=== PATIENT | female | born 1965 | race African-American/Black ===

== ENCOUNTER 2016-10-17 11:07 | Day surgery (SDC) | payer MEDICARE, OTHER ==
--- NOTE | 2016-10-16 17:45 | PDOC1 ---
History and Physical Date of Admission Date of Admission DATE: 10/17/16 Identification/Chief Complaint Chief Complaint left knee pain Source Source: Chart review History of Present Illness History of Present Illness Sonia continues to have left knee pain. She has been treated nonoperatively for this since November 2015. with injections and physical therapy, without relief. She has had a couple of falls that required evaluation of the hospital, such as in November 2015, but she thinks this was related to her blood pressure medication. The pain is worse when walking on uneven ground or going up and downstairs. She had a left knee MRI on 09/19/16 which showed degenerative medial meniscus, a loose body, a medial femoral condyle cartilage defect, and patella chondromalacia. Past Medical History Cardiovascular: HTN, Hyperlipidemia Pulmonary: Asthma CENTRAL NERVOUS SYSTEM: Periperal neuropathy GI: GERD Heme/Onc: Iron deficiency Anemia Hepatobiliary: No pertinent hx Psych: No pertinent hx Rheumatologic: No pertinent hx Infectious disease: No pertinent hx Renal/: Chronic renal failure (requiring hemodialysis ) Endocrine: Diabetes Past Surgical History Past Surgical History: Cholecystectomy, Cataract Removal, Hysterectomy Family History Family History: Asthma, Cancer, Coronary Artery Disease, Diabetes, Hypertension , Other Social History ALCOHOL: none Drugs: None Current Medications Current Medications Current Medications Ondansetron HCl (Zofran) 4 mg PRN Q6HRS PRN IV Nausea; Start 10/17/16 at 07:00; Stop 10/18/16 at 06:59 Fentanyl Citrate (Fentanyl 2ml Vial) 25 mcg PRN Q5MIN PRN IV MILD PAIN; Start 10/17/16 at 07:00; Stop 10/18/16 at 06:59 Fentanyl Citrate 50 mcg 50 mcg PRN Q5MIN PRN IV MODERATE PAIN; Start 10/17/16 at 07:00; Stop 10/18/16 at 06:59 Lactated Ringer's (Iv Lactated Ringers) 1,000 ml @ 0 mls/hr Q0M IV ; Start 10/17 at 07:00; Stop 10/17/16 at 18:59 Lidocaine HCl 2 ml 1X PRN PRN ID IV START; Start 10/17/16 at 07:00; Stop at 06:59 Prochlorperazine Edisylate (Compazine) 5 mg PACU PRN PRN IV NAUSEA; Start at 07:00; Stop 10/18/16 at 06:59 Active Scripts Active Aranesp Syringe (Darbepoetin [place] In Polysorbat) 100 Mcg/0.5 Ml Disp.syrin 100 Mcg SQ WEEKLYHS Colace (Docusate Sodium) 100 Mg Capsule 100 Mg PO BID Duoneb 0.5-3(2.5) Mg/3 Ml (Albuterol/Ipratropium) 3 Ml Ampul.neb 3 Ml NEB RTQID Mapap (Acetaminophen) 325 Mg Tablet 650 Mg PO PRN Q6HRS PRN Lipitor (Atorvastatin Calcium) 40 Mg Tablet 40 Mg PO QHS Protonix (Pantoprazole Sodium) 40 Mg Tablet 40 Mg PO DAILYAC Reported Midodrine Hcl 2.5 Mg Tablet 2.5 Mg PO WEEKLY Damaris-Tiffanie Tablet (Folic Acid/Vitamin B Comp W-C) 0.8 Mg Tablet 0.8 Mg PO DAILY Damaris-Tiffanie Tablet (Folic Acid/Vitamin B Comp W-C) 0.8 Mg Tablet 0.8 Mg PO DAILY Lantus (Insulin Glargine,Hum.rec.anlog) 100 Unit/1 Ml Vial 45 Unit SQ BID Amitriptyline Hcl 25 Mg Tablet 25 Mg PO DAILY Ambien (Zolpidem Tartrate) 10 Mg Tablet 10 Mg PO HS PRN Novolog (Insulin Aspart) 100 Unit/1 Ml Cartridge 10 Unit SQ TIDAC 10-15 per sliding scale Albuterol Sulfate Neb Soln (Albuterol Sulfate) 2.5 Mg/3 Ml Vial.neb 2.5 Mg NEB PRN Q2HRS PRN Gabapentin 300 Mg Capsule 600 Mg PO BID Children's Aspirin (Aspirin) 81 Mg Tab.chew 81 Mg PO DAILY Lisinopril 40 Mg Tablet 40 Mg PO DAILY Allergies Allergies: Coded Allergies: aloe vera (Verified Allergy, Severe, Shortness of Air, 12/03/14) morphine (Verified Allergy, Severe, Hives, 12/01/14) HALLUCINATIONS, SEE SPOTS, ASTHMA FLARES [place] And Derivatives (Verified Allergy, Intermediate, 12/01/14) Sulfa (Sulfonamide Antibiotics) (Verified Allergy, Intermediate, Hives, ) adhesive (Verified Allergy, Intermediate, 09/19/15) codeine (Verified Adverse Reaction, Severe, Hives, 11/24/14) HALLUCINATIONS, SEE SPOTS ibuprofen (Verified Adverse Reaction, Severe, Shortness of Air, 11/24/14) naproxen (Verified Adverse Reaction, Severe, Shortness of Air, 11/24/14) oxycodone (Verified Adverse Reaction, Severe, Shortness of Air, 11/24/14) HALLUCINATIONS, HIVES, SEE SPOTS tramadol (Verified Adverse Reaction, Severe, Shortness of Air, 11/24/14) HALLUCINATIONS, HIVES, SEE SPOTS hydromorphone (Verified Adverse Reaction, Intermediate, 09/19/15) Physical Exam General: Alert, Oriented X3, Cooperative, No acute distress HEENT: Atraumatic Lungs: Normal air movement Heart: RRR Abdomen: Soft Extremities: No clubbing, No cyanosis, Normal pulses Skin: No rashes, No breakdown, No significant lesion Neuro: Normal speech, Sensation intact Psych/Mental Status: Mental status NL, Mood NL VTE Prophylaxis Ordered VTE Prophylaxis Devices: Yes VTE Pharmacological Prophylaxi: Yes Assessment/Plan Assessment/Plan Left knee loose body. Dr. Wright recommended arthroscopic loose body removal. We will assess her medial meniscus for possible tear, and we will do a basic chondroplasty and cleanup of her knee, such as the medial femoral condyle defect seen on the MRI. That defect is probably from the loose body although it could be from other sources. She has only minimal degenerative changes now, so an arthroscopic procedure should relieve the majority of her symptoms. We discussed potential risks of arthroscopic surgery, including risks of bleeding, infection, progressive arthritis, blood clots, or other potential surgical or anesthetic complications. All of the patient's questions were answered and they desire to proceed with surgery. She stated understanding of the risks benefits and alternatives and desires to proceed. JOLLY NANCE Oct 16, 2016 17:45
[~2016-10-17] VITALS: Ht 160 cm; Wt 104.3 kg
[~2016-10-17 11:07] MED LIST: ACET325T16 PO; ALBU2.5V5 NEB; AMIT25TA PO; AMLO10TA2 PO; ASPI81TA44 PO; ATOR40TA PO; Albuterol Sulfate NEB; BENZ100C2 PO; BUME1TAB PO; BUPIVACAINE-EPI 0.25%-1:200000 50 ML VIAL. ONE; CARV6.25 PO; CEFAZOLIN 2GM PREMIX 50 ML IV ONE; DARB100D SQ; DOCU-27 PO; EPINEPHRINE 30 MG/30 ML VIAL. ONE; ERYT250T16 PO; Erythromycin Base PO; FENTANYL PF 100 MCG/2 ML VIAL. IV PRN; FERR142T5 PO; FLUC150T PO; FLUT1DIS3 INH; FOLI0.8T21 PO; FURO-69 PO; GABA-586 PO; GABA-587 PO; HYDR-2868 PO; HYDR-2869 PO; Hydralazine Hcl PO; INSU100C4 SQ; INSU100I13 SQ; INSU100I17 SQ; INSU100V13 SQ; INSU100V31 SQ; INSU100V8 SQ; IPRA3AMP NEB; ISOS30TA4 PO; IV RINGERS,LACTATED 1000ML 1,000 ML IV SCH; LIDOCAINE 1% 1 ML SYRINGE. ID PRN; LISI40TA PO; LOSA25TA4 PO; Lactulose PO; METO25TA4 PO; METO5TAB4 PO; MIDO2.5T PO; ONDA4TAB7 PO; ONDANSETRON PF 4 MG/2 ML VIAL. IV PRN; PANT40TA3 PO; POLY17PO5 PO; POTA20TA84 PO; PROCHLORPERAZINE 10 MG/2 ML VIAL. IV PRN; ZOLP10TA PO
[2016-10-17] MEDS ORDERED: ONDANSETRON PF 4 MG/2 ML VIAL. ONE (11:18)
[2016-10-17] MEDS ORDERED: FENTANYL PF 250 MCG/5 ML VIAL. ONE (11:18)
[2016-10-17] MEDS ORDERED: LIDOCAINE 2% 100 MG/5 ML DISP.SYRIN. ONE (11:18)
[2016-10-17] MEDS ORDERED: MIDAZOLAM HCL 2 MG/2 ML VIAL. ONE (11:18)
[2016-10-17] MEDS ORDERED: DEXAMETHASONE SOD PHOS 20 MG/5 ML VIAL. ONE (11:18)
[2016-10-17] MEDS ORDERED: PROPOFOL 20 ML IV ONE (11:18)
[2016-10-17 12:15] LABS: CREATININE 2.9 mg/dL (0.6-1.0); GFR 20.6; POTASSIUM 3.9 mmol/L (3.5-5.1)
[2016-10-17] MEDS ORDERED: IV NORMAL SALINE 1000ML BAG 1,000 ML IV SCH (12:15)
[2016-10-17] MEDS ORDERED: EPHEDRINE SULFATE 50 MG/ML VIAL. ONE (14:07)
--- NOTE | 2016-10-17 14:59 | PDOC ---
BRIEF OPERATIVE NOTE Date: Oct 17, 2016 Pre-Op Diagnosis left knee loose body Post-Op Diagnosis left knee loose body Procedure Performed left knee loose body arthroscopic removal Surgeon shima sims Anesthesia Type: General Blood Loss 5 mL Specimens Obtained loose body Findings left knee loose body Complications none Additional Remarks tourniquet 29 minutes dictated DEIDRA GUTHRIE MD Oct 17, 2016 14:59
[2016-10-17] MEDS: FENTANYL PF 100 MCG/2 ML VIAL. IV PRN ×2 (15:11→15:30)
[2016-10-17] MEDS ORDERED: HYDR-2679 PO (15:19)
[2016-10-17] MEDS ORDERED: ASPI325T11 PO (15:24)
[2016-10-17] MEDS ORDERED: HYDROCODONE/APAP 7.5/325MG TABLET. ONE (15:27)
[2016-10-17] MEDS ORDERED: HYDROCODONE/APAP 7.5/325MG TABLET. PO ONE (15:30)
[2016-10-17 16:10] VITALS: BP 171/82
--- NOTE | 2016-10-17 16:54 | OP ---
DATE OF SURGERY: 10/17/2016 PREOPERATIVE DIAGNOSIS: Left knee loose body. POSTOPERATIVE DIAGNOSIS: Left knee loose body. PROCEDURE: Left knee arthroscopy with loose body removal, 30 mm in length (3 cm). SURGEON: Triston Wright MD PHARM SPEC: Sulema Morales PA-C. ANESTHESIA: General. ESTIMATED BLOOD LOSS: Minimal. TOURNIQUET TIME: Approximately 30 minutes. COMPLICATIONS: None. SPECIMENS: Loose body. DRAINS: None. INDICATIONS: The patient is a 50-year-old woman who had an injury to her knee in November. She has had pain and mechanical symptoms since then. X-rays and MRI show what appears to be a bony loose body in the front of the knee joint approximately 29-30 mm in length. She has some cartilage loss on the medial femoral condyle, but no apparent meniscal tears. She has tried nonoperative treatment without success including a cortisone injection. She and I talked about arthroscopic loose body removal. We talked about potential risks of surgery such as bleeding, infection, neurovascular injury, persistent symptoms, blood clots, or other potential surgical or anesthetic complications. All of her questions about surgery were answered and she desired to proceed. Written consent was obtained. DESCRIPTION OF PROCEDURE: The patient was identified in the preoperative holding area. The correct left knee was marked by me. She was taken to the operating room where a general anesthetic was used. Preoperative antibiotics were given intravenously. A timeout procedure was performed. The right leg was placed in a padded lithotomy leg stephens. The left leg had a tourniquet applied on the upper thigh and was placed in a thigh brace with the end of the bed flexed. A timeout procedure was performed. The limb was prepped sterilely and sterile drapes were applied. Local anesthetic with epinephrine, 20 mL of 0.25% Marcaine with epinephrine was injected into the knee joint. The limb was exsanguinated with an Esmarch bandage and the tourniquet was inflated to 350 mmHg. Lateral and medial arthroscopy portals were established. The medial joint line showed chondromalacia [place] grade 3 and a shaving chondroplasty was performed. The medial meniscus was intact and not torn and was stable to probing. The intercondylar notch showed the large osteocartilaginous loose body approximately 3 cm in diameter. The ACL and PCL were intact. The lateral joint line showed normal articular surfaces and normal lateral meniscus. The patellofemoral joint showed chondromalacia [place] grade 2 or 3 with central trochlear defect about 5 mm wide and 10-12 mm in length. Shaving chondroplasty was performed minimally. The suprapatellar pouch, medial and lateral gutters were free of additional loose bodies. The intercondylar notch loose body was now addressed further. Shaving was used to free it up where it had scarred into the synovium. The loose body was now removed. This required an enlarged lateral portal, and the loose body was now taken to the back table. It was measured with a ruler and a photograph of it was taken. It has an unusual, soft, rubbery composition with a central bony aspect. Copious irrigation was used. The shaver again was used for careful shaving debridement to make sure all the bony fragments were removed. I had Sulema irrigate the knee a final time and then she removed the arthroscopic instruments. She closed the portals with 3-0 Prolene interrupted sutures. Additional local anesthetic with epinephrine was injected. Xeroform and sterile dressings were applied. Needle and sponge counts were correct. There were no apparent complications. Triston Wright MD DR: SAVANNAH/lottie JOB#: [id number] / [id number] SHANTI
--- NOTE | 2016-10-21 13:09 | PATHOLOGY ---
PATHOLOGY REPORT * * * * * * * * FINAL DIAGNOSIS: Segment of bone and fibroadipose tissue, left knee: - Loose body comprised of bone and fibroadipose tissue showing fat necrosis, calcification, and focal chronic inflammation. (JPM:all; d/t: 10/21/2016) REPORT ELECTRONICALLY SIGNED BY: Mo Dominguez M.D. DATE/TIME: 10/21/2016 13:03 * * * * * * * * GROSS PATHOLOGY: The specimen is received in formalin labeled "Uriel Craig, loose body left knee". Received is a segment of partially calcified white-golden fibrous soft tissue measuring 3.1 x 1.7 x 1.2 cm in greatest dimensions. The specimen is submitted representatively in cassette A1, following light decalcification. (CAA; 10/20/2016) INITIAL CPT CODE(S): A; 94399, 61794 Professional services performed [place] [facility] [place] [address] Technical services performed by [facility] at [address] [place] [address], [facility] [address] [address]. SPECIMEN(S) RECEIVED: A.Loose body left knee CLINICAL HISTORY: Left knee loose body PATIENT: URIEL CRAIG /AGE: 2 1965 (Age: 50) PATIENT #: [id number] ALT CASE #: SPECIMEN COLLECTION DATE: 10/17/2016 SPECIMEN RECEIVED DATE: 10/20/2016 [facility] - [address] [place] [address] - PHONE: [phone] * * * END OF REPORT * * *
== END 2016-10-17 16:34 | disposition home or self-care (01) ==
LOC: SURG 11:07
PROVIDERS: ATTEND Orthopaedic Surgery
DX: M23.42 Loose body in knee, left knee (principal); E78.5 Hyperlipidemia, unspecified; J45.909 Unspecified asthma, uncomplicated; G62.9 Polyneuropathy, unspecified; K21.9 Gastro-esophageal reflux disease without esophagitis; Z90.710 Acquired absence of both cervix and uterus; Z90.49 Acquired absence of other specified parts of digestive tract; I12.0 Hypertensive chronic kidney disease with stage 5 chronic kidney disease or end stage renal disease; Z99.2 Dependence on renal dialysis; E11.22 Type 2 diabetes mellitus with diabetic chronic kidney disease; N18.9 Chronic kidney disease, unspecified; E66.9 Obesity, unspecified; D64.9 Anemia, unspecified
CPT/HCPCS: 29874; 36415; 80048; 82947; 88304; 88311; J0171; J0690; J0780; J1100; J2250; J2405; J2704; J3010

== ENCOUNTER 2016-10-31 12:17 | Emergency (ER) | payer MEDICARE, OTHER ==
[~2016-10-31] VITALS: Ht 162.6 cm; Wt 104.3 kg
[~2016-10-31 12:17] MED LIST changes: +ASPI325T11 PO; -BUPIVACAINE-EPI 0.25%-1:200000 50 ML VIAL. ONE; -CEFAZOLIN 2GM PREMIX 50 ML IV ONE; -EPINEPHRINE 30 MG/30 ML VIAL. ONE; -FENTANYL PF 100 MCG/2 ML VIAL. IV PRN; +HYDR-2679 PO; -IV RINGERS,LACTATED 1000ML 1,000 ML IV SCH; -LIDOCAINE 1% 1 ML SYRINGE. ID PRN; -ONDANSETRON PF 4 MG/2 ML VIAL. IV PRN; -PROCHLORPERAZINE 10 MG/2 ML VIAL. IV PRN
[2016-10-31] MEDS ORDERED: ONDANSETRON PF 4 MG/2 ML VIAL. IV ONE (15:00)
[2016-10-31] MEDS ORDERED: FENTANYL PF 100 MCG/2 ML VIAL. IV ONE (15:00)
[2016-10-31 15:32] LABS: CALCIUM 9.3 mg/dL (8.5-10.1); CREATININE 3.5 mg/dL (0.6-1.0); GFR 16.6; POTASSIUM 5.9 mmol/L (3.5-5.1)
--- NOTE | 2016-10-31 15:45 | PHYS DOC ---
Past Medical History Past Medical History: Asthma, CHF, Diabetes-Type II, High Cholesterol, Hypertension, Renal Failure, Other Additional Past Medical Histor: ASTHMA, HTN, HIGH CHOL., DM II Past Surgical History: Other Additional Past Surgical Histo: BIOPSY RT BREAST, RT CHEST SHUNT PLACE AND REMOV, AV FISTULA LEFT ARM Alcohol Use: None Drug Use: None Adult General Chief Complaint Chief Complaint: CONTISPATION [facility] HPI Patient is a 50 year old female with chronic intermittent constipation who presents with constipation for the past 4 days. She states she is currently taking pain medications for recent knee surgery and has tried stool softeners, but cannot have bowel movement. She has tried manual disimpaction with soft stool present. She now has left lower quadrant abdominal pain as well as rectal pain after multiple attempts at straining. She states when she gets like this, only enemas help. She has mild nausea, without emesis. She denies dysuria, hematuria, back pain, fever or chills, pain with eating, rectal bleeding, bloody stools. Review of Systems Review of Systems Constitutional: Denies fever or chills [] Eyes: Denies change in visual acuity, redness, or eye pain [] HENT: Denies nasal congestion or sore throat [] Respiratory: Denies cough or shortness of breath [] Cardiovascular: No additional information not addressed in HPI [] GI: Denies vomiting, bloody stools or diarrhea [] : Denies dysuria or hematuria [] Musculoskeletal: Denies back pain or joint pain [] Integument: Denies rash or skin lesions [] Neurologic: Denies headache, focal weakness or sensory changes [] Endocrine: Denies polyuria or polydipsia [] Current Medications Current Medications Current Medications Medications (Trade) Dose Ordered Sig/[facility] Start Time Stop Time Status Last Admin Dose Admin Fentanyl Citrate (Fentanyl 2ml Vial) 75 mcg 1X ONCE 10/31/16 15:00 10/31/16 15:01 DC 10/31/16 16:05 75 MCG Ondansetron HCl (Zofran) 4 mg 1X ONCE 10/31/16 15:00 10/31/16 15:01 DC 10/31/16 16:04 4 MG Allergies Allergies Allergies Coded Allergies Type Severity Reaction Last Updated Verified aloe vera Allergy Severe Shortness of Air 10/17/16 Yes morphine Allergy Severe Hives 10/17/16 Yes [place] And Derivatives Allergy Intermediate 10/17/16 Yes Sulfa (Sulfonamide Antibiotics) Allergy Intermediate Hives 10/17/16 Yes adhesive Allergy Intermediate 10/17/16 Yes codeine Adverse Reaction Severe Hives 10/17/16 Yes ibuprofen Adverse Reaction Severe Shortness of Air 10/17/16 Yes naproxen Adverse Reaction Severe Shortness of Air 10/17/16 Yes oxycodone Adverse Reaction Severe Shortness of Air 10/17/16 Yes tramadol Adverse Reaction Severe Shortness of Air 10/17/16 Yes hydromorphone Adverse Reaction Intermediate 10/17/16 Yes Physical Exam Physical Exam Constitutional: Well developed, well nourished, no acute distress, non-toxic appearance. [] HENT: Normocephalic, atraumatic, bilateral external ears normal, oropharynx moist, nose normal. [] Eyes: PERRLA, EOMI. [] Neck: Normal range of motion, supple. [] Cardiovascular:Heart rate regular rhythm [] Lungs & Thorax: Bilateral breath sounds clear to auscultation [] Abdomen: Bowel sounds normal, soft, mild left lower quadrant tenderness, no guarding or rebound, soft brown stool is present in the vault. [] Skin: Warm, dry, no erythema, no rash. [] Back: No tenderness, no CVA tenderness. [] Extremities: No tenderness, ROM intact, no edema. [] Neurologic: Alert and oriented X 3, normal motor function, normal sensory function, no focal deficits noted. [] Psychologic: Affect normal, judgement normal, mood normal. [] Current Patient Data Vital Signs Vital Signs Date Time Temp Pulse Resp B/P Pulse Ox O2 Delivery O2 Flow Rate FiO2 10/31/16 17:37 92 18 208/99 100 Room Air 10/31/16 17:34 2 10/31/16 14:03 98.1 98.1 Lab Values Laboratory Tests Test 10/31/16 15:10 Sodium Level 140mmol/L (136-145) Potassium Level 5.9mmol/L (3.5-5.1) H Chloride Level 103mmol/L (98-107) Carbon Dioxide Level 28mmol/L (21-32) Anion Gap 9 (6-14) Blood Urea Nitrogen 38mg/dL (7-20) H Creatinine 3.5mg/dL (0.6-1.0) H Estimated GFR (Cockcroft-Gault) 16.6 Glucose Level 267mg/dL (70-99) H Calcium Level 9.3mg/dL (8.5-10.1) Laboratory Tests 10/31/16 15:10 Radiology/Procedures Radiology/Procedures Acute abdominal series as interpreted by me with nonobstructive bowel gas pattern, large amount of stool present, no acute cardiopulmonary disease process seen Course & Med Decision Making Course & Med Decision Making Pertinent Labs and Imaging studies reviewed. (See chart for details) Workup is unremarkable here other than mild hyperkalemia. She will go to dialysis for this. She has large bowel movement and felt much better after enema. Return precautions given. She understands and agrees with plan. Dragon Disclaimer Dragon Disclaimer This electronic medical record was generated, in whole or in part, using a voice recognition dictation system. Departure Departure Impression: Primary Impression: Constipation Additional Impression: Abdominal pain Disposition: HOME, SELF-CARE Condition: STABLE Referrals: YAMILKA MENDEZ MD (PCP) Patient Instructions: Constipation, Adult, [id number] Additional Instructions: Take MiraLAX 1-2 times daily as needed for constipation. Take Colace 2 times per day to help soften stools and prevent constipation. Follow-up with your primary care doctor. Return for any concerns. Scripts Docusate Sodium (Colace)100 Mg Capsule1 Cap PO BID #60 CAP Prov:Joel JUAREZ MD 10/31/16 Polyethylene Glycol 3350 (Miralax)119 Gm [id number] Gm PO DAILY #255 GM Prov:Joel JUAREZ MD 10/31/16 Problem Qualifiers Primary Impression: Constipation Constipation type: unspecified constipation type Qualified Code: K59.00 - Constipation, unspecified Additional Impression: Abdominal pain Abdominal location: left lower quadrant Qualified Code: R10.32 - Left lower quadrant pain Joel JUAREZ MD Oct 31, 2016 15:45
--- NOTE | 2016-10-31 16:08 | RAD ---
Supine and upright views of the abdomen with PA view chest x-ray History: Lower abdominal pain and constipation for 3 days. Findings: There is moderate fecal retention within the rectum. There is mild fecal retention within the rest of the colon. No obstructive bowel pattern is seen otherwise. No air-fluid levels or free intraperitoneal air is seen. Surgical clips are seen within the right mid abdomen. Vascular calcifications are present. Chest x-ray is compared to a prior study dated May 03, 2005. The heart size is mildly enlarged but stable. The mediastinum and pulmonary vasculature and both darren are stable. No acute lung infiltrate or pleural effusion or pulmonary edema or pneumothorax is seen. IMPRESSION: Moderate fecal retention within the rectum.
[2016-10-31] MEDS ORDERED: DOCU-27 PO (17:22)
[2016-10-31] MEDS ORDERED: POLY119P4 PO (17:22)
[2016-10-31 17:37] VITALS: BP 208/99
== END 2016-10-31 18:00 | disposition home or self-care (01) ==
LOC: ER 12:17
DX: K59.00 Constipation, unspecified (principal); J45.909 Unspecified asthma, uncomplicated; E11.22 Type 2 diabetes mellitus with diabetic chronic kidney disease; I12.9 Hypertensive chronic kidney disease with stage 1 through stage 4 chronic kidney disease, or unspecified chronic kidney disease; E78.00 Pure hypercholesterolemia, unspecified; I13.0 Hypertensive heart and chronic kidney disease with heart failure and stage 1 through stage 4 chronic kidney disease, or unspecified chronic kidney disease; I50.9 Heart failure, unspecified; N18.9 Chronic kidney disease, unspecified; Z88.2 Allergy status to sulfonamides; Z88.6 Allergy status to analgesic agent; Z88.5 Allergy status to narcotic agent; Z91.018 Allergy to other foods; Z91.048 Other nonmedicinal substance allergy status
CPT/HCPCS: 36415; 74022; 80048; 96374; 96375; 99285; J2405; J3010

== ENCOUNTER → 2016-12-10 | Outpatient (CLI) | payer MEDICARE, OTHER ==
[~2016-12-10] MED LIST changes: +POLY119P4 PO
--- NOTE | 2016-12-10 10:23 | KCIC ---
PROCEDURE MRI study of the right shoulder without contrast HISTORY Right shoulder pain. Pain has been present for 2 months. Decreased range of motion. Weakness. TECHNIQUE Noncontrast MRI sequences of the right shoulder were performed in all 3 planes. COMPARISON None available. FINDINGS Patient motion artifact is evident. There is diffuse increased signal of the supraspinatus tendon consistent with tendinosis. There is a partial articular surface tear of the supraspinatus tendon which extends through at least 50 percent of the thickness of the tendon. There is tendinosis of the lateral aspect of the infraspinatus tendon as well. A partial articular surface tear may be present here as well. These findings may be further evaluated with MRI arthrography if clinically needed. Otherwise no complete tear of this portion of the rotator cuff is evident. There is tendinosis of the subscapularis tendon but no complete tear of this tendon is seen. The tendon of the long head of the biceps is intact. Mild subdeltoid and subacromial bursitis is seen. There is mild primary degenerative osteoarthritis and spurring of the right AC joint. Type 3 acromial process is seen. There is mild spurring of the lateral inferior edge of the acromial process. These findings may impinge the acromial humeral space. No bone contusion or fracture or marrow infiltrative process is seen. There is degenerative signal abnormality of the superior and posterior aspects of the glenoid labrum. Evaluation for degenerative tear is difficult on this study but no definite tear is visualized. No paralabral or spinoglenoid notch ganglion cyst is seen. Small glenoid humeral joint effusion is seen. The articular cartilage of the humeral head is not well defined in this study. No prominent spurring of the glenohumeral joint is seen. No loose osteochondral body is seen. IMPRESSION Tendinosis and partial articular surface tears of the supraspinatus and infraspinatus tendons. No complete rotator cuff tear is evident. Mild subdeltoid and subacromial bursitis. Impingement of the acromial humeral space. Electronically signed by: Aaron Mcgraw MD (Dec 10, 2016 10:21:37)
== END | disposition home or self-care (01) ==
LOC: KCIC MRI 08:39
PROVIDERS: ATTEND Orthopaedic Surgery
DX: M25.511 Pain in right shoulder (principal)
CPT/HCPCS: 73221

== ENCOUNTER → 2017-04-07 | Outpatient (CLI) | payer MEDICARE, OTHER ==
[~2017-04-07] MED LIST changes: +BENZ100C15 PO; -BENZ100C2 PO; +DOCU-109 PO; -DOCU-27 PO; -FERR142T5 PO; +POLY17PO29 PO; -POLY17PO5 PO; +SLOW RELEASE I142 MG PO
--- NOTE | 2017-04-07 13:38 | KCIC ---
Five-view cervical spine HISTORY: Neck pain extending into the right shoulder. Fell downstairs 5 days ago. FINDINGS: C1 through most of C7 are visualized on the lateral view. Mild marginal degenerative osteophytes are identified. Disc spaces are otherwise grossly intact. No significant subluxation. Straightening of the normal cervical lordosis. Vertebral body alignment through C7-T1 appears grossly maintained on swimmer's view. The prevertebral soft tissues are poorly defined. IMPRESSION: Mild degenerative changes. No definite acute abnormality. Poor definition of the prevertebral soft tissues. Consider MRI cervical spine for further evaluation as indicated. Electronically signed by: Lei Lopez MD (04/07/2017 1:35 PM)
== END | disposition home or self-care (01) ==
LOC: KCIC 12:00
PROVIDERS: ATTEND Family Medicine
DX: M47.892 Other spondylosis, cervical region (principal); W10.9XXA Fall (on) (from) unspecified stairs and steps, initial encounter
CPT/HCPCS: 72040

== ENCOUNTER → 2017-04-24 | Outpatient (CLI) | payer MEDICARE, OTHER ==
--- NOTE | 2017-04-26 17:31 | CARD ---
APPROVED REPORT EXAM: Two-dimensional and M-mode echocardiogram with Doppler and color Doppler. Other Information Quality : GoodHR: 82bpm Rhythm : NSR INDICATION Cardiomyopathy RISK FACTORS Hypertension Obesity Diabetes 2D DIMENSIONS RVDd2.4 (2.9-3.5cm)Left Atrium(2D)3.8 (1.6-4.0cm) IVSd1.2 (0.7-1.1cm)Aortic Root(2D)3.0 (2.0-3.7cm) LVDd4.9 (3.9-5.9cm)LVOT Diameter2.3 (1.8-2.4cm) PWd1.2 (0.7-1.1cm)LVDs3.9 (2.5-4.0cm) FS (%) 20.4 %SV48.0 ml LVEF(%)41.6 (>50%) M-Mode DIMENSIONS LVDd4.65 (4.0-5.6cm)FS (%) 25 % LVDs3.47 (2.0-3.8cm)ESV(Teich)49.8 ml LVEF(%)50 (>50%) Aortic Valve AoV Peak Cezar.133.4cm/sAoV VTI26.8cm AO Peak GR.7.1mmHgLVOT Peak Cezar.87.3cm/s AO Mean GR.5mmHgAVA (VMAX)2.60cm2 Mitral Valve MV E Actsuhnd30.1cm/sMV E Peak Gr.2mmHg MV DECEL [id number] A Ijpafoew97.1cm/s MV E Mean Gr.1mmHgE/A Ratio0.8 MV A [id number] Pulmonary Valve PV Peak Imxfeclx454.3cm/s Pulmonary Vein S1 Wxkiavia40.0cm/sD2 Pfgcyoge02.0cm/s PVa [id number] LEFT VENTRICLE The left ventricle is normal size. There is mild concentric left ventricular hypertrophy. Left ventri trini systolic function is mild to moderately impaired. The Ejection Fraction is 40%. There is mild to moderate global hypokinesis of the left ventricle. Transmitral Doppler flow pattern is Grade I-abnorm al relaxation pattern. No left ventricle thrombus noted on this study. RIGHT VENTRICLE The right ventricle is normal size. There is normal right ventricular wall thickness. The right ventr icular systolic function is normal. ATRIA The left atrium size is normal. The right atrium size is normal. The interatrial septum is intact wit h no evidence for an atrial septal defect or patent foramen ovale as noted on 2-D or Doppler imaging. AORTIC VALVE The aortic valve is mildly thickened. The aortic valve is trileaflet. Doppler and Color Flow revealed no significant aortic regurgitation. There is no significant aortic valvular stenosis. MITRAL VALVE The mitral valve leaflets are mildy thickened. There is no evidence of mitral valve prolapse. There i s no mitral valve stenosis. Doppler and Color Flow revealed no mitral valve regurgitation noted. TRICUSPID VALVE Doppler and Color Flow revealed trace tricuspid valve regurgitation. PULMONIC VALVE The pulmonary valve is not well visualized but appears to opens well. Doppler and Color Flow revealed pulmonic valvular regurgitation. There is no pulmonic valvular stenosis by spectral Doppler. GREAT VESSELS The aortic root is normal in size. The ascending aorta is normal in size. The pulmonary artery is nor mal. The IVC is normal in size and collapses >50% with inspiration. PERICARDIAL EFFUSION There is no evidence of significant pericardial effusion. Critical Notification Critical Value: No <Conclusion> Left ventricle systolic function is mild to moderately impaired. The Ejection Fraction is 40%. Transmitral Doppler flow pattern is Grade I-abnormal relaxation pattern. Trace tricuspid valve regurgitation. There is no evidence of significant pericardial effusion.
== END | disposition home or self-care (01) ==
LOC: ECHO 09:00
PROVIDERS: ATTEND Internal Medicine Cardiovascular Disease
DX: I07.1 Rheumatic tricuspid insufficiency (principal)
CPT/HCPCS: 93306

== ENCOUNTER 2017-05-14 18:53 | Emergency (ER) | payer MEDICARE, OTHER ==
[~2017-05-14] VITALS: Ht 160 cm; Wt 104.3 kg
--- NOTE | 2017-05-14 19:25 | PHYS DOC ---
Past Medical History Past Medical History: Asthma, CHF, Diabetes-Type II, High Cholesterol, Hypertension, Renal Failure, Other Additional Past Medical Histor: ASTHMA, HTN, HIGH CHOL., DM II Past Surgical History: Other Additional Past Surgical Histo: BIOPSY RT BREAST, RT CHEST SHUNT PLACE AND REMOV, AV FISTULA LEFT ARM Alcohol Use: None Drug Use: None Adult General Chief Complaint Chief Complaint: Congestion HPI HPI Patient is a 51 year old female sent to the emergency department with 2 day history of cough. Shortness of breath, positional. Denies lower extremity edema. Denies chest pain. Denies headache, nausea, vomiting.. Review of Systems Review of Systems Constitutional: Denies fever or chills [] Eyes: Denies change in visual acuity, redness, or eye pain [] HENT: Denies nasal congestion or sore throat [] Respiratory: Cough with his additional shortness of breath. Cardiovascular: Chest pain, no lower extremity edema, no calf tenderness GI: Denies abdominal pain, nausea, vomiting, bloody stools or diarrhea [] : Denies dysuria or hematuria [] Musculoskeletal: Denies back pain or joint pain, denies lower shimmy pain [] Integument: Denies rash or skin lesions [] Neurologic: Denies headache, focal weakness or sensory changes [] Endocrine: Denies polyuria or polydipsia [] Current Medications Current Medications Current Medications Medications (Trade) Dose Ordered Sig/[place] Start Time Stop Time Status Last Admin Dose Admin Acetaminophen (Tylenol) 1,000 mg 1X ONCE 05/14/17 21:00 05/14/17 21:01 DC 05/14/17 20:58 1,000 MG Albuterol/ Ipratropium (Duoneb) 3 ml 1X ONCE 05/14/17 19:30 05/14/17 19:31 DC 05/14/17 20:27 3 ML Hydralazine HCl (Apresoline) 10 mg 1X ONCE 05/14/17 19:45 05/14/17 19:46 DC Insulin Human Regular (NovoLIN R VIAL) 10 unit 1X ONCE 05/14/17 21:00 05/14/17 21:01 DC 05/14/17 21:00 10 UNIT Allergies Allergies Allergies Coded Allergies Type Severity Reaction Last Updated Verified aloe vera Allergy Severe Shortness of Air 10/17/16 Yes morphine Allergy Severe Hives 10/17/16 Yes [place] And Derivatives Allergy Intermediate 10/17/16 Yes Sulfa (Sulfonamide Antibiotics) Allergy Intermediate Hives 10/17/16 Yes adhesive Allergy Intermediate 10/17/16 Yes codeine Adverse Reaction Severe Hives 10/17/16 Yes ibuprofen Adverse Reaction Severe Shortness of Air 10/17/16 Yes naproxen Adverse Reaction Severe Shortness of Air 10/17/16 Yes oxycodone Adverse Reaction Severe Shortness of Air 10/17/16 Yes tramadol Adverse Reaction Severe Shortness of Air 10/17/16 Yes hydromorphone Adverse Reaction Intermediate 10/17/16 Yes Physical Exam Physical Exam Constitutional: Well developed, well nourished, non-toxic appearance. [] HENT: Normocephalic, atraumatic, bilateral external ears normal, oropharynx moist, no oral exudates, nose normal. [] Eyes: PERRLA, EOMI, conjunctiva normal, no discharge. [] Neck: Normal range of motion, no tenderness, supple, no JVD, no lymphadenopathy Cardiovascular:Heart rate regular rhythm, no murmur, no lower extremity edema [] Lungs & Thorax: Breath sounds diminished throughout. Bronchial cough throughout the ED visit. Abdomen: Bowel sounds normal, soft, no tenderness, no masses, no pulsatile masses. [] Skin: Warm, dry, no erythema, no rash. [] Back: No tenderness, no CVA tenderness. [] Extremities: No tenderness, no cyanosis, no clubbing, ROM intact, no edema, negative Homans. [] Neurologic: Alert and oriented X 3, normal motor function, normal sensory function, no focal deficits noted. [] Current Patient Data Vital Signs Vital Signs Date Time Temp Pulse Resp B/P (MAP) Pulse Ox O2 Delivery O2 Flow Rate FiO2 05/14/17 20:29 96 Room Air 05/14/17 20:09 94 18 184/89 (120) 05/14/17 19:12 98.3 98.3 Lab Values Laboratory Tests Test 05/14/17 19:20 05/14/17 19:45 05/14/17 20:13 POC Urine HCG, Qualitative Hcg negative (Negative) White Blood Count 9.8 x10^3/uL (4.0-11.0) Red Blood Count 3.32 x10^6/uL (3.50-5.40) L Hemoglobin 10.8 g/dL (12.0-15.5) L Hematocrit 32.7 % (36.0-47.0) L Mean Corpuscular Volume 98 fL (79-100) Mean Corpuscular Hemoglobin 33 pg (25-35) Mean Corpuscular Hemoglobin Concent 33 g/dL (31-37) Red Cell Distribution Width 14.0 % (11.5-14.5) Platelet Count 262 x10^3/uL (140-400) Neutrophils (%) (Auto) 76 % (31-73) H Lymphocytes (%) (Auto) 14 % (24-48) L Monocytes (%) (Auto) 7 % (0-9) Eosinophils (%) (Auto) 2 % (0-3) Basophils (%) (Auto) 1 % (0-3) Neutrophils # (Auto) 7.4 x10^3uL (1.8-7.7) Lymphocytes # (Auto) 1.4 x10^3/uL (1.0-4.8) Monocytes # (Auto) 0.7 x10^3/uL (0.0-1.1) Eosinophils # (Auto) 0.2 x10^3/uL (0.0-0.7) Basophils # (Auto) 0.1 x10^3/uL (0.0-0.2) Sodium Level 137 mmol/L (136-145) Potassium Level 4.3 mmol/L (3.5-5.1) Chloride Level 100 mmol/L (98-107) Carbon Dioxide Level 28 mmol/L (21-32) Anion Gap 9 (6-14) Blood Urea Nitrogen 22 mg/dL (7-20) H Creatinine 3.3 mg/dL (0.6-1.0) H Estimated GFR (Cockcroft-Gault) 17.7 BUN/Creatinine Ratio 7 (6-20) Glucose Level 476 mg/dL (70-99) H Calcium Level 8.9 mg/dL (8.5-10.1) Total Bilirubin 0.2 mg/dL (0.2-1.0) Aspartate Amino Transferase (AST) 18 U/L (15-37) Alanine Aminotransferase (ALT) 22 U/L (14-59) Alkaline Phosphatase 161 U/L (46-116) H Creatine Kinase 303 U/L (26-192) H Creatine Kinase MB (Mass) 1.5 ng/mL (0.0-3.6) Creatine Kinase MB Relative Index 0.5 % (0-4) Troponin I Quantitative < 0.017 ng/mL (0.000-0.055) UB-Vlt-V-Type Natriuretic Peptide 881 pg/mL (0-124) H Total Protein 7.2 g/dL (6.4-8.2) Albumin 3.3 g/dL (3.4-5.0) L Albumin/Globulin Ratio 0.8 (1.0-1.7) L Urine Color Yellow Urine Clarity Cloudy Urine pH 6.0 Urine Specific [place] 1.020 Urine Protein 100 mg/dL (NEG-TRACE) Urine Glucose (UA) >=1000 mg/dL (NEG) Urine Ketones (Stick) Negative mg/dL (NEG) Urine Blood Moderate (NEG) Urine Nitrite Negative (NEG) Urine Bilirubin Negative (NEG) Urine Urobilinogen Dipstick 0.2 mg/dL (0.2 mg/dL) Urine Leukocyte Esterase Small (NEG) Urine RBC 3-5 /HPF (0-2) Urine WBC 20-40 /HPF (0-4) Urine Squamous Epithelial Cells Occ /LPF Urine Bacteria 0 /HPF (0-FEW) Urine Yeast Present /HPF Laboratory Tests 05/14/17 19:45 Laboratory Tests 05/14/17 19:45 EKG EKG [] Radiology/Procedures Radiology/Procedures Chest x-ray reviewed by Dr. Antonio, emergency room physician. Patient with cardiomegaly, no effusions, no consolidation [] Course & Med Decision Making Course & Med Decision Making EKG reviewed by emergency room physician, Dr. Antonio, sinus rhythm without acute changes, non-STEMI. Lab, x-ray and EKG reviewed with Dr. Antonio. Patient has been treated for hyperglycemia and [facility] emergency department. Patient is allergic to codeine and refuses Tessalon Perles for her cough. She'll be discharged home with DuoNeb per nebulizer machine. I've spoken with the patient and her family. I've explained the patient's condition, diagnosis and treatment plan based on the information available to me at this time. I've answered the patient's and daughter's questions and a dressing concerns. The patient and her daughter have as good an understanding of the patient's diagnosis, condition and treatment plan as can be expected at this point. Vital signs been stable. The patient's condition is stable and appropriate for discharge from the emergency department. The patient will pursue further outpatient evaluation with the primary care physician or other designated or consulting physician as outlined in the discharge instructions. The patient and her daughter are agreeable to this plan of care and follow-up instructions have been explained in detail. The patient and her daughter have received these instructions in written format and have expressed an understanding of the discharge instructions. The patient and her daughter are aware that any significant change in condition or worsening of symptoms should prompt an immediate return to this or the closest emergency department or call to 911. Pertinent Labs and Imaging studies reviewed. (See chart for details) [] Dragon Disclaimer Dragon Disclaimer This electronic medical record was generated, in whole or in part, using a voice recognition dictation system. Departure Departure Impression: Primary Impression: Asthma, cough variant Additional Impression: Hyperglycemia Disposition: 01 HOME, SELF-CARE Condition: STABLE Referrals: YAMILKA MENDEZ MD (PCP) Patient Instructions: Cough, Adult, Hyperglycemia, Hypertension Scripts Ipratropium/Albuterol Sulfate (DUONEB 0.5-3(2.5) MG/3 ML) 3 Ml Ampul.neb 3 ML NEB QID, #20 EACH Prov: CONCHITA TELLEZ APRN 05/14/17 Problem Qualifiers CONCHITA TELLEZ APRN May 14, 2017 19:25
[2017-05-14] MEDS ORDERED: IPRATRPIUM/ALBUTEROL 0.5/2.5MG 3 ML NEBU. NEB ONE (19:30)
[2017-05-14] MEDS ORDERED: hydrALAZINE 20 MG/ML VIAL. IVP ONE (19:45)
[2017-05-14 20:07] LABS: BASO # 0.1 x10^3/uL (0.0-0.2); BASO % 1 % (0-3); EOS % 2 % (0-3); HEMATOCRIT 32.7 % (36.0-47.0); HEMOGLOBIN 10.8 g/dL (12.0-15.5); LYMPH # 1.4 x10^3/uL (1.0-4.8); LYMPH % 14 % (24-48); MEAN CORPUSCULAR HEMOGLOBIN 33 pg (25-35); MEAN CORPUSCULAR HGB CONC 33 g/dL (31-37); MEAN CORPUSCULAR VOLUME 98 fL (79-100); MONO % 7 % (0-9); NEUT % 76 % (31-73); PLATELET COUNT 262 x10^3/uL (140-400); RED BLOOD COUNT 3.32 x10^6/uL (3.50-5.40); WHITE BLOOD COUNT 9.8 x10^3/uL (4.0-11.0)
[2017-05-14 20:19] LABS: BILIRUBIN,URINE NEGATIVE (NEG); GLUCOSE,URINE >=1000 mg/dL (NEG); NITRITE,URINE NEGATIVE (NEG); PROTEIN,URINE 100 mg/dL (NEG-TRACE); UROBILINOGEN,URINE 0.2 mg/dL (0.2 mg/dL)
[2017-05-14 20:24] LABS: BACTERIA,URINE 0 /HPF (0-FEW); SQUAMOUS EPITHELIAL CELL,UR OCC /LPF; WBC,URINE 20-40 /HPF (0-4)
[2017-05-14 20:25] LABS: CALCIUM 8.9 mg/dL (8.5-10.1); CREATININE 3.3 mg/dL (0.6-1.0); GFR 17.7; POTASSIUM 4.3 mmol/L (3.5-5.1)
[2017-05-14 20:25] LABS: YEAST,URINE PRESENT /HPF
[2017-05-14 20:31] LABS: ALBUMIN 3.3 g/dL (3.4-5.0); ALBUMIN/GLOBULIN RATIO 0.8 (1.0-1.7); TOTAL BILIRUBIN 0.2 mg/dL (0.2-1.0); TOTAL PROTEIN 7.2 g/dL (6.4-8.2)
[2017-05-14] MEDS ORDERED: ACETAMINOPHEN 500 MG TABLET PO ONE (21:00)
[2017-05-14] MEDS ORDERED: INSULIN REGULAR 100 UNIT/ML 10ML VIAL. IV ONE (21:00)
[2017-05-14 21:06] LABS: CKMB MASS 1.5 ng/mL (0.0-3.6)
[2017-05-14] MEDS ORDERED: IPRA3AMP NEB (21:15)
[2017-05-14 21:35] VITALS: BP 168/76
--- NOTE | 2017-05-15 07:31 | RAD ---
Chest radiograph 2 view 05/14/2017 Clinical indication: Cough. Comparison: Chest radiograph October 10, 2016. Findings: Heart size is upper limits of normal. No pleural effusion, pneumothorax or focal consolidation. Impression: No acute cardiopulmonary abnormality.
--- NOTE | 2017-05-15 07:40 | EKG ---
[facility] [address] [place] [address] Test Date: 2017-05-14 Test Time: 19:47:28 Pat Name: URIEL CRAIG Department: Room: Gender: F Focuser: : 1965 Requested By: CONCHITA TELLEZ Order Number: [id number] Reading MD: Erick Cabello Measurements Intervals [place] Rate: 88 P: 28 VA: 152 QRS: -13 QRSD: 84 T: 167 QT: 360 QTc: 439 Interpretive Statements SINUS RHYTHM LEFTWARD AXIS LVH WITH REPOLARIZATION ABNORMALITY RI6.01 Unconfirmed report Compared to ECG 12/12/2015 15:44:32 Left ventricular hypertrophy now present Early repolarization now present Electronically Signed On 05-15-2017 16:49:01 CDT by Erick Cabello
== END 2017-05-14 21:40 | disposition home or self-care (01) ==
LOC: ER 18:53
DX: J45.991 Cough variant asthma (principal); E11.65 Type 2 diabetes mellitus with hyperglycemia; I13.0 Hypertensive heart and chronic kidney disease with heart failure and stage 1 through stage 4 chronic kidney disease, or unspecified chronic kidney disease; E11.22 Type 2 diabetes mellitus with diabetic chronic kidney disease; N18.9 Chronic kidney disease, unspecified; I50.9 Heart failure, unspecified; E78.00 Pure hypercholesterolemia, unspecified; Z88.6 Allergy status to analgesic agent; Z91.02 Food additives allergy status; Z88.5 Allergy status to narcotic agent; Z88.2 Allergy status to sulfonamides; Z88.8 Allergy status to other drugs, medicaments and biological substances; Z91.048 Other nonmedicinal substance allergy status
CPT/HCPCS: 36415; 71020; 80053; 81001; 81025; 82553; 82962; 83880; 84484; 85027; 87086; 93005; 94250; 94640; 96374; 99285; C1887; J7620; J1815

== ENCOUNTER 2017-10-16 10:35 | Emergency (ER) | payer MEDICARE, OTHER ==
[2017-10-16 12:44] LABS: ADD MAN DIFF? NO
[2017-10-16] MEDS: fentaNYL PF VIAL 100 MCG/2 ML VIAL IV (12:52)
[2017-10-16] MEDS: ONDANSETRON PF 4 MG/2 ML VIAL. IV (12:52)
[2017-10-16] MEDS: DEXAMETHASONE SOD PHOS 20 MG/5 ML VIAL. IV (12:54)
[2017-10-16 12:55] LABS: BASO # 0.1 x10^3/uL (0.0-0.2); BASO % 1 % (0-3); EOS # 0.3 x10^3/uL (0.0-0.7); EOS % 4 % (0-3); HEMOGLOBIN 11.2 g/dL (12.0-15.5); LYMPH # 1.4 x10^3/uL (1.0-4.8); LYMPH % 20 % (24-48); MEAN CORPUSCULAR HEMOGLOBIN 31 pg (25-35); MEAN CORPUSCULAR HGB CONC 33 g/dL (31-37); MEAN CORPUSCULAR VOLUME 95 fL (79-100); MONO # 0.7 x10^3/uL (0.0-1.1); MONO % 10 % (0-9); NEUT # 4.4 x10^3uL (1.8-7.7); NEUT % 65 % (31-73); PLATELET COUNT 289 x10^3/uL (140-400); RED BLOOD COUNT 3.57 x10^6/uL (3.50-5.40); RED CELL DISTRIBUTION WIDTH 14.7 % (11.5-14.5); WHITE BLOOD COUNT 6.8 x10^3/uL (4.0-11.0)
[2017-10-16 13:02] LABS: ANION GAP 11 (6-14); BLOOD UREA NITROGEN 26 mg/dL (7-20); BUN/CREATININE RATIO 7 (6-20); CALCIUM 8.8 mg/dL (8.5-10.1); CARBON DIOXIDE 29 mmol/L (21-32); CHLORIDE 96 mmol/L (98-107); GFR 14.2; GLUCOSE 430 mg/dL (70-99); POTASSIUM 4.1 mmol/L (3.5-5.1); SODIUM 136 mmol/L (136-145)
[2017-10-16 13:09] LABS: ALBUMIN 3.1 g/dL (3.4-5.0); ALBUMIN/GLOBULIN RATIO 0.7 (1.0-1.7); ALK PHOS 178 U/L (46-116); ALT (SGPT) 15 U/L (14-59); AST (SGOT) 11 U/L (15-37); MAGNESIUM 1.8 mg/dL (1.8-2.4); TOTAL BILIRUBIN 0.2 mg/dL (0.2-1.0); TOTAL PROTEIN 7.7 g/dL (6.4-8.2)
[2017-10-16] MEDS: INSULIN ASPART 300 UNITS/3 ML INSULN.PEN SQ (14:03)
== END 2017-10-16 14:10 | disposition home or self-care (01) ==
LOC: ER 10:35
DX: R05 Cough (principal); R07.89 Other chest pain; E11.22 Type 2 diabetes mellitus with diabetic chronic kidney disease; N18.6 End stage renal disease; I13.2 Hypertensive heart and chronic kidney disease with heart failure and with stage 5 chronic kidney disease, or end stage renal disease; I50.9 Heart failure, unspecified; E78.00 Pure hypercholesterolemia, unspecified; E11.65 Type 2 diabetes mellitus with hyperglycemia; J45.909 Unspecified asthma, uncomplicated; Z99.2 Dependence on renal dialysis; Z79.4 Long term (current) use of insulin
CPT/HCPCS: 36415; 71046; 80053; 83735; 85025; 96372; 96374; 96375; 99285-25; J1100; J1815; J2405; J3010

== ENCOUNTER 2018-01-12 20:41 | Emergency (ER) | payer MEDICARE, OTHER ==
[2018-01-12] MEDS: LABETALOL 20 MG/4 ML DISP.SYRIN. IVP (21:40)
[2018-01-12 21:41] LABS: ADD MAN DIFF? NO
[2018-01-12 21:45] LABS: BASO # 0.1 x10^3/uL (0.0-0.2); BASO % 1 % (0-3); EOS # 0.5 x10^3/uL (0.0-0.7); EOS % 5 % (0-3); HEMATOCRIT 32.6 % (36.0-47.0); HEMOGLOBIN 10.6 g/dL (12.0-15.5); LYMPH # 1.9 x10^3/uL (1.0-4.8); LYMPH % 20 % (24-48); MEAN CORPUSCULAR HEMOGLOBIN 32 pg (25-35); MEAN CORPUSCULAR HGB CONC 33 g/dL (31-37); MEAN CORPUSCULAR VOLUME 98 fL (79-100); MONO # 0.6 x10^3/uL (0.0-1.1); MONO % 7 % (0-9); NEUT # 6.3 x10^3uL (1.8-7.7); NEUT % 67 % (31-73); PLATELET COUNT 341 x10^3/uL (140-400); RED BLOOD COUNT 3.33 x10^6/uL (3.50-5.40); RED CELL DISTRIBUTION WIDTH 13.5 % (11.5-14.5); WHITE BLOOD COUNT 9.4 x10^3/uL (4.0-11.0)
[2018-01-12 21:53] LABS: ANION GAP 11 (6-14); BLOOD UREA NITROGEN 60 mg/dL (7-20); BUN/CREATININE RATIO 12 (6-20); CALCIUM 8.8 mg/dL (8.5-10.1); CARBON DIOXIDE 27 mmol/L (21-32); CHLORIDE 99 mmol/L (98-107); CREATININE 4.9 mg/dL (0.6-1.0); GFR 11.2; GLUCOSE 355 mg/dL (70-99); POTASSIUM 4.9 mmol/L (3.5-5.1); SODIUM 137 mmol/L (136-145)
[2018-01-12 21:55] LABS: TROPONIN BY ISTAT 0.02 ng/ml (<0.08)
[2018-01-12 21:59] LABS: ALBUMIN 3.3 g/dL (3.4-5.0); ALBUMIN/GLOBULIN RATIO 0.7 (1.0-1.7); ALK PHOS 157 U/L (46-116); ALT (SGPT) 11 U/L (14-59); AST (SGOT) 14 U/L (15-37); TOTAL BILIRUBIN 0.3 mg/dL (0.2-1.0)
[2018-01-12] MEDS: IPRATRPIUM/ALBUTEROL 0.5/2.5MG 3 ML NEBU. NEB (22:21)
[2018-01-12] MEDS: BENZONATATE 100 MG CAPSULE. PO (22:38)
== END 2018-01-12 23:15 | disposition home or self-care (01) ==
LOC: ER 23:15
DX: R05 Cough (principal); D64.9 Anemia, unspecified; E11.22 Type 2 diabetes mellitus with diabetic chronic kidney disease; I13.2 Hypertensive heart and chronic kidney disease with heart failure and with stage 5 chronic kidney disease, or end stage renal disease; I50.9 Heart failure, unspecified; N18.6 End stage renal disease; E78.00 Pure hypercholesterolemia, unspecified; J45.909 Unspecified asthma, uncomplicated; Z88.2 Allergy status to sulfonamides; Z88.5 Allergy status to narcotic agent; Z99.2 Dependence on renal dialysis; Z88.6 Allergy status to analgesic agent; Z88.8 Allergy status to other drugs, medicaments and biological substances
CPT/HCPCS: 36415; 71045; 80053; 84484; 85025; 93005; 94640; 96374; 99285-25; J3490; J7620

== ENCOUNTER 2018-01-26 21:45 | Emergency (ER) | payer MEDICARE, OTHER ==
[2018-01-26 22:34] LABS: BILIRUBIN,URINE MODERATE (NEG); CLARITY,URINE TURBID; COLOR,URINE RED; GLUCOSE,URINE 250 mg/dL (NEG); NITRITE,URINE NEGATIVE (NEG); PH,URINE 5.5; PROTEIN,URINE >=300 mg/dL (NEG-TRACE)
[2018-01-26 22:39] LABS: BACTERIA,URINE MANY /HPF (0-FEW); RBC,URINE TNTC /HPF (0-2); WBC,URINE TNTC /HPF (0-4)
[2018-01-26 22:40] LABS: SQUAMOUS EPITHELIAL CELL,UR MOD /LPF
== END 2018-01-26 23:43 | disposition home or self-care (01) ==
LOC: ER 21:45
DX: N30.01 Acute cystitis with hematuria (principal); J98.8 Other specified respiratory disorders; R91.8 Other nonspecific abnormal finding of lung field; E11.22 Type 2 diabetes mellitus with diabetic chronic kidney disease; I13.2 Hypertensive heart and chronic kidney disease with heart failure and with stage 5 chronic kidney disease, or end stage renal disease; I50.9 Heart failure, unspecified; N18.6 End stage renal disease; J45.909 Unspecified asthma, uncomplicated; E66.01 Morbid (severe) obesity due to excess calories; E78.00 Pure hypercholesterolemia, unspecified; Z88.6 Allergy status to analgesic agent; Z91.02 Food additives allergy status; Z88.5 Allergy status to narcotic agent; Z88.2 Allergy status to sulfonamides; Z91.048 Other nonmedicinal substance allergy status; Z68.41 Body mass index [BMI] 40.0-44.9, adult; Z90.710 Acquired absence of both cervix and uterus
CPT/HCPCS: 51701; 74176; 81001; 87086; 93005; 99285-25

== ENCOUNTER → 2018-07-01 | Outpatient (CLI) | payer MEDICARE, OTHER ==
[2018-01-26 21:55] VITALS: BP 184/77
[~2018-07-01] MED LIST changes: -AMLO10TA2 PO; +AMLO10TA6 PO; -ASPI81TA44 PO; +ASPI81TA59 PO; +BENZ-8 PO; +BENZ100C PO; -BENZ100C15 PO; +DOXY100T9 PO; +HYDR-971 PO; -IPRA3AMP NEB; +IPRA3AMP29 NEB; +LEVO500T59 PO; +LISI-130 PO; -LISI40TA PO; -LOSA25TA4 PO; +LOSA25TA5 PO; +METH4TAB2 PO
--- NOTE | 2018-07-01 15:47 | CARD ---
MR#: [id number] Date of Study: 07/01/2018 Ordering Physician: REGGIE AGUILERA, Referring Physician: REGGIE AGUILERA, Tech: Bianca No WILLIAMS APPROVED REPORT EXAM: Two-dimensional and M-mode echocardiogram with Doppler and color Doppler. Other Information Quality : GoodHR: 80bpm Rhythm : NSR INDICATION Cardiomyopathy RISK FACTORS Hypertension Obesity 2D DIMENSIONS RVDd2.6 (2.9-3.5cm)Left Atrium(2D)4.2 (1.6-4.0cm) IVSd1.1 (0.7-1.1cm)Aortic Root(2D)3.0 (2.0-3.7cm) LVDd5.5 (3.9-5.9cm)LVOT Diameter2.0 (1.8-2.4cm) PWd1.2 (0.7-1.1cm)LVDs4.3 (2.5-4.0cm) FS (%) 22.6 %SV66.8 ml LVEF(%)44.9 (>50%) M-Mode DIMENSIONS RVDd3.16 (2.1-3.2cm)Left Atrium(MM)4.51 (2.5-4.0cm) IVSd0.86 (0.7-1.1cm)Aortic Root2.95 (2.2-3.7cm) LVDd5.49 (4.0-5.6cm)PWd1.10 (0.7-1.1cm) IVSs0.96 cmFS (%) 24 % LVDs4.15 (2.0-3.8cm)ESV(Teich)76.5 ml PWs1.51 cmLVEF(%)48 (>50%) Aortic Valve AoV Peak Cezar.177.4cm/sAoV VTI38.9cm AO Peak GR.12.6mmHgLVOT Peak Cezar.87.1cm/s AO Mean GR.7mmHgAVA (VMAX)1.60cm2 CARI (VTI)1.60cm2 Mitral Valve MV E Fetahmxo519.0cm/sMV E Peak Gr.5mmHg MV DECEL JRLB600dbMG A [place]599.5cm/s MV E Mean Gr.3mmHgE/A Ratio1.0 MV A [id number] Pulmonary Valve PV Peak Ntovdarj49.7cm/s Tricuspid Valve TR P. Kdrhrsyi168tq/sRAP WLEIMEVM5acMg TR Peak Gr.89prDkXFGG82zzLu Pulmonary Vein S1 Knqsurwh10.3cm/sD2 Jkhcncti65.2cm/s PVa [id number] LEFT VENTRICLE The Left Ventricle is borderline dilated. There is normal left ventricular wall thickness. The left v entricular systolic function is mildly impaired. The Ejection Fraction is 45%. Transmitral Doppler fl ow pattern is Grade I-abnormal relaxation pattern. RIGHT VENTRICLE The right ventricle is normal size. There is normal right ventricular wall thickness. The right ventr icular systolic function is normal. ATRIA The left atrium is borderline dilated. The right atrium size is normal. The interatrial septum is int act with no evidence for an atrial septal defect or patent foramen ovale as noted on 2-D or Doppler i maging. AORTIC VALVE The aortic valve is thickened but opens well. Doppler and Color Flow revealed no significant aortic r egurgitation. There is no significant aortic valvular stenosis. There is no aortic valvular vegetatio n. MITRAL VALVE The mitral valve is normal in structure and function. There is no evidence of mitral valve prolapse. There is no mitral valve stenosis. Doppler and Color Flow revealed no mitral valve regurgitation note d. TRICUSPID VALVE The tricuspid valve is normal in structure and function. Doppler and Color Flow revealed trace tricus pid regurgitation. There is mild pulmonary hypertension. The PA pressure was estimated at 34 mmHg. Th ere is no tricuspid valve prolapse or vegetation. There is no tricuspid valve stenosis. PULMONIC VALVE The pulmonary valve is normal in structure and function. Doppler and Color Flow revealed no pulmonic valvular regurgitation. There is no pulmonic valvular stenosis. GREAT VESSELS The aortic root is normal in size. PERICARDIAL EFFUSION Fat pad noted. There is no evidence of significant pericardial effusion. Critical Notification Critical Value: No <Conclusion> The left ventricular systolic function is mildly impaired. The Ejection Fraction is 45%. Transmitral Doppler flow pattern is Grade I-abnormal relaxation pattern. Trace tricuspid regurgitation. The PA pressure was estimated at 34 mmHg. There is no evidence of significant pericardial effusion. Signed by : Josemanuel Reich, Electronically Approved : 07/01/2018 15:46:27
== END | disposition home or self-care (01) ==
LOC: ECHO 13:13
PROVIDERS: ATTEND Internal Medicine Cardiovascular Disease
DX: I42.9 Cardiomyopathy, unspecified (principal); E65 Localized adiposity; I13.2 Hypertensive heart and chronic kidney disease with heart failure and with stage 5 chronic kidney disease, or end stage renal disease; I50.9 Heart failure, unspecified; N18.6 End stage renal disease; E11.22 Type 2 diabetes mellitus with diabetic chronic kidney disease; Z88.8 Allergy status to other drugs, medicaments and biological substances; Z79.899 Other long term (current) drug therapy
CPT/HCPCS: 93306

== ENCOUNTER → 2018-11-29 | Outpatient (CLI) | payer MEDICARE ==
[2018-11-13 15:08] VITALS: BP 116/63
[~2018-11-29] MED LIST changes: -AMLO10TA6 PO; +AMLO10TA8 PO; +AZIT250T6 PO; +BUDE0.5A NEB; +CARBAMIDE PEROXIDE AS; +DOXY100T PO; +FURO80TA72 PO; -GABA-586 PO; -GABA-587 PO; +GABA-689 PO; +GABA300C18 PO; +GUAI5SYR PO; +HYDR-3164 PO; -HYDR-971 PO; +LACT1CAP19 PO; -LOSA25TA5 PO; +LOSA25TA54 PO; +NYST100054 SWSW; +PRED-220 PO; +SEVE800T9 PO
--- NOTE | 2018-11-29 08:34 | RAD ---
Examination: Ultrasound thyroid HISTORY: History of thyroid nodules COMPARISON: None available. Findings: The right lobe of the gland measures 4.8 x 1.9 x 2.1 cm. The left lobe of the thyroid gland measures 4.1 x 2.3 x 2.6 cm. There is a cystic structure measuring 8.8 mm identified in the right lobe of the thyroid gland. 2 small solid nodules identified in the right lobe of the thyroid gland measuring 9 mm and 8.5 mm. The isthmus measures 6 mm in AP dimension. Small nodules identified in the left lobe of the thyroid gland with the largest measuring 1.6 cm. IMPRESSION: Bilateral thyroid nodules with the largest measuring 1.6 cm in the left lobe of the thyroid gland. ACR Tirads: 3. Follow-up examination in 6 months to one year is recommended to document stability. Electronically signed by: Torrey Berry MD (11/29/2018 8:31 AM) [id number]
== END | disposition home or self-care (01) ==
LOC: US 07:24
PROVIDERS: ATTEND Family Medicine
DX: E04.2 Nontoxic multinodular goiter (principal)
CPT/HCPCS: 76536

== ENCOUNTER → 2018-12-20 | Outpatient (CLI) | payer MEDICARE, OTHER ==
[2018-11-13 15:08] VITALS: BP 116/63
[~2018-12-20] MED LIST changes: +ACET325T9 PO; -BUME1TAB PO; +BUME1TAB3 PO; +ZOLP5TAB PO
--- NOTE | 2018-12-20 11:29 | KCIC ---
Three-view right small finger dated 12/20/2018. No comparison available. CLINICAL INDICATION: Pain after fall. FINDINGS: 3 views right small finger show normal bony alignment. No displaced fracture. No acute osseous or articular abnormality. No periostitis or bone destruction. IMPRESSION: No acute findings. Electronically signed by: Lei Jennings MD (12/20/2018 11:25 AM) [id number]
== END | disposition home or self-care (01) ==
LOC: KCIC 10:50
PROVIDERS: ATTEND Family Medicine
DX: M79.644 Pain in right finger(s) (principal); W19.XXXD Unspecified fall, subsequent encounter
CPT/HCPCS: 73140

== ENCOUNTER 2018-12-31 06:26 | Emergency (ER) | payer MEDICARE, OTHER ==
[~2018-12-31] VITALS: Ht 160 cm; Wt 104.3 kg
[~2018-12-31 06:26] MED LIST changes: -ACET325T9 PO; -ZOLP5TAB PO
[2018-12-31 06:35] VITALS: BP 194/85
--- NOTE | 2018-12-31 06:40 | PHYS DOC ---
Past Medical History Past Medical History: Anemia, Asthma, CHF, Diabetes-Type II, High Cholesterol, Hypertension, Renal Failure, Other Additional Past Medical Histor: ASTHMA, HTN, HIGH CHOL., DM II Past Surgical History: Cholecystectomy, Hysterectomy, Other Additional Past Surgical Histo: BX R BREAST, R CHEST SHUNT IN & OUT, AV FIST L ARM,L KNEE,L ROTAT CUFFF Alcohol Use: None Drug Use: None Adult General Chief Complaint Chief Complaint: DIALYSIS PROBLEM HPI HPI 53-year-old female with a history of end-stage renal disease presenting the emergency department today after missing dialysis on M and W of this week. Last dialysis last thursday. She is otherwise asymptomatic. Onset today. Location generalized. Duration intermittent. No alleviating factors. She was sent here from dialysis clinic to be evaluated for possible hyperkalemia. Review of systems is negative for chest pain shortness of breath abdominal pain nausea vomiting fevers chills headache vision changes numbness weakness or tingling. All other review of systems is negative unless otherwise noted in history of present illness. ED course: 53-year-old female presenting with concern for possible hyperkalemia given her lack of dialysis over the past week. On arrival she is hypertensive. She is afebrile with normal heart rate. She is well-appearing on examination with clear lungs bilaterally. Otherwise unremarkable examination. Work sent. Time stamped 6:49 AM. Labs show baseline anemia when compared to previous. Otherwise potassium is within normal limits. We will discharge patient to go to dialysis today.The patient has been examined and was not found to have an emergency medical condition. The patient was then discharged home in stable condition to follow up with their primary care physician over the next 1-2 days. They were to return if their symptoms worsened or if they were concerned for any reason. They were also instructed to return to the emergency department if they were unable to get the recommended and appropriate follow- up. [id number] discharge instructions and return precautions were given. Patient's questions were answered to their satisfaction. Patient is comfortable with plan.08:22AM Review of Systems Review of Systems SEE ABOVE. Allergies Allergies Allergies Coded Allergies Type Severity Reaction Last Updated Verified aloe vera Allergy Severe Shortness of Air 10/16/17 Yes morphine Allergy Severe Hives 10/16/17 Yes [place] And Derivatives Allergy Intermediate 10/16/17 Yes Sulfa (Sulfonamide Antibiotics) Allergy Intermediate Hives 10/16/17 Yes adhesive Allergy Intermediate 09/22/18 Yes codeine Adverse Reaction Severe Hives 10/16/17 Yes ibuprofen Adverse Reaction Severe Shortness of Air 10/16/17 Yes naproxen Adverse Reaction Severe Shortness of Air 10/16/17 Yes tramadol Adverse Reaction Severe Shortness of Air 10/16/17 Yes hydromorphone Adverse Reaction Intermediate 10/16/17 Yes Physical Exam Physical Exam SEE ABOVE Constitutional: Well developed, well nourished, no acute distress, non-toxic appearance. HENT: Normocephalic, atraumatic, bilateral external ears normal, oropharynx moist, no oral exudates, nose normal. [] Eyes: PERRLA, EOMI, conjunctiva normal, no discharge. Neck: Normal range of motion, no tenderness, supple, no stridor. [] Cardiovascular:Heart rate regular rhythm, no murmur Lungs & Thorax: Bilateral breath sounds clear to auscultation Abdomen: Bowel sounds normal, soft, no tenderness, no masses, no pulsatile masses. [] Skin: Warm, dry, no erythema, no rash. [] Back: No tenderness, no CVA tenderness. Extremities: No tenderness, no cyanosis, no clubbing, ROM intact, no edema. [] Neurologic: Alert and oriented X 3, normal motor function, normal sensory function, no focal deficits noted. [] Psychologic: Affect normal, judgement normal, mood normal. Current Patient Data Vital Signs Vital Signs Date Time Temp Pulse Resp B/P (MAP) Pulse Ox O2 Delivery O2 Flow Rate FiO2 12/31/18 06:35 98.0 80 17 194/85 (121) 98 Room Air 98.0 Lab Values Laboratory Tests Test 12/31/18 07:08 White Blood Count 5.9 x10^3/uL (4.0-11.0) Red Blood Count 3.32 x10^6/uL (3.50-5.40) L Hemoglobin 10.7 g/dL (12.0-15.5) L Hematocrit 32.7 % (36.0-47.0) L Mean Corpuscular Volume 99 fL (79-100) Mean Corpuscular Hemoglobin 32 pg (25-35) Mean Corpuscular Hemoglobin Concent 33 g/dL (31-37) Red Cell Distribution Width 16.9 % (11.5-14.5) H Platelet Count 260 x10^3/uL (140-400) Neutrophils (%) (Auto) 60 % (31-73) Lymphocytes (%) (Auto) 21 % (24-48) L Monocytes (%) (Auto) 10 % (0-9) H Eosinophils (%) (Auto) 8 % (0-3) H Basophils (%) (Auto) 1 % (0-3) Neutrophils # (Auto) 3.5 x10^3uL (1.8-7.7) Lymphocytes # (Auto) 1.3 x10^3/uL (1.0-4.8) Monocytes # (Auto) 0.6 x10^3/uL (0.0-1.1) Eosinophils # (Auto) 0.5 x10^3/uL (0.0-0.7) Basophils # (Auto) 0.0 x10^3/uL (0.0-0.2) Sodium Level 140 mmol/L (136-145) Potassium Level 4.5 mmol/L (3.5-5.1) Chloride Level 102 mmol/L (98-107) Carbon Dioxide Level 26 mmol/L (21-32) Anion Gap 12 (6-14) Blood Urea Nitrogen 83 mg/dL (7-20) H Creatinine 11.3 mg/dL (0.6-1.0) H Estimated GFR (Cockcroft-Gault) 4.2 BUN/Creatinine Ratio 7 (6-20) Glucose Level 211 mg/dL (70-99) H Calcium Level 8.8 mg/dL (8.5-10.1) Total Bilirubin 0.3 mg/dL (0.2-1.0) Aspartate Amino Transferase (AST) 19 U/L (15-37) Alanine Aminotransferase (ALT) 17 U/L (14-59) Alkaline Phosphatase 113 U/L (46-116) Total Protein 7.5 g/dL (6.4-8.2) Albumin 3.3 g/dL (3.4-5.0) L Albumin/Globulin Ratio 0.8 (1.0-1.7) L Laboratory Tests 12/31/18 07:08 Laboratory Tests 12/31/18 07:08 EKG EKG [] Radiology/Procedures Radiology/Procedures [] Course & Med Decision Making Course & Med Decision Making Pertinent Labs and Imaging studies reviewed. (See chart for details) [] Dragon Disclaimer Dragon Disclaimer This electronic medical record was generated, in whole or in part, using a voice recognition dictation system. Departure Departure Impression: Primary Impression: Encounter for medical screening examination Disposition: HOME, SELF-CARE Condition: STABLE Referrals: YAMILKA MENDEZ MD (PCP) Patient Instructions: End Stage Kidney Disease Additional Instructions: Thank you for allowing us to participate in your care today. Return to the emergency department you have any new or worsening symptoms, or if you are concerned for any reason. Return to emergency department if you have any new or concerning symptoms including but not limited to fever, chills, nausea, vomiting, intractable pain, any new rashes, chest pain, shortness of air , uncontrolled bleeding, difficulty breathing, and/or vision loss. Follow up with your primary care physician within 1-2 days. Call your Primary Doctor tomorrow and inform them of your visit today. If you do not have a primary care provider we are happy to provide you with a list of our primary care providers contact information. This condition should be evaluated by your primary care physician and any recommended consulting services for continued management within 2 days after discharge. If at any time, you are having difficulty getting into your primary care doctor or a specialist, return to the emergency department. JIMMY MARINO MD Dec 31, 2018 06:40
[2018-12-31 07:50] LABS: BASO % 1 % (0-3); EOS # 0.5 x10^3/uL (0.0-0.7); EOS % 8 % (0-3); HEMATOCRIT 32.7 % (36.0-47.0); HEMOGLOBIN 10.7 g/dL (12.0-15.5); LYMPH # 1.3 x10^3/uL (1.0-4.8); LYMPH % 21 % (24-48); MEAN CORPUSCULAR HEMOGLOBIN 32 pg (25-35); MEAN CORPUSCULAR HGB CONC 33 g/dL (31-37); MEAN CORPUSCULAR VOLUME 99 fL (79-100); MONO # 0.6 x10^3/uL (0.0-1.1); MONO % 10 % (0-9); NEUT # 3.5 x10^3uL (1.8-7.7); NEUT % 60 % (31-73); PLATELET COUNT 260 x10^3/uL (140-400); RED BLOOD COUNT 3.32 x10^6/uL (3.50-5.40); RED CELL DISTRIBUTION WIDTH 16.9 % (11.5-14.5); WHITE BLOOD COUNT 5.9 x10^3/uL (4.0-11.0)
[2018-12-31 07:53] LABS: CALCIUM 8.8 mg/dL (8.5-10.1); CREATININE 11.3 mg/dL (0.6-1.0); GFR 4.2; POTASSIUM 4.5 mmol/L (3.5-5.1)
[2018-12-31 08:10] LABS: ALBUMIN 3.3 g/dL (3.4-5.0); ALBUMIN/GLOBULIN RATIO 0.8 (1.0-1.7); TOTAL BILIRUBIN 0.3 mg/dL (0.2-1.0); TOTAL PROTEIN 7.5 g/dL (6.4-8.2)
== END 2018-12-31 08:49 | disposition home or self-care (01) ==
LOC: ER 06:26
DX: Z04.89 Encounter for examination and observation for other specified reasons (principal); I13.2 Hypertensive heart and chronic kidney disease with heart failure and with stage 5 chronic kidney disease, or end stage renal disease; E11.22 Type 2 diabetes mellitus with diabetic chronic kidney disease; N18.6 End stage renal disease; I50.9 Heart failure, unspecified; J45.909 Unspecified asthma, uncomplicated; E78.00 Pure hypercholesterolemia, unspecified; Z90.49 Acquired absence of other specified parts of digestive tract; Z90.710 Acquired absence of both cervix and uterus; Z88.5 Allergy status to narcotic agent; Z88.2 Allergy status to sulfonamides; Z88.6 Allergy status to analgesic agent; Z88.8 Allergy status to other drugs, medicaments and biological substances
CPT/HCPCS: 36415; 80053; 85025; 99283

== ENCOUNTER 2019-01-02 15:58 | Emergency (ER) | payer MEDICARE ==
[~2019-01-02] VITALS: Ht 160 cm; Wt 104.3 kg
[2019-01-02 16:14] VITALS: BP 187/88
[2019-01-02 16:59] LABS: BASO # 0.1 x10^3/uL (0.0-0.2); BASO % 1 % (0-3); EOS # 0.6 x10^3/uL (0.0-0.7); EOS % 7 % (0-3); HEMATOCRIT 33.7 % (36.0-47.0); HEMOGLOBIN 10.9 g/dL (12.0-15.5); LYMPH % 26 % (24-48); MEAN CORPUSCULAR HEMOGLOBIN 32 pg (25-35); MEAN CORPUSCULAR HGB CONC 32 g/dL (31-37); MEAN CORPUSCULAR VOLUME 98 fL (79-100); MONO # 0.7 x10^3/uL (0.0-1.1); MONO % 9 % (0-9); NEUT # 4.6 x10^3uL (1.8-7.7); NEUT % 57 % (31-73); PLATELET COUNT 319 x10^3/uL (140-400); RED BLOOD COUNT 3.45 x10^6/uL (3.50-5.40); RED CELL DISTRIBUTION WIDTH 17.4 % (11.5-14.5); WHITE BLOOD COUNT 7.9 x10^3/uL (4.0-11.0)
[2019-01-02 17:14] LABS: CALCIUM 8.4 mg/dL (8.5-10.1); CREATININE 10.1 mg/dL (0.6-1.0); GFR 4.8; POTASSIUM 4.3 mmol/L (3.5-5.1)
[2019-01-02 17:17] LABS: ALBUMIN 3.6 g/dL (3.4-5.0); ALBUMIN/GLOBULIN RATIO 0.8 (1.0-1.7); TOTAL BILIRUBIN 0.3 mg/dL (0.2-1.0); TOTAL PROTEIN 7.9 g/dL (6.4-8.2)
--- NOTE | 2019-01-02 18:27 | PHYS DOC ---
Past Medical History Past Medical History: Anemia, Asthma, CHF, Diabetes-Type II, High Cholesterol, Hypertension, Renal Failure, Other Additional Past Medical Histor: ASTHMA, HTN, HIGH CHOL., DM II Past Surgical History: Cholecystectomy, Hysterectomy, Other Additional Past Surgical Histo: BX R BREAST, R CHEST SHUNT IN & OUT, AV FIST L ARM,L KNEE,L ROTAT CUFFF Alcohol Use: None Drug Use: None Adult General Chief Complaint Chief Complaint: OTHER COMPLAINTS HPI HPI Patient is a 53 year old female who presents with a need for a check of his potassium. She has missed dialysis and she recieved a phone call telling her to come in a get checked. Review of Systems Review of Systems Constitutional: Denies fever or chills [] Eyes: Denies change in visual acuity, redness, or eye pain [] HENT: Denies nasal congestion or sore throat [] Respiratory: Denies cough or shortness of breath [] Cardiovascular: No additional information not addressed in HPI [] GI: Denies abdominal pain, nausea, vomiting, bloody stools or diarrhea [] : Denies dysuria or hematuria [] Musculoskeletal: Denies back pain or joint pain [] Integument: Denies rash or skin lesions [] Neurologic: Denies headache, focal weakness or sensory changes [] Endocrine: Denies polyuria or polydipsia [] All other systems were reviewed and found to be within normal limits, except as documented in this note. Allergies Allergies Allergies Coded Allergies Type Severity Reaction Last Updated Verified aloe vera Allergy Severe Shortness of Air 10/16/17 Yes morphine Allergy Severe Hives 10/16/17 Yes [place] And Derivatives Allergy Intermediate 10/16/17 Yes Sulfa (Sulfonamide Antibiotics) Allergy Intermediate Hives 10/16/17 Yes adhesive Allergy Intermediate 09/22/18 Yes codeine Adverse Reaction Severe Hives 10/16/17 Yes ibuprofen Adverse Reaction Severe Shortness of Air 10/16/17 Yes naproxen Adverse Reaction Severe Shortness of Air 10/16/17 Yes tramadol Adverse Reaction Severe Shortness of Air 10/16/17 Yes hydromorphone Adverse Reaction Intermediate 10/16/17 Yes Physical Exam Physical Exam Constitutional: Well developed, well nourished, no acute distress, non-toxic appearance. [] HENT: Normocephalic, atraumatic, bilateral external ears normal, oropharynx moist, no oral exudates, nose normal. [] Eyes: PERRLA, EOMI, conjunctiva normal, no discharge. [] Neck: Normal range of motion, no tenderness, supple, no stridor. [] Cardiovascular:Heart rate regular rhythm, no murmur [] Lungs & Thorax: Bilateral breath sounds clear to auscultation [] Abdomen: Bowel sounds normal, soft, no tenderness, no masses, no pulsatile masses. [] Skin: Warm, dry, no erythema, no rash. [] Back: No tenderness, no CVA tenderness. [] Extremities: No tenderness, no cyanosis, no clubbing, ROM intact, no edema. [] Neurologic: Alert and oriented X 3, normal motor function, normal sensory function, no focal deficits noted. [] Psychologic: Affect normal, judgement normal, mood normal. [] Current Patient Data Vital Signs Lab Values Laboratory Tests Test 01/02/19 16:45 White Blood Count 7.9 x10^3/uL (4.0-11.0) Red Blood Count 3.45 x10^6/uL (3.50-5.40) L Hemoglobin 10.9 g/dL (12.0-15.5) L Hematocrit 33.7 % (36.0-47.0) L Mean Corpuscular Volume 98 fL (79-100) Mean Corpuscular Hemoglobin 32 pg (25-35) Mean Corpuscular Hemoglobin Concent 32 g/dL (31-37) Red Cell Distribution Width 17.4 % (11.5-14.5) H Platelet Count 319 x10^3/uL (140-400) Neutrophils (%) (Auto) 57 % (31-73) Lymphocytes (%) (Auto) 26 % (24-48) Monocytes (%) (Auto) 9 % (0-9) Eosinophils (%) (Auto) 7 % (0-3) H Basophils (%) (Auto) 1 % (0-3) Neutrophils # (Auto) 4.6 x10^3uL (1.8-7.7) Lymphocytes # (Auto) 2.0 x10^3/uL (1.0-4.8) Monocytes # (Auto) 0.7 x10^3/uL (0.0-1.1) Eosinophils # (Auto) 0.6 x10^3/uL (0.0-0.7) Basophils # (Auto) 0.1 x10^3/uL (0.0-0.2) Sodium Level 142 mmol/L (136-145) Potassium Level 4.3 mmol/L (3.5-5.1) Chloride Level 103 mmol/L (98-107) Carbon Dioxide Level 25 mmol/L (21-32) Anion Gap 14 (6-14) Blood Urea Nitrogen 78 mg/dL (7-20) H Creatinine 10.1 mg/dL (0.6-1.0) H Estimated GFR (Cockcroft-Gault) 4.8 BUN/Creatinine Ratio 8 (6-20) Glucose Level 261 mg/dL (70-99) H Calcium Level 8.4 mg/dL (8.5-10.1) L Total Bilirubin 0.3 mg/dL (0.2-1.0) Aspartate Amino Transferase (AST) 16 U/L (15-37) Alanine Aminotransferase (ALT) 15 U/L (14-59) Alkaline Phosphatase 116 U/L (46-116) Total Protein 7.9 g/dL (6.4-8.2) Albumin 3.6 g/dL (3.4-5.0) Albumin/Globulin Ratio 0.8 (1.0-1.7) L Laboratory Tests 01/02/19 16:45 Laboratory Tests 01/02/19 16:45 EKG EKG [] Radiology/Procedures Radiology/Procedures [] Course & Med Decision Making Course & Med Decision Making Pertinent Labs and Imaging studies reviewed. (See chart for details) []Nephrology was consulted. The patient is to report to dialysis tomorrow. Dragon Disclaimer Dragon Disclaimer This electronic medical record was generated, in whole or in part, using a voice recognition dictation system. Departure Departure Impression: Primary Impression: End stage renal disease Disposition: HOME, SELF-CARE Condition: STABLE Referrals: YAMILKA MENDEZ MD (PCP) Patient Instructions: Dialysis Additional Instructions: Take the copy of your lab values with you to dialysis tomorrow. CRYSTAL ZAIDI APRN Jan 02, 2019 18:27
== END 2019-01-02 18:46 | disposition home or self-care (01) ==
LOC: ER 15:58
DX: E11.22 Type 2 diabetes mellitus with diabetic chronic kidney disease (principal); I13.2 Hypertensive heart and chronic kidney disease with heart failure and with stage 5 chronic kidney disease, or end stage renal disease; I50.9 Heart failure, unspecified; N18.6 End stage renal disease; Z99.2 Dependence on renal dialysis; E78.00 Pure hypercholesterolemia, unspecified; J45.909 Unspecified asthma, uncomplicated; Z90.710 Acquired absence of both cervix and uterus; Z90.49 Acquired absence of other specified parts of digestive tract; Z88.5 Allergy status to narcotic agent; Z88.2 Allergy status to sulfonamides; Z88.6 Allergy status to analgesic agent; Z88.8 Allergy status to other drugs, medicaments and biological substances
CPT/HCPCS: 36415; 80053; 85025; 99283

== ENCOUNTER → 2019-01-07 | Outpatient (CLI) | payer MEDICARE ==
[2019-01-02 16:14] VITALS: BP 187/88
[~2019-01-07] MED LIST changes: +ACET325T9 PO; +ZOLP5TAB PO
--- NOTE | 2019-01-07 10:05 | RAD ---
Examination: CT chest without contrast HISTORY: History of pneumonia follow-up COMPARISON: 11/10/2018 TECHNIQUE: Axial CT images of chest were performed without contrast. Coronal and sagittal reformats are performed. Exposure: One or more of the following individualized dose reduction techniques were utilized for this examination: 1. Automated exposure control 2. Adjustment of the mA and/or kV according to patient size 3. Use of iterative reconstruction technique FINDINGS: The visualized thyroid gland grossly appears unremarkable. The central airways are patent. The heart size demonstrates mild cardiomegaly. Coronary artery calcifications identified. Few prominent mediastinal lymph nodes identified similar to prior exam with the largest measuring 1.5 cm in the right paratracheal region similar to prior exam. Linear airspace opacity identified in the left lingula likely atelectasis. There is mild mosaic attenuation identified in the lungs similar to prior exam. Improved minimal left lung base airspace opacities. The esophagus appears patulous. The visualized noncontrasted liver, spleen, adrenals grossly appears unremarkable. Partially visualized tiny punctate 2 mm calculus right kidney. Moderate degenerative changes thoracic spine. Superior endplate Schmorl's node identified at T11 vertebral body similar to prior exam. IMPRESSION: 1. Improved left lung base airspace opacities. Mild groundglass opacities identified in the bilateral lungs likely small liver disease similar to prior exam. 2. Minimal prominent mediastinal lymph nodes similar to prior exam. 3. Mild cardiomegaly. Electronically signed by: Torrey Berry MD (01/07/2019 10:02 AM) [id number]
== END | disposition home or self-care (01) ==
LOC: CT 09:10
PROVIDERS: ATTEND Family Medicine
DX: I13.2 Hypertensive heart and chronic kidney disease with heart failure and with stage 5 chronic kidney disease, or end stage renal disease (principal); I50.23 Acute on chronic systolic (congestive) heart failure; N20.0 Calculus of kidney; N18.6 End stage renal disease; I25.10 Atherosclerotic heart disease of native coronary artery without angina pectoris; M47.894 Other spondylosis, thoracic region
CPT/HCPCS: 71250

== ENCOUNTER 2019-01-11 06:44 | Inpatient (IN) | payer MEDICARE, OTHER ==
[~2019-01-11] VITALS: Ht 167.6 cm; Wt 106.2 kg
[~2019-01-11 06:44] MED LIST changes: -ACET325T9 PO; -ZOLP5TAB PO
[2019-01-11 07:35] LABS: CALCIUM 9.4 mg/dL (8.5-10.1); CREATININE 12.1 mg/dL (0.6-1.0); GFR 3.9; POTASSIUM 3.9 mmol/L (3.5-5.1)
[2019-01-11 07:40] LABS: BASO # 0.1 x10^3/uL (0.0-0.2); BASO % 1 % (0-3); EOS # 0.5 x10^3/uL (0.0-0.7); EOS % 7 % (0-3); HEMATOCRIT 36.6 % (36.0-47.0); HEMOGLOBIN 11.7 g/dL (12.0-15.5); LYMPH # 1.7 x10^3/uL (1.0-4.8); LYMPH % 22 % (24-48); MEAN CORPUSCULAR HEMOGLOBIN 31 pg (25-35); MEAN CORPUSCULAR HGB CONC 32 g/dL (31-37); MEAN CORPUSCULAR VOLUME 98 fL (79-100); MONO # 0.7 x10^3/uL (0.0-1.1); MONO % 9 % (0-9); NEUT % 62 % (31-73); PLATELET COUNT 437 x10^3/uL (140-400); RED BLOOD COUNT 3.73 x10^6/uL (3.50-5.40); RED CELL DISTRIBUTION WIDTH 17.2 % (11.5-14.5); WHITE BLOOD COUNT 8.1 x10^3/uL (4.0-11.0)
--- NOTE | 2019-01-11 07:42 | RAD ---
Right knee, 3 views, 01/11/2019: HISTORY: Knee pain, laceration after a fall There is mild narrowing of the medial compartment of the knee joint with minimal marginal spurring. No fracture or dislocation is identified. There is a suggestion of a small joint effusion. Mild subcutaneous edema is noted. IMPRESSION: No acute bony abnormality is detected. Electronically signed by: Mickey Reyna MD (01/11/2019 7:39 AM) [facility]
[2019-01-11 07:43] LABS: ALBUMIN 3.4 g/dL (3.4-5.0); ALBUMIN/GLOBULIN RATIO 0.7 (1.0-1.7); MAGNESIUM 2.3 mg/dL (1.8-2.4); TOTAL BILIRUBIN 0.4 mg/dL (0.2-1.0)
[2019-01-11 07:50] LABS: PROTHROMBIN TIME PATIENT 13.2 SEC (11.7-14.0)
[2019-01-11] MEDS ORDERED: ACETAMINOPHEN 500 MG TABLET PO ONE (08:00)
--- NOTE | 2019-01-11 08:24 | RAD ---
EXAM: CT HEAD WITHOUT IV CONTRAST CLINICAL HISTORY: fell, hit head, face on coffee table COMPARISON: None. TECHNIQUE: Routine CT of the head without contrast. Soft tissues and bone windows were reviewed. PQRS compliance statement - One or more of the following individualized dose reduction techniques were utilized for this study: 1. Automated exposure control 2. Adjustment of the mA and/or kV according to patient size 3. Use of iterative reconstruction technique FINDINGS: There is no evidence of hemorrhage, mass or extra-axial fluid collection. Rodriguez-white differentiation is maintained with no evidence of edema. There is no mass effect or shift of the intracranial structures. The ventricles, basilar cisterns and cortical sulci are normal in size and configuration for the patients stated age. The cerebellum and brainstem are unremarkable. The calvarium demonstrates no evidence of fracture or focal lesion. Hyperostosis frontalis interna is incidentally seen. There is normal aeration of the visualized paranasal sinuses and mastoid air cells. The visualized portions of the orbits are normal. IMPRESSION: No evidence for acute intracranial process. EXAM: CT CERVICAL SPINE WITHOUT IV CONTRAST CLINICAL HISTORY: fell, hit head, face on coffee table
previous COMPARISON: None available. TECHNIQUE: Helical CT of the cervical spine was performed. Axial, coronal and sagittal reformatted images were also performed. PQRS compliance statement - One or more of the following individualized dose reduction techniques were utilized for this study: 1. Automated exposure control 2. Adjustment of the mA and/or kV according to patient size 3. Use of iterative reconstruction technique FINDINGS: There is no evidence for acute fracture or subluxation. There is straightening of the normal cervical lordosis. No significant spondylolisthesis. Small anterior endplate osteophytes most prominent at C3-4 and C4-5 as well as C6-7. Mild C4-5 disc height loss. IMPRESSION: No evidence for acute fracture or subluxation. Exam: CT facial bones CLINICAL HISTORY: fell, hit head, face on coffee table
previous COMPARISON: None available. TECHNIQUE: Helical CT of the face/paranasal sinuses was acquired and axial, coronal and sagittal reformatted images were generated. ---PQRS compliance statement - One or more of the following individualized dose reduction techniques were utilized for this study: 1. Automated exposure control 2. Adjustment of the mA and/or kV according to patient size 3. Use of iterative reconstruction technique--- FINDINGS: Minimal cortical offset at the nasal bone, possibly age-indeterminate nasal bone fracture. Otherwise no definite fracture is noted of the facial bones. The visualized paranasal sinuses are well-aerated. No evidence of air-fluid levels. The mastoids are unremarkable. The globes, extraocular muscles, optic nerves and retrobulbar fat are normal. Visualized upper aerodigestive tract is normal. Mandible and bilateral temporomandibular joints are normal. Dental luli is seen at the left maxillary molar IMPRESSION: Minimal cortical offset at the anterior nasal bone, possibly nondisplaced fracture, age-indeterminate. Otherwise, no evidence for acute fracture or dislocation of the facial bones. Electronically signed by: Sean Salcedo MD (01/11/2019 8:21 AM) [id number]
--- NOTE | 2019-01-11 09:07 | PHYS DOC ---
Past Medical History Past Medical History: Anemia, Asthma, CHF, Diabetes-Type II, High Cholesterol, Hypertension, Renal Failure, Other Additional Past Medical Histor: ASTHMA, HTN, HIGH CHOL., DM II Past Surgical History: Cholecystectomy, Hysterectomy, Other Additional Past Surgical Histo: BX R BREAST, R CHEST SHUNT IN & OUT, AV FIST L ARM,L KNEE,L ROTAT CUFFF Alcohol Use: None Drug Use: None Adult General Chief Complaint Chief Complaint: TREMORS HPI HPI Patient is a 53 year old who was brought here by EMS for evaluation for head and facial injury. Patient has history of ESRD, on HD, last dialysis was on Thursday. Patient got up this morning to get ready to go to dialysis. She became shaky, has tremors in extremities, then fell down, hit head and face against the coffee table, hit her right knee on the floor. SHE CANNOT WALK DUE TO FEELING WEAK, SHAKY AND HAVING TREMOR. She has have this problem off and on for several weeks now. Review of Systems Review of Systems Constitutional: Denies fever or chills [] Eyes: Denies change in visual acuity, redness, or eye pain [] HENT: Denies nasal congestion or sore throat [] Respiratory: Denies cough or shortness of breath [] Cardiovascular: No additional information not addressed in HPI [] GI: Denies abdominal pain, nausea, vomiting, bloody stools or diarrhea [] : Denies dysuria or hematuria [] Musculoskeletal: Denies back pain, positive for right knee pain Integument: Denies rash. POSITIVE FOR SKIN ABRASION Neurologic: Positive for headache, tremor, weakness, NO sensory changes [] Endocrine: Denies polyuria or polydipsia [] All other systems were reviewed and found to be within normal limits, except as documented in this note. Current Medications Current Medications Current Medications Medications (Trade) Dose Ordered Sig/[place] Start Time Stop Time Status Last Admin Dose Admin Acetaminophen (Tylenol) 1,000 mg 1X ONCE 01/11/19 08:00 01/11/19 08:01 DC 01/11/19 07:53 1,000 MG Allergies Allergies Allergies Coded Allergies Type Severity Reaction Last Updated Verified aloe vera Allergy Severe Shortness of Air 10/16/17 Yes morphine Allergy Severe Hives 10/16/17 Yes [place] And Derivatives Allergy Intermediate 10/16/17 Yes Sulfa (Sulfonamide Antibiotics) Allergy Intermediate Hives 10/16/17 Yes adhesive Allergy Intermediate 09/22/18 Yes codeine Adverse Reaction Severe Hives 10/16/17 Yes ibuprofen Adverse Reaction Severe Shortness of Air 10/16/17 Yes naproxen Adverse Reaction Severe Shortness of Air 10/16/17 Yes tramadol Adverse Reaction Severe Shortness of Air 10/16/17 Yes hydromorphone Adverse Reaction Intermediate 10/16/17 Yes Physical Exam Physical Exam Constitutional: Well developed, well nourished, no acute distress, non-toxic appearance. [] HENT: Normocephalic, There is skin contusion on nasal bridge, forehead area. There is no Septal hematoma, bilateral external ears normal, oropharynx moist , no oral exudates, nose normal. [] Eyes: PERRLA, EOMI, conjunctiva normal, no discharge. [] Neck: Normal range of motion, no tenderness, supple, no stridor. [] Cardiovascular:Heart rate regular rhythm, no murmur [] Lungs & Thorax: Bilateral breath sounds clear to auscultation [] Abdomen: Bowel sounds normal, soft, no tenderness, no masses, no pulsatile masses. [] Skin: Warm, dry, no erythema, no rash. [] Back: No tenderness, no CVA tenderness. [] Extremities: There is skin contusion on anterior part of right knee, joint is stable, no bony deformity. There is no pelvic or hip tenderness to palpation. Neurologic: Alert and oriented X 3, normal motor function, normal sensory function, no focal deficits noted. [] Psychologic: Affect normal, judgement normal, mood normal. [] Current Patient Data Vital Signs Vital Signs Date Time Temp Pulse Resp B/P (MAP) Pulse Ox O2 Delivery O2 Flow Rate FiO2 01/11/19 07:00 98.7 78 20 173/81 (111) 100 Room Air 98.7 Lab Values Laboratory Tests Test 01/11/19 07:18 White Blood Count 8.1 x10^3/uL (4.0-11.0) Red Blood Count 3.73 x10^6/uL (3.50-5.40) Hemoglobin 11.7 g/dL (12.0-15.5) L Hematocrit 36.6 % (36.0-47.0) Mean Corpuscular Volume 98 fL (79-100) Mean Corpuscular Hemoglobin 31 pg (25-35) Mean Corpuscular Hemoglobin Concent 32 g/dL (31-37) Red Cell Distribution Width 17.2 % (11.5-14.5) H Platelet Count 437 x10^3/uL (140-400) H Neutrophils (%) (Auto) 62 % (31-73) Lymphocytes (%) (Auto) 22 % (24-48) L Monocytes (%) (Auto) 9 % (0-9) Eosinophils (%) (Auto) 7 % (0-3) H Basophils (%) (Auto) 1 % (0-3) Neutrophils # (Auto) 5.0 x10^3uL (1.8-7.7) Lymphocytes # (Auto) 1.7 x10^3/uL (1.0-4.8) Monocytes # (Auto) 0.7 x10^3/uL (0.0-1.1) Eosinophils # (Auto) 0.5 x10^3/uL (0.0-0.7) Basophils # (Auto) 0.1 x10^3/uL (0.0-0.2) Prothrombin Time 13.2 SEC (11.7-14.0) Prothrombin Time INR 1.0 (0.8-1.1) PTT 31 SEC (24-38) Sodium Level 139 mmol/L (136-145) Potassium Level 3.9 mmol/L (3.5-5.1) Chloride Level 97 mmol/L (98-107) L Carbon Dioxide Level 26 mmol/L (21-32) Anion Gap 16 (6-14) H Blood Urea Nitrogen 42 mg/dL (7-20) H Creatinine 12.1 mg/dL (0.6-1.0) H Estimated GFR (Cockcroft-Gault) 3.9 BUN/Creatinine Ratio 3 (6-20) L Glucose Level 189 mg/dL (70-99) H Calcium Level 9.4 mg/dL (8.5-10.1) Magnesium Level 2.3 mg/dL (1.8-2.4) Total Bilirubin 0.4 mg/dL (0.2-1.0) Aspartate Amino Transferase (AST) 11 U/L (15-37) L Alanine Aminotransferase (ALT) 13 U/L (14-59) L Alkaline Phosphatase 121 U/L (46-116) H Troponin I Quantitative < 0.017 ng/mL (0.000-0.055) Total Protein 8.0 g/dL (6.4-8.2) Albumin 3.4 g/dL (3.4-5.0) Albumin/Globulin Ratio 0.7 (1.0-1.7) L Laboratory Tests 01/11/19 07:18 Laboratory Tests 01/11/19 07:18 EKG EKG EKG RATE OF 81 BMP, SINUS RHYTHM, NO STEMI [] Radiology/Procedures Radiology/Procedures [facility] [address] [place] [address] IMAGING REPORT Signed PATIENT: URIEL CRAIG ACCOUNT: [id number] : 1965 LOCATION: ER AGE: 53 SEX: F EXAM STATUS: REG ER ORD. PHYSICIAN: NIKITA HANNA DO REASON: fell, hit head, face on coffee table PROCEDURE: CT HEAD AND CERVICAL SPINE WO EXAM: CT HEAD WITHOUT IV CONTRAST CLINICAL HISTORY: fell, hit head, face on coffee table COMPARISON: None. TECHNIQUE: Routine CT of the head without contrast. Soft tissues and bone windows were reviewed. PQRS compliance statement - One or more of the following individualized dose reduction techniques were utilized for this study: 1. Automated exposure control 2. Adjustment of the mA and/or kV according to patient size 3. Use of iterative reconstruction technique FINDINGS: There is no evidence of hemorrhage, mass or extra-axial fluid collection. Rodriguez-white differentiation is maintained with no evidence of edema. There is no mass effect or shift of the intracranial structures. The ventricles, basilar cisterns and cortical sulci are normal in size and configuration for the patients stated age. The cerebellum and brainstem are unremarkable. The calvarium demonstrates no evidence of fracture or focal lesion. Hyperostosis frontalis interna is incidentally seen. There is normal aeration of the visualized paranasal sinuses and mastoid air cells. The visualized portions of the orbits are normal. IMPRESSION: No evidence for acute intracranial process. EXAM: CT CERVICAL SPINE WITHOUT IV CONTRAST CLINICAL HISTORY: fell, hit head, face on coffee table
previous COMPARISON: None available. TECHNIQUE: Helical CT of the cervical spine was performed. Axial, coronal and sagittal reformatted images were also performed. PQRS compliance statement - One or more of the following individualized dose reduction techniques were utilized for this study: 1. Automated exposure control 2. Adjustment of the mA and/or kV according to patient size 3. Use of iterative reconstruction technique FINDINGS: There is no evidence for acute fracture or subluxation. There is straightening of the normal cervical lordosis. No significant spondylolisthesis. Small anterior endplate osteophytes most prominent at C3-4 and C4-5 as well as C6-7. Mild C4-5 disc height loss. IMPRESSION: No evidence for acute fracture or subluxation. Exam: CT facial bones CLINICAL HISTORY: fell, hit head, face on coffee table
previous COMPARISON: None available. TECHNIQUE: Helical CT of the face/paranasal sinuses was acquired and axial, coronal and sagittal reformatted images were generated. ---PQRS compliance statement - One or more of the following individualized dose reduction techniques were utilized for this study: 1. Automated exposure control 2. Adjustment of the mA and/or kV according to patient size 3. Use of iterative reconstruction technique--- FINDINGS: Minimal cortical offset at the nasal bone, possibly age-indeterminate nasal bone fracture. Otherwise no definite fracture is noted of the facial bones. The visualized paranasal sinuses are well-aerated. No evidence of air-fluid levels. The mastoids are unremarkable. The globes, extraocular muscles, optic nerves and retrobulbar fat are normal. Visualized upper aerodigestive tract is normal. Mandible and bilateral temporomandibular joints are normal. Dental luli is seen at the left maxillary molar IMPRESSION: Minimal cortical offset at the anterior nasal bone, possibly nondisplaced fracture, age-indeterminate. Otherwise, no evidence for acute fracture or dislocation of the facial bones. Electronically signed by: Sean Campos MD (01/11/2019 8:21 AM) [id number] DICTATED and SIGNED BY: SEAN CAMPOS MD DATE: 01/11/19 5563 Course & Med Decision Making Course & Med Decision Making Pertinent Labs and Imaging studies reviewed. (See chart for details) [] Dragon Disclaimer Dragon Disclaimer This electronic medical record was generated, in whole or in part, using a voice recognition dictation system. Departure Departure Impression: Primary Impression: Syncope and collapse Additional Impressions: Tremor Facial contusion ESRD on hemodialysis Disposition: ADMITTED INPATIENT Admitting Physician: Barry Varner Condition: STABLE Referrals: YMAILKA MENDEZ MD (PCP) Problem Qualifiers NIKITA HANNA DO Jan 11, 2019 09:07
[2019-01-11] MEDS ORDERED: ONDANSETRON PF 4 MG/2 ML VIAL. IV PRN (09:15)
[2019-01-11] MEDS ORDERED: ACETAMINOPHEN 325 MG TABLET. PO PRN ×2 (09:15→14:30)
[2019-01-11] MEDS ORDERED: INSU100I13 SQ (11:52)
[2019-01-11] MEDS ORDERED: ZOLP5TAB PO (11:58)
[2019-01-11] MEDS ORDERED: ACET325T9 PO (11:58)
[2019-01-11] MEDS ORDERED: INSU100C4 SQ (11:58)
[2019-01-11 12:02] VITALS: BP 136/64
[2019-01-11] MEDS ORDERED: IV NORMAL SALINE 1000ML BAG 1,000 ML IV PRN ×2 (13:20)
[2019-01-11] MEDS ORDERED: ALBUMIN HUMAN 25% 200 ML IV PRN (13:30)
[2019-01-11] MEDS ORDERED: 0.9 % SODIUM CHLORIDE 10 ML DISP.SYRIN. IV PRN ×2 (13:30)
[2019-01-11] MEDS ORDERED: DIALYSIS PATIENT. MC PRN ×2 (13:30)
--- NOTE | 2019-01-11 13:39 | PDOC2 ---
NEUROLOGY CONSULT Date of Admission Date of Admission DATE: 01/11/19 TIME: 13:39 Reason for Consult Reason for Consult: Syncope, tremors Referring Physician Referring Physician: Dr. Varenr PCP: Dr. Currie Source Source: Chart review, Patient History of Present Illness History of Present Illness The patient is a 53-year-old right-handed female admitted for jerking movements , loss of consciousness, falls, and weakness. Dr. Mahajan and myself both saw her in December 2015 for the same complaints. She had electroencephalogram that was negative. I started her on clonazepam at that point, which did help, but apparently she did not continue it. She was admitted to in November of this year for the same complaints as well. She was complaining of weakness and falls. She had MRI of the thoracic spine and lumbar spine which were unrevealing. CT of the head and cervical spine showed grade 1 Chiari malformation. Echocardiogram was negative. Past Medical History Cardiovascular: CAD, HTN, Hyperlipidemia Pulmonary: Asthma, Other (sleep apnea) CENTRAL NERVOUS SYSTEM: Periperal neuropathy, Other (myoclonus) GI: Gastritis, Other (diarrhea) Heme/Onc: Anemia NOS Musculoskeletal: Osteoarthritis (left knee), Other (left knee and ankle fractures) Renal/: Chronic renal failure (on dialysis) Endocrine: Diabetes Past Surgical History Past Surgical History: Cholecystectomy, Cataract Removal, Hysterectomy, Other ( cardiac cath, breast surgery, dialysis, left shoulder, left elbow, right foot) Family History Family History: Other (negative for seizures) Social History Social History Single, unemployed, no alcohol or tobacco Current Medications Current Medications Current Medications Acetaminophen (Tylenol) 1,000 mg 1X ONCE PO Last administered on 01/11/19at 07: 53; Start 01/11/19 at 08:00; Stop 01/11/19 at 08:01; Status DC Ondansetron HCl (Zofran) 4 mg PRN Q8HRS PRN IV NAUSEA/VOMITING; Start 01/11/19 at 09:15; Stop 01/12/19 at 09:14 Acetaminophen (Tylenol) 650 mg PRN Q4HRS PRN PO FEVER; Start 01/11/19 at 09:15; Stop 01/12/19 at 09:14 Sodium Chloride 1,000 ml @ 1,000 mls/hr Q1H PRN IV hypotension; Start 01/11/19 at 13:20; Stop 01/11/19 at 19:19 Albumin Human 200 ml @ 200 mls/hr 1X PRN PRN IV Hypotension; Start 01/11/19 at 13:30; Stop 01/11/19 at 19:29 Sodium Chloride (Normal Saline Flush) 10 ml 1X PRN PRN IV AP catheter pack; Start 01/11/19 at 13:30; Stop 01/12/19 at 13:29 Sodium Chloride (Normal Saline Flush) 10 ml 1X PRN PRN IV IMAGING TECHNICIAN catheter pack; Start 01/11/19 at 13:30; Stop 01/12/19 at 13:29 Sodium Chloride 1,000 ml @ 400 mls/hr Q2H30M PRN IV PATENCY; Start 01/11/19 at 13:20; Stop 01/12/19 at 01:19 Info (PHARMACY MONITORING -- do not chart) 1 each PRN DAILY PRN MC SEE COMMENTS ; Start 01/11/19 at 13:30; Status UNV Info (PHARMACY MONITORING -- do not chart) 1 each PRN DAILY PRN MC SEE COMMENTS ; Start 01/11/19 at 13:30 Active Scripts Active Aranesp Syringe (Darbepoetin [place] In Polysorbat) 100 Mcg/0.5 Ml Disp.syrin 100 Mcg SQ WEEKLYHS Lipitor (Atorvastatin Calcium) 40 Mg Tablet 40 Mg PO QHS Protonix (Pantoprazole Sodium) 40 Mg Tablet 40 Mg PO DAILYAC Reported Tylenol (Acetaminophen) 325 Mg Tablet 1 Tab PO PRN Q4HRS Ambien (Zolpidem Tartrate) 5 Mg Tablet 5 Mg PO PRN QHS Novolog (Insulin Aspart) 100 Unit/1 Ml Cartridge 5 Unit SQ [id number] Lantus Solostar (Insulin Glargine,Hum.rec.anlog) 100 Unit/1 Ml Insuln.pen 15 Unit SQ BIDPCLD Lasix (Furosemide) 80 Mg Tablet 1 Tab PO BID Aspirin Ec (Aspirin) 325 Mg Tablet.dr 1 Tab PO DAILY take this instead of 81 mg ASA untill follow up appointment. Discuss with Dr. Wright then if you should stay on 325mg daily or return to 81mg tablet. Gabapentin (Gabapentin) 300 Mg Capsule 600 Mg PO BID Allergies Allergies: Coded Allergies: aloe vera (Verified Allergy, Severe, Shortness of Air, 10/16/17) morphine (Verified Allergy, Severe, Hives, 10/16/17) HALLUCINATIONS, SEE SPOTS, ASTHMA FLARES [place] And Derivatives (Verified Allergy, Intermediate, 10/16/17) Sulfa (Sulfonamide Antibiotics) (Verified Allergy, Intermediate, Hives, 10/16/17) adhesive (Verified Allergy, Intermediate, 09/22/18) LIDODERM Patch OK codeine (Verified Adverse Reaction, Severe, Hives, 10/16/17) HALLUCINATIONS, SEE SPOTS ibuprofen (Verified Adverse Reaction, Severe, Shortness of Air, 10/16/17) naproxen (Verified Adverse Reaction, Severe, Shortness of Air, 10/16/17) tramadol (Verified Adverse Reaction, Severe, Shortness of Air, 10/16/17) HALLUCINATIONS, HIVES, SEE SPOTS hydromorphone (Verified Adverse Reaction, Intermediate, 10/16/17) ROS Review of System Negative for fever, chills, weight loss, shortness of breath, chest pain, indigestion, hematochezia, melena, and dysuria. Full 14-point review of systems is negative. Physical Exam Physical Examination General: Well-developed, well-nourished black female in no acute distress HEENT: Normocephalic andatraumatic.Temporal arteriespulsatile and nontender. Neck: Supple without bruit, no meningismus Musculoskeletal: Stability:see neurologic. Gait exam:see neurologic. Tone:see neurologic. Strength:see neurologic. Neurological: Mental Status:intact, orientation, memory, attention span/concentration, language, fund of knowledge normal. Cranial Nerves:Pupils equal and reactive to light, extraocular movements areintact, visual muniz are full to confrontation. Facial sensation is normal. There is no facial asymmetry. Vestibulo-ocular reflex is intact. Palate elevates and tongue protrudes in midline. All other cranial related problems are negative except as mentioned before.Reflexes:0+ and symmetric with flexor plantar responses. Motor:5/5 strength with normal tone and bulk. Coordination:Finger-nose finger and heel-to -davis testing are normal. Frequent episodes of myoclonus without altered consciousness. Rapid alternating movements and fine finger movements are intact. Gait:Not tested. Sensory:Stocking loss Vitals VITALS Vital Signs Date Time Temp Pulse Resp B/P (MAP) Pulse Ox O2 Delivery O2 Flow Rate FiO2 01/11/19 12:02 97.5 72 18 136/64 (88) 96 Room Air 97.5 Labs Labs Laboratory Tests Test 01/11/19 07:18 01/11/19 11:14 White Blood Count 8.1 x10^3/uL (4.0-11.0) Red Blood Count 3.73 x10^6/uL (3.50-5.40) Hemoglobin 11.7 g/dL (12.0-15.5) Hematocrit 36.6 % (36.0-47.0) Mean Corpuscular Volume 98 fL (79-100) Mean Corpuscular Hemoglobin 31 pg (25-35) Mean Corpuscular Hemoglobin Concent 32 g/dL (31-37) Red Cell Distribution Width 17.2 % (11.5-14.5) Platelet Count 437 x10^3/uL (140-400) Neutrophils (%) (Auto) 62 % (31-73) Lymphocytes (%) (Auto) 22 % (24-48) Monocytes (%) (Auto) 9 % (0-9) Eosinophils (%) (Auto) 7 % (0-3) Basophils (%) (Auto) 1 % (0-3) Neutrophils # (Auto) 5.0 x10^3uL (1.8-7.7) Lymphocytes # (Auto) 1.7 x10^3/uL (1.0-4.8) Monocytes # (Auto) 0.7 x10^3/uL (0.0-1.1) Eosinophils # (Auto) 0.5 x10^3/uL (0.0-0.7) Basophils # (Auto) 0.1 x10^3/uL (0.0-0.2) Prothrombin Time 13.2 SEC (11.7-14.0) Prothromb Time International Ratio 1.0 (0.8-1.1) Activated Partial Thromboplast Time 31 SEC (24-38) Sodium Level 139 mmol/L (136-145) Potassium Level 3.9 mmol/L (3.5-5.1) Chloride Level 97 mmol/L (98-107) Carbon Dioxide Level 26 mmol/L (21-32) Anion Gap 16 (6-14) Blood Urea Nitrogen 42 mg/dL (7-20) Creatinine 12.1 mg/dL (0.6-1.0) Estimated GFR (Cockcroft-Gault) 3.9 BUN/Creatinine Ratio 3 (6-20) Glucose Level 189 mg/dL (70-99) Calcium Level 9.4 mg/dL (8.5-10.1) Magnesium Level 2.3 mg/dL (1.8-2.4) Total Bilirubin 0.4 mg/dL (0.2-1.0) Aspartate Amino Transf (AST/SGOT) 11 U/L (15-37) Alanine Aminotransferase (ALT/SGPT) 13 U/L (14-59) Alkaline Phosphatase 121 U/L (46-116) Troponin I Quantitative < 0.017 ng/mL (0.000-0.055) Total Protein 8.0 g/dL (6.4-8.2) Albumin 3.4 g/dL (3.4-5.0) Albumin/Globulin Ratio 0.7 (1.0-1.7) Glucose (Fingerstick) 146 mg/dL (70-99) Laboratory Tests Test 01/11/19 07:18 01/11/19 11:14 White Blood Count 8.1 x10^3/uL (4.0-11.0) Red Blood Count 3.73 x10^6/uL (3.50-5.40) Hemoglobin 11.7 g/dL (12.0-15.5) Hematocrit 36.6 % (36.0-47.0) Mean Corpuscular Volume 98 fL (79-100) Mean Corpuscular Hemoglobin 31 pg (25-35) Mean Corpuscular Hemoglobin Concent 32 g/dL (31-37) Red Cell Distribution Width 17.2 % (11.5-14.5) Platelet Count 437 x10^3/uL (140-400) Neutrophils (%) (Auto) 62 % (31-73) Lymphocytes (%) (Auto) 22 % (24-48) Monocytes (%) (Auto) 9 % (0-9) Eosinophils (%) (Auto) 7 % (0-3) Basophils (%) (Auto) 1 % (0-3) Neutrophils # (Auto) 5.0 x10^3uL (1.8-7.7) Lymphocytes # (Auto) 1.7 x10^3/uL (1.0-4.8) Monocytes # (Auto) 0.7 x10^3/uL (0.0-1.1) Eosinophils # (Auto) 0.5 x10^3/uL (0.0-0.7) Basophils # (Auto) 0.1 x10^3/uL (0.0-0.2) Prothrombin Time 13.2 SEC (11.7-14.0) Prothromb Time International Ratio 1.0 (0.8-1.1) Activated Partial Thromboplast Time 31 SEC (24-38) Sodium Level 139 mmol/L (136-145) Potassium Level 3.9 mmol/L (3.5-5.1) Chloride Level 97 mmol/L (98-107) Carbon Dioxide Level 26 mmol/L (21-32) Anion Gap 16 (6-14) Blood Urea Nitrogen 42 mg/dL (7-20) Creatinine 12.1 mg/dL (0.6-1.0) Estimated GFR (Cockcroft-Gault) 3.9 BUN/Creatinine Ratio 3 (6-20) Glucose Level 189 mg/dL (70-99) Calcium Level 9.4 mg/dL (8.5-10.1) Magnesium Level 2.3 mg/dL (1.8-2.4) Total Bilirubin 0.4 mg/dL (0.2-1.0) Aspartate Amino Transf (AST/SGOT) 11 U/L (15-37) Alanine Aminotransferase (ALT/SGPT) 13 U/L (14-59) Alkaline Phosphatase 121 U/L (46-116) Troponin I Quantitative < 0.017 ng/mL (0.000-0.055) Total Protein 8.0 g/dL (6.4-8.2) Albumin 3.4 g/dL (3.4-5.0) Albumin/Globulin Ratio 0.7 (1.0-1.7) Glucose (Fingerstick) 146 mg/dL (70-99) Images Images CT HEAD WITHOUT IV CONTRAST CLINICAL HISTORY: fell, hit head, face on coffee table COMPARISON: None. TECHNIQUE: Routine CT of the head without contrast. Soft tissues and bone windows were reviewed. PQRS compliance statement - One or more of the following individualized dose reduction techniques were utilized for this study: 1. Automated exposure control 2. Adjustment of the mA and/or kV according to patient size 3. Use of iterative reconstruction technique FINDINGS: There is no evidence of hemorrhage, mass or extra-axial fluid collection. Rodriguez-white differentiation is maintained with no evidence of edema. There is no mass effect or shift of the intracranial structures. The ventricles, basilar cisterns and cortical sulci are normal in size and configuration for the patients stated age. The cerebellum and brainstem are unremarkable. The calvarium demonstrates no evidence of fracture or focal lesion. Hyperostosis frontalis interna is incidentally seen. There is normal aeration of the visualized paranasal sinuses and mastoid air cells. The visualized portions of the orbits are normal. IMPRESSION: No evidence for acute intracranial process. EXAM: CT CERVICAL SPINE WITHOUT IV CONTRAST CLINICAL HISTORY: fell, hit head, face on coffee table
previous COMPARISON: None available. TECHNIQUE: Helical CT of the cervical spine was performed. Axial, coronal and sagittal reformatted images were also performed. PQRS compliance statement - One or more of the following individualized dose reduction techniques were utilized for this study: 1. Automated exposure control 2. Adjustment of the mA and/or kV according to patient size 3. Use of iterative reconstruction technique FINDINGS: There is no evidence for acute fracture or subluxation. There is straightening of the normal cervical lordosis. No significant spondylolisthesis. Small anterior endplate osteophytes most prominent at C3-4 and C4-5 as well as C6-7. Mild C4-5 disc height loss. IMPRESSION: No evidence for acute fracture or subluxation. Exam: CT facial bones CLINICAL HISTORY: fell, hit head, face on coffee table
previous COMPARISON: None available. TECHNIQUE: Helical CT of the face/paranasal sinuses was acquired and axial, coronal and sagittal reformatted images were generated. ---PQRS compliance statement - One or more of the following individualized dose reduction techniques were utilized for this study: 1. Automated exposure control 2. Adjustment of the mA and/or kV according to patient size 3. Use of iterative reconstruction technique--- FINDINGS: Minimal cortical offset at the nasal bone, possibly age-indeterminate nasal bone fracture. Otherwise no definite fracture is noted of the facial bones. The visualized paranasal sinuses are well-aerated. No evidence of air-fluid levels. The mastoids are unremarkable. The globes, extraocular muscles, optic nerves and retrobulbar fat are normal. Visualized upper aerodigestive tract is normal. Mandible and bilateral temporomandibular joints are normal. Dental luli is seen at the left maxillary molar IMPRESSION: Minimal cortical offset at the anterior nasal bone, possibly nondisplaced fracture, age-indeterminate. Otherwise, no evidence for acute fracture or dislocation of the facial bones. 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 There is no evidence that this is epileptic. In the past the patient did respond the clonazepam. She is also on high doses of gabapentin, that can contribute. She is due for dialysis today. Diabetic neuropathy. No evidence of central nervous system process such as myelopathy or intracranial problem. Recommendations: Hold on repeating workup such as MRI study and EEG Clonazepam on a schedule to start with, 3 times a day, side effects discussed including risk of addiction Decreased gabapentin dose. Fully discussed with patient and her daughter. Thank you for letting me help with the patient's care. ANGELICA FRANCOIS MD Jan 11, 2019 13:39
--- NOTE | 2019-01-11 13:44 | PDOC2 ---
CONSULT Date of Consult Date of Consult DATE: 01/11/19 TIME: 13:27 Reason for Consult Reason for Consult: ESRD Referring Physician Referring Physician: BELEN Identification/Chief Complaint Chief Complaint WEAKNESS, TREMORS Source Source: Chart review, Patient History of Present Illness Reason for Visit: THIS IS A 53 YR OLD ESRD ON HD MWF. SHE HAS ESRD DUE TO DM II AND HTN. SHE IS NON COMPLIANT WITH HER HD TREATMENTS. SHE SKIPPED HER TREATMENT YESTERDAY DUE TO NOT FEELING WELL WITH COMPLAINTS OF TREMORS. SHE HAS AN AV ACCESS. LABS ARE C /W HER ESRD STATUS Past Medical History Cardiovascular: HTN, Hyperlipidemia Pulmonary: Asthma CENTRAL NERVOUS SYSTEM: Other GI: Other Heme/Onc: Anemia NOS Hepatobiliary: No pertinent hx Psych: No pertinent hx, Anxiety Musculoskeletal: Osteoarthritis Rheumatologic: No pertinent hx Infectious disease: No pertinent hx Renal/: Chronic renal failure Endocrine: Diabetes, Hyperparathyroidism Past Surgical History Past Surgical History: Cholecystectomy, Cataract Removal, Hysterectomy, Other Family History Family History: Heart Disease Social History ALCOHOL: none Drugs: None Lives: with Family Current Problem List Problem List Problems Medical Problems: (1) ESRD on hemodialysis Status: Acute (2) Facial contusion Status: Acute (3) Syncope and collapse Status: Acute (4) Tremor Status: Acute Current Medications Current Medications Current Medications Acetaminophen (Tylenol) 1,000 mg 1X ONCE PO Last administered on 01/11/19at 07: 53; Start 01/11/19 at 08:00; Stop 01/11/19 at 08:01; Status DC Ondansetron HCl (Zofran) 4 mg PRN Q8HRS PRN IV NAUSEA/VOMITING; Start 01/11/19 at 09:15; Stop 01/12/19 at 09:14 Acetaminophen (Tylenol) 650 mg PRN Q4HRS PRN PO FEVER; Start 01/11/19 at 09:15; Stop 01/12/19 at 09:14 Sodium Chloride 1,000 ml @ 1,000 mls/hr Q1H PRN IV hypotension; Start 01/11/19 at 13:20; Stop 01/11/19 at 19:19; Status UNV Albumin Human 200 ml @ 200 mls/hr 1X PRN PRN IV Hypotension; Start 01/11/19 at 13:30; Stop 01/11/19 at 19:29; Status UNV Sodium Chloride (Normal Saline Flush) 10 ml 1X PRN PRN IV AP catheter pack; Start 01/11/19 at 13:30; Stop 01/12/19 at 13:29; Status UNV Sodium Chloride (Normal Saline Flush) 10 ml 1X PRN PRN IV CERT OCCUPATIONAL THERAPY ASST catheter pack; Start 01/11/19 at 13:30; Stop 01/12/19 at 13:29; Status UNV Sodium Chloride 1,000 ml @ 400 mls/hr Q2H30M PRN IV PATENCY; Start 01/11/19 at 13:20; Stop 01/12/19 at 01:19; Status UNV Info (PHARMACY MONITORING -- do not chart) 1 each PRN DAILY PRN MC SEE COMMENTS ; Start 01/11/19 at 13:30; Status UNV Info (PHARMACY MONITORING -- do not chart) 1 each PRN DAILY PRN MC SEE COMMENTS ; Start 01/11/19 at 13:30; Status UNV Active Scripts Active Aranesp Syringe (Darbepoetin [place] In Polysorbat) 100 Mcg/0.5 Ml Disp.syrin 100 Mcg SQ WEEKLYHS Lipitor (Atorvastatin Calcium) 40 Mg Tablet 40 Mg PO QHS Protonix (Pantoprazole Sodium) 40 Mg Tablet 40 Mg PO DAILYAC Reported Tylenol (Acetaminophen) 325 Mg Tablet 1 Tab PO PRN Q4HRS Ambien (Zolpidem Tartrate) 5 Mg Tablet 5 Mg PO PRN QHS Novolog (Insulin Aspart) 100 Unit/1 Ml Cartridge 5 Unit SQ [id number] Lantus Solostar (Insulin Glargine,Hum.rec.anlog) 100 Unit/1 Ml Insuln.pen 15 Unit SQ BIDPCLD Lasix (Furosemide) 80 Mg Tablet 1 Tab PO BID Aspirin Ec (Aspirin) 325 Mg Tablet.dr 1 Tab PO DAILY take this instead of 81 mg ASA untill follow up appointment. Discuss with Dr. Wright then if you should stay on 325mg daily or return to 81mg tablet. Gabapentin (Gabapentin) 300 Mg Capsule 600 Mg PO BID Allergies Allergies: Coded Allergies: aloe vera (Verified Allergy, Severe, Shortness of Air, 10/16/17) morphine (Verified Allergy, Severe, Hives, 10/16/17) HALLUCINATIONS, SEE SPOTS, ASTHMA FLARES [place] And Derivatives (Verified Allergy, Intermediate, 10/16/17) Sulfa (Sulfonamide Antibiotics) (Verified Allergy, Intermediate, Hives, 10/16/17) adhesive (Verified Allergy, Intermediate, 09/22/18) LIDODERM Patch OK codeine (Verified Adverse Reaction, Severe, Hives, 10/16/17) HALLUCINATIONS, SEE SPOTS ibuprofen (Verified Adverse Reaction, Severe, Shortness of Air, 10/16/17) naproxen (Verified Adverse Reaction, Severe, Shortness of Air, 10/16/17) tramadol (Verified Adverse Reaction, Severe, Shortness of Air, 10/16/17) HALLUCINATIONS, HIVES, SEE SPOTS hydromorphone (Verified Adverse Reaction, Intermediate, 10/16/17) ROS General: YES: Fatigue, Appetite PSYCHOLOGICAL ROS: YES: Anxiety, Depression Eyes: Yes Decreased vision HEENT: YES: [place] ALLERGY AND IMMUNOLOGY: YES: Seasonal Allergies Respiratory: YES: Cough, Shortness of breath Cardiovascular: yes Edema, yes Lt Headedness Gastrointestinal: Yes Constipation Musculoskeletal: Yes Joint Stiffness, Yes Muscular Weakness Neurological: Yes Tremors Skin: Yes Dry Skin Physical Exam General: Alert, Oriented X3, Cooperative, No acute distress HEENT: Atraumatic, PERRLA, EOMI, Mucous membr. moist/pink Lungs: Clear to auscultation Heart: Regular rate, Normal S1, Normal S2 Abdomen: Normal bowel sounds, Soft, No tenderness Extremities: No cyanosis Skin: No breakdown Neuro: Normal speech, Sensation intact Psych/Mental Status: Mental status NL, Mood NL MUSCULOSKELETAL: No joint tenderness, No deformity, No swelling Vitals VITALS Vital Signs Date Time Temp Pulse Resp B/P (MAP) Pulse Ox O2 Delivery O2 Flow Rate FiO2 01/11/19 12:02 97.5 72 18 136/64 (88) 96 Room Air 97.5 Labs Labs Laboratory Tests Test 01/11/19 07:18 01/11/19 11:14 White Blood Count 8.1 x10^3/uL (4.0-11.0) Red Blood Count 3.73 x10^6/uL (3.50-5.40) Hemoglobin 11.7 g/dL (12.0-15.5) Hematocrit 36.6 % (36.0-47.0) Mean Corpuscular Volume 98 fL (79-100) Mean Corpuscular Hemoglobin 31 pg (25-35) Mean Corpuscular Hemoglobin Concent 32 g/dL (31-37) Red Cell Distribution Width 17.2 % (11.5-14.5) Platelet Count 437 x10^3/uL (140-400) Neutrophils (%) (Auto) 62 % (31-73) Lymphocytes (%) (Auto) 22 % (24-48) Monocytes (%) (Auto) 9 % (0-9) Eosinophils (%) (Auto) 7 % (0-3) Basophils (%) (Auto) 1 % (0-3) Neutrophils # (Auto) 5.0 x10^3uL (1.8-7.7) Lymphocytes # (Auto) 1.7 x10^3/uL (1.0-4.8) Monocytes # (Auto) 0.7 x10^3/uL (0.0-1.1) Eosinophils # (Auto) 0.5 x10^3/uL (0.0-0.7) Basophils # (Auto) 0.1 x10^3/uL (0.0-0.2) Prothrombin Time 13.2 SEC (11.7-14.0) Prothromb Time International Ratio 1.0 (0.8-1.1) Activated Partial Thromboplast Time 31 SEC (24-38) Sodium Level 139 mmol/L (136-145) Potassium Level 3.9 mmol/L (3.5-5.1) Chloride Level 97 mmol/L (98-107) Carbon Dioxide Level 26 mmol/L (21-32) Anion Gap 16 (6-14) Blood Urea Nitrogen 42 mg/dL (7-20) Creatinine 12.1 mg/dL (0.6-1.0) Estimated GFR (Cockcroft-Gault) 3.9 BUN/Creatinine Ratio 3 (6-20) Glucose Level 189 mg/dL (70-99) Calcium Level 9.4 mg/dL (8.5-10.1) Magnesium Level 2.3 mg/dL (1.8-2.4) Total Bilirubin 0.4 mg/dL (0.2-1.0) Aspartate Amino Transf (AST/SGOT) 11 U/L (15-37) Alanine Aminotransferase (ALT/SGPT) 13 U/L (14-59) Alkaline Phosphatase 121 U/L (46-116) Troponin I Quantitative < 0.017 ng/mL (0.000-0.055) Total Protein 8.0 g/dL (6.4-8.2) Albumin 3.4 g/dL (3.4-5.0) Albumin/Globulin Ratio 0.7 (1.0-1.7) Glucose (Fingerstick) 146 mg/dL (70-99) Laboratory Tests Test 01/11/19 07:18 01/11/19 11:14 White Blood Count 8.1 x10^3/uL (4.0-11.0) Red Blood Count 3.73 x10^6/uL (3.50-5.40) Hemoglobin 11.7 g/dL (12.0-15.5) Hematocrit 36.6 % (36.0-47.0) Mean Corpuscular Volume 98 fL (79-100) Mean Corpuscular Hemoglobin 31 pg (25-35) Mean Corpuscular Hemoglobin Concent 32 g/dL (31-37) Red Cell Distribution Width 17.2 % (11.5-14.5) Platelet Count 437 x10^3/uL (140-400) Neutrophils (%) (Auto) 62 % (31-73) Lymphocytes (%) (Auto) 22 % (24-48) Monocytes (%) (Auto) 9 % (0-9) Eosinophils (%) (Auto) 7 % (0-3) Basophils (%) (Auto) 1 % (0-3) Neutrophils # (Auto) 5.0 x10^3uL (1.8-7.7) Lymphocytes # (Auto) 1.7 x10^3/uL (1.0-4.8) Monocytes # (Auto) 0.7 x10^3/uL (0.0-1.1) Eosinophils # (Auto) 0.5 x10^3/uL (0.0-0.7) Basophils # (Auto) 0.1 x10^3/uL (0.0-0.2) Prothrombin Time 13.2 SEC (11.7-14.0) Prothromb Time International Ratio 1.0 (0.8-1.1) Activated Partial Thromboplast Time 31 SEC (24-38) Sodium Level 139 mmol/L (136-145) Potassium Level 3.9 mmol/L (3.5-5.1) Chloride Level 97 mmol/L (98-107) Carbon Dioxide Level 26 mmol/L (21-32) Anion Gap 16 (6-14) Blood Urea Nitrogen 42 mg/dL (7-20) Creatinine 12.1 mg/dL (0.6-1.0) Estimated GFR (Cockcroft-Gault) 3.9 BUN/Creatinine Ratio 3 (6-20) Glucose Level 189 mg/dL (70-99) Calcium Level 9.4 mg/dL (8.5-10.1) Magnesium Level 2.3 mg/dL (1.8-2.4) Total Bilirubin 0.4 mg/dL (0.2-1.0) Aspartate Amino Transf (AST/SGOT) 11 U/L (15-37) Alanine Aminotransferase (ALT/SGPT) 13 U/L (14-59) Alkaline Phosphatase 121 U/L (46-116) Troponin I Quantitative < 0.017 ng/mL (0.000-0.055) Total Protein 8.0 g/dL (6.4-8.2) Albumin 3.4 g/dL (3.4-5.0) Albumin/Globulin Ratio 0.7 (1.0-1.7) Glucose (Fingerstick) 146 mg/dL (70-99) Assessment/Plan Assessment/Plan IMP WEAKNESS TREMORS?-COULD BE METABOLIC DUE TO NON COMPLIANCE DM II HTN ANEMIA NON COMPLIANCE [id number] YESTERDAY PLAN HD TODAY AND TOMORROW UF TO DW ENC COMPLIANCE ROCIO ROA MD Jan 11, 2019 13:44
[2019-01-11] MEDS: clonazePAM 0.5 MG TABLET PO SCH ×2 (14:16→20:35)
--- NOTE | 2019-01-11 14:19 | HP ---
ADMIT DATE: 01/11/2019 CHIEF COMPLAINT: Jerking, shaking, fall. HISTORY OF PRESENT ILLNESS: The patient is a pleasant 53-year-old female who has been having a sensation of jerking movements in her arms and extremities for the past few days. She has been evaluated for this in the past and was placed on some Klonopin and that seemed to help, but apparently, she has stopped it. She presented to the ER today with same complaints rated at 9/10. She has associated weakness and anxiety about this. She tried increasing her home meds including Neurontin, but that seems to make it worse, describes as agonizing. I discussed the case with ER physician. We are going to admit the patient and consult Neurology. Dr. Ortega has already seen the patient now and explained that this is probably myoclonus, probably secondary to uremia and gabapentin can worsen it. Indeed, her BUN and creatinine are 42 and 12. The patient is now being examined on the medical floor. PAST MEDICAL HISTORY: Previous myoclonus; end-stage renal disease, on dialysis; noncompliance; hypertension; osteoarthritis; diabetes; hyperparathyroidism. PAST SURGICAL HISTORY: Cholecystectomy, cataract surgery and hysterectomy. ALLERGIES: None. FAMILY HISTORY: Coronary artery disease. SOCIAL HISTORY: She does not drink, smoke or take drugs. She lives at home with her daughter. MEDICATIONS: Reviewed, please refer to the MRAD. She is on high dose gabapentin as well as Aranesp, Lipitor, aspirin, Tylenol, Ambien, Lasix, Protonix, NovoLog. REVIEW OF SYSTEMS: GENERAL: No history of weight change, weakness or fevers. SKIN: No bruising, hair changes or rashes. EYES: No blurred, double or loss of vision. NOSE AND THROAT: No history of nosebleeds, hoarseness or sore throat. HEART: No history of palpitations, chest pain or shortness of breath on exertion. LUNGS: Denies cough, hemoptysis, wheezing or shortness of breath. GASTROINTESTINAL: Denies changes in appetite, nausea, vomiting, diarrhea or constipation. GENITOURINARY: No history of frequency, urgency, hesitancy or nocturia. NEUROLOGIC: She complains of weakness and falls. PSYCHIATRIC: No history of panic, anxiety or depression. ENDOCRINE: No history of heat or cold intolerance, polyuria or polydipsia. EXTREMITIES: Denies muscle weakness, joint pain, pain on walking or stiffness. PHYSICAL EXAMINATION: VITAL SIGNS: Temperature 97, pulse 70, respirations 18, blood pressure 136/80. GENERAL: She is alert, cooperative and anxious. Her daughter is present and seems to be good support for her. HEART: Normal S1, S2. LUNGS: Clear to auscultation. ABDOMEN: Soft, positive bowel sounds. EXTREMITIES: Trace edema. SKIN: No rashes. She has got a little bit of an abrasion on her nose. ENDOCRINE: No thyromegaly. LYMPHATICS: No cervical nodes. HEMATOPOIETIC: No bruising. PSYCHIATRIC: She is anxious. NEUROLOGICAL: She is jerking. LABORATORY DATA: Electrolytes: Sodium 139, potassium 3.9, chloride 97, bicarbonate 26, BUN 42, creatinine 12, glucose 189. White count 8, hemoglobin 12, platelets 437, INR 1. CT of the cervical spine and head negative. ASSESSMENT AND PLAN: Myoclonus, probably multifactorial including high dose gabapentin and uremia and noncompliance with her benzos. The patient has been admitted. We consulted Dr. Ortega. He would like to resume her Klonopin and back off on the dose on the gabapentin. Consult Dr. Tenorio for dialysis. Full code. Deep vein thrombosis prophylaxis. Continue her other home meds, frequent labs, PT, OT. MINERVA GLOVER DO DR: LOVELY/lottie JOB#: [id number] / [id number]
[2019-01-11] MEDS ORDERED: ZOLPIDEM 5 MG TABLET. PO PRN (14:30)
--- NOTE | 2019-01-11 15:13 | EKG ---
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
[2019-01-11] MEDS: INSULIN GLARGINE 300 UNITS/3 ML INSULN.PEN. SQ SCH (17:30)
[2019-01-11 19:15] VITALS: BP 127/49
[2019-01-11] MEDS: INSULIN LISPRO 300 UNITS/3 ML INSULN.PEN. SQ SCH (20:30)
[2019-01-11] MEDS: FUROSEMIDE 80 MG TABLET. PO SCH (20:36)
[2019-01-11] MEDS: GABAPENTIN 300 MG CAPSULE. PO SCH (20:36)
[2019-01-11] MEDS ORDERED: INSULIN ASPART 5 UNIT SQ SCH (21:00)
[2019-01-11] MEDS ORDERED: ATORVASTATIN CALCIUM 40 MG TABLET. PO SCH (21:00)
[2019-01-11 23:21] VITALS: BP 97/51
[2019-01-12 03:26] VITALS: BP 121/60
[2019-01-12 07:00] VITALS: BP 120/67
[2019-01-12] MEDS ORDERED: PANTOPRAZOLE 40 MG TABLET.DR. PO SCH (07:30)
[2019-01-12] MEDS: INSULIN LISPRO 300 UNITS/3 ML INSULN.PEN. SQ SCH ×3 (08:00→17:19)
[2019-01-12] MEDS ORDERED: IV NORMAL SALINE 1000ML BAG 1,000 ML IV PRN ×2 (08:11)
[2019-01-12] MEDS ORDERED: DIALYSIS PATIENT. MC PRN ×2 (08:15)
[2019-01-12] MEDS ORDERED: LIDOCAINE 1% Multi-Dose 20 ML VIAL. ID ONE (08:15)
[2019-01-12] MEDS ORDERED: LIDOCAINE 1% PF 2 ML VIAL. ONE ×2 (08:28→09:00)
--- NOTE | 2019-01-12 08:32 | NUR ---
Pt taken to dialysis per bed. Morning meds held.
[2019-01-12] MEDS ORDERED: ASPIRIN ENTERIC COATED 325 MG TABLET.DR. PO SCH (09:00)
[2019-01-12] MEDS: clonazePAM 0.5 MG TABLET PO SCH ×2 (09:00→13:36)
[2019-01-12] MEDS: FUROSEMIDE 80 MG TABLET. PO SCH (09:00)
--- NOTE | 2019-01-12 11:24 | PDOC ---
PROGRESS NOTES Chief Complaint Chief Complaint Myoclonus History of Present Illness History of Present Illness Patient resting comfortably undergoing dialysis. She reports improvement in her shaking with restarting Klonopin. She states she feels good and would like to go home. Vitals Vitals Vital Signs Date Time Temp Pulse Resp B/P (MAP) Pulse Ox O2 Delivery O2 Flow Rate FiO2 01/12/19 07:00 98.2 78 18 120/67 (84) 96 Room Air 98.2 Physical Exam General: Alert, Oriented X3, Cooperative, No acute distress Heart: Regular rate, Normal S1, Normal S2 Lungs: Clear, Other (no respiratory distress, symmetric chest expansion) Abdomen: Normal bowel sounds, Soft, No tenderness Extremities: No cyanosis, Normal pulses Skin: No breakdown Labs LABS Laboratory Tests Test 01/11/19 20:12 01/12/19 07:33 Glucose (Fingerstick) 132 mg/dL (70-99) 190 mg/dL (70-99) Review of Systems Review of Systems as per above Assessment and Plan Assessmemt and Plan Problems Medical Problems: (1) ESRD on hemodialysis Status: Acute (2) Facial contusion Status: Acute (3) Syncope and collapse Status: Acute (4) Tremor Status: Acute Assessment: 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 Labs Laboratory Tests Test 01/11/19 07:18 01/11/19 11:14 01/11/19 20:12 01/12/19 07:33 White Blood Count 8.1 x10^3/uL (4.0-11.0) Red Blood Count 3.73 x10^6/uL (3.50-5.40) Hemoglobin 11.7 g/dL (12.0-15.5) Hematocrit 36.6 % (36.0-47.0) Mean Corpuscular Volume 98 fL (79-100) Mean Corpuscular Hemoglobin 31 pg (25-35) Mean Corpuscular Hemoglobin Concent 32 g/dL (31-37) Red Cell Distribution Width 17.2 % (11.5-14.5) Platelet Count 437 x10^3/uL (140-400) Neutrophils (%) (Auto) 62 % (31-73) Lymphocytes (%) (Auto) 22 % (24-48) Monocytes (%) (Auto) 9 % (0-9) Eosinophils (%) (Auto) 7 % (0-3) Basophils (%) (Auto) 1 % (0-3) Neutrophils # (Auto) 5.0 x10^3uL (1.8-7.7) Lymphocytes # (Auto) 1.7 x10^3/uL (1.0-4.8) Monocytes # (Auto) 0.7 x10^3/uL (0.0-1.1) Eosinophils # (Auto) 0.5 x10^3/uL (0.0-0.7) Basophils # (Auto) 0.1 x10^3/uL (0.0-0.2) Prothrombin Time 13.2 SEC (11.7-14.0) Prothromb Time International Ratio 1.0 (0.8-1.1) Activated Partial Thromboplast Time 31 SEC (24-38) Sodium Level 139 mmol/L (136-145) Potassium Level 3.9 mmol/L (3.5-5.1) Chloride Level 97 mmol/L (98-107) Carbon Dioxide Level 26 mmol/L (21-32) Anion Gap 16 (6-14) Blood Urea Nitrogen 42 mg/dL (7-20) Creatinine 12.1 mg/dL (0.6-1.0) Estimated GFR (Cockcroft-Gault) 3.9 BUN/Creatinine Ratio 3 (6-20) Glucose Level 189 mg/dL (70-99) Calcium Level 9.4 mg/dL (8.5-10.1) Magnesium Level 2.3 mg/dL (1.8-2.4) Total Bilirubin 0.4 mg/dL (0.2-1.0) Aspartate Amino Transf (AST/SGOT) 11 U/L (15-37) Alanine Aminotransferase (ALT/SGPT) 13 U/L (14-59) Alkaline Phosphatase 121 U/L (46-116) Troponin I Quantitative < 0.017 ng/mL (0.000-0.055) Total Protein 8.0 g/dL (6.4-8.2) Albumin 3.4 g/dL (3.4-5.0) Albumin/Globulin Ratio 0.7 (1.0-1.7) Glucose (Fingerstick) 146 mg/dL (70-99) 132 mg/dL (70-99) 190 mg/dL (70-99) Laboratory Tests Test 01/11/19 20:12 01/12/19 07:33 Glucose (Fingerstick) 132 mg/dL (70-99) 190 mg/dL (70-99) Medications Current Medications Acetaminophen (Tylenol) 1,000 mg 1X ONCE PO Last administered on 01/11/19at 07: 53; Start 01/11/19 at 08:00; Stop 01/11/19 at 08:01; Status DC Ondansetron HCl (Zofran) 4 mg PRN Q8HRS PRN IV NAUSEA/VOMITING; Start 01/11/19 at 09:15; Stop 01/12/19 at 09:14; Status DC Acetaminophen (Tylenol) 650 mg PRN Q4HRS PRN PO FEVER; Start 01/11/19 at 09:15; Stop 01/12/19 at 09:14; Status DC Sodium Chloride 1,000 ml @ 1,000 mls/hr Q1H PRN IV hypotension; Start 01/11/19 at 13:20; Stop 01/11/19 at 19:19; Status DC Albumin Human 200 ml @ 200 mls/hr 1X PRN PRN IV Hypotension; Start 01/11/19 at 13:30; Stop 01/11/19 at 19:29; Status DC Sodium Chloride (Normal Saline Flush) 10 ml 1X PRN PRN IV AP catheter pack; Start 01/11/19 at 13:30; Stop 01/12/19 at 13:29 Sodium Chloride (Normal Saline Flush) 10 ml 1X PRN PRN IV TISSUE TECHNICIAN catheter pack; Start 01/11/19 at 13:30; Stop 01/12/19 at 13:29 Sodium Chloride 1,000 ml @ 400 mls/hr Q2H30M PRN IV PATENCY; Start 01/11/19 at 13:20; Stop 01/12/19 at 01:19; Status DC Info (PHARMACY MONITORING -- do not chart) 1 each PRN DAILY PRN MC SEE COMMENTS ; Start 01/11/19 at 13:30; Status UNV Info (PHARMACY MONITORING -- do not chart) 1 each PRN DAILY PRN MC SEE COMMENTS ; Start 01/11/19 at 13:30 Gabapentin (Neurontin) 300 mg BID PO Last administered on 01/11/19at 20:36; Start 01/11/19 at 21:00 Clonazepam (KlonoPIN) 0.5 mg TID PO Last administered on 01/11/19at 20:35; Start 01/11/19 at 14:00 Acetaminophen (Tylenol) 325 mg PRN Q4HRS PRN PO MILD PAIN / TEMP; Start at 14:30 Aspirin (Ecotrin) 325 mg DAILY PO ; Start 01/12/19 at 09:00 Atorvastatin Calcium (Lipitor) 40 mg QHS PO Last administered on 01/11/19at 20:36 ; Start 01/11/19 at 21:00 Furosemide (Lasix) 80 mg BID PO Last administered on 01/11/19at 20:36; Start 01/11 at 21:00 Insulin Glargine (Lantus) 15 units BIDPCLD SQ ; Start 01/11/19 at 17:30 Pantoprazole Sodium (Protonix) 40 mg DAILYAC PO ; Start 01/12/19 at 07:30 Zolpidem Tartrate (Ambien) 5 mg PRN QHS PRN PO INSOMNIA; Start 01/11/19 at 14:30 Non-Formulary Medication (Insulin Aspart (Novolog)) 5 unit [id number] SQ ; Start 01/11/19 at 21:00; Stop 01/11/19 at 21:00; Status DC Insulin Human Lispro (HumaLOG) 5 units TIDWMEALS SQ ; Start 01/11/19 at 20:30 Sodium Chloride 1,000 ml @ 1,000 mls/hr Q1H PRN IV hypotension; Start 01/12/19 at 08:11; Stop 01/12/19 at 14:10 Sodium Chloride 1,000 ml @ 400 mls/hr Q2H30M PRN IV PATENCY; Start 01/12/19 at 08:11; Stop 01/12/19 at 20:10 Info (PHARMACY MONITORING -- do not chart) 1 each PRN DAILY PRN MC SEE COMMENTS ; Start 01/12/19 at 08:15; Status UNV Info (PHARMACY MONITORING -- do not chart) 1 each PRN DAILY PRN MC SEE COMMENTS ; Start 01/12/19 at 08:15 Lidocaine HCl (Lidocaine 1% 20ml Vial) 20 ml 1X ONCE ID ; Start 01/12/19 at 08: 15; Stop 01/12/19 at 08:26; Status DC Lidocaine HCl (Xylocaine-Mpf 1% 2ml Vial) 2 ml STK-MED ONCE .ROUTE ; Start at 08:28; Stop 01/12/19 at 08:29; Status DC Active Scripts Active Lipitor (Atorvastatin Calcium) 40 Mg Tablet 40 Mg PO QHS Protonix (Pantoprazole Sodium) 40 Mg Tablet 40 Mg PO DAILYAC Reported Tylenol (Acetaminophen) 325 Mg Tablet 1 Tab PO PRN Q4HRS Ambien (Zolpidem Tartrate) 5 Mg Tablet 5 Mg PO PRN QHS Novolog (Insulin Aspart) 100 Unit/1 Ml Cartridge 5 Unit SQ [id number] Lantus Solostar (Insulin Glargine,Hum.rec.anlog) 100 Unit/1 Ml Insuln.pen 15 Unit SQ BIDPCLD Lasix (Furosemide) 80 Mg Tablet 1 Tab PO BID Aspirin Ec (Aspirin) 325 Mg Tablet.dr 1 Tab PO DAILY take this instead of 81 mg ASA untill follow up appointment. Discuss with Dr. Wright then if you should stay on 325mg daily or return to 81mg tablet. Gabapentin (Gabapentin) 300 Mg Capsule 600 Mg PO BID Vitals/I & O Vital Sign - Last 24 Hours 01/11/19 01/11/19 01/11/19 01/11/19 12:02 14:00 19:15 20:00 Temp 97.5 98.1 97.5 98.1 Pulse 72 80 Resp 18 18 B/P (MAP) 136/64 (88) 127/49 (75) Pulse Ox 96 95 O2 Delivery Room Air Room Air Room Air Room Air 01/11/19 01/12/19 01/12/19 23:21 03:26 07:00 Temp 98.0 98.6 98.2 98.0 98.6 98.2 Pulse 75 74 78 Resp 18 18 18 B/P (MAP) 97/51 (66) 121/60 (80) 120/67 (84) Pulse Ox 96 98 96 O2 Delivery Room Air Room Air Room Air Intake and Output 01/11/19 01/11/19 01/12/19 14:59 22:59 06:59 Intake Total 0 ml 0 ml 360 ml Output Total 150 ml Balance 0 ml -150 ml 360 ml MINERVA GLOVER III DO Jan 12, 2019 11:24
[2019-01-12] MEDS: INSULIN GLARGINE 300 UNITS/3 ML INSULN.PEN. SQ SCH ×2 (12:30→17:21)
--- NOTE | 2019-01-12 12:45 | PDOC ---
Renal-Progress Notes Subjective Notes Notes FEELS BETTER, WANTS TO GO HOME History of Present Illness Hx of present illness IMPROVED Vitals Vitals Vital Signs Date Time Temp Pulse Resp B/P (MAP) Pulse Ox O2 Delivery O2 Flow Rate FiO2 01/12/19 08:00 Room Air 01/12/19 07:00 98.2 78 18 120/67 (84) 96 98.2 Weight Weight [ ] I.O. Intake and Output Intake and Output 01/12/19 07:00 Intake Total 360 ml Output Total 150 ml Balance 210 ml Intake Oral 360 ml Output Urine Total 150 ml Labs Labs Laboratory Tests Test 01/11/19 20:12 01/12/19 07:33 Glucose (Fingerstick) 132 mg/dL (70-99) 190 mg/dL (70-99) Review of Systems Constitutional: yes: weakness, alert, oriented Ears/Nose/Throat: Yes: no symptom reported Eyes: Yes: no symptom reported Pulmonary: Yes no symptom reported Cardiovascular: Yes no symptom reported Gastrointestional: Yes: no symptom reported Genitourinary: Yes: no symptom reported Musculoskeletal: Yes: no symptom reported Skin: Yes no symptom reported Psychiatric/Neurological: Yes: tremors Endocrine: Yes: no symptom reported Physical Exam General Appearance: no apparent distress Skin: warm Respiratory: bilateral CTA Heart: S1S2 Abdomen: soft, bowel sounds present Genitourinary: bladder flat Extremities: pulses present Neurology: alert, oriented Musculoskeletal: Osteoarthritis (left knee), Other (left knee and ankle fractures) Assessment Assessment IMP WEAKNESS TREMORS-RESOLVED DM II HTN ANEMIA NON COMPLIANCE [id number] THURSDAY PLAN HD TODAY UF TO DW ENC COMPLIANCE OK TO D/C ROCIO ROA MD Jan 12, 2019 12:45
[2019-01-12] MEDS: GABAPENTIN 300 MG CAPSULE. PO SCH (13:37)
--- NOTE | 2019-01-12 14:21 | PDOC ---
PROGRESS NOTES Assessment Problems Medical Problems: (1) ESRD on hemodialysis Status: Acute (2) Facial contusion Status: Acute (3) Syncope and collapse Status: Acute (4) Tremor Status: Acute Myoclonus, usually this is related to uremia, consider gabapentin toxicity. There is no evidence that this is epileptic. Resolved. Diabetic neuropathy. No evidence of central nervous system process such as myelopathy or intracranial problem. Plan Okay for discharge Clonazepam 3 times a day PRN on discharge Decreased gabapentin dose 300 mg bid Fully discussed with patient and her daughter. Followup with neurology PRN, she can cancel her 01/[address] Mahajan Subjective no complaints, myoclonus has resolved Objective Vital Signs Date Time Temp Pulse Resp B/P (MAP) Pulse Ox O2 Delivery O2 Flow Rate FiO2 01/12/19 08:00 Room Air 01/12/19 07:00 98.2 78 18 120/67 (84) 96 98.2 Intake and Output 01/12/19 07:00 Intake Total 360 ml Output Total 150 ml Balance 210 ml Intake Oral 360 ml Output Urine Total 150 ml PHYSICAL EXAM Alert. Oriented to time, place and person. PERRL. EOMI. CN: no focal findings. Muscle tone: normal. Muscle strength: 5/5 DTR: 0+ Plantar reflex: flexor Gait: not examined in bed. Sensory exam: stocking loss. No cerebellar signs elicited. No myoclonus Review of Relevant I have reviewed the following items melissa (where applicable) has been applied. Labs Laboratory Tests Test 01/11/19 07:18 01/11/19 11:14 01/11/19 20:12 01/12/19 07:33 White Blood Count 8.1 x10^3/uL (4.0-11.0) Red Blood Count 3.73 x10^6/uL (3.50-5.40) Hemoglobin 11.7 g/dL (12.0-15.5) Hematocrit 36.6 % (36.0-47.0) Mean Corpuscular Volume 98 fL (79-100) Mean Corpuscular Hemoglobin 31 pg (25-35) Mean Corpuscular Hemoglobin Concent 32 g/dL (31-37) Red Cell Distribution Width 17.2 % (11.5-14.5) Platelet Count 437 x10^3/uL (140-400) Neutrophils (%) (Auto) 62 % (31-73) Lymphocytes (%) (Auto) 22 % (24-48) Monocytes (%) (Auto) 9 % (0-9) Eosinophils (%) (Auto) 7 % (0-3) Basophils (%) (Auto) 1 % (0-3) Neutrophils # (Auto) 5.0 x10^3uL (1.8-7.7) Lymphocytes # (Auto) 1.7 x10^3/uL (1.0-4.8) Monocytes # (Auto) 0.7 x10^3/uL (0.0-1.1) Eosinophils # (Auto) 0.5 x10^3/uL (0.0-0.7) Basophils # (Auto) 0.1 x10^3/uL (0.0-0.2) Prothrombin Time 13.2 SEC (11.7-14.0) Prothromb Time International Ratio 1.0 (0.8-1.1) Activated Partial Thromboplast Time 31 SEC (24-38) Sodium Level 139 mmol/L (136-145) Potassium Level 3.9 mmol/L (3.5-5.1) Chloride Level 97 mmol/L (98-107) Carbon Dioxide Level 26 mmol/L (21-32) Anion Gap 16 (6-14) Blood Urea Nitrogen 42 mg/dL (7-20) Creatinine 12.1 mg/dL (0.6-1.0) Estimated GFR (Cockcroft-Gault) 3.9 BUN/Creatinine Ratio 3 (6-20) Glucose Level 189 mg/dL (70-99) Calcium Level 9.4 mg/dL (8.5-10.1) Magnesium Level 2.3 mg/dL (1.8-2.4) Total Bilirubin 0.4 mg/dL (0.2-1.0) Aspartate Amino Transf (AST/SGOT) 11 U/L (15-37) Alanine Aminotransferase (ALT/SGPT) 13 U/L (14-59) Alkaline Phosphatase 121 U/L (46-116) Troponin I Quantitative < 0.017 ng/mL (0.000-0.055) Total Protein 8.0 g/dL (6.4-8.2) Albumin 3.4 g/dL (3.4-5.0) Albumin/Globulin Ratio 0.7 (1.0-1.7) Glucose (Fingerstick) 146 mg/dL (70-99) 132 mg/dL (70-99) 190 mg/dL (70-99) Test 01/12/19 13:43 Glucose (Fingerstick) 130 mg/dL (70-99) Laboratory Tests Test 01/11/19 20:12 01/12/19 07:33 01/12/19 13:43 Glucose (Fingerstick) 132 mg/dL (70-99) 190 mg/dL (70-99) 130 mg/dL (70-99) Medications Current Medications Acetaminophen (Tylenol) 1,000 mg 1X ONCE PO Last administered on 01/11/19at 07: 53; Start 01/11/19 at 08:00; Stop 01/11/19 at 08:01; Status DC Ondansetron HCl (Zofran) 4 mg PRN Q8HRS PRN IV NAUSEA/VOMITING; Start 01/11/19 at 09:15; Stop 01/12/19 at 09:14; Status DC Acetaminophen (Tylenol) 650 mg PRN Q4HRS PRN PO FEVER; Start 01/11/19 at 09:15; Stop 01/12/19 at 09:14; Status DC Sodium Chloride 1,000 ml @ 1,000 mls/hr Q1H PRN IV hypotension; Start 01/11/19 at 13:20; Stop 01/11/19 at 19:19; Status DC Albumin Human 200 ml @ 200 mls/hr 1X PRN PRN IV Hypotension; Start 01/11/19 at 13:30; Stop 01/11/19 at 19:29; Status DC Sodium Chloride (Normal Saline Flush) 10 ml 1X PRN PRN IV AP catheter pack; Start 01/11/19 at 13:30; Stop 01/12/19 at 13:29; Status DC Sodium Chloride (Normal Saline Flush) 10 ml 1X PRN PRN IV PRINTED CIRCUIT PHOTOGRAPHER catheter pack; Start 01/11/19 at 13:30; Stop 01/12/19 at 13:29; Status DC Sodium Chloride 1,000 ml @ 400 mls/hr Q2H30M PRN IV PATENCY; Start 01/11/19 at 13:20; Stop 01/12/19 at 01:19; Status DC Info (PHARMACY MONITORING -- do not chart) 1 each PRN DAILY PRN MC SEE COMMENTS ; Start 01/11/19 at 13:30; Status UNV Info (PHARMACY MONITORING -- do not chart) 1 each PRN DAILY PRN MC SEE COMMENTS ; Start 01/11/19 at 13:30 Gabapentin (Neurontin) 300 mg BID PO Last administered on 01/12/19 13:37; Start 01/11/19 at 21:00 Clonazepam (KlonoPIN) 0.5 mg TID PO Last administered on 01/12/19 13:36; Start 01/11/19 at 14:00 Acetaminophen (Tylenol) 325 mg PRN Q4HRS PRN PO MILD PAIN / TEMP Last administered on 01/12/19 13:36; Start 01/11/19 at 14:30 Aspirin (Ecotrin) 325 mg DAILY PO Last administered on 01/12/19 13:36; Start at 09:00 Atorvastatin Calcium (Lipitor) 40 mg QHS PO Last administered on 01/11/19 20:36 ; Start 01/11/19 at 21:00 Furosemide (Lasix) 80 mg BID PO Last administered on 01/11/19 20:36; Start 01/11 at 21:00 Insulin Glargine (Lantus) 15 units BIDPCLD SQ ; Start 01/11/19 at 17:30 Pantoprazole Sodium (Protonix) 40 mg DAILYAC PO Last administered on 01/12/19 13:36; Start 01/12/19 at 07:30 Zolpidem Tartrate (Ambien) 5 mg PRN QHS PRN PO INSOMNIA; Start 01/11/19 at 14:30 Non-Formulary Medication (Insulin Aspart (Novolog)) 5 unit [id number] SQ ; Start 01/11/19 at 21:00; Stop 01/11/19 at 21:00; Status DC Insulin Human Lispro (HumaLOG) 5 units TIDWMEALS SQ ; Start 01/11/19 at 20:30 Sodium Chloride 1,000 ml @ 1,000 mls/hr Q1H PRN IV hypotension; Start 01/12/19 at 08:11; Stop 01/12/19 at 14:10; Status DC Sodium Chloride 1,000 ml @ 400 mls/hr Q2H30M PRN IV PATENCY; Start 01/12/19 at 08:11; Stop 01/12/19 at 20:10 Info (PHARMACY MONITORING -- do not chart) 1 each PRN DAILY PRN MC SEE COMMENTS ; Start 01/12/19 at 08:15; Status UNV Info (PHARMACY MONITORING -- do not chart) 1 each PRN DAILY PRN MC SEE COMMENTS ; Start 01/12/19 at 08:15 Lidocaine HCl (Lidocaine 1% 20ml Vial) 20 ml 1X ONCE ID ; Start 01/12/19 at 08: 15; Stop 01/12/19 at 08:26; Status DC Lidocaine HCl (Xylocaine-Mpf 1% 2ml Vial) 2 ml STK-MED ONCE .ROUTE ; Start at 08:28; Stop 01/12/19 at 08:29; Status DC Active Scripts Active Lipitor (Atorvastatin Calcium) 40 Mg Tablet 40 Mg PO QHS Protonix (Pantoprazole Sodium) 40 Mg Tablet 40 Mg PO DAILYAC Reported Tylenol (Acetaminophen) 325 Mg Tablet 1 Tab PO PRN Q4HRS Ambien (Zolpidem Tartrate) 5 Mg Tablet 5 Mg PO PRN QHS Novolog (Insulin Aspart) 100 Unit/1 Ml Cartridge 5 Unit SQ [id number] Lantus Solostar (Insulin Glargine,Hum.rec.anlog) 100 Unit/1 Ml Insuln.pen 15 Unit SQ BIDPCLD Lasix (Furosemide) 80 Mg Tablet 1 Tab PO BID Aspirin Ec (Aspirin) 325 Mg Tablet.dr 1 Tab PO DAILY take this instead of 81 mg ASA untill follow up appointment. Discuss with Dr. Wright then if you should stay on 325mg daily or return to 81mg tablet. Gabapentin (Gabapentin) 300 Mg Capsule 600 Mg PO BID Vitals/I & O Vital Sign - Last 24 Hours 01/11/19 01/11/19 01/11/19 01/12/19 19:15 20:00 23:21 03:26 Temp 98.1 98.0 98.6 98.1 98.0 98.6 Pulse 80 75 74 Resp 18 18 18 B/P (MAP) 127/49 (75) 97/51 (66) 121/60 (80) Pulse Ox 95 96 98 O2 Delivery Room Air Room Air Room Air Room Air 01/12/19 01/12/19 07:00 08:00 Temp 98.2 98.2 Pulse 78 Resp 18 B/P (MAP) 120/67 (84) Pulse Ox 96 O2 Delivery Room Air Room Air Intake and Output 01/11/19 01/11/19 01/12/19 15:00 23:00 07:00 Intake Total 0 ml 0 ml 360 ml Output Total 150 ml Balance 0 ml -150 ml 360 ml ANGELICA FRANCOIS MD Jan 12, 2019 14:21
[2019-01-12] MEDS ORDERED: clonazePAM 0.5 MG TABLET PO PRN (14:30)
[2019-01-12 15:00] VITALS: BP 116/68
--- NOTE | 2019-01-12 15:14 | NUR ---
JACOB following pt for anticipated dc needs. Chart reviewed and discussed with RN. JAMES notified by [facility] [employer], phone: [phone] fax: [phone], pt has been on service since December 20 and will need resumption orders. Physician notified for HH orders. JACOB will fax orders once orders are in. Addendum: 01/13/19 at 1621 by AD JAMES Post dc note: JACOB faxed HH resumption orders to [facility].
--- NOTE | 2019-01-12 16:03 | NUR ---
Wound Care; Consult to eval and treat for R knee abrasion (see detailed assessment). Abrasion is surfaced with dry, intact scab. Applied skin prep and foam for protection. No other open skin noted on head to toe inspection. Education on PU prevention discussed with pt. No further follow up required from wound care at this time.
--- NOTE | 2019-01-12 18:26 | DS ---
DATE OF DISCHARGE: 01/12/2019 ADMISSION DIAGNOSES: Syncope and shaking. DISCHARGE DIAGNOSES: 1. 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 2. End-stage renal disease, on dialysis. CONSULTS: Neurology and Nephrology. PROCEDURES: Dialysis. HOSPITAL COURSE: The patient is a pleasant 53-year-old female, presented with syncope and shaking. We consulted Neurology, Dr. García is convinced that this is myoclonus. We certainly agree and appreciate his input. The myoclonus was secondary to high dose Neurontin and uremia and her noncompliance with her Klonopin. We have now decreased the Neurontin, we got her back on her Klonopin and we dialyzed, and her shakes and tremors and myoclonus have gone away. I saw her and examined. Her heart tones were normal. Her lungs were clear. We plan to discharge. DISPOSITION: Home. ACTIVITY: As tolerated. DIET: Renal. MEDICATIONS: Please see the MRAD. TOTAL TIME: 34 minutes. MINERVA GLOVER DO DR: LOVELY/lottie JOB#: [id number] / [id number]
--- NOTE | 2019-01-13 16:01 | SNU/HH DC ---
DISCHARGE WITH HOME HEALTH DISCHARGE INFORMATION: Final Diagnosis: Problems Medical Problems: (1) ESRD on hemodialysis Status: Acute (2) Facial contusion Status: Acute (3) Syncope and collapse Status: Acute (4) Tremor Status: Acute Condition on Discharge: Stable CODE STATUS: Code Status: Full HOME HEALTH: Face to Face: I certify this patient is under my care and that I, or a nurse practitioner or physician's assistant oceanographer working with me, had a face to face encounter that meets the physician face to face encounter requirements with this patient on []. Medical Complications: Other (Debility) RN For Eval/Treatment: Yes Physical Therapy For: Evalulation/Treatment Occupational Therapy For: Evaluation/Treatment Home Health Aide For: Self-care Pt Meets Homebound Status: Unsteady balance w/ amb, POST DISCHARGE ORDERS: Activity Instructions for Disc: Activity as tolerated Weight Bearing Status after Di: As tolerated DIET AFTER DISCHARGE: Cardiac Wound/Incision Care: No wound care needed CHECKS AFTER DISCHARGE: Checks after discharge: Check blood press - daily, Check blood sugar, ac/hs, Weigh Yourself Daily FOLLOW-UP: Follow up with: Dialysis as directed. Follow Up With: Dr Mahajan as needed. TREATMENT/EQUIPMENT ORDERS: Adaptive Equipment Issued: None CERTIFICATION STATEMENT: Certification Statement: Certification Statement: Based on the above finding, I certify that this patient is confined to the home and needs intermittent retirement care, physical therapy and/or speech therapy, or continues to need occupational therapy.~ This patient is under my care, and I have initiated the establishment of the plan of care.~ This patient will be followed by myself or a community physician who will periodically review the plan of care. Home Meds Active Scripts Atorvastatin Calcium (LIPITOR) 40 Mg Tablet, 40 MG PO QHS, #30 TAB Prov:YAMILKA MENDEZ MD 12/07/14 Pantoprazole Sodium (PROTONIX) 40 Mg Tablet, 40 MG PO DAILYAC, #30 TAB Prov:YAMILKA MENDEZ MD 12/07/14 Reported Medications Acetaminophen (TYLENOL) 325 Mg Tablet, 1 TAB PO PRN Q4HRS for pain, #30 TAB 01/11/19 Zolpidem Tartrate (AMBIEN) 5 Mg Tablet, 5 MG PO PRN QHS for insomnia, TAB 0 Refills 01/11/19 Insulin Aspart (NOVOLOG) 100 Unit/1 Ml Cartridge, 5 UNIT SQ [id number] for diabetes , EACH 01/11/19 Insulin Glargine,Hum.rec.anlog (LANTUS SOLOSTAR) 100 Unit/1 Ml Insuln.pen, 15 UNIT SQ BIDPCLD for hyper, #15 ML 3 Refills 01/11/19 Furosemide (LASIX) 80 Mg Tablet, 1 TAB PO BID for diuretic, #60 TAB 3 Refills 11/06/18 Aspirin (ASPIRIN EC) 325 Mg Tablet.dr, 1 TAB PO DAILY, #30 TAB 5 Refills take this instead of 81 mg ASA untill follow up appointment. Discuss with Dr. Wright then if you should stay on 325mg daily or return to 81mg tablet. 10/17/16 Gabapentin (GABAPENTIN ) 300 Mg Capsule, 600 MG PO BID, #90 CAP 5 Refills 09/19/15 MINERVA GLOVER III DO Jan 13, 2019 16:01
== END 2019-01-12 15:00 | disposition home or self-care (01) | DRG 91 ==
LOC: ER 06:44 → 6 SOUTH 09:12
PROVIDERS: ADMIT Internal Medicine; ATTEND Internal Medicine
PROC: 5A1D70Z Performance of Urinary Filtration, Intermittent, Less than 6 Hours Per Day (ICD-10-PCS; 2019-01-10)
PROC: 5A1D70Z Performance of Urinary Filtration, Intermittent, Less than 6 Hours Per Day (ICD-10-PCS; principal; 2019-01-11)
DX: G25.3 Myoclonus (principal); N18.6 End stage renal disease; I13.2 Hypertensive heart and chronic kidney disease with heart failure and with stage 5 chronic kidney disease, or end stage renal disease; E11.22 Type 2 diabetes mellitus with diabetic chronic kidney disease; I50.9 Heart failure, unspecified; J45.909 Unspecified asthma, uncomplicated; E78.00 Pure hypercholesterolemia, unspecified; W18.39XA Other fall on same level, initial encounter; S00.83XA Contusion of other part of head, initial encounter; E78.5 Hyperlipidemia, unspecified; I25.10 Atherosclerotic heart disease of native coronary artery without angina pectoris; G47.30 Sleep apnea, unspecified; E11.42 Type 2 diabetes mellitus with diabetic polyneuropathy; M17.12 Unilateral primary osteoarthritis, left knee; D64.9 Anemia, unspecified; Z99.2 Dependence on renal dialysis; Z90.710 Acquired absence of both cervix and uterus; Z90.49 Acquired absence of other specified parts of digestive tract; Z88.6 Allergy status to analgesic agent; Z88.5 Allergy status to narcotic agent; Z88.2 Allergy status to sulfonamides; Z88.8 Allergy status to other drugs, medicaments and biological substances; Z91.048 Other nonmedicinal substance allergy status; Y93.89 Activity, other specified; Y92.89 Other specified places as the place of occurrence of the external cause; Y99.8 Other external cause status; Z91.15 Patient's noncompliance with renal dialysis; Z91.19 Patient's noncompliance with other medical treatment and regimen; Z82.49 Family history of ischemic heart disease and other diseases of the circulatory system
CPT/HCPCS: 36415; 70450; 70486; 72125; 73562; 80053; 82962; 83735; 84484; 85025; 85610; 85730; 93005; J1815; 99285-25

== ENCOUNTER → 2019-03-30 | Outpatient (CLI) | payer MEDICARE ==
[~2019-03-30] MED LIST changes: +ACET325T9 PO; -PANT40TA3 PO; +PANT40TA77 PO; +ZOLP5TAB PO; +ZOLPIDEM 5 MG TABLET. PO ONE
--- NOTE | 2019-03-31 23:43 | SLEEP ---
DATE OF STUDY: 03/30/2019 SLEEP STUDY ATTENDING PHYSICIAN: Dr. Yamilka Currie REFERRING PHYSICIAN: Dr. Alvarez. HISTORY OF PRESENT ILLNESS: The patient is 53 years old who weighs 225 pounds with a BMI of 40. The patient's Tyrone score was 13. The patient underwent sleep study performed by [facility]. This was a split night study. During the night study, the patient spent 416 minutes in bed and slept for 366 minutes with a sleep efficiency of 88%. Sleep latency was 36 minutes with a REM latency of 94 minutes. Overall, sleep architecture showed normal stage 1 sleep, increased stage 2 sleep, normal slow wave and reduced REM sleep. During the initial diagnostic portion of the study, the patient slept for 82 minutes. During that time, there were 9 obstructive apneas, 1 mixed apnea, no central apneas and 25 hypopneas. The patient's apnea hypopnea index was 26 per hour with a supine index of 48 per hour. REM sleep was not seen during the diagnostic portion of the study. EKG monitoring revealed normal sinus rhythm. No sustained arrhythmias observed. PLMS were seen at index of 85 per hour and 10 per hour caused EEG arousals. Nocturnal oximetry study revealed mean oxygen saturation 93% with the lowest of 69%. 25% of the time, oxygen saturation remained between 80% and 89%. The patient met the criteria for CPAP initiation. It was started at 5 cm water and titrated up to 12 cm water. At the final pressure, the patient slept for 131 minutes. The patient had supine and REM sleep. The patient's AHI was reduced to 1 per hour and oxygen saturation remained above 88%. The patient used medium size nasal pillows. IMPRESSION: 1. Moderate sleep apnea-hypopnea syndrome with worsening during supine sleep. Total AHI 26 per hour with a supine AHI of 48 per hour. REM sleep was not seen during the diagnostic portion of the study. 2. Nocturnal hypoxia secondary to obstructive sleep apnea, but resolved with CPAP. 3. Severe periodic limb movements in sleep. RECOMMENDATIONS: 1. CPAP at 12 cm water completely eliminated the patient's sleep apnea and should be used on a nightly basis. 2. Follow up in 4-6 weeks to assess compliance with CPAP and to document clinical improvement. 3. Weight loss is strongly advised. 4. Avoid DECKHAND [employer]UNA BOAT depressants. 5. Caution regarding driving until symptoms of sleep apnea resolve with the use of CPAP. 6. Avoid supine sleep. 7. The patient should also be further evaluated for symptoms of restless legs during the day and if present, it can be treated with dopaminergic agonist agents. SANDY JACKSON MD DR: ERMA/lottie JOB#: [id number] / [id number] YAMILKA Higgins MD, SABATO MD MTDD
== END | disposition home or self-care (01) ==
LOC: RT 19:08
PROVIDERS: ATTEND Internal Medicine Pulmonary Disease
DX: G47.33 Obstructive sleep apnea (adult) (pediatric) (principal); G47.34 Idiopathic sleep related nonobstructive alveolar hypoventilation; G47.61 Periodic limb movement disorder
CPT/HCPCS: 95810

== ENCOUNTER → 2019-04-21 | Outpatient (CLI) | payer MEDICARE, MEDICAID ==
[~2019-04-21] MED LIST changes: -ZOLPIDEM 5 MG TABLET. PO ONE
--- NOTE | 2019-04-21 17:29 | KCIC ---
KNEE LEFT 4V History: Left knee pain anterior and posterior for over one year. Previous surgery.. Comparison: None FINDINGS: No evidence of acute fracture. No aggressive bone destruction. Joint spaces are grossly maintained. There may be small subchondral cyst at the patella. Small joint effusion. IMPRESSION: Small joint effusion. No acute bone abnormality. Electronically signed by: Lei Lopez MD (04/21/2019 5:26 PM) [facility]
== END | disposition home or self-care (01) ==
LOC: KCIC 14:38
PROVIDERS: ATTEND Family Medicine
DX: M25.462 Effusion, left knee (principal)
CPT/HCPCS: 73564

== ENCOUNTER → 2019-06-20 | Outpatient (CLI) | payer MEDICARE, MEDICAID ==
--- NOTE | 2019-06-20 13:50 | RAD ---
Thyroid ultrasound study compared to similar examination dated 11/29/2018 for follow-up of thyroid nodules. TECHNIQUE AND FINDINGS: Real-time grayscale and color Doppler evaluation of the thyroid gland is performed. The right lobe measures 4.4 x 2.2 x 1.8 cm in the left measures 4.3 x 2.0 x 2.6 cm. Both lobes demonstrate normal color flow. On the right, there is redemonstration of 2 subcentimeter solid appearing nodules which are unchanged in size and appearance. Also redemonstrated is a small 8 mm cystic nodule grossly stable save for a new benign-appearing hyperechoic mural focus. On the left, also redemonstrated and grossly stable are 2 solid appearing heterogeneous nodules, the largest of which is 1.6 cm and is complex appearing at the inferior pole, with limited evaluation of the deep margin. Also noted at the superior pole of the left thyroid gland is a complex lobulated heterogeneous but predominantly hypoechoic deep nodule measuring 1.9 x 1.1 x 1.8 cm. The margin is once again poorly visualized. This nodule was present on the prior examination and is grossly stable. IMPRESSION: 1. Multinodular thyroid as described. Small subcentimeter nodules on the right are stable. Previously reported solid nodules on the left at the mid and inferior pole are also stable. 2. 1.9 cm heterogeneous hypoechoic lobulated thyroid nodule at the upper pole of the left thyroid gland with poorly visualized deep margin. This nodule is newly seen, but appears to have been present and is grossly unchanged from the prior exam. Based on size and features, this constitutes a TIRADS4, and FNA should be considered. Electronically signed by: Konstantin Vick MD (06/20/2019 1:47 PM) [facility]
== END | disposition home or self-care (01) ==
LOC: US 09:18
PROVIDERS: ATTEND Family Medicine
DX: E04.2 Nontoxic multinodular goiter (principal)
CPT/HCPCS: 76536

== ENCOUNTER → 2019-07-14 | Outpatient (CLI) | payer MEDICARE, MEDICAID ==
[~2019-07-14] MED LIST changes: +DOXY-96 PO; -DOXY100T9 PO
--- NOTE | 2019-07-14 11:40 | RAD ---
Examination: US GUID NDL PLACE/ASPI/BX History: Left thyroid mass Comparison/Correlation: None Findings: Risks and benefits of ultrasound-guided final aspiration were discussed with the patient and informed consent was obtained. Cleansing with ChloraPrep was performed after preliminary ultrasound imaging to determine needle placement site. Medial approach was utilized. Sterile drapes were placed. 5 cc 1 percent lidocaine was placed. 4 fine-needle aspiration samples were acquired initially with 25-gauge needles attached syringes. These were not considered to be adequate by the concrete plant laborer. As a result, an additional 3 passes were made. A total of 7 25-gauge needles were utilized with attached syringes for fine-needle aspiration. Samples were reported as being adequate after conclusion of obtaining the additional samples. The patient tolerated procedure well without immediate competitions. Impression: Successful fine-needle aspiration of the left thyroid mass. Electronically signed by: Faraz Ariza MD (07/14/2019 11:37 AM) [facility]
--- NOTE | 2019-07-15 15:07 | PATHOLOGY ---
Note [facility] Accession Number: [id number] TESTS RESULT FLAG UNITS REF RANGE LAB Clinician Provided Cytology Information No. of containers..01 Other (Miscellaneous) Source: LT THYROID FNA DIAGNOSIS: LT THYROID FNA NEGATIVE FOR MALIGNANT CELLS. BETHESDA CATEGORY II. SPECIMEN CONSISTS OF BLAND BFOLLICULAR CELLS, HEMOSIDERIN-LADEN MACROPHAGES, SCANT COLLOID AND BLOOD. THE PATTERN IS CONSISTENT WITH ADENOMATOID NODULE. THIS INTERPRETATION INCLUDES EVALUATION OF A CELL BLOCK. Pathologist ICD10: 02 E04.1 Signed out by: Rayshawn Messina MD, Pathologist NPI- [id number] Performed by: Melvi Ferguson, Produce Assistant ([facility]) Gross description: 30 ML, RED, CLOUDY /LCS 10/11/1840 0000 Local FLAG LEGEND: L-Low Normal,H-High Normal,LL-Alert Low,HH-Alert High <-Panic Low,>-Panic High,A-Abnormal,AA-Critical Abnormal Performed at: [facility] [address] [place] [address] Lai Reeves MD, [address] [facility] [address] [place] [address] oM Dominguez MD, Specimen Comment: A courtesy copy of this report has been sent to Specimen Comment: [phone], . Specimen Comment: Report sent to / DR MENDEZ Specimen Comment: A duplicate report has been generated due to demographic updates. Performed at: [address] [facility] [id number], [place], [place] [id number] MD Lai Reeves MD Phone: [phone]
== END | disposition home or self-care (01) ==
LOC: US 09:57
PROVIDERS: ATTEND Family Medicine
DX: E04.1 Nontoxic single thyroid nodule (principal)
CPT/HCPCS: 60300; 76942; 88173; 88305

== ENCOUNTER → 2019-07-15 | Outpatient (CLI) | payer MEDICARE, MEDICAID ==
[~2019-07-15] MED LIST changes: +CYCL5TAB PO; +OXYC1TAB15 PO; +PHEN100T82 PO; +TRAM-48 PO
--- NOTE | 2019-07-15 10:55 | RAD ---
Examination: MRI of the right knee without contrast HISTORY: History of right knee pain COMPARISON: None available TECHNIQUE: Multiplanar multisequence MR imaging of the right knee was performed without contrast. FINDINGS: The anterior cruciate ligament, posterior cruciate ligament appear intact. The medial meniscus, lateral meniscus appears intact. The medial collateral ligament, lateral collateral ligamentous complex including the fibular collateral ligament, biceps femoris tendon, popliteus tendon appear intact.. The medial retinaculum, lateral retinaculum appears intact. Small knee joint effusion. There is near complete cartilage loss identified in the weightbearing portion of the medial compartment. Superficial fraying of cartilage identified in the lateral compartment. Mild increased T2 signal/extremity edema identified in the anterior aspect of the lateral tibial plateau. The extensor mechanism appears intact. Increased T2 signal identified in the subcutaneous region around the knee likely edema. There is a 1.5 cm cartilaginous lesion identified in the abutting the lateral cortex of the lateral femoral condyle probably enchondroma. IMPRESSION: 1. Mild increased T2 signal identified in the anterior aspect of the lateral tibial plateau likely bone contusion or trabecular edema. 2. Complete cartilage loss weightbearing portion medial compartment. 3. There is a 1.5 cm cartilaginous lesion identified in the abutting the lateral cortex of the lateral femoral condyle probably enchondroma 4. Mild tricompartmental degenerative changes. Electronically signed by: Torrey Berry MD (07/15/2019 10:53 AM) [facility]
== END | disposition home or self-care (01) ==
LOC: MRI 10:31
PROVIDERS: ATTEND Family Medicine
DX: M25.461 Effusion, right knee (principal)
CPT/HCPCS: 73721

== ENCOUNTER 2019-07-29 19:57 | Emergency (ER) | payer MEDICARE, MEDICAID ==
[~2019-07-29] VITALS: Ht 160 cm; Wt 103.0 kg
[~2019-07-29 19:57] MED LIST changes: -CYCL5TAB PO; -OXYC1TAB15 PO; -PHEN100T82 PO; -TRAM-48 PO
--- NOTE | 2019-07-29 20:47 | PHYS DOC ---
Past Medical History Past Medical History: Other Additional Past Medical Histor: torticollis uti Past Surgical History: Cholecystectomy, Hysterectomy, Other Additional Past Surgical Histo: BX R BREAST, R CHEST SHUNT IN & OUT, AV FIST L ARM,L KNEE,L ROTAT CUFFF Alcohol Use: None Drug Use: None Adult General Chief Complaint Chief Complaint: MULTIPLE COMPLAINTS HPI HPI 53-year-old female presents to the emergency department with complaints of abdominal pain, neck pain, hematuria. Patient was seen by her primary care physician office yesterday with diagnosis of urinary tract infection. She was started upon antibiotic therapy, Keflex. Patient states today she's had worseni ng abdominal pain, worsening hematuria. States the hematuria was not present yesterday. She describes intermittent fever. Physical discussion patient states she fell partially 2 weeks ago with injury to her neck, now she has neck pain with muscle spasm states she is unable to turn her head to the right. No x-rays were obtained at that time. Review of Systems Review of Systems Constitutional: Fever Respiratory: Denies cough or shortness of breath [] Cardiovascular: No additional information not addressed in HPI [] GI: Lower abdominal pain, low back pain. : Hematuria Musculoskeletal: Low back pain, neck pain Integument: Denies rash or skin lesions [] Neurologic: Denies headache, focal weakness or sensory changes [] All other systems were reviewed and found to be within normal limits, except as documented in this note. Current Medications Current Medications Current Medications Medications (Trade) Dose Ordered Sig/Cayetano Start Time Stop Time Status Last Admin Dose Admin Diazepam (Valium) 2 mg 1X ONCE 07/29/19 21:00 07/29/19 21:01 DC 07/29/19 21:45 2 MG Fentanyl Citrate (Fentanyl 2ml Vial) 25 mcg PRN Q15MIN PRN 07/29/19 21:00 07/30/19 20:59 07/29/19 21:45 25 MCG Info (CONTRAST GIVEN -- Rx MONITORING) 1 each PRN DAILY PRN 07/29/19 21:15 07/31/19 21:14 Iohexol (Omnipaque 300 Mg/ml) 75 ml 1X ONCE 07/29/19 21:30 07/29/19 21:31 DC 07/29/19 21:40 75 ML Ondansetron HCl (Zofran) 4 mg 1X ONCE 07/29/19 21:00 07/29/19 21:01 DC 07/29/19 21:44 4 MG Sodium Chloride 1,000 ml @ 1,000 mls/hr Q1H 07/29/19 21:00 07/29/19 21:59 DC 07/29/19 21:45 1,000 MLS/HR Allergies Allergies Allergies Coded Allergies Type Severity Reaction Last Updated Verified aloe vera Allergy Severe Shortness of Air 10/16/17 Yes morphine Allergy Severe Hives 10/16/17 Yes [place] And Derivatives Allergy Intermediate 10/16/17 Yes Sulfa (Sulfonamide Antibiotics) Allergy Intermediate Hives 10/16/17 Yes adhesive Allergy Intermediate 09/22/18 Yes codeine Adverse Reaction Severe Hives 10/16/17 Yes ibuprofen Adverse Reaction Severe Shortness of Air 10/16/17 Yes naproxen Adverse Reaction Severe Shortness of Air 10/16/17 Yes tramadol Adverse Reaction Severe Shortness of Air 10/16/17 Yes hydromorphone Adverse Reaction Intermediate 10/16/17 Yes Physical Exam Physical Exam Constitutional: Well developed, well nourished, acute distress secondary to pain, non-toxic appearance. [] HENT: Normocephalic, atraumatic, bilateral external ears normal, oropharynx moist, no oral exudates, nose normal. [] Eyes: PERRLA, EOMI, conjunctiva normal, no discharge. [] Neck: Muscle pain to the neck, patient states it painful to look to the right second to muscle strain and injury 2 weeks ago. Cardiovascular:Heart rate regular rhythm, no murmur [] Lungs & Thorax: Bilateral breath sounds clear to auscultation [] Abdomen: Bowel sounds normal, soft, tender to palpation lower abdomen. No pulsatile mass. Skin: Warm, dry, no erythema, no rash. [] Back: No CVA tenderness Extremities: No tenderness, no edema. [] Neurologic: Alert and oriented X 3, no focal deficits noted. [] Psychologic: Affect normal, judgement normal, mood normal. [] Current Patient Data Vital Signs Vital Signs Date Time Temp Pulse Resp B/P (MAP) Pulse Ox O2 Delivery O2 Flow Rate FiO2 07/29/19 21:59 73 14 154/74 (100) 99 Nasal Cannula 2.0 07/29/19 20:15 99.1 99.1 Lab Values Laboratory Tests Test 07/29/19 21:15 White Blood Count 9.9 x10^3/uL (4.0-11.0) Red Blood Count 3.51 x10^6/uL (3.50-5.40) Hemoglobin 11.6 g/dL (12.0-15.5) L Hematocrit 35.2 % (36.0-47.0) L Mean Corpuscular Volume 100 fL (79-100) Mean Corpuscular Hemoglobin 33 pg (25-35) Mean Corpuscular Hemoglobin Concent 33 g/dL (31-37) Red Cell Distribution Width 14.6 % (11.5-14.5) H Platelet Count 304 x10^3/uL (140-400) Neutrophils (%) (Auto) 68 % (31-73) Lymphocytes (%) (Auto) 19 % (24-48) L Monocytes (%) (Auto) 9 % (0-9) Eosinophils (%) (Auto) 2 % (0-3) Basophils (%) (Auto) 1 % (0-3) Neutrophils # (Auto) 6.7 x10^3/uL (1.8-7.7) Lymphocytes # (Auto) 1.9 x10^3/uL (1.0-4.8) Monocytes # (Auto) 0.9 x10^3/uL (0.0-1.1) Eosinophils # (Auto) 0.2 x10^3/uL (0.0-0.7) Basophils # (Auto) 0.1 x10^3/uL (0.0-0.2) Sodium Level 138 mmol/L (136-145) Potassium Level 4.6 mmol/L (3.5-5.1) Chloride Level 97 mmol/L (98-107) L Carbon Dioxide Level 28 mmol/L (21-32) Anion Gap 13 (6-14) Blood Urea Nitrogen 55 mg/dL (7-20) H Creatinine 11.3 mg/dL (0.6-1.0) H Estimated GFR (Cockcroft-Gault) 4.2 BUN/Creatinine Ratio 5 (6-20) L Glucose Level 191 mg/dL (70-99) H Calcium Level 9.1 mg/dL (8.5-10.1) Total Bilirubin 0.4 mg/dL (0.2-1.0) Aspartate Amino Transferase (AST) 10 U/L (15-37) L Alanine Aminotransferase (ALT) 10 U/L (14-59) L Alkaline Phosphatase 140 U/L (46-116) H Total Protein 8.0 g/dL (6.4-8.2) Albumin 3.6 g/dL (3.4-5.0) Albumin/Globulin Ratio 0.8 (1.0-1.7) L Laboratory Tests 07/29/19 21:15 Laboratory Tests 07/29/19 21:15 EKG EKG [] Radiology/Procedures Radiology/Procedures [address] [id number] IMAGING REPORT Signed PATIENT: URIEL CRAIG ACCOUNT: [id number] : 1965 LOCATION: ER AGE: 53 SEX: F EXAM STATUS: REG ER ORD. PHYSICIAN: GLORIA TORRES MD REASON: fall, neck pain, unable to move neck to right 2/2 pain PROCEDURE: CT CERVICAL SPINE WO CONTRAST CT C-Spine without contrast: Clinical History: Neck pain fall unable to move neck to the right Technique: Axial helical images of the cervical spine were obtained without contrast, axial coronal and sagittal reconstruction was performed. Findings: There is no loss of vertebral body stature. There is no prevertebral soft tissue swelling. The vertebral bodies are well aligned. The head is turned to the left. There is no offset of C1 on C2. The visualized osseous structures appear normal. Impression: The head is turned to the left. There is no evidence of fracture or malalignment. Clinical correlation suggested. PQRS Compliance Statement: One or more of the following individualized dose reduction techniques were utilized for this examination: 1. Automated exposure control 2. Adjustment of the mA and/or kV according to patient size 3. Use of iterative reconstruction technique Electronically signed by: Deidra Wilson III, MD (07/29/2019 9:49 PM) [facility] DICTATED and SIGNED BY: DEIDRA WILSON III, MD DATE: 07/29/19 2149 [] [address] [id number] IMAGING REPORT Signed PATIENT: URIEL CRAIG ACCOUNT: [id number] : 1965 LOCATION: ER AGE: 53 SEX: F EXAM STATUS: REG ER ORD. PHYSICIAN: GLORIA TORRES MD REASON: abdominal pain, bay hematuria, ?hemorrhagic cystitis PROCEDURE: CT ABD PELV W/ IV CONTRST ONLY CT abdomen and pelvis with contrast PQRS statement: CT scans at this facility use dose reduction including either automated exposure control, iterative reconstructions, and /or weight based radiation dosing via mA and kV modification when appropriate to reduce radiation dose to as low as reasonably achievable. HISTORY: Abdominal pain, bay hematuria, numerous cystitis. TECHNIQUE: Helical CT imaging abdomen and pelvis with 75 mL Omnipaque 300 intravenous contrast. COMPARISON: CT abdomen and pelvis October 17, 2018. Abdomen findings: Lung bases unremarkable. There is a 2 cm oblong density adjacent of the esophagus at the middle mediastinum similar chest imaging from December 2018 could represent a lymph node or a diverticulum of the esophagus. Lower thoracic endplate lytic deformity T11 is stable likely Schmorl's of from degenerative disc disease. Tiny 1 mm renal calculi bilaterally similar to prior CT imaging. Mild prominence of the common bile duct typical after cholecystectomy. Subcentimeter left renal upper pole hypodensity too small to characterize most likely small cyst. Right kidney, adrenals, pancreas, spleen and liver are unremarkable. Appendix is negative. No obstruction or inflammatory changes in GI tract. No abdominal fluid or adenopathy. Pelvis findings: Urinary bladder wall marked thickening, hypervascular enhancement and edema. Hysterectomy. Ovaries atrophic or surgically absent. Rectum and bones are unremarkable. No fluid or adenopathy. IMPRESSION: 1. Cystitis with hypervascular thickened wall enhancement and edema of the urinary bladder. 2. The appendix is negative. Electronically signed by: Chris Loza MD (07/29/2019 10:03 PM) [facility] DICTATED and SIGNED BY: CHRIS LOZA MD DATE: 07/29/192202 Course & Med Decision Making Course & Med Decision Making Pertinent Labs and Imaging studies reviewed. (See chart for details) []53-year-old female presents to the emergency department with complaints of abdominal pain, neck pain, hematuria. Patient was seen by her primary care physician office yesterday with diagnosis of urinary tract infection. She was started upon antibiotic therapy, Keflex. Patient states today she's had worsening abdominal pain, worsening hematuria. States the hematuria was not present yesterday. She describes intermittent fever. Physical discussion patient states she fell partially 2 weeks ago with injury to her neck, now she has neck pain with muscle spasm states she is unable to turn her head to the right. No x-rays were obtained at that time. CT abd and pelvis revealed evidence of cystitis, bladder wall thickening. CT the neck reveals no evidence of malalignment or acute fracture. Discussed findings with patient and family at bedside. Bentyl 10 mg IM, continue Keflex as prescribed by primary care physician, prescription provided for tramadol, Pyridium. Recommend return to the emergency department with worsening symptoms. Dragon Disclaimer Dragon Disclaimer This electronic medical record was generated, in whole or in part, using a voice recognition dictation system. Departure Departure Impression: Primary Impression: Cystitis Disposition: 01 HOME, SELF-CARE Condition: STABLE Referrals: YAMILKA MENDEZ MD (PCP) Patient Instructions: Hematuria, Adult, Urinary Tract Infection, [id number] Additional Instructions: Recommend follow up with PCP 3 - 5 days Return to the ER with worsening symptoms, intractable pain, fever, altered mental status Tylenol/Motrin as needed for pain Take medications as prescribed Scripts Oxycodone/Apap 5-325 (PERCOCET 5-325 MG TABLET ) 1 Each Tablet 1 TAB PO PRN Q6HRS PRN for PAIN for 3 Days, #12 TAB 0 Refills Prov: GLORIA TORRES MD 07/29/19 Cyclobenzaprine Hcl (CYCLOBENZAPRINE HCL) 5 Mg Tablet 1 TAB PO TID for 5 Days, #15 TAB Prov: GLORIA TORRES MD 07/29/19 Phenazopyridine Hcl (PYRIDIUM) 100 Mg Tablet 1 TAB PO TID for urinary discomfort for 2 Days, #6 TAB 0 Refills Prov: GLORIA TORRES MD 07/29/19 GLORIA TORRES MD Jul 29, 2019 20:47
[2019-07-29] MEDS ORDERED: fentaNYL PF VIAL 100 MCG/2 ML VIAL IV PRN (21:00)
[2019-07-29] MEDS ORDERED: IV NORMAL SALINE 1000ML BAG 1,000 ML IV SCH (21:00)
[2019-07-29] MEDS ORDERED: ONDANSETRON PF 4 MG/2 ML VIAL. IV ONE (21:00)
[2019-07-29] MEDS ORDERED: diazePAM 2 MG TABLET PO ONE (21:00)
[2019-07-29] MEDS ORDERED: CONTRAST GIVEN. MC PRN (21:15)
[2019-07-29 21:29] LABS: BASO # 0.1 x10^3/uL (0.0-0.2); BASO % 1 % (0-3); EOS # 0.2 x10^3/uL (0.0-0.7); EOS % 2 % (0-3); HEMATOCRIT 35.2 % (36.0-47.0); HEMOGLOBIN 11.6 g/dL (12.0-15.5); LYMPH # 1.9 x10^3/uL (1.0-4.8); LYMPH % 19 % (24-48); MEAN CORPUSCULAR HEMOGLOBIN 33 pg (25-35); MEAN CORPUSCULAR HGB CONC 33 g/dL (31-37); MEAN CORPUSCULAR VOLUME 100 fL (79-100); MONO # 0.9 x10^3/uL (0.0-1.1); MONO % 9 % (0-9); NEUT # 6.7 x10^3/uL (1.8-7.7); NEUT % 68 % (31-73); PLATELET COUNT 304 x10^3/uL (140-400); RED BLOOD COUNT 3.51 x10^6/uL (3.50-5.40); RED CELL DISTRIBUTION WIDTH 14.6 % (11.5-14.5); WHITE BLOOD COUNT 9.9 x10^3/uL (4.0-11.0)
[2019-07-29] MEDS ORDERED: IOHEXOL 300 MG/ML 100ML VIAL. IV ONE (21:30)
[2019-07-29 21:50] LABS: CALCIUM 9.1 mg/dL (8.5-10.1); CREATININE 11.3 mg/dL (0.6-1.0); GFR 4.2; POTASSIUM 4.6 mmol/L (3.5-5.1)
--- NOTE | 2019-07-29 21:53 | RAD ---
CT C-Spine without contrast: Clinical History: Neck pain fall unable to move neck to the right Technique: Axial helical images of the cervical spine were obtained without contrast, axial coronal and sagittal reconstruction was performed. Findings: There is no loss of vertebral body stature. There is no prevertebral soft tissue swelling. The vertebral bodies are well aligned. The head is turned to the left. There is no offset of C1 on C2. The visualized osseous structures appear normal. Impression: The head is turned to the left. There is no evidence of fracture or malalignment. Clinical correlation suggested. PQRS Compliance Statement: One or more of the following individualized dose reduction techniques were utilized for this examination: 1. Automated exposure control 2. Adjustment of the mA and/or kV according to patient size 3. Use of iterative reconstruction technique Electronically signed by: Triston Giang III, MD (07/29/2019 9:49 PM) [id number]
[2019-07-29 21:59] VITALS: BP 154/74
[2019-07-29 21:59] LABS: ALBUMIN 3.6 g/dL (3.4-5.0); ALBUMIN/GLOBULIN RATIO 0.8 (1.0-1.7); TOTAL BILIRUBIN 0.4 mg/dL (0.2-1.0)
--- NOTE | 2019-07-29 22:06 | RAD ---
CT abdomen and pelvis with contrast PQRS statement: CT scans at this facility use dose reduction including either automated exposure control, iterative reconstructions, and /or weight based radiation dosing via mA and kV modification when appropriate to reduce radiation dose to as low as reasonably achievable. HISTORY: Abdominal pain, bay hematuria, numerous cystitis. TECHNIQUE: Helical CT imaging abdomen and pelvis with 75 mL Omnipaque 300 intravenous contrast. COMPARISON: CT abdomen and pelvis October 17, 2018. Abdomen findings: Lung bases unremarkable. There is a 2 cm oblong density adjacent of the esophagus at the middle mediastinum similar chest imaging from December 2018 could represent a lymph node or a diverticulum of the esophagus. Lower thoracic endplate lytic deformity T11 is stable likely Schmorl's of from degenerative disc disease. Tiny 1 mm renal calculi bilaterally similar to prior CT imaging. Mild prominence of the common bile duct typical after cholecystectomy. Subcentimeter left renal upper pole hypodensity too small to characterize most likely small cyst. Right kidney, adrenals, pancreas, spleen and liver are unremarkable. Appendix is negative. No obstruction or inflammatory changes in GI tract. No abdominal fluid or adenopathy. Pelvis findings: Urinary bladder wall marked thickening, hypervascular enhancement and edema. Hysterectomy. Ovaries atrophic or surgically absent. Rectum and bones are unremarkable. No fluid or adenopathy. IMPRESSION: 1. Cystitis with hypervascular thickened wall enhancement and edema of the urinary bladder. 2. The appendix is negative. Electronically signed by: Simón Loza MD (07/29/2019 10:03 PM) [facility]
[2019-07-29 23:08] LABS: BILIRUBIN,URINE NEGATIVE (NEG); CLARITY,URINE TURBID; COLOR,URINE AMBER; NITRITE,URINE NEGATIVE (NEG); PROTEIN,URINE >=300 mg/dL (NEG-TRACE); UROBILINOGEN,URINE 0.2 mg/dL (0.2 mg/dL)
[2019-07-29 23:16] LABS: BACTERIA,URINE MODERATE /HPF (0-FEW); RBC,URINE 20-40 /HPF (0-2); SQUAMOUS EPITHELIAL CELL,UR MOD /LPF; WBC,URINE TNTC /HPF (0-4)
[2019-07-29] MEDS ORDERED: PHEN100T82 PO (23:18)
[2019-07-29] MEDS ORDERED: CYCL5TAB PO (23:18)
[2019-07-29] MEDS ORDERED: OXYC1TAB15 PO (23:19)
[2019-07-29] MEDS ORDERED: DICYCLOMINE 20 MG/2 ML AMPUL. IM ONE (23:30)
== END 2019-07-29 23:35 | disposition home or self-care (01) ==
LOC: ER 19:57
DX: N30.91 Cystitis, unspecified with hematuria (principal); M54.2 Cervicalgia; Z90.49 Acquired absence of other specified parts of digestive tract; Z90.710 Acquired absence of both cervix and uterus; Z88.5 Allergy status to narcotic agent; Z88.8 Allergy status to other drugs, medicaments and biological substances; Z88.6 Allergy status to analgesic agent; Z88.2 Allergy status to sulfonamides; Z91.018 Allergy to other foods; Z91.09 Other allergy status, other than to drugs and biological substances
CPT/HCPCS: 36415; 72125; 74177; 80053; 81001; 85025; 87086; 96372; 96374; 96375; 99285; J0500; J2405; J3010; J7030; Q9967

== ENCOUNTER 2019-08-01 05:13 | Emergency (ER) | payer MEDICARE, MEDICAID ==
[~2019-08-01] VITALS: Ht 160 cm; Wt 101.6 kg
[~2019-08-01 05:13] MED LIST changes: +CYCL5TAB PO; +OXYC1TAB15 PO; +PHEN100T82 PO
--- NOTE | 2019-08-01 06:05 | PHYS DOC ---
Past Medical History Past Medical History: Other Additional Past Medical Histor: torticollis uti (ALONSO JEFFERSON MD) Past Surgical History: Cholecystectomy, Hysterectomy, Other Additional Past Surgical Histo: BX R BREAST, R CHEST SHUNT IN & OUT, AV FIST L ARM,L KNEE,L ROTAT CUFFF (ALONSO JEFFERSON MD) Alcohol Use: None Drug Use: None (ALONSO JEFFERSON MD) Adult General Chief Complaint Chief Complaint: FLANK PAIN HPI HPI Patient is a 53 year old female who presents with complaining of flank pain. Patient complaining of bilateral flank pain for the last 6 days as a constant pain with radiation to bilateral lower abdomen and rated her pain 10 over 10. Patient states she had nausea without vomiting and had fever first day of starting her pain. Patient seen by her primary care physician and treated for UTI but because of not getting better seen in this emergency room 4 days ago and had extensive evaluations including CT of abdomen and pelvis and lumbar spine and treated for cystitis without improvement of her condition and rated her pain 10 over 10. (ALONSO JEFFERSON MD) Review of Systems Review of Systems Constitutional: Denies fever or chills [] Eyes: Denies change in visual acuity, redness, or eye pain [] HENT: Denies nasal congestion or sore throat [] Respiratory: Denies cough or shortness of breath [] Cardiovascular: No additional information not addressed in HPI [] GI: Reports abdominal pain, nausea, denies vomiting, bloody stools or diarrhea [] : Denies dysuria or hematuria [] Musculoskeletal: Denies back pain or joint pain [] Integument: Denies rash or skin lesions [] Neurologic: Denies headache, focal weakness or sensory changes [] Endocrine: Denies polyuria or polydipsia [] All other systems were reviewed and found to be within normal limits, except as documented in this note. (ALONSO JEFFERSON MD) Current Medications Current Medications Current Medications Medications (Trade) Dose Ordered Sig/[place] Start Time Stop Time Status Last Admin Dose Admin Fentanyl Citrate (Fentanyl 2ml Vial) 75 mcg 1X ONCE 08/01/19 07:00 08/01/19 07:01 DC 08/01/19 07:12 75 MCG Ondansetron HCl (Zofran) 4 mg 1X ONCE 08/01/19 06:15 08/01/19 06:16 DC Sodium Chloride 1,000 ml @ 1,000 mls/hr Q1H 08/01/19 06:15 08/01/19 07:14 DC (GLORIA TORRES MD) Allergies Allergies Allergies Coded Allergies Type Severity Reaction Last Updated Verified aloe vera Allergy Severe Shortness of Air 10/16/17 Yes morphine Allergy Severe Hives 10/16/17 Yes [place] And Derivatives Allergy Intermediate 10/16/17 Yes Sulfa (Sulfonamide Antibiotics) Allergy Intermediate Hives 10/16/17 Yes adhesive Allergy Intermediate 09/22/18 Yes codeine Adverse Reaction Severe Hives 10/16/17 Yes ibuprofen Adverse Reaction Severe Shortness of Air 10/16/17 Yes naproxen Adverse Reaction Severe Shortness of Air 10/16/17 Yes tramadol Adverse Reaction Severe Shortness of Air 10/16/17 Yes hydromorphone Adverse Reaction Intermediate 10/16/17 Yes (GLORIA TORRES MD) Physical Exam Physical Exam Constitutional: Well developed, well nourished, moderate distress, non-toxic appearance, morbidly obese. [] HENT: Normocephalic, atraumatic. Eyes: PERRLA, EOMI, conjunctiva normal, no discharge. [] Neck: Normal range of motion, no tenderness, supple, no stridor. [] Cardiovascular:Heart rate regular rhythm, no murmur [] Lungs & Thorax: Bilateral breath sounds clear to auscultation [] Abdomen: Bowel sounds normal, soft, bilateral lower abdominal guarding, no masses, no pulsatile masses. [] Skin: Warm, dry, no erythema, no rash. [] Back: No tenderness, bilateral CVA guarding. [] Extremities: No tenderness, no cyanosis, no clubbing, ROM intact, no edema. [] Neurologic: Alert and oriented X 3, no focal deficits noted. [] Psychologic: Affect normal, judgement normal, mood normal. [] (ALONSO JEFFERSON MD) Current Patient Data Vital Signs Vital Signs Date Time Temp Pulse Resp B/P (MAP) Pulse Ox O2 Delivery O2 Flow Rate FiO2 08/01/19 07:12 20 94 Room Air 08/01/19 05:30 97.3 82 159/87 (111) 97.3 (GLORIA TORRES MD) Lab Values Laboratory Tests Test 08/01/19 05:34 08/01/19 06:15 Urine Collection Type Unknown Urine Color [place]eta Urine Clarity Turbid Urine pH 6.5 Urine Specific [place] 1.020 Urine Protein >=300 mg/dL (NEG-TRACE) Urine Glucose (UA) Negative mg/dL (NEG) Urine Ketones (Stick) Negative mg/dL (NEG) Urine Blood Large (NEG) Urine Nitrite Negative (NEG) Urine Bilirubin Negative (NEG) Urine Urobilinogen Dipstick 0.2 mg/dL (0.2 mg/dL) Urine Leukocyte Esterase Large (NEG) Urine RBC Fobs /HPF (0-2) Urine WBC Tntc /HPF (0-4) Urine Bacteria /HPF (0-FEW) White Blood Count 8.8 x10^3/uL (4.0-11.0) Red Blood Count 3.54 x10^6/uL (3.50-5.40) Hemoglobin 11.6 g/dL (12.0-15.5) L Hematocrit 35.5 % (36.0-47.0) L Mean Corpuscular Volume 100 fL (79-100) Mean Corpuscular Hemoglobin 33 pg (25-35) Mean Corpuscular Hemoglobin Concent 33 g/dL (31-37) Red Cell Distribution Width 14.1 % (11.5-14.5) Platelet Count 337 x10^3/uL (140-400) Neutrophils (%) (Auto) 64 % (31-73) Lymphocytes (%) (Auto) 19 % (24-48) L Monocytes (%) (Auto) 11 % (0-9) H Eosinophils (%) (Auto) 4 % (0-3) H Basophils (%) (Auto) 1 % (0-3) Neutrophils # (Auto) 5.7 x10^3/uL (1.8-7.7) Lymphocytes # (Auto) 1.7 x10^3/uL (1.0-4.8) Monocytes # (Auto) 1.0 x10^3/uL (0.0-1.1) Eosinophils # (Auto) 0.4 x10^3/uL (0.0-0.7) Basophils # (Auto) 0.1 x10^3/uL (0.0-0.2) Sodium Level 142 mmol/L (136-145) Potassium Level 5.4 mmol/L (3.5-5.1) H Chloride Level 98 mmol/L (98-107) Carbon Dioxide Level 27 mmol/L (21-32) Anion Gap 17 (6-14) H Blood Urea Nitrogen 68 mg/dL (7-20) H Creatinine 14.7 mg/dL (0.6-1.0) H Estimated GFR (Cockcroft-Gault) 3.1 BUN/Creatinine Ratio 5 (6-20) L Glucose Level 165 mg/dL (70-99) H Calcium Level 8.8 mg/dL (8.5-10.1) Total Bilirubin 0.3 mg/dL (0.2-1.0) Aspartate Amino Transferase (AST) 10 U/L (15-37) L Alanine Aminotransferase (ALT) 11 U/L (14-59) L Alkaline Phosphatase 144 U/L (46-116) H Total Protein 8.1 g/dL (6.4-8.2) Albumin 3.4 g/dL (3.4-5.0) Albumin/Globulin Ratio 0.7 (1.0-1.7) L Lipase 75 U/L (73-393) Laboratory Tests 08/01/19 06:15 Laboratory Tests 08/01/19 06:15 (GLORIA TORRES MD) EKG EKG [] (ALONSO JEFFERSON MD) Radiology/Procedures Radiology/Procedures [] (ALONSO JEFFERSON MD) Course & Med Decision Making Course & Med Decision Making Pertinent Labs are pending. Evaluation of patient in ER showed 53-year-old female patient with complaining of bilateral flank pain for 6 days that did not get better with treatment of UTI. Sign out given to at 0600 for further evaluation and final disposition. Discussed current findings and plan with patient and family, who acknowledge understanding and agreement.[] (ALONSO JEFFERSON MD) Course & Med Decision Making Discussed findings with patient. No acute findings. CT performed on Thursday, no plans for repeat imaging at this time. Patient given 75mcg Fentanyl IM. Limited medications as patient has a large allergy list. Recommend continued abx upon discharge and follow up as discussed with PCP. (GLORIA TORRES MD) Dragon Disclaimer Dragon Disclaimer This electronic medical record was generated, in whole or in part, using a voice recognition dictation system. (ALONSO JEFFERSON MD) Departure Departure Impression: Primary Impression: Hematuria Additional Impression: Cystitis Disposition: 01 HOME, SELF-CARE Condition: STABLE Referrals: YAMILKA MENDEZ MD (PCP) Patient Instructions: Abdominal Pain (Nonspecific), Hematuria, Adult Additional Instructions: Recommend follow up with PCP 3 - 5 days Return to the ER with worsening symptoms, intractable pain, fever, altered mental status Tylenol/Motrin as needed for pain Take antibiotics as previously directed upon last visit Problem Qualifiers ALONSO JEFFERSON MD Aug 01, 2019 06:05 GLORIA TORRES MD Aug 01, 2019 07:21
[2019-08-01] MEDS: IV NORMAL SALINE 1000ML BAG 1,000 ML IV SCH ×2 (06:15→07:12)
[2019-08-01] MEDS ORDERED: ONDANSETRON PF 4 MG/2 ML VIAL. IV ONE (06:15)
[2019-08-01 06:29] LABS: BILIRUBIN,URINE NEGATIVE (NEG); CLARITY,URINE TURBID; COLOR,URINE AMBER; NITRITE,URINE NEGATIVE (NEG); PH,URINE 6.5; PROTEIN,URINE >=300 mg/dL (NEG-TRACE); UROBILINOGEN,URINE 0.2 mg/dL (0.2 mg/dL)
[2019-08-01 06:33] LABS: BASO # 0.1 x10^3/uL (0.0-0.2); BASO % 1 % (0-3); EOS # 0.4 x10^3/uL (0.0-0.7); EOS % 4 % (0-3); HEMATOCRIT 35.5 % (36.0-47.0); HEMOGLOBIN 11.6 g/dL (12.0-15.5); LYMPH # 1.7 x10^3/uL (1.0-4.8); LYMPH % 19 % (24-48); MEAN CORPUSCULAR HEMOGLOBIN 33 pg (25-35); MEAN CORPUSCULAR HGB CONC 33 g/dL (31-37); MEAN CORPUSCULAR VOLUME 100 fL (79-100); MONO % 11 % (0-9); NEUT # 5.7 x10^3/uL (1.8-7.7); NEUT % 64 % (31-73); PLATELET COUNT 337 x10^3/uL (140-400); RED BLOOD COUNT 3.54 x10^6/uL (3.50-5.40); RED CELL DISTRIBUTION WIDTH 14.1 % (11.5-14.5); WHITE BLOOD COUNT 8.8 x10^3/uL (4.0-11.0)
[2019-08-01 06:40] LABS: WBC,URINE TNTC /HPF (0-4)
[2019-08-01 06:42] LABS: CALCIUM 8.8 mg/dL (8.5-10.1); CREATININE 14.7 mg/dL (0.6-1.0); GFR 3.1; POTASSIUM 5.4 mmol/L (3.5-5.1)
[2019-08-01 06:42] LABS: RBC,URINE FOBS /HPF (0-2)
[2019-08-01 06:48] LABS: ALBUMIN 3.4 g/dL (3.4-5.0); ALBUMIN/GLOBULIN RATIO 0.7 (1.0-1.7); TOTAL BILIRUBIN 0.3 mg/dL (0.2-1.0); TOTAL PROTEIN 8.1 g/dL (6.4-8.2)
[2019-08-01 07:00] VITALS: BP 151/99
[2019-08-01] MEDS ORDERED: fentaNYL PF VIAL 100 MCG/2 ML VIAL IM ONE (07:00)
== END 2019-08-01 07:36 | disposition home or self-care (01) ==
LOC: ER 05:13
DX: N30.91 Cystitis, unspecified with hematuria (principal); R11.0 Nausea; Z90.49 Acquired absence of other specified parts of digestive tract; Z90.710 Acquired absence of both cervix and uterus; Z88.5 Allergy status to narcotic agent; Z88.2 Allergy status to sulfonamides; Z88.8 Allergy status to other drugs, medicaments and biological substances; Z91.018 Allergy to other foods; Z91.09 Other allergy status, other than to drugs and biological substances; Z88.6 Allergy status to analgesic agent
CPT/HCPCS: 36415; 80053; 81001; 83690; 85025; 87086; 96372; 99284; J3010

== ENCOUNTER 2019-08-16 18:18 | Emergency (ER) | payer MEDICARE, MEDICAID ==
[~2019-08-16] VITALS: Ht 160 cm; Wt 104.3 kg
[2019-08-16 18:43] VITALS: BP 212/93
--- NOTE | 2019-08-16 18:55 | PHYS DOC ---
Past Medical History Past Medical History: CHF, Diabetes-Type II, Renal Failure, Other Additional Past Medical Histor: torticollis uti Past Surgical History: Cholecystectomy, Hysterectomy, Other Additional Past Surgical Histo: BX R BREAST, R CHEST SHUNT IN & OUT, AV FIST L ARM,L KNEE,L ROTAT CUFFF Alcohol Use: None Drug Use: None Adult General Chief Complaint Chief Complaint: MULTIPLE COMPLAINTS HPI HPI 53-year-old female presents to the emergency department with complaints of a fall. Patient states she fell on Thursday and Thursday. She denies any loss of consciousness no dizziness, she did hit her head however. Patient states she's had difficulty with tremors has recently placed on clonazepam with improvement. She complains of left knee pain, right shoulder and neck pain. Ms. make her pain worse. She denies any blood thinning medications. She did not go to dialysis on Thursday secondary to her fall. Review of Systems Review of Systems Constitutional: Denies fever or chills [] Eyes: Denies change in visual acuity, redness, or eye pain [] HENT: Denies nasal congestion or sore throat [] Respiratory: Denies cough or shortness of breath [] Cardiovascular: No additional information not addressed in HPI [] GI: Denies abdominal pain, nausea, vomiting, bloody stools or diarrhea [] Musculoskeletal: right neck/shoulder pain, left knee pain Integument: Denies rash or skin lesions [] Neurologic: Denies headache, focal weakness or sensory changes [] All other systems were reviewed and found to be within normal limits, except as documented in this note. Allergies Allergies Allergies Coded Allergies Type Severity Reaction Last Updated Verified aloe vera Allergy Severe Shortness of Air 10/16/17 Yes morphine Allergy Severe Hives 10/16/17 Yes [place] And Derivatives Allergy Intermediate 10/16/17 Yes Sulfa (Sulfonamide Antibiotics) Allergy Intermediate Hives 10/16/17 Yes adhesive Allergy Intermediate 09/22/18 Yes codeine Adverse Reaction Severe Hives 10/16/17 Yes ibuprofen Adverse Reaction Severe Shortness of Air 10/16/17 Yes naproxen Adverse Reaction Severe Shortness of Air 10/16/17 Yes tramadol Adverse Reaction Severe Shortness of Air 10/16/17 Yes hydromorphone Adverse Reaction Intermediate 10/16/17 Yes Physical Exam Physical Exam Constitutional: Well developed, well nourished, no acute distress, non-toxic appearance. [] HENT: Normocephalic, atraumatic, bilateral external ears normal, oropharynx moist, no oral exudates, nose normal. [] Eyes: PERRLA, EOMI, conjunctiva normal, no discharge. [] Neck: Normal range of motion, no tenderness, supple, no stridor. [] Cardiovascular:Heart rate regular rhythm, no murmur [] Lungs & Thorax: Bilateral breath sounds clear to auscultation [] Abdomen: Bowel sounds normal, soft, no tenderness, no masses, no pulsatile mas ses. [] Skin: Warm, dry, no erythema, no rash. [] Back: No tenderness, no CVA tenderness. [] Extremities: No tenderness, no edema. Left knee pain without deformity, swelling appreciated [] Neurologic: Alert and oriented X 3, no focal deficits noted. [] Psychologic: Affect normal, judgement normal, mood normal. [] Current Patient Data Vital Signs Vital Signs Date Time Temp Pulse Resp B/P (MAP) Pulse Ox O2 Delivery O2 Flow Rate FiO2 08/16/19 18:43 97.2 88 20 212/93 (132) 99 Room Air 97.2 Lab Values Laboratory Tests Test 08/16/19 19:05 White Blood Count 9.4 x10^3/uL (4.0-11.0) Red Blood Count 3.09 x10^6/uL (3.50-5.40) L Hemoglobin 10.4 g/dL (12.0-15.5) L Hematocrit 31.1 % (36.0-47.0) L Mean Corpuscular Volume 101 fL (79-100) H Mean Corpuscular Hemoglobin 34 pg (25-35) Mean Corpuscular Hemoglobin Concent 34 g/dL (31-37) Red Cell Distribution Width 14.3 % (11.5-14.5) Platelet Count 276 x10^3/uL (140-400) Neutrophils (%) (Auto) 72 % (31-73) Lymphocytes (%) (Auto) 16 % (24-48) L Monocytes (%) (Auto) 7 % (0-9) Eosinophils (%) (Auto) 4 % (0-3) H Basophils (%) (Auto) 2 % (0-3) Neutrophils # (Auto) 6.7 x10^3/uL (1.8-7.7) Lymphocytes # (Auto) 1.5 x10^3/uL (1.0-4.8) Monocytes # (Auto) 0.6 x10^3/uL (0.0-1.1) Eosinophils # (Auto) 0.4 x10^3/uL (0.0-0.7) Basophils # (Auto) 0.1 x10^3/uL (0.0-0.2) Sodium Level 142 mmol/L (136-145) Potassium Level 5.3 mmol/L (3.5-5.1) H Chloride Level 103 mmol/L (98-107) Carbon Dioxide Level 25 mmol/L (21-32) Anion Gap 14 (6-14) Blood Urea Nitrogen 81 mg/dL (7-20) H Creatinine 11.0 mg/dL (0.6-1.0) H Estimated GFR (Cockcroft-Gault) 4.4 BUN/Creatinine Ratio 7 (6-20) Glucose Level 213 mg/dL (70-99) H Calcium Level 7.9 mg/dL (8.5-10.1) L Total Bilirubin 0.4 mg/dL (0.2-1.0) Aspartate Amino Transferase (AST) 11 U/L (15-37) L Alanine Aminotransferase (ALT) 15 U/L (14-59) Alkaline Phosphatase 175 U/L (46-116) H Total Protein 7.7 g/dL (6.4-8.2) Albumin 3.8 g/dL (3.4-5.0) Albumin/Globulin Ratio 1.0 (1.0-1.7) Laboratory Tests 08/16/19 19:05 Laboratory Tests 08/16/19 19:05 EKG EKG [] Radiology/Procedures Radiology/Procedures [facility] [address] [place], [place] [id number] IMAGING REPORT Signed PATIENT: URIEL CRAIG ACCOUNT: [id number] : 1965 LOCATION: ER AGE: 53 SEX: F EXAM STATUS: REG ER ORD. PHYSICIAN: GLORIA TORRES MD REASON: Injury from fall PROCEDURE: KNEE LEFT 3V 3 views left knee dated 08/16/2019. No comparison available. Clinical data indication: Pain after injury. Fines: 3 views left knee show normal bony alignment. No displaced fracture. No acute osseous or articular abnormality. No apparent joint effusion or loose body. IMPRESSION: No acute findings. Electronically signed by: Lei Jennings MD (08/16/2019 7:40 PM) [facility] DICTATED and SIGNED BY: LEI JENNINGS MD DATE: 08/16/191939 [] [id number] [place] [address] IMAGING REPORT Signed PATIENT: URIEL CRAIG ACCOUNT: [id number] : 1965 LOCATION: ER AGE: 53 SEX: F EXAM STATUS: REG ER ORD. PHYSICIAN: GLORIA TORRES MD REASON: Injury from fall PROCEDURE: SHOULDER 2+V RIGHT Three-view right shoulder dated 08/16/2019. No comparison available. Clinical data indication: Pain after injury. FINDINGS: 3 views right shoulder show normal bony alignment. No displaced fracture. No acute osseous or articular abnormality. Small bony fragment near the tip of the distal clavicle seen on only one view. IMPRESSION: 1. Small bony fragment near the tip of the distal clavicle seen only on one view. This could be related to a small avulsion fracture or fragmentation from degenerative change.. Correlate clinically. 2. Otherwise no acute findings. Electronically signed by: Lei Jennings MD (08/16/2019 7:45 PM) [facility] DICTATED and SIGNED BY: LEI JENNINGS MD DATE: 08/16/191944 [id number] [place] [address] IMAGING REPORT Signed PATIENT: URIEL CRAIG ACCOUNT: [id number] : 1965 LOCATION: ER AGE: 53 SEX: F EXAM STATUS: REG ER ORD. PHYSICIAN: GLORIA TORRES MD REASON: fall, no LOC, no blood thinning meds PROCEDURE: CT HEAD AND CERVICAL SPINE WO CT HEAD AND CERVICAL SPINE WO dated 08/16/2019 6:49 PM. Comparison: 07/29/2019 Clinical Indication: Pain after fall.. Technical factors: Contiguous 5 mm axial images of the head were obtained from the skullbase to the vertex. No contrast was administered. In addition, 3 mm axial images of the cervical spine were acquired with thin cut coronal and sagittal reconstructions. One or more of the following individualized dose reduction techniques were utilized for this examination: 1. Automated exposure control 2. Adjustment of the mA and/or kV according to patient size 3. Use of iterative reconstruction technique Findings head: Ventricles and sulci are within normal limits for age. No evidence of ventricular shift or mass effect. Brain parenchyma is of normal attenuation. There is no evidence of hemorrhage or extra-axial collection. Visualized paranasal sinuses and mastoid air cells are clear. No acute osseous abnormality. IMPRESSION HEAD: No evidence of acute intracranial abnormality. Findings cervical spine: Images were acquired from the skull base to mid T2. There is straightening of the normal cervical lordosis, otherwise sagittal alignment is anatomic. Vertebral body heights are maintained. No prevertebral soft tissue swelling. Posterior elements are intact. No fractures are identified. Mild endplate hypertrophic changes throughout. Mild multilevel uncovertebral hypertrophy and facet arthropathy. No focal disc herniation. Bony canal and foramen are adequate. Visualized soft tissue structures unremarkable. Limited images of lung apices are clear. There is some rotation of C1 on C2, likely positional. IMPRESSION CERVICAL SPINE: 1. No evidence of fracture or malalignment. 2. Mild multilevel spondylosis. Electronically signed by: Lei Jennings MD (08/16/2019 7:30 PM) [facility] DICTATED and SIGNED BY: LEI JENNINGS MD DATE: 08/16/191929 Course & Med Decision Making Course & Med Decision Making Pertinent Labs and Imaging studies reviewed. (See chart for details) []53-year-old female presents to the emergency department with complaints of a fall. Patient states she fell on Thursday and Thursday. She denies any loss of consciousness no dizziness, she did hit her head however. Patient states she's had difficulty with tremors has recently placed on clonazepam with improvement. She complains of left knee pain, right shoulder and neck pain. Ms. make her pain worse. She denies any blood thinning medications. She did not go to dialysis on [place] secondary to her fall. Labs reviewed, K 5.3 Imaging reviewed, small avulsion fracture appreciated to right shoulder otherwise negative knee and CT neck/head Sling to right arm Recommend follow up with Ortho (patient states [facility]) Shawn Disclaimer Shawn Disclaimer This electronic medical record was generated, in whole or in part, using a voice recognition dictation system. Departure Departure Impression: Primary Impression: Knee pain Additional Impressions: Avulsion fracture Right shoulder pain Disposition: HOME, SELF-CARE Condition: STABLE Referrals: YAMILKA MENDEZ MD (PCP) Patient Instructions: Clavicle Fracture (Distal End) with [facility]hab[facility], Clavicle Fracture, [id number] Additional Instructions: Recommend follow up with PCP 3 - 5 days Return to the ER with worsening symptoms, intractable pain, fever, altered mental status Tylenol/Motrin as needed for pain Tramadol as prescribed Scripts Tramadol Hcl (ULTRAM) 50 Mg Tablet 50 MG PO Q6HRS PRN for PAIN for 5 Days, #20 TAB 0 Refills Prov: GLORIA TORRES MD 08/16/19 Problem Qualifiers Primary Impression: Knee pain Chronicity: acute Laterality: left Qualified Codes: M25.562 - Pain in left knee Additional Impressions: Right shoulder pain Chronicity: acute Qualified Codes: M25.511 - Pain in right shoulder GLORIA TORRES MD Aug 16, 2019 18:55
[2019-08-16 19:18] LABS: BASO # 0.1 x10^3/uL (0.0-0.2); BASO % 2 % (0-3); EOS # 0.4 x10^3/uL (0.0-0.7); EOS % 4 % (0-3); HEMATOCRIT 31.1 % (36.0-47.0); HEMOGLOBIN 10.4 g/dL (12.0-15.5); LYMPH # 1.5 x10^3/uL (1.0-4.8); LYMPH % 16 % (24-48); MEAN CORPUSCULAR HEMOGLOBIN 34 pg (25-35); MEAN CORPUSCULAR HGB CONC 34 g/dL (31-37); MEAN CORPUSCULAR VOLUME 101 fL (79-100); MONO # 0.6 x10^3/uL (0.0-1.1); MONO % 7 % (0-9); NEUT # 6.7 x10^3/uL (1.8-7.7); NEUT % 72 % (31-73); PLATELET COUNT 276 x10^3/uL (140-400); RED BLOOD COUNT 3.09 x10^6/uL (3.50-5.40); RED CELL DISTRIBUTION WIDTH 14.3 % (11.5-14.5); WHITE BLOOD COUNT 9.4 x10^3/uL (4.0-11.0)
[2019-08-16 19:27] LABS: CALCIUM 7.9 mg/dL (8.5-10.1); GFR 4.4; POTASSIUM 5.3 mmol/L (3.5-5.1)
[2019-08-16 19:32] LABS: ALBUMIN 3.8 g/dL (3.4-5.0); TOTAL BILIRUBIN 0.4 mg/dL (0.2-1.0); TOTAL PROTEIN 7.7 g/dL (6.4-8.2)
--- NOTE | 2019-08-16 19:32 | RAD ---
CT HEAD AND CERVICAL SPINE WO dated 08/16/2019 6:49 PM. Comparison: 07/29/2019 Clinical Indication: Pain after fall.. Technical factors: Contiguous 5 mm axial images of the head were obtained from the skullbase to the vertex. No contrast was administered. In addition, 3 mm axial images of the cervical spine were acquired with thin cut coronal and sagittal reconstructions. One or more of the following individualized dose reduction techniques were utilized for this examination: 1. Automated exposure control 2. Adjustment of the mA and/or kV according to patient size 3. Use of iterative reconstruction technique Findings head: Ventricles and sulci are within normal limits for age. No evidence of ventricular shift or mass effect. Brain parenchyma is of normal attenuation. There is no evidence of hemorrhage or extra-axial collection. Visualized paranasal sinuses and mastoid air cells are clear. No acute osseous abnormality. IMPRESSION HEAD: No evidence of acute intracranial abnormality. Findings cervical spine: Images were acquired from the skull base to mid T2. There is straightening of the normal cervical lordosis, otherwise sagittal alignment is anatomic. Vertebral body heights are maintained. No prevertebral soft tissue swelling. Posterior elements are intact. No fractures are identified. Mild endplate hypertrophic changes throughout. Mild multilevel uncovertebral hypertrophy and facet arthropathy. No focal disc herniation. Bony canal and foramen are adequate. Visualized soft tissue structures unremarkable. Limited images of lung apices are clear. There is some rotation of C1 on C2, likely positional. IMPRESSION CERVICAL SPINE: 1. No evidence of fracture or malalignment. 2. Mild multilevel spondylosis. Electronically signed by: Lei Jennings MD (08/16/2019 7:30 PM) [facility]
--- NOTE | 2019-08-16 19:44 | RAD ---
3 views left knee dated 08/16/2019. No comparison available. Clinical data indication: Pain after injury. Fines: 3 views left knee show normal bony alignment. No displaced fracture. No acute osseous or articular abnormality. No apparent joint effusion or loose body. IMPRESSION: No acute findings. Electronically signed by: Lei Jennings MD (08/16/2019 7:40 PM) [facility]
--- NOTE | 2019-08-16 19:48 | RAD ---
Three-view right shoulder dated 08/16/2019. No comparison available. Clinical data indication: Pain after injury. FINDINGS: 3 views right shoulder show normal bony alignment. No displaced fracture. No acute osseous or articular abnormality. Small bony fragment near the tip of the distal clavicle seen on only one view. IMPRESSION: 1. Small bony fragment near the tip of the distal clavicle seen only on one view. This could be related to a small avulsion fracture or fragmentation from degenerative change.. Correlate clinically. 2. Otherwise no acute findings. Electronically signed by: Lei Jennings MD (08/16/2019 7:45 PM) [employer]
[2019-08-16] MEDS ORDERED: TRAM-48 PO (20:03)
== END 2019-08-16 20:11 | disposition home or self-care (01) ==
LOC: ER 18:18
DX: S42.031A Displaced fracture of lateral end of right clavicle, initial encounter for closed fracture (principal); M25.562 Pain in left knee; M25.511 Pain in right shoulder; M54.2 Cervicalgia; R51 Headache; R25.1 Tremor, unspecified; E11.22 Type 2 diabetes mellitus with diabetic chronic kidney disease; N18.9 Chronic kidney disease, unspecified; Z86.79 Personal history of other diseases of the circulatory system; Z88.2 Allergy status to sulfonamides; Z88.5 Allergy status to narcotic agent; Z88.6 Allergy status to analgesic agent; Z88.8 Allergy status to other drugs, medicaments and biological substances; W18.09XA Striking against other object with subsequent fall, initial encounter; Y93.89 Activity, other specified; Y92.89 Other specified places as the place of occurrence of the external cause; Y99.8 Other external cause status
CPT/HCPCS: 36415; 70450; 72125; 73030; 73562; 80053; 85025; 99285-25

== ENCOUNTER 2019-11-10 11:37 | Emergency (ER) | payer MEDICAID, MEDICARE ==
[~2019-11-10] VITALS: Ht 160 cm; Wt 101.8 kg
[~2019-11-10 11:37] MED LIST changes: +AMLO5TAB10 PO; +ASPI81TA50 PO; +BENZ1LOZ4 PO; +CLONAZEPAM1 MG PO; +Fluconazole PO; +GABA-585 PO; +GUAI600T47 PO; +POLY17PO28 PO; +TRAM-48 PO
[2019-11-10 12:33] VITALS: BP 169/85
--- NOTE | 2019-11-10 13:22 | PHYS DOC ---
Past Medical History Past Medical History: CHF, Diabetes-Type II, Renal Failure, Other Additional Past Medical Histor: torticollis uti Past Surgical History: Cholecystectomy, Hysterectomy, Other Additional Past Surgical Histo: BX R BREAST, R CHEST SHUNT IN & OUT, AV FIST L ARM,L KNEE,L ROTAT CUFFF Alcohol Use: None Drug Use: None Adult General Chief Complaint Chief Complaint: DIALYSIS PROBLEM HPI HPI Patient is a 53 year old female who presents with patient sent here for a potassium level draw from dialysis. Patient states she gets dialysis tomorrow. Patient has no complaints. She denies chest pain, shortness of air, nausea, vomiting, abdominal pain, headache, dizziness, numbness or tingling, weakness, palpitations, visual changes. Review of Systems Review of Systems Constitutional: Denies fever or chills [] Eyes: Denies change in visual acuity, redness, or eye pain [] HENT: Denies nasal congestion or sore throat [] Respiratory: Denies cough or shortness of breath [] Cardiovascular: No additional information not addressed in HPI [] GI: Denies abdominal pain, nausea, vomiting, bloody stools or diarrhea [] : Denies dysuria or hematuria [] Musculoskeletal: Denies back pain or joint pain [] Integument: Denies rash or skin lesions [] Neurologic: Denies headache, focal weakness or sensory changes [] Endocrine: Denies polyuria or polydipsia [] All other systems were reviewed and found to be within normal limits, except as documented in this note. Allergies Allergies Allergies Coded Allergies Type Severity Reaction Last Updated Verified aloe vera Allergy Severe Shortness of Air 10/16/17 Yes ibuprofen Allergy Severe Shortness of Air 08/29/19 Yes morphine Allergy Severe Hives 10/16/17 Yes naproxen Allergy Severe Shortness of Air 08/29/19 Yes tramadol Allergy Severe Shortness of Air 08/29/19 Yes [place] And Derivatives Allergy Intermediate 10/16/17 Yes Sulfa (Sulfonamide Antibiotics) Allergy Intermediate Hives 10/16/17 Yes adhesive Allergy Intermediate 09/22/18 Yes codeine Adverse Reaction Intermediate Hives 08/29/19 Yes hydromorphone Adverse Reaction Intermediate 10/16/17 Yes Physical Exam Physical Exam Constitutional: Well developed, well nourished, no acute distress, non-toxic appearance. [] HENT: Normocephalic, atraumatic, bilateral external ears normal, oropharynx moist, no oral exudates, nose normal. [] Eyes: PERRLA, EOMI, conjunctiva normal, no discharge. [] Neck: Normal range of motion, no tenderness, supple, no stridor. [] Cardiovascular:Heart rate regular rhythm, no murmur [] Lungs & Thorax: Bilateral breath sounds clear to auscultation [] Abdomen: Bowel sounds normal, soft, no tenderness, no masses, no pulsatile masses. [] Skin: Warm, dry, no erythema, no rash. [] Back: No tenderness, no CVA tenderness. [] Extremities: No tenderness, no cyanosis, no clubbing, ROM intact, no edema. [] Neurologic: Alert and oriented X 3, normal motor function, normal sensory function, no focal deficits noted. [] Psychologic: Affect normal, judgement normal, mood normal. [] Current Patient Data Vital Signs Vital Signs Date Time Temp Pulse Resp B/P (MAP) Pulse Ox O2 Delivery O2 Flow Rate FiO2 11/10/19 12:33 97.8 85 18 169/85 (113) 95 Room Air 97.8 Lab Values Laboratory Tests Test 11/10/19 12:35 Potassium Level 5.1 mmol/L (3.5-5.1) Laboratory Tests 11/10/19 12:35 EKG EKG [] Radiology/Procedures Radiology/Procedures [] Course & Med Decision Making Course & Med Decision Making She is potassium is 5.1. She is sent with a copy of this. Lungs are clear to auscultation in all lobes. Vital signs within normal limits. Ambulatory steady gait. Speaks in full clear sentences. Skin pink warm and dry. Dragon Disclaimer Dragon Disclaimer This electronic medical record was generated, in whole or in part, using a voice recognition dictation system. Departure Departure Impression: Primary Impression: Encounter for medical screening examination Disposition: HOME, SELF-CARE Condition: STABLE Referrals: YAMILKA MENDEZ MD (PCP) Patient Instructions: Medical Screening Exam Additional Instructions: Follow up with nephrology. Good dialysis as scheduled. KENJI STARKS APRN Nov 10, 2019 13:21
== END 2019-11-10 13:28 | disposition home or self-care (01) ==
LOC: ER 11:37
DX: Z51.81 Encounter for therapeutic drug level monitoring (principal); I50.9 Heart failure, unspecified; E11.9 Type 2 diabetes mellitus without complications; N19 Unspecified kidney failure; Z90.49 Acquired absence of other specified parts of digestive tract; Z90.710 Acquired absence of both cervix and uterus; Z98.890 Other specified postprocedural states; Z88.6 Allergy status to analgesic agent; Z88.5 Allergy status to narcotic agent; Z91.018 Allergy to other foods; Z88.1 Allergy status to other antibiotic agents; Z88.2 Allergy status to sulfonamides
CPT/HCPCS: 36415; 84132; 99284

== ENCOUNTER 2019-12-02 09:26 | Emergency (ER) | payer MEDICARE ==
[~2019-12-02] VITALS: Ht 160 cm; Wt 101.8 kg
[2019-12-02 10:39] LABS: CALCIUM 8.2 mg/dL (8.5-10.1); CREATININE 11.3 mg/dL (0.6-1.0); GFR 4.2; POTASSIUM 4.9 mmol/L (3.5-5.1)
[2019-12-02 10:52] LABS: ALBUMIN 3.7 g/dL (3.4-5.0); ALBUMIN/GLOBULIN RATIO 0.9 (1.0-1.7); BASO # 0.1 x10^3/uL (0.0-0.2); BASO % 1 % (0-3); EOS # 0.5 x10^3/uL (0.0-0.7); EOS % 5 % (0-3); HEMATOCRIT 33.6 % (36.0-47.0); HEMOGLOBIN 10.8 g/dL (12.0-15.5); LYMPH # 1.1 x10^3/uL (1.0-4.8); LYMPH % 12 % (24-48); MEAN CORPUSCULAR HEMOGLOBIN 32 pg (25-35); MEAN CORPUSCULAR HGB CONC 32 g/dL (31-37); MEAN CORPUSCULAR VOLUME 99 fL (79-100); MONO # 0.3 x10^3/uL (0.0-1.1); MONO % 4 % (0-9); NEUT % 78 % (31-73); PLATELET COUNT 217 x10^3/uL (140-400); TOTAL BILIRUBIN 0.3 mg/dL (0.2-1.0); TOTAL PROTEIN 7.8 g/dL (6.4-8.2)
--- NOTE | 2019-12-02 11:27 | PHYS DOC ---
Past Medical History Past Medical History: CHF, Diabetes-Type II, Renal Failure, Other Additional Past Medical Histor: torticollis uti Past Surgical History: Cholecystectomy, Hysterectomy, Other Additional Past Surgical Histo: BX R BREAST, R CHEST SHUNT IN & OUT, AV FIST L ARM,L KNEE,L ROTAT CUFFF Smoking Status: Never Smoker Alcohol Use: None Drug Use: None Adult General Chief Complaint Chief Complaint: DIALYSIS PROBLEM HPI HPI Patient is a 53 year old female with a history of CHF, end-stage kidney disease on dialysis Thursday who presents to the ED today stating she needs her labs check specifically potassium because she missed dialysis on Thursday due to family emergency, she went to dialysis today and sent her to the emergency room to have her potassium checked before they can dialyze her. Review of Systems Review of Systems Constitutional: Denies fever or chills [] Eyes: Denies change in visual acuity, redness, or eye pain [] HENT: Denies nasal congestion or sore throat [] Respiratory: Denies cough or shortness of breath [] Cardiovascular: No additional information not addressed in HPI [] GI: Denies abdominal pain, nausea, vomiting, bloody stools or diarrhea [] : Denies dysuria or hematuria [] Musculoskeletal: Denies back pain or joint pain [] Integument: Denies rash or skin lesions [] Neurologic: Denies headache, focal weakness or sensory changes [] Endocrine: Lab check for dialysis All other systems were reviewed and found to be within normal limits, except as documented in this note. Current Medications Current Medications Current Medications Medications (Trade) Dose Ordered Sig/[facility] Start Time Stop Time Status Last Admin Dose Admin Clonidine HCl (Catapres) 0.3 mg 1X ONCE 12/02/19 11:30 12/02/19 11:31 DC Allergies Allergies Allergies Coded Allergies Type Severity Reaction Last Updated Verified aloe vera Allergy Severe Shortness of Air 10/16/17 Yes ibuprofen Allergy Severe Shortness of Air 08/29/19 Yes morphine Allergy Severe Hives 10/16/17 Yes naproxen Allergy Severe Shortness of Air 08/29/19 Yes tramadol Allergy Severe Shortness of Air 08/29/19 Yes [place] And Derivatives Allergy Intermediate 10/16/17 Yes Sulfa (Sulfonamide Antibiotics) Allergy Intermediate Hives 10/16/17 Yes adhesive Allergy Intermediate 09/22/18 Yes codeine Adverse Reaction Intermediate Hives 08/29/19 Yes hydromorphone Adverse Reaction Intermediate 10/16/17 Yes Physical Exam Physical Exam Constitutional: Well developed, well nourished, no acute distress, non-toxic appearance. [] HENT: Normocephalic, atraumatic, bilateral external ears normal, oropharynx moist, no oral exudates, nose normal. [] Eyes: PERRLA, EOMI, conjunctiva normal, no discharge. [] Neck: Normal range of motion, no tenderness, supple, no stridor. [] Cardiovascular:Heart rate regular rhythm, no murmur [] Lungs & Thorax: Bilateral breath sounds clear to auscultation [] Abdomen: Bowel sounds normal, soft, no tenderness, no masses, no pulsatile masses. [] Skin: Warm, dry, no erythema, no rash. Left upper extremity with the dialysis fistula with positive thrill and bruit Back: No tenderness, no CVA tenderness. [] Extremities: No tenderness, no cyanosis, no clubbing, ROM intact, no edema. [] Neurologic: Alert and oriented X 3, normal motor function, normal sensory function, no focal deficits noted. [] Psychologic: Affect normal, judgement normal, mood normal. [] Current Patient Data Vital Signs Vital Signs Date Time Temp Pulse Resp B/P (MAP) Pulse Ox O2 Delivery O2 Flow Rate FiO2 12/02/19 10:01 97.7 85 16 211/117 (148) 98 Room Air 97.7 Lab Values Laboratory Tests Test 12/02/19 10:15 White Blood Count 9.0 x10^3/uL (4.0-11.0) Red Blood Count 3.40 x10^6/uL (3.50-5.40) L Hemoglobin 10.8 g/dL (12.0-15.5) L Hematocrit 33.6 % (36.0-47.0) L Mean Corpuscular Volume 99 fL (79-100) Mean Corpuscular Hemoglobin 32 pg (25-35) Mean Corpuscular Hemoglobin Concent 32 g/dL (31-37) Red Cell Distribution Width 14.0 % (11.5-14.5) Platelet Count 217 x10^3/uL (140-400) Neutrophils (%) (Auto) 78 % (31-73) H Lymphocytes (%) (Auto) 12 % (24-48) L Monocytes (%) (Auto) 4 % (0-9) Eosinophils (%) (Auto) 5 % (0-3) H Basophils (%) (Auto) 1 % (0-3) Neutrophils # (Auto) 7.0 x10^3/uL (1.8-7.7) Lymphocytes # (Auto) 1.1 x10^3/uL (1.0-4.8) Monocytes # (Auto) 0.3 x10^3/uL (0.0-1.1) Eosinophils # (Auto) 0.5 x10^3/uL (0.0-0.7) Basophils # (Auto) 0.1 x10^3/uL (0.0-0.2) Sodium Level 145 mmol/L (136-145) Potassium Level 4.9 mmol/L (3.5-5.1) Chloride Level 105 mmol/L (98-107) Carbon Dioxide Level 27 mmol/L (21-32) Anion Gap 13 (6-14) Blood Urea Nitrogen 54 mg/dL (7-20) H Creatinine 11.3 mg/dL (0.6-1.0) H Estimated GFR (Cockcroft-Gault) 4.2 BUN/Creatinine Ratio 5 (6-20) L Glucose Level 143 mg/dL (70-99) H Calcium Level 8.2 mg/dL (8.5-10.1) L Total Bilirubin 0.3 mg/dL (0.2-1.0) Aspartate Amino Transferase (AST) 13 U/L (15-37) L Alanine Aminotransferase (ALT) 12 U/L (14-59) L Alkaline Phosphatase 219 U/L (46-116) H Total Protein 7.8 g/dL (6.4-8.2) Albumin 3.7 g/dL (3.4-5.0) Albumin/Globulin Ratio 0.9 (1.0-1.7) L Laboratory Tests 12/02/19 10:15 Laboratory Tests 12/02/19 10:15 EKG EKG [] Radiology/Procedures Radiology/Procedures [] Course & Med Decision Making Course & Med Decision Making Pertinent Labs and Imaging studies reviewed. (See chart for details) This is a 53-year-old female patient on dialysis presenting for lab check. Patient missed her dialysis on Thursday this week as well as today. She had attempted to go today to get them as undescended to the ED for labs. Potassium is 4.9, BUN and creatinine are elevated consistent with end-stage kidney diseas e. Hemoglobin 10.8, hematocrit 33.6. Blood pressure was 211/117. I encouraged patient to go straight to the dialysis center and get dialyzed today. Dragon Disclaimer Dragon Disclaimer This electronic medical record was generated, in whole or in part, using a voice recognition dictation system. Departure Departure Impression: Primary Impression: End stage renal disease on dialysis due to type 2 diabetes mellitus Additional Impression: Accelerated hypertension Disposition: HOME, SELF-CARE Condition: STABLE Referrals: YAMILKA MENDEZ MD (PCP) follow up in 1-2 weeks Patient Instructions: Dialysis Additional Instructions: Please go to dialysis today, your potassium was 4.9 Problem Qualifiers KEVIN ZHOU APRN Dec 02, 2019 11:27
[2019-12-02] MEDS ORDERED: cloNIDine HCL 0.1 MG TABLET PO ONE (11:30)
[2019-12-02 11:37] VITALS: BP 190/151
== END 2019-12-02 11:45 | disposition home or self-care (01) ==
LOC: ER 09:26
DX: E11.22 Type 2 diabetes mellitus with diabetic chronic kidney disease (principal); I13.2 Hypertensive heart and chronic kidney disease with heart failure and with stage 5 chronic kidney disease, or end stage renal disease; I50.9 Heart failure, unspecified; N18.6 End stage renal disease; Z99.2 Dependence on renal dialysis; Z90.710 Acquired absence of both cervix and uterus; Z90.49 Acquired absence of other specified parts of digestive tract; Z88.2 Allergy status to sulfonamides; Z88.5 Allergy status to narcotic agent; Z88.8 Allergy status to other drugs, medicaments and biological substances
CPT/HCPCS: 36415; 80053; 85025; 99283

== ENCOUNTER 2019-12-18 15:22 | Inpatient (IN) | payer MEDICARE ==
[~2019-12-18] VITALS: Ht 160 cm; Wt 114.3 kg
[2019-12-18] MEDS ORDERED: IPRATRPIUM/ALBUTEROL 0.5/2.5MG 3 ML NEBU. NEB ONE (16:00)
[2019-12-18] MEDS ORDERED: methylPREDNISolone SOD SUCC PF 125 MG/2 ML VIAL. IV ONE (16:00)
[2019-12-18 16:16] LABS: BASO % 0 % (0-3); EOS # 0.1 x10^3/uL (0.0-0.7); EOS % 1 % (0-3); HEMATOCRIT 29.2 % (36.0-47.0); HEMOGLOBIN 9.5 g/dL (12.0-15.5); LYMPH # 1.6 x10^3/uL (1.0-4.8); LYMPH % 10 % (24-48); MEAN CORPUSCULAR HEMOGLOBIN 32 pg (25-35); MEAN CORPUSCULAR HGB CONC 33 g/dL (31-37); MEAN CORPUSCULAR VOLUME 97 fL (79-100); MONO # 1.2 x10^3/uL (0.0-1.1); MONO % 7 % (0-9); NEUT # 13.6 x10^3/uL (1.8-7.7); NEUT % 83 % (31-73); PLATELET COUNT 296 x10^3/uL (140-400); RED BLOOD COUNT 3.02 x10^6/uL (3.50-5.40); RED CELL DISTRIBUTION WIDTH 13.7 % (11.5-14.5); WHITE BLOOD COUNT 16.5 x10^3/uL (4.0-11.0)
[2019-12-18 16:28] LABS: CALCIUM 7.3 mg/dL (8.5-10.1); CREATININE 6.9 mg/dL (0.6-1.0); GFR 7.5; POTASSIUM 4.2 mmol/L (3.5-5.1); PROTHROMBIN TIME PATIENT 12.9 SEC (11.7-14.0)
[2019-12-18 16:42] LABS: ALBUMIN 3.6 g/dL (3.4-5.0); ALBUMIN/GLOBULIN RATIO 1.1 (1.0-1.7); MAGNESIUM 1.9 mg/dL (1.8-2.4); TOTAL BILIRUBIN 0.2 mg/dL (0.2-1.0); TOTAL PROTEIN 6.8 g/dL (6.4-8.2)
--- NOTE | 2019-12-18 16:43 | RAD ---
Exam performed: One view chest. Indication: Cough Date of Service: 12/18/2019 4:00 PM Comparison: One view chest from 08/26/2019. Single AP upright portable view chest findings: Cardiomediastinal silhouette is enlarged, however stable. Pulmonary vascularity is unremarkable. No acute infiltrates, effusion or pneumothorax is detected. The bony structures are normal. Impression: Stable cardiomegaly. No pulmonary findings noted. Electronically signed by: Gauri Ayala MD (12/18/2019 4:40 PM) [id number]
[2019-12-18 16:44] LABS: INFLUENZA A PATIENT NEGATIVE (NEGATIVE); INFLUENZA B PATIENT NEGATIVE (NEGATIVE)
--- NOTE | 2019-12-18 17:04 | PDOC1 ---
History and Physical Date of Admission Date of Admission DATE: 12/18/19 TIME: 16:03 Identification/Chief Complaint Chief Complaint SEEN IN ER WITH ONE WEEK increasing cough, wheezing, failed out pt rx via PCP , now wheezing more, nebulizer no longer helpful at home Past Medical History Past Medical History Past Medical History Cardiovascular: HTN, Hyperlipidemia Pulmonary: Asthma CENTRAL NERVOUS SYSTEM: Other GI: Other Heme/Onc: Anemia NOS Hepatobiliary: No pertinent hx Psych: No pertinent hx, Anxiety Musculoskeletal: Osteoarthritis Rheumatologic: No pertinent hx Infectious disease: No pertinent hx Renal/: Chronic renal failure Endocrine: Diabetes, Hyperparathyroidism Past Surgical History Past Surgical History: Cholecystectomy, Cataract Removal, Hysterectomy, Other Family History Family History: Heart Disease Social History Smoke: No ALCOHOL: none Drugs: None Cardiovascular: HTN, Hyperlipidemia Pulmonary: Asthma CENTRAL NERVOUS SYSTEM: Other GI: GERD, Other Heme/Onc: Anemia NOS Hepatobiliary: No pertinent hx Psych: No pertinent hx, Anxiety Musculoskeletal: Osteoarthritis Rheumatologic: No pertinent hx Infectious disease: No pertinent hx Renal/: Chronic renal failure Endocrine: Diabetes, Hyperparathyroidism Past Surgical History Past Surgical History: Cholecystectomy, Cataract Removal, Hysterectomy, Other Family History Family History: Heart Disease Social History Smoke: No ALCOHOL: none Drugs: None Current Medications Current Medications Current Medications Methylprednisolone Sodium Succinate (SOLU-Medrol 125MG VIAL) 125 mg 1X ONCE IV Last administered on 12/18/19at 16:11; Start 12/18/19 at 16:00; Stop 12/18/19 at 16:06; Status DC Albuterol/ Ipratropium (Duoneb) 3 ml 1X ONCE NEB Last administered on 12/18/19at 16:14; Start 12/18/19 at 16:00; Stop 12/18/19 at 16:06; Status DC Active Scripts Active Culturelle (Lactobacillus Rhamnosus Gg) 1 Each Cap.sprink 1 Cap PO BID 30 Days Polyethylene Glycol 3350 17 Gm Powd.pack 17 Gm PO PRN DAILY PRN 14 Days Sore Throat Lozenge (Benzocaine/Menthol) 1 Each Lozenge 1 Patt PO PRN Q2HRS PRN 14 Days Mucinex (Guaifenesin) 600 Mg Tablet.er 600 Mg PO BID 28 Days Guaifenesin Dm Syrup (Guaifenesin/Dextromethorphan) 5 Ml Syrup 10 Ml PO QID 14 Days Benzonatate 100 Mg Capsule 100 Mg PO [id number] 30 Days Amlodipine Besylate 5 Mg Tablet 5 Mg PO DAILY 30 Days Duoneb 0.5-3(2.5) Mg/3 Ml (Albuterol/Ipratropium) 3 Ml Ampul.neb 3 Ml NEB Q4HRS 30 Days [Fluconazole] 100 MG Tablet 100 Mg PO DAILY 7 Days Doxycycline Hyclate 100 Mg Tablet 100 Mg PO BID 7 Days Percocet 5-325 Mg Tablet (Oxycodone/Acetaminophen) 1 Each Tablet 1 Tab PO PRN Q6HRS PRN 3 Days Lipitor (Atorvastatin Calcium) 40 Mg Tablet 40 Mg PO QHS Protonix (Pantoprazole Sodium) 40 Mg Tablet 40 Mg PO DAILYAC Reported Clonazepam 1 Mg Tablet 0.5 Mg PO PRN PRN Novolog (Insulin Aspart) 100 Unit/1 Ml Cartridge 100 Unit SQ TIDAC Cyclobenzaprine Hcl 5 Mg Tablet 1 Tab PO DAILY Aspir-Low (Aspirin) 81 Mg Tablet.dr 1 Tab PO DAILY Tylenol (Acetaminophen) 325 Mg Tablet 1 Tab PO PRN Q4HRS Ambien (Zolpidem Tartrate) 5 Mg Tablet 5 Mg PO PRN QHS Novolog (Insulin Aspart) 100 Unit/1 Ml Cartridge 5 Unit SQ [id number] Lantus Solostar (Insulin Glargine,Hum.rec.anlog) 100 Unit/1 Ml Insuln.pen 15 Unit SQ BIDPCLD Gabapentin (Gabapentin) 300 Mg Capsule 600 Mg PO BID Allergies Allergies: Coded Allergies: aloe vera (Verified Allergy, Severe, Shortness of Air, 10/16/17) ibuprofen (Verified Allergy, Severe, Shortness of Air, 08/29/19) morphine (Verified Allergy, Severe, Hives, 10/16/17) HALLUCINATIONS, SEE SPOTS, ASTHMA FLARES naproxen (Verified Allergy, Severe, Shortness of Air, 08/29/19) tramadol (Verified Allergy, Severe, Shortness of Air, 08/29/19) HALLUCINATIONS, HIVES, SEE SPOTS [place] And Derivatives (Verified Allergy, Intermediate, 10/16/17) Sulfa (Sulfonamide Antibiotics) (Verified Allergy, Intermediate, Hives, 10/16/17) adhesive (Verified Allergy, Intermediate, 09/22/18) LIDODERM Patch OK codeine (Verified Adverse Reaction, Intermediate, Hives, 08/29/19) HALLUCINATIONS, SEE SPOTS hydromorphone (Verified Adverse Reaction, Intermediate, 10/16/17) ROS Review of System Review of Systems Review of Systems Constitutional: Denies fever or chills [] Eyes: Denies change in visual acuity, redness, or eye pain [] HENT: Denies nasal congestion or sore throat [] Respiratory: POS cough // shortness of breath [] Cardiovascular: No additional information not addressed in HPI [] GI: Denies abdominal pain, nausea, vomiting, bloody stools or diarrhea [] : Denies dysuria or hematuria [] Musculoskeletal: Denies back pain or joint pain [] Integument: Denies rash or skin lesions [] Neurologic: Denies headache, focal weakness or sensory changes [] Endocrine: Denies polyuria or polydipsia [] 14 PT systems were reviewed and found to be within normal limits, except as documented in this note. Physical Exam Physical Exam Physical Exam Physical Exam Constitutional: Well developed, well nourished, MILD acute distress, non-toxic appearance. [] HENT: Normocephalic, atraumatic, bilateral external ears normal, oropharynx moist, no oral exudates, nose normal. [] Eyes: PERRLA, EOMI, conjunctiva normal, no discharge. [] Neck: Normal range of motion, no tenderness, supple, no stridor. [] Cardiovascular:Heart rate regular rhythm, no murmur [] Lungs & Thorax: Bilateral COARSE WITH EXP WHEEZING [] Abdomen: Bowel sounds normal, soft, no tenderness, no masses, no pulsatile masses. [] Skin: Warm, dry, no erythema, no rash. [] Back: No tenderness, no CVA tenderness. [] Extremities: No tenderness, no cyanosis, no clubbing, ROM intact, no edema. [] Neurologic: Alert and oriented X 3, normal motor function, normal sensory function, no focal deficits noted. [] Psychologic: Affect normal, judgment normal, mood normal. [] General: Alert, Oriented X3, Cooperative, mild distress HEENT: EOMI, Mucous membr. moist/pink Heart: RRR, no murmurs Breasts: Not examined Abdomen: Normal bowel sounds, Soft PELVIC: Examination not indicated Extremities: No cyanosis Neuro: Normal speech, Cranial nerves 3-12 NL Psych/Mental Status: Mental status NL, Mood NL Vitals Vitals Vital Signs Date Time Temp Pulse Resp B/P (MAP) Pulse Ox O2 Delivery O2 Flow Rate FiO2 12/18/19 16:15 100 Room Air 12/18/19 15:51 99.0 95 22 156/82 (106) 99.0 Labs Labs Laboratory Tests Test 12/18/19 15:50 12/18/19 16:12 White Blood Count 16.5 x10^3/uL (4.0-11.0) Red Blood Count 3.02 x10^6/uL (3.50-5.40) Hemoglobin 9.5 g/dL (12.0-15.5) Hematocrit 29.2 % (36.0-47.0) Mean Corpuscular Volume 97 fL (79-100) Mean Corpuscular Hemoglobin 32 pg (25-35) Mean Corpuscular Hemoglobin Concent 33 g/dL (31-37) Red Cell Distribution Width 13.7 % (11.5-14.5) Platelet Count 296 x10^3/uL (140-400) Neutrophils (%) (Auto) 83 % (31-73) Lymphocytes (%) (Auto) 10 % (24-48) Monocytes (%) (Auto) 7 % (0-9) Eosinophils (%) (Auto) 1 % (0-3) Basophils (%) (Auto) 0 % (0-3) Neutrophils # (Auto) 13.6 x10^3/uL (1.8-7.7) Lymphocytes # (Auto) 1.6 x10^3/uL (1.0-4.8) Monocytes # (Auto) 1.2 x10^3/uL (0.0-1.1) Eosinophils # (Auto) 0.1 x10^3/uL (0.0-0.7) Basophils # (Auto) 0.0 x10^3/uL (0.0-0.2) Prothrombin Time 12.9 SEC (11.7-14.0) Prothromb Time International Ratio 1.0 (0.8-1.1) Activated Partial Thromboplast Time 26 SEC (24-38) Sodium Level 137 mmol/L (136-145) Potassium Level 4.2 mmol/L (3.5-5.1) Chloride Level 97 mmol/L (98-107) Carbon Dioxide Level 27 mmol/L (21-32) Anion Gap 13 (6-14) Blood Urea Nitrogen 57 mg/dL (7-20) Creatinine 6.9 mg/dL (0.6-1.0) Estimated GFR (Cockcroft-Gault) 7.5 BUN/Creatinine Ratio 8 (6-20) Glucose Level 337 mg/dL (70-99) Lactic Acid Level 1.6 mmol/L (0.4-2.0) Calcium Level 7.3 mg/dL (8.5-10.1) Magnesium Level 1.9 mg/dL (1.8-2.4) Total Bilirubin 0.2 mg/dL (0.2-1.0) Aspartate Amino Transf (AST/SGOT) 10 U/L (15-37) Alanine Aminotransferase (ALT/SGPT) 21 U/L (14-59) Alkaline Phosphatase 220 U/L (46-116) Creatine Kinase 221 U/L (26-192) Creatine Kinase MB (Mass) 1.6 ng/mL (0.0-3.6) Creatine Kinase MB Relative Index 0.7 % (0-4) Troponin I Quantitative < 0.017 ng/mL (0.000-0.055) CB-Vdp-D-Type Natriuretic Peptide 9894 pg/mL (0-124) Total Protein 6.8 g/dL (6.4-8.2) Albumin 3.6 g/dL (3.4-5.0) Albumin/Globulin Ratio 1.1 (1.0-1.7) Procalcitonin 1.29 ng/mL (0.00-0.10) Thyroid Stimulating Hormone (TSH) 0.571 uIU/mL (0.358-3.74) Influenza Type A Antigen Negative (NEGATIVE) Influenza Type B Antigen Negative (NEGATIVE) Laboratory Tests Test 12/18/19 15:50 12/18/19 16:12 White Blood Count 16.5 x10^3/uL (4.0-11.0) Red Blood Count 3.02 x10^6/uL (3.50-5.40) Hemoglobin 9.5 g/dL (12.0-15.5) Hematocrit 29.2 % (36.0-47.0) Mean Corpuscular Volume 97 fL (79-100) Mean Corpuscular Hemoglobin 32 pg (25-35) Mean Corpuscular Hemoglobin Concent 33 g/dL (31-37) Red Cell Distribution Width 13.7 % (11.5-14.5) Platelet Count 296 x10^3/uL (140-400) Neutrophils (%) (Auto) 83 % (31-73) Lymphocytes (%) (Auto) 10 % (24-48) Monocytes (%) (Auto) 7 % (0-9) Eosinophils (%) (Auto) 1 % (0-3) Basophils (%) (Auto) 0 % (0-3) Neutrophils # (Auto) 13.6 x10^3/uL (1.8-7.7) Lymphocytes # (Auto) 1.6 x10^3/uL (1.0-4.8) Monocytes # (Auto) 1.2 x10^3/uL (0.0-1.1) Eosinophils # (Auto) 0.1 x10^3/uL (0.0-0.7) Basophils # (Auto) 0.0 x10^3/uL (0.0-0.2) Prothrombin Time 12.9 SEC (11.7-14.0) Prothromb Time International Ratio 1.0 (0.8-1.1) Activated Partial Thromboplast Time 26 SEC (24-38) Sodium Level 137 mmol/L (136-145) Potassium Level 4.2 mmol/L (3.5-5.1) Chloride Level 97 mmol/L (98-107) Carbon Dioxide Level 27 mmol/L (21-32) Anion Gap 13 (6-14) Blood Urea Nitrogen 57 mg/dL (7-20) Creatinine 6.9 mg/dL (0.6-1.0) Estimated GFR (Cockcroft-Gault) 7.5 BUN/Creatinine Ratio 8 (6-20) Glucose Level 337 mg/dL (70-99) Lactic Acid Level 1.6 mmol/L (0.4-2.0) Calcium Level 7.3 mg/dL (8.5-10.1) Magnesium Level 1.9 mg/dL (1.8-2.4) Total Bilirubin 0.2 mg/dL (0.2-1.0) Aspartate Amino Transf (AST/SGOT) 10 U/L (15-37) Alanine Aminotransferase (ALT/SGPT) 21 U/L (14-59) Alkaline Phosphatase 220 U/L (46-116) Creatine Kinase 221 U/L (26-192) Creatine Kinase MB (Mass) 1.6 ng/mL (0.0-3.6) Creatine Kinase MB Relative Index 0.7 % (0-4) Troponin I Quantitative < 0.017 ng/mL (0.000-0.055) MM-Rtg-A-Type Natriuretic Peptide 9894 pg/mL (0-124) Total Protein 6.8 g/dL (6.4-8.2) Albumin 3.6 g/dL (3.4-5.0) Albumin/Globulin Ratio 1.1 (1.0-1.7) Procalcitonin 1.29 ng/mL (0.00-0.10) Thyroid Stimulating Hormone (TSH) 0.571 uIU/mL (0.358-3.74) Influenza Type A Antigen Negative (NEGATIVE) Influenza Type B Antigen Negative (NEGATIVE) Images Images Mitral Valve MV E Velocity 99.7cm/s MV DECEL TIME 139ms MV A Velocity 88.9cm/s E/A Ratio 1.1 TDI Lateral E' P. V 6.37cm/s Medial E' P. V 8.75cm/s E/Lateral E' 15.7 E/Medial E' 11.4 Tricuspid Valve TR P. Velocity 303cm/s RAP ESTIMATE 10mmHg TR Peak Gr. 37mmHg RVSP 47mmHg Pulmonary Vein S1 Velocity 74.8cm/s S2 Velocity 67.65cm/s D2 Velocity 67.7cm/s PVa duration 108msec LEFT VENTRICLE The left ventricle is normal size. There is borderline to mild concentric left ventricular hypertrophy. The left ventricular systolic function is normal. The Ejection Fraction is 55-60%. There is normal LV segmental wall motion. RIGHT VENTRICLE The right ventricle is normal size. There is normal right ventricular wall thickness. The right ventricular systolic function is normal. ATRIA The left atrium size is normal. The right atrium size is normal. The interatrial septum is intact with no evidence for an atrial septal defect or patent foramen ovale as noted on 2-D or Doppler imaging. AORTIC VALVE The aortic valve is normal in structure and function. Doppler and Color Flow revealed trace aortic regurgitation. There is no significant aortic valvular stenosis. MITRAL VALVE The mitral valve is normal in structure and function. There is no mitral valve stenosis. Doppler and Color Flow revealed trace mitral regurgitation. TRICUSPID VALVE The tricuspid valve is not well visualized. Doppler and Color Flow revealed trace tricuspid regurgitation with an estimated PAP of 47 mmHg. There is no tricuspid valve stenosis. PULMONIC VALVE The pulmonic valve is not well visualized. Doppler and Color Flow revealed trace pulmonic valvular regurgitation. GREAT VESSELS The aortic root is normal in size. Normal pulmonary venous flow (Doppler). The IVC is dilated and collapses >50% with inspiration. PERICARDIAL EFFUSION There is no evidence of significant pericardial effusion. Critical Notification Critical Value: No <Conclusion> The left ventricular systolic function is normal. The Ejection Fraction is 55-60%. There is normal LV segmental wall motion. Trace mitral regurgitation. Trace tricuspid regurgitation with an estimated PAP of 47 mmHg. There is no evidence of significant pericardial effusion. Signed by : Tasia Boyer, Electronically Approved : 09/20/2018 11:25:10 DICTATED and SIGNED BY: TASIA BOYER MD DATE: 09/20/18 1125 xam performed: One view chest. Indication: Cough Date of Service: 12/18/2019 4:00 PM Comparison: One view chest from 08/26/2019. Single AP upright portable view chest findings: Cardiomediastinal silhouette is enlarged, however stable. Pulmonary vascularity is unremarkable. No acute infiltrates, effusion or pneumothorax is detected. The bony structures are normal. Impression: Stable cardiomegaly. No pulmonary findings noted. Electronically signed by: Gauri Ayala MD (12/18/2019 4:40 PM) [id number] DICTATED and SIGNED BY: GAURI AYALA MD VTE Prophylaxis Ordered VTE Prophylaxis Devices: Yes VTE Pharmacological Prophylaxi: Yes Assessment/Plan Assessment/Plan impression ACUTE HYPOXIC RESP FAILURE FAILED OUT PT TREATMENT ESRD on dialysis ACUTE ASTHMA EXAC WITH acute BRONCHITIS MORBID OBESITY SVETA DIABETES Pulmonary hypertension PLAN ADMIT IV STEROID TAPER ALBUTEROL Q 4 HRS EMPERIC IV ANTIBIOTICS NEPHROLOGY CONSULT SQ Heparin dvt prophylaxis PULM CONSULT SS INSULIN D/W CASEY BRANNON MD Dec 18, 2019 17:04
--- NOTE | 2019-12-18 17:13 | PHYS DOC ---
Past Medical History Past Medical History: Asthma, CHF, Diabetes-Type II, Renal Failure, Other Additional Past Medical Histor: torticollis uti Past Surgical History: Cholecystectomy, Hysterectomy, Other Additional Past Surgical Histo: BX R BREAST, R CHEST SHUNT IN & OUT, AV FIST L ARM,L KNEE,L ROTAT CUFFF Smoking Status: Never Smoker Alcohol Use: None Drug Use: None Adult General Chief Complaint Chief Complaint: SHORTNESS OF BREATH HPI HPI Patient is a 54 year old female with history of diabetes, CHF, asthma, end- stage kidney disease on dialysis Thursday, Thursday, Thursday last dialyzed on Thursday who presents to the ED today complaining of cough and shortness of breath that began a week ago. Patient reports being seen at urgent care at the onset of symptoms, she reports they did x-rays as well as blood work including blood cultures which were negative. She reports symptoms continued. She went and saw her PCP on Thursday last week who gave her steroids and breathing treatments, she reports symptoms did not improve but actually gotten worse. Review of Systems Review of Systems Constitutional: Denies fever or chills [] Eyes: Denies change in visual acuity, redness, or eye pain [] HENT: Denies nasal congestion or sore throat [] Respiratory: Reports cough and shortness of breath [] Cardiovascular: No additional information not addressed in HPI [] GI: Denies abdominal pain, nausea, vomiting, bloody stools or diarrhea [] : Denies dysuria or hematuria [] Musculoskeletal: Denies back pain or joint pain [] Integument: Denies rash or skin lesions [] Neurologic: Denies headache, focal weakness or sensory changes [] All other systems were reviewed and found to be within normal limits, except as documented in this note. Current Medications Current Medications Current Medications Medications (Trade) Dose Ordered Sig/[place] Start Time Stop Time Status Last Admin Dose Admin Acetaminophen (Tylenol) 325 mg PRN Q4HRS PRN 12/18/19 17:15 Albuterol/ Ipratropium (Duoneb) 3 ml Q4HRS 12/18/19 20:00 UNV Amlodipine Besylate (Norvasc) 5 mg DAILY 12/19/19 09:00 Aspirin (Ecotrin) 81 mg DAILY 12/19/19 09:00 UNV Atorvastatin Calcium (Lipitor) 40 mg QHS 12/18/19 21:00 UNV Benzonatate (Tessalon Perle) 100 mg [id number] 12/18/19 21:00 Gabapentin (Neurontin) 600 mg BID 12/18/19 21:00 UNV Guaifenesin (Mucinex) 600 mg BID 12/18/19 21:00 UNV Guaifenesin (Robitussin Dm) 10 ml QID 12/18/19 21:00 UNV Lactobacillus Rhamnosus (Culturelle) 1 cap BID 12/18/19 21:00 UNV Methylprednisolone Sodium Succinate (SOLU-Medrol 125MG VIAL) 125 mg 1X ONCE 12/18/19 16:00 12/18/19 16:06 DC 12/18/19 16:11 125 MG Non-Formulary Medication (Clonazepam ) 0.5 mg PRN PRN 12/18/19 17:15 UNV Non-Formulary Medication (Insulin Aspart (Novolog)) 5 unit [id number] 12/18/19 21:00 UNV Oxycodone/ Acetaminophen (Percocet 5/325) 1 tab PRN Q6HRS PRN 12/18/19 17:15 UNV Pantoprazole Sodium (Protonix) 40 mg DAILYAC 12/19/19 07:30 UNV Polyethylene Glycol (miraLAX PACKET) 17 gm PRN DAILY PRN 12/18/19 17:15 UNV Throat Lozenges (Cepacol Sore Throat Lozenge) 1 vernon PRN Q2HRS PRN 12/18/19 17:15 Zolpidem Tartrate (Ambien) 5 mg PRN QHS 12/18/19 17:15 UNV Allergies Allergies Allergies Coded Allergies Type Severity Reaction Last Updated Verified aloe vera Allergy Severe Shortness of Air 10/16/17 Yes ibuprofen Allergy Severe Shortness of Air 08/29/19 Yes morphine Allergy Severe Hives 10/16/17 Yes naproxen Allergy Severe Shortness of Air 08/29/19 Yes tramadol Allergy Severe Shortness of Air 08/29/19 Yes [place] And Derivatives Allergy Intermediate 10/16/17 Yes Sulfa (Sulfonamide Antibiotics) Allergy Intermediate Hives 10/16/17 Yes adhesive Allergy Intermediate 09/22/18 Yes codeine Adverse Reaction Intermediate Hives 08/29/19 Yes hydromorphone Adverse Reaction Intermediate 1/5/18 Yes Physical Exam Physical Exam Constitutional: Well developed, well nourished, no acute distress, non-toxic ap pearance. [] HENT: Normocephalic, atraumatic, bilateral external ears normal, oropharynx moist, no oral exudates, nose normal. [] Eyes: PERRLA, EOMI, conjunctiva normal, no discharge. [] Neck: Normal range of motion, no tenderness, supple, no stridor. [] Cardiovascular:Heart rate regular rhythm, no murmur [] Lungs & Thorax: Coarse lung sounds, patient is actively coughing Abdomen: Bowel sounds normal, soft, no tenderness, no masses, no pulsatile masses. [] Skin: Warm, dry, no erythema, no rash. Dialysis fistula noted on the left upper extremity with positive bruit and thrill Back: No tenderness, no CVA tenderness. [] Extremities: No tenderness, no cyanosis, no clubbing, ROM intact, no edema. [] Neurologic: Alert and oriented X 3, normal motor function, normal sensory functi on, no focal deficits noted. [] Psychologic: Affect normal, judgement normal, mood normal. [] Current Patient Data Vital Signs Vital Signs Date Time Temp Pulse Resp B/P (MAP) Pulse Ox O2 Delivery O2 Flow Rate FiO2 12/18/19 16:15 100 Room Air 12/18/19 15:51 99.0 95 22 156/82 (106) 99.0 Lab Values Laboratory Tests Test 12/18/19 15:50 12/18/19 16:12 White Blood Count 16.5 x10^3/uL (4.0-11.0) H Red Blood Count 3.02 x10^6/uL (3.50-5.40) L Hemoglobin 9.5 g/dL (12.0-15.5) L Hematocrit 29.2 % (36.0-47.0) L Mean Corpuscular Volume 97 fL (79-100) Mean Corpuscular Hemoglobin 32 pg (25-35) Mean Corpuscular Hemoglobin Concent 33 g/dL (31-37) Red Cell Distribution Width 13.7 % (11.5-14.5) Platelet Count 296 x10^3/uL (140-400) Neutrophils (%) (Auto) 83 % (31-73) H Lymphocytes (%) (Auto) 10 % (24-48) L Monocytes (%) (Auto) 7 % (0-9) Eosinophils (%) (Auto) 1 % (0-3) Basophils (%) (Auto) 0 % (0-3) Neutrophils # (Auto) 13.6 x10^3/uL (1.8-7.7) H Lymphocytes # (Auto) 1.6 x10^3/uL (1.0-4.8) Monocytes # (Auto) 1.2 x10^3/uL (0.0-1.1) H Eosinophils # (Auto) 0.1 x10^3/uL (0.0-0.7) Basophils # (Auto) 0.0 x10^3/uL (0.0-0.2) Platelet Estimate Pending Prothrombin Time 12.9 SEC (11.7-14.0) Prothrombin Time INR 1.0 (0.8-1.1) Activated Partial Thromboplast Time 26 SEC (24-38) Sodium Level 137 mmol/L (136-145) Potassium Level 4.2 mmol/L (3.5-5.1) Chloride Level 97 mmol/L (98-107) L Carbon Dioxide Level 27 mmol/L (21-32) Anion Gap 13 (6-14) Blood Urea Nitrogen 57 mg/dL (7-20) H Creatinine 6.9 mg/dL (0.6-1.0) H Estimated GFR (Cockcroft-Gault) 7.5 BUN/Creatinine Ratio 8 (6-20) Glucose Level 337 mg/dL (70-99) H Lactic Acid Level 1.6 mmol/L (0.4-2.0) Calcium Level 7.3 mg/dL (8.5-10.1) L Magnesium Level 1.9 mg/dL (1.8-2.4) Total Bilirubin 0.2 mg/dL (0.2-1.0) Aspartate Amino Transferase (AST) 10 U/L (15-37) L Alanine Aminotransferase (ALT) 21 U/L (14-59) Alkaline Phosphatase 220 U/L (46-116) H Creatine Kinase 221 U/L (26-192) H Creatine Kinase MB (Mass) 1.6 ng/mL (0.0-3.6) Creatine Kinase MB Relative Index 0.7 % (0-4) Troponin I Quantitative < 0.017 ng/mL (0.000-0.055) PF-Frk-A-Type Natriuretic Peptide 9894 pg/mL (0-124) H Total Protein 6.8 g/dL (6.4-8.2) Albumin 3.6 g/dL (3.4-5.0) Albumin/Globulin Ratio 1.1 (1.0-1.7) Procalcitonin 1.29 ng/mL (0.00-0.10) H Thyroid Stimulating Hormone (TSH) 0.571 uIU/mL (0.358-3.74) Influenza Type A Antigen Negative (NEGATIVE) Influenza Type B Antigen Negative (NEGATIVE) Laboratory Tests 12/18/19 15:50 Laboratory Tests 12/18/19 15:50 EKG EKG [address] Champion sinus rhythm HR 87 no STEMI[] Radiology/Procedures Radiology/Procedures []PROCEDURE: PORTABLE CHEST 1V Exam performed: One view chest. Indication: Cough Date of Service: 12/18/2019 4:00 PM Comparison: One view chest from 08/26/2019. Single AP upright portable view chest findings: Cardiomediastinal silhouette is enlarged, however stable. Pulmonary vascularity is unremarkable. No acute infiltrates, effusion or pneumothorax is detected. The bony structures are normal. Impression: Stable cardiomegaly. No pulmonary findings noted. Electronically signed by: Gauri Ayala MD (12/18/2019 4:40 PM) [id number] DICTATED and SIGNED BY: GAURI AYALA MD DATE: 12/18/19 1640 Course & Med Decision Making Course & Med Decision Making Pertinent Labs and Imaging studies reviewed. (See chart for details) This is a 54-year-old female patient presenting to the ED today complaining of cough and shortness of breath that began a week ago. Patient has been seen at an urgent care as well as by the PCP with no improvement of symptoms. Chest x-ray interpreted by radiologist is negative for any acute findings. CBC with a WBC of 16.5 ( off noted patient has been on steroids), CMP with nothing really acute. Patient was given a breathing treatment in the ED as well as Solu-Medrol Spoke with Dr. Champion who accepted patient for admission Dragon Disclaimer Dragon Disclaimer This electronic medical record was generated, in whole or in part, using a voice recognition dictation system. Departure Departure Impression: Primary Impression: End stage renal disease Additional Impression: Asthma exacerbation Disposition: 09 ADMITTED INPATIENT Condition: STABLE Referrals: YAMILKA MENDEZ MD (PCP) Problem Qualifiers Additional Impression: Asthma exacerbation Asthma severity: mild Asthma persistence: intermittent Qualified Codes: J45.21 - Mild intermittent asthma with (acute) exacerbation KEVIN ZHOU APRN Dec 18, 2019 17:13
[2019-12-18] MEDS ORDERED: BENZOCAINE/MENTHOL LOZENGE. PO PRN (17:15)
[2019-12-18] MEDS ORDERED: POLYETHYLENE GLYCOL 3350 17 GM PACKET. PO PRN (17:15)
[2019-12-18] MEDS ORDERED: ACETAMINOPHEN 325 MG TABLET. PO PRN ×2 (17:15→17:45)
[2019-12-18] MEDS ORDERED: CLONAZEPAM 0.5 MG PO PRN (17:15)
[2019-12-18] MEDS ORDERED: oxyCODONE/APAP 5/325 1 TAB TABLET PO PRN (17:15)
[2019-12-18 17:21] LABS: % BASOS 1 % (0-3); % EOS 1 % (0-5); % LYMPHS 13 % (24-48); % MONOS 8 % (0-10); % SEGS 77 % (35-66); PLT ESTIMATE ADEQUATE (ADEQUATE)
[2019-12-18 17:22] LABS: ANISOCYTOSIS SLIGHT; HYPOCHROMIA SLIGHT; POLYCHROMASIA SLIGHT; TOXIC GRANULATION SLIGHT
[2019-12-18] MEDS ORDERED: 0.9 % SODIUM CHLORIDE 10 ML DISP.SYRIN. IV PRN (17:45)
[2019-12-18] MEDS ORDERED: ONDANSETRON PF 4 MG/2 ML VIAL. IV PRN ×2 (17:45→18:00)
[2019-12-18] MEDS ORDERED: ENOXAPARIN 40 MG/0.4 ML SYRINGE. SQ SCH (17:45)
[2019-12-18] MEDS ORDERED: guaiFENesin ORAL 200 MG/10 ML LIQUID. PO PRN (17:45)
[2019-12-18] MEDS ORDERED: ALBUTEROL SULFATE 2.5 MG/3 ML NEBU. NEB PRN (17:45)
[2019-12-18] MEDS ORDERED: DOCUSATE SODIUM 100 MG CAPSULE. PO PRN (17:45)
[2019-12-18] MEDS ORDERED: PIPERACILLIN/TAZOBACTAM 2.25 GM in IV NORMAL SALINE 50ML 50 ML IV ONE (18:00)
[2019-12-18] MEDS ORDERED: PIPERACILLIN/TAZOBACTAM 3.375 GM in IV NORMAL SALINE 50ML 50 ML IV SCH (18:00)
[2019-12-18] MEDS ORDERED: DEXTROSE 50% 25 GM / 50ML DISP.SYRIN. IV PRN ×3 (18:00→21:30)
[2019-12-18] MEDS ORDERED: INSULIN LISPRO 300 UNITS/3 ML VIAL. SQ SCH (18:15)
[2019-12-18 18:16] VITALS: BP 185/101
[2019-12-18] MEDS: methylPREDNISolone SOD SUCC PF 125 MG/2 ML VIAL. IV SCH ×2 (18:58→23:40)
[2019-12-18] MEDS: cloNIDine HCL 0.1 MG TABLET PO PRN (18:58)
[2019-12-18 19:00] VITALS: BP 169/93
[2019-12-18] MEDS: INSULIN LISPRO 300 UNITS/3 ML VIAL. SQ SCH ×2 (19:08→21:46)
--- NOTE | 2019-12-18 19:20 | NUR ---
The patient, URIEL CRAIG, 54 y/o, F admitted by CASEY TAYLOR MD, was given written information regarding hospital policies, unit procedures and contact persons. 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 No current needs. Will continue to monitor.
--- NOTE | 2019-12-18 19:33 | EKG ---
[facility] [address] [place] [address] Test Date: 2019-12-18 Test Time: 16:26:42 Pat Name: URIEL CRAIG Department: Room: Gender: F Rack Maker: : [id number] Requested By: KEVIN ZHOU Order Number: [id number] Reading MD: Measurements Intervals Bath Rate: 86 P: 24 WI: 146 QRS: -22 QRSD: 90 T: 50 QT: 380 QTc: 457 Interpretive Statements SINUS RHYTHM LEFTWARD AXIS R-S TRANSITION ZONE IN V LEADS DISPLACED TO THE LEFT OTHERWISE NORMAL ECG No previous ECG available for comparison
[2019-12-18] MEDS: IPRATRPIUM/ALBUTEROL 0.5/2.5MG 3 ML NEBU. NEB SCH ×3 (20:00→23:27)
[2019-12-18] MEDS: ATORVASTATIN CALCIUM 40 MG TABLET. PO SCH (20:40)
[2019-12-18] MEDS: LACTOBACILLUS RHAMNOSUS GG 1 CAPSULE. PO SCH (20:40)
[2019-12-18] MEDS: GABAPENTIN 300 MG CAPSULE. PO SCH (20:40)
[2019-12-18] MEDS: BENZONATATE 100 MG CAPSULE. PO SCH (20:40)
[2019-12-18] MEDS: ZOLPIDEM 5 MG TABLET. PO PRN (20:40)
[2019-12-18] MEDS: DOXYCYCLINE HYCLATE 100 MG TABLET PO SCH (20:40)
[2019-12-18] MEDS: INSULIN GLARGINE SYRINGE. SQ SCH (20:42)
[2019-12-18] MEDS: HEPARIN for SUB-Q USE 5,000 UNIT/ML VIAL. SQ SCH (20:43)
[2019-12-18] MEDS ORDERED: guaiFENesin DM 200MG/20MG 10 ML SYRUP PO SCH (21:00)
[2019-12-18 23:00] VITALS: BP 184/103
[2019-12-19 03:00] VITALS: BP 172/103
[2019-12-19] MEDS: IPRATRPIUM/ALBUTEROL 0.5/2.5MG 3 ML NEBU. NEB SCH ×7 (03:26→20:23)
[2019-12-19] MEDS: cloNIDine HCL 0.1 MG TABLET PO PRN ×2 (04:22→20:53)
[2019-12-19 04:48] LABS: BASO % 0 % (0-3); EOS % 0 % (0-3); HEMATOCRIT 29.3 % (36.0-47.0); HEMOGLOBIN 9.6 g/dL (12.0-15.5); LYMPH # 0.4 x10^3/uL (1.0-4.8); LYMPH % 2 % (24-48); MEAN CORPUSCULAR HEMOGLOBIN 32 pg (25-35); MEAN CORPUSCULAR HGB CONC 33 g/dL (31-37); MEAN CORPUSCULAR VOLUME 97 fL (79-100); MONO # 0.1 x10^3/uL (0.0-1.1); MONO % 1 % (0-9); NEUT # 16.6 x10^3/uL (1.8-7.7); NEUT % 97 % (31-73); PLATELET COUNT 284 x10^3/uL (140-400); RED BLOOD COUNT 3.01 x10^6/uL (3.50-5.40); RED CELL DISTRIBUTION WIDTH 13.9 % (11.5-14.5); WHITE BLOOD COUNT 17.1 x10^3/uL (4.0-11.0)
[2019-12-19 05:01] LABS: ALBUMIN 3.2 g/dL (3.4-5.0); ALBUMIN/GLOBULIN RATIO 0.9 (1.0-1.7); CALCIUM 7.2 mg/dL (8.5-10.1); CREATININE 7.3 mg/dL (0.6-1.0); POTASSIUM 5.5 mmol/L (3.5-5.1); TOTAL BILIRUBIN 0.3 mg/dL (0.2-1.0); TOTAL PROTEIN 6.9 g/dL (6.4-8.2)
[2019-12-19] MEDS: methylPREDNISolone SOD SUCC PF 125 MG/2 ML VIAL. IV SCH ×4 (05:37→23:37)
[2019-12-19] MEDS: HEPARIN for SUB-Q USE 5,000 UNIT/ML VIAL. SQ SCH ×3 (05:41→21:01)
[2019-12-19 07:00] VITALS: BP 128/92
[2019-12-19] MEDS: INSULIN LISPRO 300 UNITS/3 ML VIAL. SQ SCH ×7 (07:34→20:59)
[2019-12-19] MEDS ORDERED: INSULIN LISPRO 300 UNITS/3 ML VIAL. SQ SCH ×3 (08:00)
--- NOTE | 2019-12-19 09:00 | NUR ---
AM MEDICATIONS HELD AT THIS TIME, WILL ADMINISTER WHEN PATIENT RETURNS FROM DIALYSIS.
[2019-12-19] MEDS ORDERED: IV NORMAL SALINE 1000ML BAG 1,000 ML IV PRN ×2 (10:46)
[2019-12-19] MEDS ORDERED: DIALYSIS PATIENT. MC PRN (11:00)
[2019-12-19] MEDS ORDERED: diphenhydrAMINE 50 MG/ML VIAL IV PRN ×2 (11:00)
--- NOTE | 2019-12-19 11:40 | CONS ---
DATE OF CONSULTATION: PULMONARY CONSULTATION ATTENDING PHYSICIAN: Moe Champion MD. REASON FOR CONSULTATION: Asthma, hypoxia. HISTORY OF PRESENT ILLNESS: The patient is a 54-year-old morbidly obese patient who has asthma as an adult. She was brought into the hospital with 1-week complaint of shortness of breath, some subjective fever and wheezing. She failed outpatient treatment per PCP. Her chest x-ray did not reveal any acute infiltrates. She is currently on dialysis. No headaches, no nausea or vomiting, no diarrhea, no dysuria, no focal weakness. No chest pain. PAST MEDICAL HISTORY: History of asthma, adult onset. Hypertension, hyperlipidemia, osteoarthritis. PAST SURGICAL HISTORY: Cholecystectomy, hysterectomy and others. ALLERGIES: Reviewed as listed in her MRAD. MEDICATIONS: Reviewed as listed in her MRAD including bronchodilators and empiric antibiotic. REVIEW OF SYSTEMS: Twelve-point system obtained. Pertinent positives discussed in my history of present illness, otherwise noncontributory. All systems that were negative were reviewed as well. SOCIAL HISTORY: Denies any significant tobacco history. FAMILY HISTORY: Noncontributory to lungs. PHYSICAL EXAMINATION: VITAL SIGNS: Reviewed, pulse ox 98% on 2 liters, afebrile. HEENT: Sclerae nonicteric. NECK: Supple. LUNGS: With few anterior rhonchi. CARDIOVASCULAR: With a regular rate. ABDOMEN: Soft, obese. EXTREMITIES: With no pitting edema. LABORATORY DATA: Reviewed. Influenza screen is negative. BUN and creatinine 57 and 7.3. White cell count 16.5. IMPRESSION: 1. Acute hypoxic respiratory failure secondary to acute bronchitis, likely viral and acute exacerbation of asthma. 2. Adult-onset asthma with exacerbation triggered by bronchitis. 3. End-stage renal disease, on hemodialysis. 4. Influenza screen negative. RECOMMENDATIONS: 1. Continue present oxygen. 2. Continue bronchodilators. 3. Continue IV steroids. 4. Empiric antibiotic, Zosyn. We would deescalate in few days. 5. Follow renal recommendation regarding dialysis. 6. We will follow along with you. Discussed with RN. SANDY JACKSON MD DR: ERMA/lottie JOB#: [id number] / [id number]
[2019-12-19] MEDS ORDERED: NON FORMULARY ITEM (Insulin Glargine,Hum.rec.anlog (Lantus Solostar) 15 UNIT) SQ SCH (12:30)
--- NOTE | 2019-12-19 12:56 | PDOC2 ---
CONSULT Date of Consult Date of Consult DATE: 12/19/19 TIME: 12:49 Reason for Consult Reason for Consult: ESRD AND SOB Referring Physician Referring Physician: BRANDON Identification/Chief Complaint Chief Complaint SOB Source Source: Chart review, Patient History of Present Illness Reason for Visit: THIS IS A 54 YR OLD ESRD PT WITH SOB. SHE HAS ESRD DUE TO DM II AND HTN. LABS ARE C/W HER ESRD AND SHE HAS THE EXPECTED ANEMIA. SHE HAS HAS SOME MILD HYPERKALEMIA AND LEUCOCYTOSIS. IMAGING NEG BUT SHE DOES HAS SOME HYPERVOLEMIA AND ASTHMA EXACERBATION. SHE IS VERY NON COMPLIANT WITH HER HD SESSIONS. AT TIMES SHE WILL SKIP HER TREATMENTS ALTOGETHER. LAST OP TX WAS ON THURSDAY BUT SHE DID NOT FINISH HER TX AND DID ACHIEVE HER [employer] WEIGHT Past Medical History Cardiovascular: HTN, Hyperlipidemia Pulmonary: Asthma CENTRAL NERVOUS SYSTEM: Other GI: GERD, Other Heme/Onc: Anemia NOS Hepatobiliary: No pertinent hx Psych: No pertinent hx, Anxiety Musculoskeletal: Osteoarthritis Rheumatologic: No pertinent hx Infectious disease: No pertinent hx Renal/: Chronic renal failure Endocrine: Diabetes, Hyperparathyroidism Past Surgical History Past Surgical History: Cholecystectomy, Cataract Removal, Hysterectomy, Other Family History Family History: Heart Disease Social History No ALCOHOL: none Drugs: None Lives: with Family Current Problem List Problem List Problems Medical Problems: (1) Asthma exacerbation Status: Acute (2) End stage renal disease Status: Acute Current Medications Current Medications Current Medications Methylprednisolone Sodium Succinate (SOLU-Medrol 125MG VIAL) 125 mg 1X ONCE IV Last administered on 12/18/19at 16:11; Start 12/18/19 at 16:00; Stop 12/18/19 at 16:06; Status DC Albuterol/ Ipratropium (Duoneb) 3 ml 1X ONCE NEB Last administered on 12/18/19at 16:14; Start 12/18/19 at 16:00; Stop 12/18/19 at 16:06; Status DC Acetaminophen (Tylenol) 325 mg PRN Q4HRS PRN PO MILD PAIN / TEMP; Start 12/18/19 at 17:15 Amlodipine Besylate (Norvasc) 5 mg DAILY PO ; Start 12/19/19 at 09:00 Aspirin (Ecotrin) 81 mg DAILY PO ; Start 12/19/19 at 09:00 Atorvastatin Calcium (Lipitor) 40 mg QHS PO Last administered on 3/8/20at 20:40; Start 12/18/19 at 21:00 Throat Lozenges (Cepacol Sore Throat Lozenge) 1 patt PRN Q2HRS PRN PO SORE THROAT; Start 12/18/19 at 17:15 Benzonatate (Tessalon Perle) 100 mg CAL357 PO Last administered on 12/18/19at 20:40; Start 12/18/19 at 21:00 Gabapentin (Neurontin) 600 mg BID PO Last administered on 12/18/19at 20:40; Start 12/18/19 at 21:00 Guaifenesin (Mucinex) 600 mg BID PO Last administered on 12/18/19at 20:40; Start 12/18/19 at 21:00 Guaifenesin (Robitussin Dm) 10 ml QID PO ; Start 12/18/19 at 21:00; Status UNV Albuterol/ Ipratropium (Duoneb) 3 ml Q4HRS NEB Last administered on 12/19/19at 1 2:01; Start 12/18/19 at 20:00 Lactobacillus Rhamnosus (Culturelle) 1 cap BID PO Last administered on 12/18/19at 20:40; Start 12/18/19 at 21:00 Oxycodone/ Acetaminophen (Percocet 5/325) 1 tab PRN Q6HRS PRN PO PAIN; Start 12/18/19 at 17:15 Pantoprazole Sodium (Protonix) 40 mg DAILYAC PO ; Start 12/19/19 at 07:30 Polyethylene Glycol (miraLAX PACKET) 17 gm PRN DAILY PRN PO CONSTIPATION, 1ST CHOICE; Start 12/18/19 at 17:15 Zolpidem Tartrate (Ambien) 5 mg PRN QHS PRN PO INSOMNIA Last administered on 12/18/19at 20:40; Start 12/18/19 at 17:15 Non-Formulary Medication (Clonazepam ) 0.5 mg PRN PRN PO TREMORS; Start 12/18/19 at 17:15; Stop 12/18/19 at 17:53; Status DC Insulin Human Lispro (HumaLOG) 5 units TIDWMEALS SQ ; Start 12/19/19 at 08:00; Stop 12/18/19 at 18:16; Status DC Methylprednisolone Sodium Succinate (SOLU-Medrol 125MG VIAL) 100 mg Q6HRS IV Last administered on 12/19/19at 05:37; Start 12/18/19 at 18:00 Sodium Chloride (Normal Saline Flush) 3 ml QSHIFT PRN IV AFTER MEDS AND BLOOD DRAWS; Start 12/18/19 at 17:45 Ondansetron HCl (Zofran) 4 mg PRN Q4HRS PRN IV NAUSEA/VOMITING; Start 12/18/19 at 17:45 Acetaminophen (Tylenol) 650 mg PRN Q4HRS PRN PO TEMP OVER 100.4F OR MILD PAIN Last administered on 12/18/19at 18:58; Start 12/18/19 at 17:45 Clonidine HCl (Catapres) 0.1 mg PRN Q6HRS PRN PO SBP>160 OR DBP>90 Last administered on 12/19/19at 04:22; Start 12/18/19 at 17:45 Docusate Sodium (Colace) 100 mg PRN BID PRN PO CONSTIPATION; Start 12/18/19 at 17:45 Albuterol Sulfate (Ventolin Neb Soln) 2.5 mg PRN Q4HRS PRN NEB SHORTNESS OF B REATH; Start 12/18/19 at 17:45 Guaifenesin (Robitussin) 200 mg PRN Q4HRS PRN PO COUGH; Start 12/18/19 at 17:45 Enoxaparin Sodium (Lovenox 40mg Syringe) 40 mg Q24H SQ ; Start 12/18/19 at 17:45; Status UNV Piperacillin Sod/ Tazobactam Sod 3.375 gm/Sodium Chloride 50 ml @ 100 mls/hr Q6HRS IV ; Start 12/18/19 at 18:00; Stop 12/18/19 at 17:53; Status DC Doxycycline Hyclate (Vibra-Tab) 100 mg BID PO Last administered on 12/18/19at 20:40; Start 12/18/19 at 21:00 Non-Formulary Medication (Insulin Glargine,Hum.rec.anlog (Lantus Solostar)) 15 unit BIDPCLD SQ ; Start 12/19/19 at 12:30; Stop 12/18/19 at 17:53; Status DC Heparin Sodium (Porcine) (Heparin Sodium) 5,000 unit Q8HRS SQ Last administered on 12/19/19at 05:41; Start 12/18/19 at 22:00 Piperacillin Sod/ Tazobactam Sod 2.25 gm/Sodium Chloride 50 ml @ 100 mls/hr 1X ONCE IV ; Start 12/18/19 at 18:00; Stop 12/18/19 at 18:29; Status Cancel Insulin Human Lispro (HumaLOG) 0-7 UNITS TIDWMEALS SQ ; Start 12/19/19 at 08:00; Stop 12/18/19 at 17:53; Status DC Dextrose (Dextrose 50%-Water Syringe) 12.5 gm PRN Q15MIN PRN IV SEE COMMENTS; Start 12/18/19 at 18:00; Stop 12/18/19 at 17:53; Status DC Insulin Human Lispro (HumaLOG) 0-7 UNITS TIDWMEALS SQ ; Start 12/19/19 at 08:00; Stop 12/18/19 at 18:16; Status DC Piperacillin Sod/ Tazobactam Sod 2.25 gm/Sodium Chloride 50 ml @ 100 mls/hr Q8H IV ; Start 12/19/19 at 19:00 Clonazepam (KlonoPIN) 0.5 mg PRN DAILY PRN PO ANXIETY / AGITATION; Start 12/18/19 at 19:00 Insulin Glargine (Lantus Syringe) 15 unit BID SQ Last administered on 12/18/19at 20:42; Start 12/18/19 at 21:00 Dextrose (Dextrose 50%-Water Syringe) 12.5 gm PRN Q15MIN PRN IV SEE COMMENTS; Start 12/18/19 at 18:15; Stop 12/18/19 at 21:37; Status DC Ondansetron HCl (Zofran) 4 mg PRN Q8HRS PRN IV NAUSEA/VOMITING; Start 12/18/19 at 18:00; Stop 12/19/19 at 17:59 Albuterol/ Ipratropium (Duoneb) 3 ml RTQID NEB ; Start 12/18/19 at 20:00; Stop 12/19/19 at 19:59 Insulin Human Lispro (HumaLOG) 5 units TIDWMEALS SQ Last administered on 12/19/19at 07:35; Start 12/18/19 at 18:15 Insulin Human Lispro (HumaLOG) 0-7 UNITS TIDWMEALS SQ Last administered on 12/18/19at 19:07; Start 12/18/19 at 18:15; Stop 12/18/19 at 21:34; Status DC Insulin Human Lispro (HumaLOG) 0-9 UNITS QIDACHS SQ Last administered on 12/19/19at 11:59; Start 12/18/19 at 21:30 Dextrose (Dextrose 50%-Water Syringe) 12.5 gm PRN Q15MIN PRN IV SEE COMMENTS; Start 12/18/19 at 21:30 Sodium Chloride 1,000 ml @ 1,000 mls/hr Q1H PRN IV hypotension; Start 12/19/19 at 10:46; Stop 12/19/19 at 16:45 Diphenhydramine HCl (Benadryl) 25 mg 1X PRN PRN IV ITCHING; Start 12/19/19 at 11:00; Stop 12/20/19 at 10:59 Diphenhydramine HCl (Benadryl) 25 mg 1X PRN PRN IV ITCHING; Start 12/19/19 at 11:00; Stop 12/20/19 at 10:59 Sodium Chloride 1,000 ml @ 400 mls/hr Q2H30M PRN IV PATENCY; Start 12/19/19 at 10:46; Stop 12/19/19 at 22:45 Info (PHARMACY MONITORING -- do not chart) 1 each PRN DAILY PRN MC SEE COMMENTS; Start 12/19/19 at 11:00 Active Scripts Active Culturelle (Lactobacillus Rhamnosus Gg) 1 Each Cap.sprink 1 Cap PO BID 30 Days Polyethylene Glycol 3350 17 Gm Powd.pack 17 Gm PO PRN DAILY PRN 14 Days Sore Throat Lozenge (Benzocaine/Menthol) 1 Each Lozenge 1 Patt PO PRN Q2HRS PRN 14 Days Mucinex (Guaifenesin) 600 Mg Tablet.er 600 Mg PO BID 28 Days Guaifenesin Dm Syrup (Guaifenesin/Dextromethorphan) 5 Ml Syrup 10 Ml PO QID 14 Days Benzonatate 100 Mg Capsule 100 Mg PO [id number] 30 Days Amlodipine Besylate 5 Mg Tablet 5 Mg PO DAILY 30 Days Duoneb 0.5-3(2.5) Mg/3 Ml (Albuterol/Ipratropium) 3 Ml Ampul.neb 3 Ml NEB Q4HRS 30 Days [Fluconazole] 100 MG Tablet 100 Mg PO DAILY 7 Days Doxycycline Hyclate 100 Mg Tablet 100 Mg PO BID 7 Days Percocet 5-325 Mg Tablet (Oxycodone/Acetaminophen) 1 Each Tablet 1 Tab PO PRN Q6HRS PRN 3 Days Lipitor (Atorvastatin Calcium) 40 Mg Tablet 40 Mg PO QHS Protonix (Pantoprazole Sodium) 40 Mg Tablet 40 Mg PO DAILYAC Reported Clonazepam 1 Mg Tablet 0.5 Mg PO PRN PRN Novolog (Insulin Aspart) 100 Unit/1 Ml Cartridge 100 Unit SQ TIDAC Cyclobenzaprine Hcl 5 Mg Tablet 1 Tab PO DAILY Aspir-Low (Aspirin) 81 Mg Tablet.dr 1 Tab PO DAILY Tylenol (Acetaminophen) 325 Mg Tablet 1 Tab PO PRN Q4HRS Ambien (Zolpidem Tartrate) 5 Mg Tablet 5 Mg PO PRN QHS Novolog (Insulin Aspart) 100 Unit/1 Ml Cartridge 5 Unit SQ [id number] Lantus Solostar (Insulin Glargine,Hum.rec.anlog) 100 Unit/1 Ml Insuln.pen 15 Unit SQ BIDPCLD Gabapentin (Gabapentin) 300 Mg Capsule 600 Mg PO BID Allergies Allergies: Coded Allergies: aloe vera (Verified Allergy, Severe, Shortness of Air, 10/16/17) ibuprofen (Verified Allergy, Severe, Shortness of Air, 08/29/19) morphine (Verified Allergy, Severe, Hives, 10/16/17) HALLUCINATIONS, SEE SPOTS, ASTHMA FLARES naproxen (Verified Allergy, Severe, Shortness of Air, 08/29/19) tramadol (Verified Allergy, Severe, Shortness of Air, 08/29/19) HALLUCINATIONS, HIVES, SEE SPOTS [place] And Derivatives (Verified Allergy, Intermediate, 10/16/17) Sulfa (Sulfonamide Antibiotics) (Verified Allergy, Intermediate, Hives, 10/16/17) adhesive (Verified Allergy, Intermediate, 09/22/18) LIDODERM Patch OK codeine (Verified Adverse Reaction, Intermediate, Hives, 08/29/19) HALLUCINATIONS, SEE SPOTS hydromorphone (Verified Adverse Reaction, Intermediate, 10/16/17) ROS General: YES: Malaise PSYCHOLOGICAL ROS: YES: Anxiety, Depression Eyes: Yes Decreased vision HEENT: YES: Heacaches Respiratory: YES: Cough, Orthopnea, Shortness of breath Gastrointestinal: Yes Constipation Genitourinary: YES Other (ANURIA) Musculoskeletal: Yes Muscular Weakness Neurological: Yes Weakness Skin: Yes Dry Skin Physical Exam General: Alert, Oriented X3, Cooperative, No acute distress Lungs: Clear to auscultation Heart: Regular rate, No murmurs Abdomen: Normal bowel sounds, Soft, No tenderness Extremities: No cyanosis Skin: No breakdown Neuro: Normal speech Psych/Mental Status: Mental status NL, Mood NL MUSCULOSKELETAL: No joint tenderness, No deformity Vitals VITALS Vital Signs Date Time Temp Pulse Resp B/P (MAP) Pulse Ox O2 Delivery O2 Flow Rate FiO2 12/19/19 12:03 Nasal Cannula 2.0 12/19/19 07:00 97.6 85 24 128/92 (104) 98 97.6 Labs Labs Laboratory Tests Test 12/18/19 15:50 12/18/19 16:12 12/18/19 18:10 12/18/19 20:38 White Blood Count 16.5 x10^3/uL (4.0-11.0) Red Blood Count 3.02 x10^6/uL (3.50-5.40) Hemoglobin 9.5 g/dL (12.0-15.5) Hematocrit 29.2 % (36.0-47.0) Mean Corpuscular Volume 97 fL (79-100) Mean Corpuscular Hemoglobin 32 pg (25-35) Mean Corpuscular Hemoglobin Concent 33 g/dL (31-37) Red Cell Distribution Width 13.7 % (11.5-14.5) Platelet Count 296 x10^3/uL (140-400) Neutrophils (%) (Auto) 83 % (31-73) Lymphocytes (%) (Auto) 10 % (24-48) Monocytes (%) (Auto) 7 % (0-9) Eosinophils (%) (Auto) 1 % (0-3) Basophils (%) (Auto) 0 % (0-3) Neutrophils # (Auto) 13.6 x10^3/uL (1.8-7.7) Lymphocytes # (Auto) 1.6 x10^3/uL (1.0-4.8) Monocytes # (Auto) 1.2 x10^3/uL (0.0-1.1) Eosinophils # (Auto) 0.1 x10^3/uL (0.0-0.7) Basophils # (Auto) 0.0 x10^3/uL (0.0-0.2) Segmented Neutrophils % 77 % (35-66) Lymphocytes % 13 % (24-48) Monocytes % 8 % (0-10) Eosinophils % 1 % (0-5) Basophils % 1 % (0-3) Toxic Granulation Slight Platelet Estimate Adequate (ADEQUATE) Polychromasia Slight Hypochromasia Slight Anisocytosis Slight Prothrombin Time 12.9 SEC (11.7-14.0) Prothromb Time International Ratio 1.0 (0.8-1.1) Activated Partial Thromboplast Time 26 SEC (24-38) Sodium Level 137 mmol/L (136-145) Potassium Level 4.2 mmol/L (3.5-5.1) Chloride Level 97 mmol/L (98-107) Carbon Dioxide Level 27 mmol/L (21-32) Anion Gap 13 (6-14) Blood Urea Nitrogen 57 mg/dL (7-20) Creatinine 6.9 mg/dL (0.6-1.0) Estimated GFR (Cockcroft-Gault) 7.5 BUN/Creatinine Ratio 8 (6-20) Glucose Level 337 mg/dL (70-99) Lactic Acid Level 1.6 mmol/L (0.4-2.0) Calcium Level 7.3 mg/dL (8.5-10.1) Magnesium Level 1.9 mg/dL (1.8-2.4) Total Bilirubin 0.2 mg/dL (0.2-1.0) Aspartate Amino Transf (AST/SGOT) 10 U/L (15-37) Alanine Aminotransferase (ALT/SGPT) 21 U/L (14-59) Alkaline Phosphatase 220 U/L (46-116) Creatine Kinase 221 U/L (26-192) Creatine Kinase MB (Mass) 1.6 ng/mL (0.0-3.6) Creatine Kinase MB Relative Index 0.7 % (0-4) Troponin I Quantitative < 0.017 ng/mL (0.000-0.055) WO-Tpu-[id number]-Type Natriuretic Peptide 9894 pg/mL (0-124) Total Protein 6.8 g/dL (6.4-8.2) Albumin 3.6 g/dL (3.4-5.0) Albumin/Globulin Ratio 1.1 (1.0-1.7) Procalcitonin 1.29 ng/mL (0.00-0.10) Thyroid Stimulating Hormone (TSH) 0.571 uIU/mL (0.358-3.74) Influenza Type A Antigen Negative (NEGATIVE) Influenza Type B Antigen Negative (NEGATIVE) Glucose (Fingerstick) 316 mg/dL (70-99) 353 mg/dL (70-99) Test 12/19/19 04:15 12/19/19 07:12 12/19/19 11:31 White Blood Count 17.1 x10^3/uL (4.0-11.0) Red Blood Count 3.01 x10^6/uL (3.50-5.40) Hemoglobin 9.6 g/dL (12.0-15.5) Hematocrit 29.3 % (36.0-47.0) Mean Corpuscular Volume 97 fL (79-100) Mean Corpuscular Hemoglobin 32 pg (25-35) Mean Corpuscular Hemoglobin Concent 33 g/dL (31-37) Red Cell Distribution Width 13.9 % (11.5-14.5) Platelet Count 284 x10^3/uL (140-400) Neutrophils (%) (Auto) 97 % (31-73) Lymphocytes (%) (Auto) 2 % (24-48) Monocytes (%) (Auto) 1 % (0-9) Eosinophils (%) (Auto) 0 % (0-3) Basophils (%) (Auto) 0 % (0-3) Neutrophils # (Auto) 16.6 x10^3/uL (1.8-7.7) Lymphocytes # (Auto) 0.4 x10^3/uL (1.0-4.8) Monocytes # (Auto) 0.1 x10^3/uL (0.0-1.1) Eosinophils # (Auto) 0.0 x10^3/uL (0.0-0.7) Basophils # (Auto) 0.0 x10^3/uL (0.0-0.2) Sodium Level 133 mmol/L (136-145) Potassium Level 5.5 mmol/L (3.5-5.1) Chloride Level 96 mmol/L (98-107) Carbon Dioxide Level 26 mmol/L (21-32) Anion Gap 11 (6-14) Blood Urea Nitrogen 57 mg/dL (7-20) Creatinine 7.3 mg/dL (0.6-1.0) Estimated GFR (Cockcroft-Gault) 7.0 BUN/Creatinine Ratio 8 (6-20) Glucose Level 379 mg/dL (70-99) Calcium Level 7.2 mg/dL (8.5-10.1) Total Bilirubin 0.3 mg/dL (0.2-1.0) Aspartate Amino Transf (AST/SGOT) 7 U/L (15-37) Alanine Aminotransferase (ALT/SGPT) 16 U/L (14-59) Alkaline Phosphatase 195 U/L (46-116) Total Protein 6.9 g/dL (6.4-8.2) Albumin 3.2 g/dL (3.4-5.0) Albumin/Globulin Ratio 0.9 (1.0-1.7) Glucose (Fingerstick) 385 mg/dL (70-99) 202 mg/dL (70-99) Laboratory Tests Test 12/18/19 15:50 12/18/19 16:12 12/18/19 18:10 12/18/19 20:38 White Blood Count 16.5 x10^3/uL (4.0-11.0) Red Blood Count 3.02 x10^6/uL (3.50-5.40) Hemoglobin 9.5 g/dL (12.0-15.5) Hematocrit 29.2 % (36.0-47.0) Mean Corpuscular Volume 97 fL (79-100) Mean Corpuscular Hemoglobin 32 pg (25-35) Mean Corpuscular Hemoglobin Concent 33 g/dL (31-37) Red Cell Distribution Width 13.7 % (11.5-14.5) Platelet Count 296 x10^3/uL (140-400) Neutrophils (%) (Auto) 83 % (31-73) Lymphocytes (%) (Auto) 10 % (24-48) Monocytes (%) (Auto) 7 % (0-9) Eosinophils (%) (Auto) 1 % (0-3) Basophils (%) (Auto) 0 % (0-3) Neutrophils # (Auto) 13.6 x10^3/uL (1.8-7.7) Lymphocytes # (Auto) 1.6 x10^3/uL (1.0-4.8) Monocytes # (Auto) 1.2 x10^3/uL (0.0-1.1) Eosinophils # (Auto) 0.1 x10^3/uL (0.0-0.7) Basophils # (Auto) 0.0 x10^3/uL (0.0-0.2) Segmented Neutrophils % 77 % (35-66) Lymphocytes % 13 % (24-48) Monocytes % 8 % (0-10) Eosinophils % 1 % (0-5) Basophils % 1 % (0-3) Toxic Granulation Slight Platelet Estimate Adequate (ADEQUATE) Polychromasia Slight Hypochromasia Slight Anisocytosis Slight Prothrombin Time 12.9 SEC (11.7-14.0) Prothromb Time International Ratio 1.0 (0.8-1.1) Activated Partial Thromboplast Time 26 SEC (24-38) Sodium Level 137 mmol/L (136-145) Potassium Level 4.2 mmol/L (3.5-5.1) Chloride Level 97 mmol/L (98-107) Carbon Dioxide Level 27 mmol/L (21-32) Anion Gap 13 (6-14) Blood Urea Nitrogen 57 mg/dL (7-20) Creatinine 6.9 mg/dL (0.6-1.0) Estimated GFR (Cockcroft-Gault) 7.5 BUN/Creatinine Ratio 8 (6-20) Glucose Level 337 mg/dL (70-99) Lactic Acid Level 1.6 mmol/L (0.4-2.0) Calcium Level 7.3 mg/dL (8.5-10.1) Magnesium Level 1.9 mg/dL (1.8-2.4) Total Bilirubin 0.2 mg/dL (0.2-1.0) Aspartate Amino Transf (AST/SGOT) 10 U/L (15-37) Alanine Aminotransferase (ALT/SGPT) 21 U/L (14-59) Alkaline Phosphatase 220 U/L (46-116) Creatine Kinase 221 U/L (26-192) Creatine Kinase MB (Mass) 1.6 ng/mL (0.0-3.6) Creatine Kinase MB Relative Index 0.7 % (0-4) Troponin I Quantitative < 0.017 ng/mL (0.000-0.055) US-Qih-U-Type Natriuretic Peptide 9894 pg/mL (0-124) Total Protein 6.8 g/dL (6.4-8.2) Albumin 3.6 g/dL (3.4-5.0) Albumin/Globulin Ratio 1.1 (1.0-1.7) Procalcitonin 1.29 ng/mL (0.00-0.10) Thyroid Stimulating Hormone (TSH) 0.571 uIU/mL (0.358-3.74) Influenza Type A Antigen Negative (NEGATIVE) Influenza Type B Antigen Negative (NEGATIVE) Glucose (Fingerstick) 316 mg/dL (70-99) 353 mg/dL (70-99) Test 12/19/19 04:15 12/19/19 07:12 12/19/19 11:31 White Blood Count 17.1 x10^3/uL (4.0-11.0) Red Blood Count 3.01 x10^6/uL (3.50-5.40) Hemoglobin 9.6 g/dL (12.0-15.5) Hematocrit 29.3 % (36.0-47.0) Mean Corpuscular Volume 97 fL (79-100) Mean Corpuscular Hemoglobin 32 pg (25-35) Mean Corpuscular Hemoglobin Concent 33 g/dL (31-37) Red Cell Distribution Width 13.9 % (11.5-14.5) Platelet Count 284 x10^3/uL (140-400) Neutrophils (%) (Auto) 97 % (31-73) Lymphocytes (%) (Auto) 2 % (24-48) Monocytes (%) (Auto) 1 % (0-9) Eosinophils (%) (Auto) 0 % (0-3) Basophils (%) (Auto) 0 % (0-3) Neutrophils # (Auto) 16.6 x10^3/uL (1.8-7.7) Lymphocytes # (Auto) 0.4 x10^3/uL (1.0-4.8) Monocytes # (Auto) 0.1 x10^3/uL (0.0-1.1) Eosinophils # (Auto) 0.0 x10^3/uL (0.0-0.7) Basophils # (Auto) 0.0 x10^3/uL (0.0-0.2) Sodium Level 133 mmol/L (136-145) Potassium Level 5.5 mmol/L (3.5-5.1) Chloride Level 96 mmol/L (98-107) Carbon Dioxide Level 26 mmol/L (21-32) Anion Gap 11 (6-14) Blood Urea Nitrogen 57 mg/dL (7-20) Creatinine 7.3 mg/dL (0.6-1.0) Estimated GFR (Cockcroft-Gault) 7.0 BUN/Creatinine Ratio 8 (6-20) Glucose Level 379 mg/dL (70-99) Calcium Level 7.2 mg/dL (8.5-10.1) Total Bilirubin 0.3 mg/dL (0.2-1.0) Aspartate Amino Transf (AST/SGOT) 7 U/L (15-37) Alanine Aminotransferase (ALT/SGPT) 16 U/L (14-59) Alkaline Phosphatase 195 U/L (46-116) Total Protein 6.9 g/dL (6.4-8.2) Albumin 3.2 g/dL (3.4-5.0) Albumin/Globulin Ratio 0.9 (1.0-1.7) Glucose (Fingerstick) 385 mg/dL (70-99) 202 mg/dL (70-99) Assessment/Plan Assessment/Plan IMP ASTHMA EXACERBATION HYPERVOLEMIA ACUTE ON CHRONIC DIASTOLIC CHF NON COMPLIANCE HYPERKALEMIA LEUCOCYTOSIS ANEMIA DM II HTN ESRD PLAN PULM EVAL AND TX START ARANESP HD TODAY UF TO DW ENC COMPLIANCE ROCIO ROA MD Dec 19, 2019 12:56
--- NOTE | 2019-12-19 13:21 | PDOC ---
PROGRESS NOTES Chief Complaint Chief Complaint 1. Acute hypoxic respiratory failure with acute bronchitis, l 2. asthma exacerbation 3. End-stage renal disease, on hemodialysis. 4. morbid obese, BMI 43 History of Present Illness History of Present Illness nebs, bronchodilators. oxygen and IV steroids. Empiric antibiotic Vitals Vitals Vital Signs Date Time Temp Pulse Resp B/P (MAP) Pulse Ox O2 Delivery O2 Flow Rate FiO2 12/19/19 12:03 Nasal Cannula 2.0 12/19/19 07:00 97.6 85 24 128/92 (104) 98 97.6 Physical Exam General: Alert, Oriented X3, Cooperative, No acute distress Heart: Regular rate, No murmurs Lungs: Wheezing, Other Abdomen: Normal bowel sounds, Soft, No tenderness Extremities: No cyanosis Skin: No breakdown Labs LABS Laboratory Tests Test 12/18/19 15:50 12/18/19 16:12 12/18/19 18:10 12/18/19 20:38 White Blood Count 16.5 x10^3/uL (4.0-11.0) Red Blood Count 3.02 x10^6/uL (3.50-5.40) Hemoglobin 9.5 g/dL (12.0-15.5) Hematocrit 29.2 % (36.0-47.0) Mean Corpuscular Volume 97 fL (79-100) Mean Corpuscular Hemoglobin 32 pg (25-35) Mean Corpuscular Hemoglobin Concent 33 g/dL (31-37) Red Cell Distribution Width 13.7 % (11.5-14.5) Platelet Count 296 x10^3/uL (140-400) Neutrophils (%) (Auto) 83 % (31-73) Lymphocytes (%) (Auto) 10 % (24-48) Monocytes (%) (Auto) 7 % (0-9) Eosinophils (%) (Auto) 1 % (0-3) Basophils (%) (Auto) 0 % (0-3) Neutrophils # (Auto) 13.6 x10^3/uL (1.8-7.7) Lymphocytes # (Auto) 1.6 x10^3/uL (1.0-4.8) Monocytes # (Auto) 1.2 x10^3/uL (0.0-1.1) Eosinophils # (Auto) 0.1 x10^3/uL (0.0-0.7) Basophils # (Auto) 0.0 x10^3/uL (0.0-0.2) Segmented Neutrophils % 77 % (35-66) Lymphocytes % 13 % (24-48) Monocytes % 8 % (0-10) Eosinophils % 1 % (0-5) Basophils % 1 % (0-3) Toxic Granulation Slight Platelet Estimate Adequate (ADEQUATE) Polychromasia Slight Hypochromasia Slight Anisocytosis Slight Prothrombin Time 12.9 SEC (11.7-14.0) Prothromb Time International Ratio 1.0 (0.8-1.1) Activated Partial Thromboplast Time 26 SEC (24-38) Sodium Level 137 mmol/L (136-145) Potassium Level 4.2 mmol/L (3.5-5.1) Chloride Level 97 mmol/L (98-107) Carbon Dioxide Level 27 mmol/L (21-32) Anion Gap 13 (6-14) Blood Urea Nitrogen 57 mg/dL (7-20) Creatinine 6.9 mg/dL (0.6-1.0) Estimated GFR (Cockcroft-Gault) 7.5 BUN/Creatinine Ratio 8 (6-20) Glucose Level 337 mg/dL (70-99) Lactic Acid Level 1.6 mmol/L (0.4-2.0) Calcium Level 7.3 mg/dL (8.5-10.1) Magnesium Level 1.9 mg/dL (1.8-2.4) Total Bilirubin 0.2 mg/dL (0.2-1.0) Aspartate Amino Transf (AST/SGOT) 10 U/L (15-37) Alanine Aminotransferase (ALT/SGPT) 21 U/L (14-59) Alkaline Phosphatase 220 U/L (46-116) Creatine Kinase 221 U/L (26-192) Creatine Kinase MB (Mass) 1.6 ng/mL (0.0-3.6) Creatine Kinase MB Relative Index 0.7 % (0-4) Troponin I Quantitative < 0.017 ng/mL (0.000-0.055) QI-Ype-H-Type Natriuretic Peptide 9894 pg/mL (0-124) Total Protein 6.8 g/dL (6.4-8.2) Albumin 3.6 g/dL (3.4-5.0) Albumin/Globulin Ratio 1.1 (1.0-1.7) Procalcitonin 1.29 ng/mL (0.00-0.10) Thyroid Stimulating Hormone (TSH) 0.571 uIU/mL (0.358-3.74) Influenza Type A Antigen Negative (NEGATIVE) Influenza Type B Antigen Negative (NEGATIVE) Glucose (Fingerstick) 316 mg/dL (70-99) 353 mg/dL (70-99) Test 12/19/19 04:15 12/19/19 07:12 12/19/19 11:31 White Blood Count 17.1 x10^3/uL (4.0-11.0) Red Blood Count 3.01 x10^6/uL (3.50-5.40) Hemoglobin 9.6 g/dL (12.0-15.5) Hematocrit 29.3 % (36.0-47.0) Mean Corpuscular Volume 97 fL (79-100) Mean Corpuscular Hemoglobin 32 pg (25-35) Mean Corpuscular Hemoglobin Concent 33 g/dL (31-37) Red Cell Distribution Width 13.9 % (11.5-14.5) Platelet Count 284 x10^3/uL (140-400) Neutrophils (%) (Auto) 97 % (31-73) Lymphocytes (%) (Auto) 2 % (24-48) Monocytes (%) (Auto) 1 % (0-9) Eosinophils (%) (Auto) 0 % (0-3) Basophils (%) (Auto) 0 % (0-3) Neutrophils # (Auto) 16.6 x10^3/uL (1.8-7.7) Lymphocytes # (Auto) 0.4 x10^3/uL (1.0-4.8) Monocytes # (Auto) 0.1 x10^3/uL (0.0-1.1) Eosinophils # (Auto) 0.0 x10^3/uL (0.0-0.7) Basophils # (Auto) 0.0 x10^3/uL (0.0-0.2) Sodium Level 133 mmol/L (136-145) Potassium Level 5.5 mmol/L (3.5-5.1) Chloride Level 96 mmol/L (98-107) Carbon Dioxide Level 26 mmol/L (21-32) Anion Gap 11 (6-14) Blood Urea Nitrogen 57 mg/dL (7-20) Creatinine 7.3 mg/dL (0.6-1.0) Estimated GFR (Cockcroft-Gault) 7.0 BUN/Creatinine Ratio 8 (6-20) Glucose Level 379 mg/dL (70-99) Calcium Level 7.2 mg/dL (8.5-10.1) Total Bilirubin 0.3 mg/dL (0.2-1.0) Aspartate Amino Transf (AST/SGOT) 7 U/L (15-37) Alanine Aminotransferase (ALT/SGPT) 16 U/L (14-59) Alkaline Phosphatase 195 U/L (46-116) Total Protein 6.9 g/dL (6.4-8.2) Albumin 3.2 g/dL (3.4-5.0) Albumin/Globulin Ratio 0.9 (1.0-1.7) Glucose (Fingerstick) 385 mg/dL (70-99) 202 mg/dL (70-99) Assessment and Plan Assessmemt and Plan Problems Medical Problems: (1) Asthma exacerbation Status: Acute (2) End stage renal disease Status: Acute Comment Review of Relevant I have reviewed the following items melissa (where applicable) has been applied. Labs Laboratory Tests Test 12/18/19 15:50 12/18/19 16:12 12/18/19 18:10 12/18/19 20:38 White Blood Count 16.5 x10^3/uL (4.0-11.0) Red Blood Count 3.02 x10^6/uL (3.50-5.40) Hemoglobin 9.5 g/dL (12.0-15.5) Hematocrit 29.2 % (36.0-47.0) Mean Corpuscular Volume 97 fL (79-100) Mean Corpuscular Hemoglobin 32 pg (25-35) Mean Corpuscular Hemoglobin Concent 33 g/dL (31-37) Red Cell Distribution Width 13.7 % (11.5-14.5) Platelet Count 296 x10^3/uL (140-400) Neutrophils (%) (Auto) 83 % (31-73) Lymphocytes (%) (Auto) 10 % (24-48) Monocytes (%) (Auto) 7 % (0-9) Eosinophils (%) (Auto) 1 % (0-3) Basophils (%) (Auto) 0 % (0-3) Neutrophils # (Auto) 13.6 x10^3/uL (1.8-7.7) Lymphocytes # (Auto) 1.6 x10^3/uL (1.0-4.8) Monocytes # (Auto) 1.2 x10^3/uL (0.0-1.1) Eosinophils # (Auto) 0.1 x10^3/uL (0.0-0.7) Basophils # (Auto) 0.0 x10^3/uL (0.0-0.2) Segmented Neutrophils % 77 % (35-66) Lymphocytes % 13 % (24-48) Monocytes % 8 % (0-10) Eosinophils % 1 % (0-5) Basophils % 1 % (0-3) Toxic Granulation Slight Platelet Estimate Adequate (ADEQUATE) Polychromasia Slight Hypochromasia Slight Anisocytosis Slight Prothrombin Time 12.9 SEC (11.7-14.0) Prothromb Time International Ratio 1.0 (0.8-1.1) Activated Partial Thromboplast Time 26 SEC (24-38) Sodium Level 137 mmol/L (136-145) Potassium Level 4.2 mmol/L (3.5-5.1) Chloride Level 97 mmol/L (98-107) Carbon Dioxide Level 27 mmol/L (21-32) Anion Gap 13 (6-14) Blood Urea Nitrogen 57 mg/dL (7-20) Creatinine 6.9 mg/dL (0.6-1.0) Estimated GFR (Cockcroft-Gault) 7.5 BUN/Creatinine Ratio 8 (6-20) Glucose Level 337 mg/dL (70-99) Lactic Acid Level 1.6 mmol/L (0.4-2.0) Calcium Level 7.3 mg/dL (8.5-10.1) Magnesium Level 1.9 mg/dL (1.8-2.4) Total Bilirubin 0.2 mg/dL (0.2-1.0) Aspartate Amino Transf (AST/SGOT) 10 U/L (15-37) Alanine Aminotransferase (ALT/SGPT) 21 U/L (14-59) Alkaline Phosphatase 220 U/L (46-116) Creatine Kinase 221 U/L (26-192) Creatine Kinase MB (Mass) 1.6 ng/mL (0.0-3.6) Creatine Kinase MB Relative Index 0.7 % (0-4) Troponin I Quantitative < 0.017 ng/mL (0.000-0.055) OT-Vfn-M-Type Natriuretic Peptide 9894 pg/mL (0-124) Total Protein 6.8 g/dL (6.4-8.2) Albumin 3.6 g/dL (3.4-5.0) Albumin/Globulin Ratio 1.1 (1.0-1.7) Procalcitonin 1.29 ng/mL (0.00-0.10) Thyroid Stimulating Hormone (TSH) 0.571 uIU/mL (0.358-3.74) Influenza Type A Antigen Negative (NEGATIVE) Influenza Type B Antigen Negative (NEGATIVE) Glucose (Fingerstick) 316 mg/dL (70-99) 353 mg/dL (70-99) Test 12/19/19 04:15 12/19/19 07:12 12/19/19 11:31 White Blood Count 17.1 x10^3/uL (4.0-11.0) Red Blood Count 3.01 x10^6/uL (3.50-5.40) Hemoglobin 9.6 g/dL (12.0-15.5) Hematocrit 29.3 % (36.0-47.0) Mean Corpuscular Volume 97 fL (79-100) Mean Corpuscular Hemoglobin 32 pg (25-35) Mean Corpuscular Hemoglobin Concent 33 g/dL (31-37) Red Cell Distribution Width 13.9 % (11.5-14.5) Platelet Count 284 x10^3/uL (140-400) Neutrophils (%) (Auto) 97 % (31-73) Lymphocytes (%) (Auto) 2 % (24-48) Monocytes (%) (Auto) 1 % (0-9) Eosinophils (%) (Auto) 0 % (0-3) Basophils (%) (Auto) 0 % (0-3) Neutrophils # (Auto) 16.6 x10^3/uL (1.8-7.7) Lymphocytes # (Auto) 0.4 x10^3/uL (1.0-4.8) Monocytes # (Auto) 0.1 x10^3/uL (0.0-1.1) Eosinophils # (Auto) 0.0 x10^3/uL (0.0-0.7) Basophils # (Auto) 0.0 x10^3/uL (0.0-0.2) Sodium Level 133 mmol/L (136-145) Potassium Level 5.5 mmol/L (3.5-5.1) Chloride Level 96 mmol/L (98-107) Carbon Dioxide Level 26 mmol/L (21-32) Anion Gap 11 (6-14) Blood Urea Nitrogen 57 mg/dL (7-20) Creatinine 7.3 mg/dL (0.6-1.0) Estimated GFR (Cockcroft-Gault) 7.0 BUN/Creatinine Ratio 8 (6-20) Glucose Level 379 mg/dL (70-99) Calcium Level 7.2 mg/dL (8.5-10.1) Total Bilirubin 0.3 mg/dL (0.2-1.0) Aspartate Amino Transf (AST/SGOT) 7 U/L (15-37) Alanine Aminotransferase (ALT/SGPT) 16 U/L (14-59) Alkaline Phosphatase 195 U/L (46-116) Total Protein 6.9 g/dL (6.4-8.2) Albumin 3.2 g/dL (3.4-5.0) Albumin/Globulin Ratio 0.9 (1.0-1.7) Glucose (Fingerstick) 385 mg/dL (70-99) 202 mg/dL (70-99) Laboratory Tests Test 12/18/19 15:50 12/18/19 16:12 12/18/19 18:10 12/18/19 20:38 White Blood Count 16.5 x10^3/uL (4.0-11.0) Red Blood Count 3.02 x10^6/uL (3.50-5.40) Hemoglobin 9.5 g/dL (12.0-15.5) Hematocrit 29.2 % (36.0-47.0) Mean Corpuscular Volume 97 fL (79-100) Mean Corpuscular Hemoglobin 32 pg (25-35) Mean Corpuscular Hemoglobin Concent 33 g/dL (31-37) Red Cell Distribution Width 13.7 % (11.5-14.5) Platelet Count 296 x10^3/uL (140-400) Neutrophils (%) (Auto) 83 % (31-73) Lymphocytes (%) (Auto) 10 % (24-48) Monocytes (%) (Auto) 7 % (0-9) Eosinophils (%) (Auto) 1 % (0-3) Basophils (%) (Auto) 0 % (0-3) Neutrophils # (Auto) 13.6 x10^3/uL (1.8-7.7) Lymphocytes # (Auto) 1.6 x10^3/uL (1.0-4.8) Monocytes # (Auto) 1.2 x10^3/uL (0.0-1.1) Eosinophils # (Auto) 0.1 x10^3/uL (0.0-0.7) Basophils # (Auto) 0.0 x10^3/uL (0.0-0.2) Segmented Neutrophils % 77 % (35-66) Lymphocytes % 13 % (24-48) Monocytes % 8 % (0-10) Eosinophils % 1 % (0-5) Basophils % 1 % (0-3) Toxic Granulation Slight Platelet Estimate Adequate (ADEQUATE) Polychromasia Slight Hypochromasia Slight Anisocytosis Slight Prothrombin Time 12.9 SEC (11.7-14.0) Prothromb Time International Ratio 1.0 (0.8-1.1) Activated Partial Thromboplast Time 26 SEC (24-38) Sodium Level 137 mmol/L (136-145) Potassium Level 4.2 mmol/L (3.5-5.1) Chloride Level 97 mmol/L (98-107) Carbon Dioxide Level 27 mmol/L (21-32) Anion Gap 13 (6-14) Blood Urea Nitrogen 57 mg/dL (7-20) Creatinine 6.9 mg/dL (0.6-1.0) Estimated GFR (Cockcroft-Gault) 7.5 BUN/Creatinine Ratio 8 (6-20) Glucose Level 337 mg/dL (70-99) Lactic Acid Level 1.6 mmol/L (0.4-2.0) Calcium Level 7.3 mg/dL (8.5-10.1) Magnesium Level 1.9 mg/dL (1.8-2.4) Total Bilirubin 0.2 mg/dL (0.2-1.0) Aspartate Amino Transf (AST/SGOT) 10 U/L (15-37) Alanine Aminotransferase (ALT/SGPT) 21 U/L (14-59) Alkaline Phosphatase 220 U/L (46-116) Creatine Kinase 221 U/L (26-192) Creatine Kinase MB (Mass) 1.6 ng/mL (0.0-3.6) Creatine Kinase MB Relative Index 0.7 % (0-4) Troponin I Quantitative < 0.017 ng/mL (0.000-0.055) KE-Ymx-S-Type Natriuretic Peptide 9894 pg/mL (0-124) Total Protein 6.8 g/dL (6.4-8.2) Albumin 3.6 g/dL (3.4-5.0) Albumin/Globulin Ratio 1.1 (1.0-1.7) Procalcitonin 1.29 ng/mL (0.00-0.10) Thyroid Stimulating Hormone (TSH) 0.571 uIU/mL (0.358-3.74) Influenza Type A Antigen Negative (NEGATIVE) Influenza Type B Antigen Negative (NEGATIVE) Glucose (Fingerstick) 316 mg/dL (70-99) 353 mg/dL (70-99) Test 12/19/19 04:15 12/19/19 07:12 12/19/19 11:31 White Blood Count 17.1 x10^3/uL (4.0-11.0) Red Blood Count 3.01 x10^6/uL (3.50-5.40) Hemoglobin 9.6 g/dL (12.0-15.5) Hematocrit 29.3 % (36.0-47.0) Mean Corpuscular Volume 97 fL (79-100) Mean Corpuscular Hemoglobin 32 pg (25-35) Mean Corpuscular Hemoglobin Concent 33 g/dL (31-37) Red Cell Distribution Width 13.9 % (11.5-14.5) Platelet Count 284 x10^3/uL (140-400) Neutrophils (%) (Auto) 97 % (31-73) Lymphocytes (%) (Auto) 2 % (24-48) Monocytes (%) (Auto) 1 % (0-9) Eosinophils (%) (Auto) 0 % (0-3) Basophils (%) (Auto) 0 % (0-3) Neutrophils # (Auto) 16.6 x10^3/uL (1.8-7.7) Lymphocytes # (Auto) 0.4 x10^3/uL (1.0-4.8) Monocytes # (Auto) 0.1 x10^3/uL (0.0-1.1) Eosinophils # (Auto) 0.0 x10^3/uL (0.0-0.7) Basophils # (Auto) 0.0 x10^3/uL (0.0-0.2) Sodium Level 133 mmol/L (136-145) Potassium Level 5.5 mmol/L (3.5-5.1) Chloride Level 96 mmol/L (98-107) Carbon Dioxide Level 26 mmol/L (21-32) Anion Gap 11 (6-14) Blood Urea Nitrogen 57 mg/dL (7-20) Creatinine 7.3 mg/dL (0.6-1.0) Estimated GFR (Cockcroft-Gault) 7.0 BUN/Creatinine Ratio 8 (6-20) Glucose Level 379 mg/dL (70-99) Calcium Level 7.2 mg/dL (8.5-10.1) Total Bilirubin 0.3 mg/dL (0.2-1.0) Aspartate Amino Transf (AST/SGOT) 7 U/L (15-37) Alanine Aminotransferase (ALT/SGPT) 16 U/L (14-59) Alkaline Phosphatase 195 U/L (46-116) Total Protein 6.9 g/dL (6.4-8.2) Albumin 3.2 g/dL (3.4-5.0) Albumin/Globulin Ratio 0.9 (1.0-1.7) Glucose (Fingerstick) 385 mg/dL (70-99) 202 mg/dL (70-99) Medications Current Medications Methylprednisolone Sodium Succinate (SOLU-Medrol 125MG VIAL) 125 mg 1X ONCE IV Last administered on 12/18/19at 16:11; Start 12/18/19 at 16:00; Stop 12/18/19 at 16:06; Status DC Albuterol/ Ipratropium (Duoneb) 3 ml 1X ONCE NEB Last administered on 12/18/19at 16:14; Start 12/18/19 at 16:00; Stop 12/18/19 at 16:06; Status DC Acetaminophen (Tylenol) 325 mg PRN Q4HRS PRN PO MILD PAIN / TEMP; Start 12/18/19 at 17:15 Amlodipine Besylate (Norvasc) 5 mg DAILY PO ; Start 12/19/19 at 09:00 Aspirin (Ecotrin) 81 mg DAILY PO ; Start 12/19/19 at 09:00 Atorvastatin Calcium (Lipitor) 40 mg QHS PO Last administered on 12/18/19at 20:40; Start 12/18/19 at 21:00 Throat Lozenges (Cepacol Sore Throat Lozenge) 1 patt PRN Q2HRS PRN PO SORE THROAT; Start 12/18/19 at 17:15 Benzonatate (Tessalon Perle) 100 mg [id number] PO Last administered on 12/18/19at 20:40; Start 12/18/19 at 21:00 Gabapentin (Neurontin) 600 mg BID PO Last administered on 12/18/19at 20:40; Start 12/18/19 at 21:00 Guaifenesin (Mucinex) 600 mg BID PO Last administered on 12/18/19at 20:40; Start 12/18/19 at 21:00 Guaifenesin (Robitussin Dm) 10 ml QID PO ; Start 12/18/19 at 21:00; Status UNV Albuterol/ Ipratropium (Duoneb) 3 ml Q4HRS NEB Last administered on 12/19/19at 12:01; Start 12/18/19 at 20:00 Lactobacillus Rhamnosus (Culturelle) 1 cap BID PO Last administered on 12/18/19at 20:40; Start 12/18/19 at 21:00 Oxycodone/ Acetaminophen (Percocet 5/325) 1 tab PRN Q6HRS PRN PO PAIN; Start 12/18/19 at 17:15 Pantoprazole Sodium (Protonix) 40 mg DAILYAC PO ; Start 12/19/19 at 07:30 Polyethylene Glycol (miraLAX PACKET) 17 gm PRN DAILY PRN PO CONSTIPATION, 1ST CHOICE; Start 12/18/19 at 17:15 Zolpidem Tartrate (Ambien) 5 mg PRN QHS PRN PO INSOMNIA Last administered on 12/18/19at 20:40; Start 12/18/19 at 17:15 Non-Formulary Medication (Clonazepam ) 0.5 mg PRN PRN PO TREMORS; Start 12/18/19 at 17:15; Stop 12/18/19 at 17:53; Status DC Insulin Human Lispro (HumaLOG) 5 units TIDWMEALS SQ ; Start 12/19/19 at 08:00; Stop 12/18/19 at 18:16; Status DC Methylprednisolone Sodium Succinate (SOLU-Medrol 125MG VIAL) 100 mg Q6HRS IV Last administered on 12/19/19at 05:37; Start 12/18/19 at 18:00 Sodium Chloride (Normal Saline Flush) 3 ml QSHIFT PRN IV AFTER MEDS AND BLOOD DRAWS; Start 12/18/19 at 17:45 Ondansetron HCl (Zofran) 4 mg PRN Q4HRS PRN IV NAUSEA/VOMITING; Start 12/18/19 at 17:45 Acetaminophen (Tylenol) 650 mg PRN Q4HRS PRN PO TEMP OVER 100.4F OR MILD PAIN Last administered on 12/18/19at 18:58; Start 12/18/19 at 17:45 Clonidine HCl (Catapres) 0.1 mg PRN Q6HRS PRN PO SBP>160 OR DBP>90 Last administered on 12/19/19at 04:22; Start 12/18/19 at 17:45 Docusate Sodium (Colace) 100 mg PRN BID PRN PO CONSTIPATION; Start 12/18/19 at 17:45 Albuterol Sulfate (Ventolin Neb Soln) 2.5 mg PRN Q4HRS PRN NEB SHORTNESS OF BREATH; Start 12/18/19 at 17:45 Guaifenesin (Robitussin) 200 mg PRN Q4HRS PRN PO COUGH; Start 12/18/19 at 17:45 Enoxaparin Sodium (Lovenox 40mg Syringe) 40 mg Q24H SQ ; Start 12/18/19 at 17:45; Status UNV Piperacillin Sod/ Tazobactam Sod 3.375 gm/Sodium Chloride 50 ml @ 100 mls/hr Q6HRS IV ; Start 12/18/19 at 18:00; Stop 12/18/19 at 17:53; Status DC Doxycycline Hyclate (Vibra-Tab) 100 mg BID PO Last administered on 12/18/19at 20:40; Start 12/18/19 at 21:00 Non-Formulary Medication (Insulin Glargine,Hum.rec.anlog (Lantus Solostar)) 15 unit BIDPCLD SQ ; Start 12/19/19 at 12:30; Stop 12/18/19 at 17:53; Status DC Heparin Sodium (Porcine) (Heparin Sodium) 5,000 unit Q8HRS SQ Last administered on 12/19/19at 05:41; Start 12/18/19 at 22:00 Piperacillin Sod/ Tazobactam Sod 2.25 gm/Sodium Chloride 50 ml @ 100 mls/hr 1X ONCE IV ; Start 12/18/19 at 18:00; Stop 12/18/19 at 18:29; Status Cancel Insulin Human Lispro (HumaLOG) 0-7 UNITS TIDWMEALS SQ ; Start 12/19/19 at 08:00; Stop 12/18/19 at 17:53; Status DC Dextrose (Dextrose 50%-Water Syringe) 12.5 gm PRN Q15MIN PRN IV SEE COMMENTS; Start 12/18/19 at 18:00; Stop 12/18/19 at 17:53; Status DC Insulin Human Lispro (HumaLOG) 0-7 UNITS TIDWMEALS SQ ; Start 12/19/19 at 08:00; Stop 12/18/19 at 18:16; Status DC Piperacillin Sod/ Tazobactam Sod 2.25 gm/Sodium Chloride 50 ml @ 100 mls/hr Q8H IV ; Start 12/19/19 at 19:00 Clonazepam (KlonoPIN) 0.5 mg PRN DAILY PRN PO ANXIETY / AGITATION; Start 12/18/19 at 19:00 Insulin Glargine (Lantus Syringe) 15 unit BID SQ Last administered on 12/18/19at 20:42; Start 12/18/19 at 21:00 Dextrose (Dextrose 50%-Water Syringe) 12.5 gm PRN Q15MIN PRN IV SEE COMMENTS; Start 12/18/19 at 18:15; Stop 12/18/19 at 21:37; Status DC Ondansetron HCl (Zofran) 4 mg PRN Q8HRS PRN IV NAUSEA/VOMITING; Start 12/18/19 at 18:00; Stop 12/19/19 at 17:59 Albuterol/ Ipratropium (Duoneb) 3 ml RTQID NEB ; Start 12/18/19 at 20:00; Stop 12/19/19 at 19:59 Insulin Human Lispro (HumaLOG) 5 units TIDWMEALS SQ Last administered on 12/19/19at 07:35; Start 12/18/19 at 18:15 Insulin Human Lispro (HumaLOG) 0-7 UNITS TIDWMEALS SQ Last administered on 12/18/19at 19:07; Start 12/18/19 at 18:15; Stop 12/18/19 at 21:34; Status DC Insulin Human Lispro (HumaLOG) 0-9 UNITS QIDACHS SQ Last administered on 12/19/19at 11:59; Start 12/18/19 at 21:30 Dextrose (Dextrose 50%-Water Syringe) 12.5 gm PRN Q15MIN PRN IV SEE COMMENTS; Start 12/18/19 at 21:30 Sodium Chloride 1,000 ml @ 1,000 mls/hr Q1H PRN IV hypotension; Start 12/19/19 at 10:46; Stop 12/19/19 at 16:45 Diphenhydramine HCl (Benadryl) 25 mg 1X PRN PRN IV ITCHING; Start 12/19/19 at 11:00; Stop 12/20/19 at 10:59 Diphenhydramine HCl (Benadryl) 25 mg 1X PRN PRN IV ITCHING; Start 12/19/19 at 11:00; Stop 12/20/19 at 10:59 Sodium Chloride 1,000 ml @ 400 mls/hr Q2H30M PRN IV PATENCY; Start 12/19/19 at 10:46; Stop 12/19/19 at 22:45 Info (PHARMACY MONITORING -- do not chart) 1 each PRN DAILY PRN MC SEE COMMENTS; Start 12/19/19 at 11:00 Darbepoetin Cliff (ARANESP for DIALYSIS PTS) 60 mcg WEEKLYHS SQ ; Start 12/19/19 a t 21:00 Active Scripts Active Culturelle (Lactobacillus Rhamnosus Gg) 1 Each Cap.sprink 1 Cap PO BID 30 Days Polyethylene Glycol 3350 17 Gm Powd.pack 17 Gm PO PRN DAILY PRN 14 Days Sore Throat Lozenge (Benzocaine/Menthol) 1 Each Lozenge 1 Patt PO PRN Q2HRS PRN 14 Days Mucinex (Guaifenesin) 600 Mg Tablet.er 600 Mg PO BID 28 Days Guaifenesin Dm Syrup (Guaifenesin/Dextromethorphan) 5 Ml Syrup 10 Ml PO QID 14 Days Benzonatate 100 Mg Capsule 100 Mg PO [id number] 30 Days Amlodipine Besylate 5 Mg Tablet 5 Mg PO DAILY 30 Days Duoneb 0.5-3(2.5) Mg/3 Ml (Albuterol/Ipratropium) 3 Ml Ampul.neb 3 Ml NEB Q4HRS 30 Days [Fluconazole] 100 MG Tablet 100 Mg PO DAILY 7 Days Doxycycline Hyclate 100 Mg Tablet 100 Mg PO BID 7 Days Percocet 5-325 Mg Tablet (Oxycodone/Acetaminophen) 1 Each Tablet 1 Tab PO PRN Q6HRS PRN 3 Days Lipitor (Atorvastatin Calcium) 40 Mg Tablet 40 Mg PO QHS Protonix (Pantoprazole Sodium) 40 Mg Tablet 40 Mg PO DAILYAC Reported Clonazepam 1 Mg Tablet 0.5 Mg PO PRN PRN Novolog (Insulin Aspart) 100 Unit/1 Ml Cartridge 100 Unit SQ TIDAC Cyclobenzaprine Hcl 5 Mg Tablet 1 Tab PO DAILY Aspir-Low (Aspirin) 81 Mg Tablet. 1 Tab PO DAILY Tylenol (Acetaminophen) 325 Mg Tablet 1 Tab PO PRN Q4HRS Ambien (Zolpidem Tartrate) 5 Mg Tablet 5 Mg PO PRN QHS Novolog (Insulin Aspart) 100 Unit/1 Ml Cartridge 5 Unit SQ [id number] Lantus Solostar (Insulin Glargine,Hum.rec.anlog) 100 Unit/1 Ml Insuln.pen 15 Unit SQ BIDPCLD Gabapentin (Gabapentin) 300 Mg Capsule 600 Mg PO BID Vitals/I & O Vital Sign - Last 24 Hours 12/18/19 12/18/19 12/18/19 12/18/19 15:51 16:15 16:57 17:27 Temp 99.0 99.0 Pulse 95 88 87 Resp 22 B/P (MAP) 156/82 (106) 199/90 (126) 178/81 (113) Pulse Ox 98 100 92 92 O2 Delivery Room Air Room Air Room Air Room Air 12/18/19 12/18/19 12/18/19 12/18/19 18:16 18:58 19:00 19:20 Temp 98.0 98.4 98.0 98.4 Pulse 94 94 90 Resp 26 20 B/P (MAP) 185/101 (129) 185/101 169/93 (118) Pulse Ox 93 99 O2 Delivery Nasal Cannula Room Air Nasal Cannula O2 Flow Rate 2.0 2.0 12/18/19 12/18/19 12/18/19 12/19/19 20:04 23:00 23:27 03:00 Temp 98.2 98.0 98.2 98.0 Pulse 90 74 Resp 20 20 B/P (MAP) 184/103 (130) 172/103 (126) Pulse Ox 97 98 O2 Delivery Nasal Cannula Nasal Cannula Nasal Cannula Nasal Cannula O2 Flow Rate 2.0 2.0 2.0 2.0 12/19/19 12/19/19 12/19/19 12/19/19 03:26 04:22 07:00 08:00 Temp 97.6 97.6 Pulse 74 85 Resp 24 B/P (MAP) 172/103 128/92 (104) Pulse Ox 98 O2 Delivery Nasal Cannula Nasal Cannula Nasal Cannula O2 Flow Rate 2.0 2.0 2.0 12/19/19 12:03 O2 Delivery Nasal Cannula O2 Flow Rate 2.0 Intake and Output 12/18/19 12/18/19 12/19/19 15:00 23:00 07:00 Intake Total 200 ml 380 ml Output Total 300 ml Balance 200 ml 80 ml HARLAN DEL CID MD Dec 19, 2019 13:21
--- NOTE | 2019-12-19 13:24 | NUR ---
SW following. Discussed with RN, pt is from home. SW verified pt is current with [facility] (ph: [phone], fax: [phone]) for physical therapy. Pt does dialysis MWF at [facility] (ph: [phone]). SW will continue to follow for discharge planning needs.
[2019-12-19 13:55] VITALS: BP 130/71
[2019-12-19] MEDS: GABAPENTIN 300 MG CAPSULE. PO SCH ×2 (13:58→20:53)
[2019-12-19] MEDS: LACTOBACILLUS RHAMNOSUS GG 1 CAPSULE. PO SCH ×2 (13:58→20:53)
[2019-12-19] MEDS: ASPIRIN ENTERIC COATED 81 MG TABLET.DR. PO SCH (13:58)
[2019-12-19] MEDS: PANTOPRAZOLE 40 MG TABLET.DR. PO SCH (13:58)
[2019-12-19] MEDS: amLODIPine BESYLATE 5 MG TABLET PO SCH (13:59)
[2019-12-19] MEDS: DOXYCYCLINE HYCLATE 100 MG TABLET PO SCH ×2 (13:59→20:53)
[2019-12-19] MEDS: BENZONATATE 100 MG CAPSULE. PO SCH ×2 (14:00→20:52)
[2019-12-19] MEDS: INSULIN GLARGINE SYRINGE. SQ SCH ×2 (14:16→21:01)
[2019-12-19 15:00] VITALS: BP 133/70
[2019-12-19] MEDS: AMOXICILLIN/K CLAV 500/125MG TABLET. PO SCH (17:26)
[2019-12-19 19:00] VITALS: BP 179/78
[2019-12-19] MEDS ORDERED: PIPERACILLIN/TAZOBACTAM 2.25 GM in IV NORMAL SALINE 50ML 50 ML IV SCH (19:00)
[2019-12-19] MEDS ORDERED: FURO40TA4 PO (19:27)
[2019-12-19] MEDS: ATORVASTATIN CALCIUM 40 MG TABLET. PO SCH (20:53)
[2019-12-19] MEDS: ZOLPIDEM 5 MG TABLET. PO PRN (20:53)
[2019-12-19] MEDS ORDERED: DARBEPOETIN ALFA 60 MCG/0.3 ML DISP.SYRIN. SQ SCH (21:00)
[2019-12-19] MEDS: FUROSEMIDE 40 MG TABLET. PO SCH (21:15)
[2019-12-19 22:40] VITALS: BP 168/81
[2019-12-20 03:00] VITALS: BP 151/84
[2019-12-20] MEDS: IPRATRPIUM/ALBUTEROL 0.5/2.5MG 3 ML NEBU. NEB SCH ×6 (03:22→20:19)
[2019-12-20] MEDS: methylPREDNISolone SOD SUCC PF 125 MG/2 ML VIAL. IV SCH ×2 (05:59→12:13)
[2019-12-20] MEDS: HEPARIN for SUB-Q USE 5,000 UNIT/ML VIAL. SQ SCH ×3 (06:00→21:48)
[2019-12-20 07:00] VITALS: BP 133/66
[2019-12-20] MEDS: INSULIN LISPRO 300 UNITS/3 ML VIAL. SQ SCH ×7 (08:36→21:47)
[2019-12-20] MEDS: LACTOBACILLUS RHAMNOSUS GG 1 CAPSULE. PO SCH ×2 (08:58→21:37)
[2019-12-20] MEDS: GABAPENTIN 300 MG CAPSULE. PO SCH ×2 (08:58→21:38)
[2019-12-20] MEDS: PANTOPRAZOLE 40 MG TABLET.DR. PO SCH (08:58)
[2019-12-20] MEDS: ASPIRIN ENTERIC COATED 81 MG TABLET.DR. PO SCH (08:58)
[2019-12-20] MEDS: DOXYCYCLINE HYCLATE 100 MG TABLET PO SCH ×2 (08:58→21:38)
[2019-12-20] MEDS: AMOXICILLIN/K CLAV 500/125MG TABLET. PO SCH (08:58)
[2019-12-20] MEDS: BENZONATATE 100 MG CAPSULE. PO SCH ×3 (08:58→21:37)
[2019-12-20] MEDS: FUROSEMIDE 40 MG TABLET. PO SCH ×2 (08:59→21:38)
[2019-12-20] MEDS: amLODIPine BESYLATE 5 MG TABLET PO SCH (08:59)
[2019-12-20] MEDS ORDERED: FUROSEMIDE 40 MG TABLET. PO SCH (09:00)
[2019-12-20] MEDS: INSULIN GLARGINE SYRINGE. SQ SCH ×2 (09:05→21:48)
--- NOTE | 2019-12-20 10:14 | PDOC ---
PULMONARY PROGRESS NOTES Subjective less soa, still hoarse Vitals Vital Signs Date Time Temp Pulse Resp B/P (MAP) Pulse Ox O2 Delivery O2 Flow Rate FiO2 12/20/19 08:59 91 133/66 12/20/19 07:53 95 Nasal Cannula 2.0 12/20/19 03:00 97.7 19 97.7 General: Alert, No acute distress Lungs: Wheezing Cardiovascular: S1, S2 Abdomen: Soft, Non-tender Neuro Exam: Alert Extremities: No Edema, Other Skin: Warm Labs Laboratory Tests Test 12/18/19 15:50 12/18/19 16:12 12/18/19 18:10 12/18/19 20:38 White Blood Count 16.5 x10^3/uL (4.0-11.0) Red Blood Count 3.02 x10^6/uL (3.50-5.40) Hemoglobin 9.5 g/dL (12.0-15.5) Hematocrit 29.2 % (36.0-47.0) Mean Corpuscular Volume 97 fL (79-100) Mean Corpuscular Hemoglobin 32 pg (25-35) Mean Corpuscular Hemoglobin Concent 33 g/dL (31-37) Red Cell Distribution Width 13.7 % (11.5-14.5) Platelet Count 296 x10^3/uL (140-400) Neutrophils (%) (Auto) 83 % (31-73) Lymphocytes (%) (Auto) 10 % (24-48) Monocytes (%) (Auto) 7 % (0-9) Eosinophils (%) (Auto) 1 % (0-3) Basophils (%) (Auto) 0 % (0-3) Neutrophils # (Auto) 13.6 x10^3/uL (1.8-7.7) Lymphocytes # (Auto) 1.6 x10^3/uL (1.0-4.8) Monocytes # (Auto) 1.2 x10^3/uL (0.0-1.1) Eosinophils # (Auto) 0.1 x10^3/uL (0.0-0.7) Basophils # (Auto) 0.0 x10^3/uL (0.0-0.2) Segmented Neutrophils % 77 % (35-66) Lymphocytes % 13 % (24-48) Monocytes % 8 % (0-10) Eosinophils % 1 % (0-5) Basophils % 1 % (0-3) Toxic Granulation Slight Platelet Estimate Adequate (ADEQUATE) Polychromasia Slight Hypochromasia Slight Anisocytosis Slight Prothrombin Time 12.9 SEC (11.7-14.0) Prothromb Time International Ratio 1.0 (0.8-1.1) Activated Partial Thromboplast Time 26 SEC (24-38) Sodium Level 137 mmol/L (136-145) Potassium Level 4.2 mmol/L (3.5-5.1) Chloride Level 97 mmol/L (98-107) Carbon Dioxide Level 27 mmol/L (21-32) Anion Gap 13 (6-14) Blood Urea Nitrogen 57 mg/dL (7-20) Creatinine 6.9 mg/dL (0.6-1.0) Estimated GFR (Cockcroft-Gault) 7.5 BUN/Creatinine Ratio 8 (6-20) Glucose Level 337 mg/dL (70-99) Lactic Acid Level 1.6 mmol/L (0.4-2.0) Calcium Level 7.3 mg/dL (8.5-10.1) Magnesium Level 1.9 mg/dL (1.8-2.4) Total Bilirubin 0.2 mg/dL (0.2-1.0) Aspartate Amino Transf (AST/SGOT) 10 U/L (15-37) Alanine Aminotransferase (ALT/SGPT) 21 U/L (14-59) Alkaline Phosphatase 220 U/L (46-116) Creatine Kinase 221 U/L (26-192) Creatine Kinase MB (Mass) 1.6 ng/mL (0.0-3.6) Creatine Kinase MB Relative Index 0.7 % (0-4) Troponin I Quantitative < 0.017 ng/mL (0.000-0.055) JQ-Scp-F-Type Natriuretic Peptide 9894 pg/mL (0-124) Total Protein 6.8 g/dL (6.4-8.2) Albumin 3.6 g/dL (3.4-5.0) Albumin/Globulin Ratio 1.1 (1.0-1.7) Procalcitonin 1.29 ng/mL (0.00-0.10) Thyroid Stimulating Hormone (TSH) 0.571 uIU/mL (0.358-3.74) Influenza Type A Antigen Negative (NEGATIVE) Influenza Type B Antigen Negative (NEGATIVE) Glucose (Fingerstick) 316 mg/dL (70-99) 353 mg/dL (70-99) Test 12/19/19 04:15 12/19/19 07:12 12/19/19 11:31 12/19/19 16:35 White Blood Count 17.1 x10^3/uL (4.0-11.0) Red Blood Count 3.01 x10^6/uL (3.50-5.40) Hemoglobin 9.6 g/dL (12.0-15.5) Hematocrit 29.3 % (36.0-47.0) Mean Corpuscular Volume 97 fL (79-100) Mean Corpuscular Hemoglobin 32 pg (25-35) Mean Corpuscular Hemoglobin Concent 33 g/dL (31-37) Red Cell Distribution Width 13.9 % (11.5-14.5) Platelet Count 284 x10^3/uL (140-400) Neutrophils (%) (Auto) 97 % (31-73) Lymphocytes (%) (Auto) 2 % (24-48) Monocytes (%) (Auto) 1 % (0-9) Eosinophils (%) (Auto) 0 % (0-3) Basophils (%) (Auto) 0 % (0-3) Neutrophils # (Auto) 16.6 x10^3/uL (1.8-7.7) Lymphocytes # (Auto) 0.4 x10^3/uL (1.0-4.8) Monocytes # (Auto) 0.1 x10^3/uL (0.0-1.1) Eosinophils # (Auto) 0.0 x10^3/uL (0.0-0.7) Basophils # (Auto) 0.0 x10^3/uL (0.0-0.2) Sodium Level 133 mmol/L (136-145) Potassium Level 5.5 mmol/L (3.5-5.1) Chloride Level 96 mmol/L (98-107) Carbon Dioxide Level 26 mmol/L (21-32) Anion Gap 11 (6-14) Blood Urea Nitrogen 57 mg/dL (7-20) Creatinine 7.3 mg/dL (0.6-1.0) Estimated GFR (Cockcroft-Gault) 7.0 BUN/Creatinine Ratio 8 (6-20) Glucose Level 379 mg/dL (70-99) Calcium Level 7.2 mg/dL (8.5-10.1) Total Bilirubin 0.3 mg/dL (0.2-1.0) Aspartate Amino Transf (AST/SGOT) 7 U/L (15-37) Alanine Aminotransferase (ALT/SGPT) 16 U/L (14-59) Alkaline Phosphatase 195 U/L (46-116) Total Protein 6.9 g/dL (6.4-8.2) Albumin 3.2 g/dL (3.4-5.0) Albumin/Globulin Ratio 0.9 (1.0-1.7) Glucose (Fingerstick) 385 mg/dL (70-99) 202 mg/dL (70-99) 272 mg/dL (70-99) Test 12/19/19 20:19 12/20/19 07:57 Glucose (Fingerstick) 361 mg/dL (70-99) 434 mg/dL (70-99) Laboratory Tests Test 12/19/19 11:31 12/19/19 16:35 12/19/19 20:19 12/20/19 07:57 Glucose (Fingerstick) 202 mg/dL (70-99) 272 mg/dL (70-99) 361 mg/dL (70-99) 434 mg/dL (70-99) Medications Active Scripts Medications Dose Route/Sig Max Daily Dose Days Date Category Furosemide 40 Mg Tablet 40 Mg PO BID 12/19/19 Reported Culturelle (Lactobacillus Rhamnosus Gg) 1 Each Cap.sprink 1 Cap PO BID 30 09/01/19 Rx Polyethylene Glycol 3350 17 Gm Powd.pack 17 Gm PO PRN DAILY PRN 14 09/01/19 Rx Sore Throat Lozenge (Benzocaine/Menthol) 1 Each Lozenge 1 Patt PO PRN Q2HRS PRN 14 09/01/19 Rx Mucinex (Guaifenesin) 600 Mg Tablet.er 600 Mg PO BID 28 09/01/19 Rx Guaifenesin Dm Syrup (Guaifenesin/Dextromethorphan) 5 Ml Syrup 10 Ml PO QID 14 09/01/19 Rx Benzonatate 100 Mg Capsule 100 Mg PO [id number] 30 09/01/19 Rx Amlodipine Besylate 5 Mg Tablet 5 Mg PO DAILY 30 09/01/19 Rx Duoneb 0.5-3(2.5) Mg/3 Ml (Albuterol/Ipratropium) 3 Ml Ampul.neb 3 Ml NEB Q4HRS 30 09/01/19 Rx [Fluconazole] 100 MG Tablet 100 Mg PO DAILY 7 09/01/19 Rx Doxycycline Hyclate 100 Mg Tablet 100 Mg PO BID 7 09/01/19 Rx Clonazepam 1 Mg Tablet 0.5 Mg PO PRN PRN 08/29/19 Reported Novolog (Insulin Aspart) 100 Unit/1 Ml Cartridge 100 Unit SQ TIDAC 08/27/19 Reported Cyclobenzaprine Hcl 5 Mg Tablet 1 Tab PO DAILY 08/27/19 Reported Aspir-Low (Aspirin) 81 Mg Tablet.dr 1 Tab PO DAILY 08/27/19 Reported Percocet 5-325 Mg Tablet (Oxycodone/Acetaminophen) 1 Each Tablet 1 Tab PO PRN Q6HRS PRN 3 07/29/19 Rx Tylenol (Acetaminophen) 325 Mg Tablet 1 Tab PO PRN Q4HRS 01/11/19 Reported Ambien (Zolpidem Tartrate) 5 Mg Tablet 5 Mg PO PRN QHS 01/11/19 Reported Novolog (Insulin Aspart) 100 Unit/1 Ml Cartridge 5 Unit SQ [id number] 01/11/19 Reported Lantus Solostar (Insulin Glargine,Hum.rec.anlog) 100 Unit/1 Ml Insuln.pen 15 Unit SQ BIDPCLD 01/11/19 Reported Gabapentin (Gabapentin) 300 Mg Capsule 600 Mg PO BID 09/19/15 Reported Lipitor (Atorvastatin Calcium) 40 Mg Tablet 40 Mg PO QHS 12/07/14 Rx Protonix (Pantoprazole Sodium) 40 Mg Tablet 40 Mg PO DAILYAC 12/07/14 Rx Impression . 1. Acute hypoxic respiratory failure secondary to acute bronchitis/ Laryngitis ,likely viral and acute exacerbation of asthma. 2. Adult-onset asthma with exacerbation triggered by bronchitis. 3. End-stage renal disease, on hemodialysis. 4. Influenza screen negative. Plan . RECOMMENDATIONS: 1. Continue present oxygen. 2. Continue bronchodilators. 3. Continue IV steroids. 4. Empiric antibiotic, Augmentin 5. Follow renal recommendation regarding dialysis. 6. We will follow along with you. Discussed with RN. SANDY JACKSON MD Dec 20, 2019 10:14
--- NOTE | 2019-12-20 10:22 | NUR ---
SW following. Discussed with RN, pt on PO abx and o2. 6 minute walk will be needed if pt requiring oxygen at discharge. Home Health order needed at discharge. SW will continue to follow. RN notified.
[2019-12-20 11:00] VITALS: BP 151/71
--- NOTE | 2019-12-20 11:09 | PDOC ---
Renal-Progress Notes Subjective Notes Notes STILL SOME SOB BUT BETTER History of Present Illness Hx of present illness IMPROVING Vitals Vitals Vital Signs Date Time Temp Pulse Resp B/P (MAP) Pulse Ox O2 Delivery O2 Flow Rate FiO2 12/20/19 08:59 91 133/66 12/20/19 07:53 95 Nasal Cannula 2.0 12/20/19 07:00 98.0 19 98.0 Weight Weight [ ] I.O. Intake and Output Intake and Output 12/20/19 07:00 Intake Total 570 ml Balance 570 ml Intake Oral 570 ml Labs Labs Laboratory Tests Test 12/19/19 11:31 12/19/19 16:35 12/19/19 20:19 12/20/19 07:57 Glucose (Fingerstick) 202 mg/dL (70-99) 272 mg/dL (70-99) 361 mg/dL (70-99) 434 mg/dL (70-99) Micro Micro Microbiology 12/18/19 Blood Culture - Preliminary, Resulted NO GROWTH AFTER 1 DAY Review of Systems Constitutional: yes: alert, oriented Ears/Nose/Throat: Yes: no symptom reported Eyes: Yes: no symptom reported Pulmonary: Yes dyspnea Cardiovascular: Yes no symptom reported Gastrointestional: Yes: constipation Genitourinary: Yes: no symptom reported Musculoskeletal: Yes: muscle stiffness Skin: Yes no symptom reported Psychiatric/Neurological: Yes: no symptom reported Endocrine: Yes: no symptom reported Physical Exam General Appearance: no apparent distress Heart: S1S2 Abdomen: soft, bowel sounds present Genitourinary: bladder flat Extremities: pulses present Neurology: alert, oriented Musculoskeletal: Osteoarthritis Assessment Assessment IMP ASTHMA EXACERBATION HYPERVOLEMIA-BETTER ACUTE ON CHRONIC DIASTOLIC CHF NON COMPLIANCE HYPERKALEMIA LEUCOCYTOSIS ANEMIA DM II HTN ESRD PLAN PULM EVAL AND TX ON ARANESP HD TOMORROW ENC COMPLIANCE ROCIO ROA MD Dec 20, 2019 11:09
--- NOTE | 2019-12-20 14:34 | PDOC ---
PROGRESS NOTES Chief Complaint Chief Complaint 1. Acute hypoxic respiratory failure with acute bronchitis, l 2. asthma exacerbation 3. End-stage renal disease, on hemodialysis. 4. morbid obese, BMI 43 History of Present Illness History of Present Illness no stool for days, add miralax laryngitis persists, throat spray nebs, bronchodilators. oxygen and IV steroids. Empiric antibiotic Vitals Vitals Vital Signs Date Time Temp Pulse Resp B/P (MAP) Pulse Ox O2 Delivery O2 Flow Rate FiO2 12/20/19 11:37 Nasal Cannula 2.0 12/20/19 11:00 97.8 19 151/71 (97) 100 97.8 12/20/19 08:59 91 Physical Exam General: Alert, Oriented X3, Cooperative, No acute distress Heart: Regular rate, No murmurs Lungs: Wheezing Abdomen: Normal bowel sounds, Soft, No tenderness Extremities: No cyanosis Skin: No breakdown Labs LABS Laboratory Tests Test 12/19/19 16:35 12/19/19 20:19 12/20/19 07:57 12/20/19 12:11 Glucose (Fingerstick) 272 mg/dL (70-99) 361 mg/dL (70-99) 434 mg/dL (70-99) 430 mg/dL (70-99) Assessment and Plan Assessmemt and Plan Problems Medical Problems: (1) Asthma exacerbation Status: Acute (2) End stage renal disease Status: Acute Comment Review of Relevant I have reviewed the following items melissa (where applicable) has been applied. Labs Laboratory Tests Test 12/18/19 15:50 12/18/19 16:12 12/18/19 18:10 12/18/19 20:38 White Blood Count 16.5 x10^3/uL (4.0-11.0) Red Blood Count 3.02 x10^6/uL (3.50-5.40) Hemoglobin 9.5 g/dL (12.0-15.5) Hematocrit 29.2 % (36.0-47.0) Mean Corpuscular Volume 97 fL (79-100) Mean Corpuscular Hemoglobin 32 pg (25-35) Mean Corpuscular Hemoglobin Concent 33 g/dL (31-37) Red Cell Distribution Width 13.7 % (11.5-14.5) Platelet Count 296 x10^3/uL (140-400) Neutrophils (%) (Auto) 83 % (31-73) Lymphocytes (%) (Auto) 10 % (24-48) Monocytes (%) (Auto) 7 % (0-9) Eosinophils (%) (Auto) 1 % (0-3) Basophils (%) (Auto) 0 % (0-3) Neutrophils # (Auto) 13.6 x10^3/uL (1.8-7.7) Lymphocytes # (Auto) 1.6 x10^3/uL (1.0-4.8) Monocytes # (Auto) 1.2 x10^3/uL (0.0-1.1) Eosinophils # (Auto) 0.1 x10^3/uL (0.0-0.7) Basophils # (Auto) 0.0 x10^3/uL (0.0-0.2) Segmented Neutrophils % 77 % (35-66) Lymphocytes % 13 % (24-48) Monocytes % 8 % (0-10) Eosinophils % 1 % (0-5) Basophils % 1 % (0-3) Toxic Granulation Slight Platelet Estimate Adequate (ADEQUATE) Polychromasia Slight Hypochromasia Slight Anisocytosis Slight Prothrombin Time 12.9 SEC (11.7-14.0) Prothromb Time International Ratio 1.0 (0.8-1.1) Activated Partial Thromboplast Time 26 SEC (24-38) Sodium Level 137 mmol/L (136-145) Potassium Level 4.2 mmol/L (3.5-5.1) Chloride Level 97 mmol/L (98-107) Carbon Dioxide Level 27 mmol/L (21-32) Anion Gap 13 (6-14) Blood Urea Nitrogen 57 mg/dL (7-20) Creatinine 6.9 mg/dL (0.6-1.0) Estimated GFR (Cockcroft-Gault) 7.5 BUN/Creatinine Ratio 8 (6-20) Glucose Level 337 mg/dL (70-99) Lactic Acid Level 1.6 mmol/L (0.4-2.0) Calcium Level 7.3 mg/dL (8.5-10.1) Magnesium Level 1.9 mg/dL (1.8-2.4) Total Bilirubin 0.2 mg/dL (0.2-1.0) Aspartate Amino Transf (AST/SGOT) 10 U/L (15-37) Alanine Aminotransferase (ALT/SGPT) 21 U/L (14-59) Alkaline Phosphatase 220 U/L (46-116) Creatine Kinase 221 U/L (26-192) Creatine Kinase MB (Mass) 1.6 ng/mL (0.0-3.6) Creatine Kinase MB Relative Index 0.7 % (0-4) Troponin I Quantitative < 0.017 ng/mL (0.000-0.055) KC-Rhg-M-Type Natriuretic Peptide 9894 pg/mL (0-124) Total Protein 6.8 g/dL (6.4-8.2) Albumin 3.6 g/dL (3.4-5.0) Albumin/Globulin Ratio 1.1 (1.0-1.7) Procalcitonin 1.29 ng/mL (0.00-0.10) Thyroid Stimulating Hormone (TSH) 0.571 uIU/mL (0.358-3.74) Influenza Type A Antigen Negative (NEGATIVE) Influenza Type B Antigen Negative (NEGATIVE) Glucose (Fingerstick) 316 mg/dL (70-99) 353 mg/dL (70-99) Test 12/19/19 04:15 12/19/19 07:12 12/19/19 11:31 12/19/19 16:35 White Blood Count 17.1 x10^3/uL (4.0-11.0) Red Blood Count 3.01 x10^6/uL (3.50-5.40) Hemoglobin 9.6 g/dL (12.0-15.5) Hematocrit 29.3 % (36.0-47.0) Mean Corpuscular Volume 97 fL (79-100) Mean Corpuscular Hemoglobin 32 pg (25-35) Mean Corpuscular Hemoglobin Concent 33 g/dL (31-37) Red Cell Distribution Width 13.9 % (11.5-14.5) Platelet Count 284 x10^3/uL (140-400) Neutrophils (%) (Auto) 97 % (31-73) Lymphocytes (%) (Auto) 2 % (24-48) Monocytes (%) (Auto) 1 % (0-9) Eosinophils (%) (Auto) 0 % (0-3) Basophils (%) (Auto) 0 % (0-3) Neutrophils # (Auto) 16.6 x10^3/uL (1.8-7.7) Lymphocytes # (Auto) 0.4 x10^3/uL (1.0-4.8) Monocytes # (Auto) 0.1 x10^3/uL (0.0-1.1) Eosinophils # (Auto) 0.0 x10^3/uL (0.0-0.7) Basophils # (Auto) 0.0 x10^3/uL (0.0-0.2) Sodium Level 133 mmol/L (136-145) Potassium Level 5.5 mmol/L (3.5-5.1) Chloride Level 96 mmol/L (98-107) Carbon Dioxide Level 26 mmol/L (21-32) Anion Gap 11 (6-14) Blood Urea Nitrogen 57 mg/dL (7-20) Creatinine 7.3 mg/dL (0.6-1.0) Estimated GFR (Cockcroft-Gault) 7.0 BUN/Creatinine Ratio 8 (6-20) Glucose Level 379 mg/dL (70-99) Calcium Level 7.2 mg/dL (8.5-10.1) Total Bilirubin 0.3 mg/dL (0.2-1.0) Aspartate Amino Transf (AST/SGOT) 7 U/L (15-37) Alanine Aminotransferase (ALT/SGPT) 16 U/L (14-59) Alkaline Phosphatase 195 U/L (46-116) Total Protein 6.9 g/dL (6.4-8.2) Albumin 3.2 g/dL (3.4-5.0) Albumin/Globulin Ratio 0.9 (1.0-1.7) Glucose (Fingerstick) 385 mg/dL (70-99) 202 mg/dL (70-99) 272 mg/dL (70-99) Test 12/19/19 20:19 12/20/19 07:57 12/20/19 12:11 Glucose (Fingerstick) 361 mg/dL (70-99) 434 mg/dL (70-99) 430 mg/dL (70-99) Laboratory Tests Test 12/19/19 16:35 12/19/19 20:19 12/20/19 07:57 12/20/19 12:11 Glucose (Fingerstick) 272 mg/dL (70-99) 361 mg/dL (70-99) 434 mg/dL (70-99) 430 mg/dL (70-99) Microbiology 12/18/19 Blood Culture - Preliminary, Resulted NO GROWTH AFTER 1 DAY Medications Current Medications Methylprednisolone Sodium Succinate (SOLU-Medrol 125MG VIAL) 125 mg 1X ONCE IV Last administered on 12/18/19at 16:11; Start 12/18/19 at 16:00; Stop 12/18/19 at 16:06; Status DC Albuterol/ Ipratropium (Duoneb) 3 ml 1X ONCE NEB Last administered on 12/18/19at 16:14; Start 12/18/19 at 16:00; Stop 12/18/19 at 16:06; Status DC Acetaminophen (Tylenol) 325 mg PRN Q4HRS PRN PO MILD PAIN / TEMP; Start 12/18/19 at 17:15; Stop 12/20/19 at 11:29; Status DC Amlodipine Besylate (Norvasc) 5 mg DAILY PO Last administered on 12/20/19at 08:59; Start 12/19/19 at 09:00 Aspirin (Ecotrin) 81 mg DAILY PO Last administered on 12/20/19at 08:58; Start 12/19/19 at 09:00 Atorvastatin Calcium (Lipitor) 40 mg QHS PO Last administered on 12/19/19at 20:53; Start 12/18/19 at 21:00 Throat Lozenges (Cepacol Sore Throat Lozenge) 1 patt PRN Q2HRS PRN PO SORE THROAT; Start 12/18/19 at 17:15 Benzonatate (Tessalon Perle) 100 mg [id number] PO Last administered on 12/20/19at 08:58; Start 12/18/19 at 21:00 Gabapentin (Neurontin) 600 mg BID PO Last administered on 12/20/19 08:58; Start 12/18/19 at 21:00 Guaifenesin (Mucinex) 600 mg BID PO Last administered on 12/20/19at 08:58; Start 12/18/19 at 21:00 Guaifenesin (Robitussin Dm) 10 ml QID PO ; Start 12/18/19 at 21:00; Status UNV Albuterol/ Ipratropium (Duoneb) 3 ml Q4HRS NEB Last administered on 12/20/19at 11:36; Start 12/18/19 at 20:00 Lactobacillus Rhamnosus (Culturelle) 1 cap BID PO Last administered on at 08:58; Start 12/18/19 at 21:00 Oxycodone/ Acetaminophen (Percocet 5/325) 1 tab PRN Q6HRS PRN PO PAIN; Start 12/18/19 at 17:15 Pantoprazole Sodium (Protonix) 40 mg DAILYAC PO Last administered on 12/20/19at 08:58; Start 12/19/19 at 07:30 Polyethylene Glycol (miraLAX PACKET) 17 gm PRN DAILY PRN PO CONSTIPATION, 1ST CHOICE; Start 12/18/19 at 17:15 Zolpidem Tartrate (Ambien) 5 mg PRN QHS PRN PO INSOMNIA Last administered on 12/19/19at 20:53; Start 12/18/19 at 17:15 Non-Formulary Medication (Clonazepam ) 0.5 mg PRN PRN PO TREMORS; Start 12/18/19 at 17:15; Stop 12/18/19 at 17:53; Status DC Insulin Human Lispro (HumaLOG) 5 units TIDWMEALS SQ ; Start 12/19/19 at 08:00; Stop 12/18/19 at 18:16; Status DC Methylprednisolone Sodium Succinate (SOLU-Medrol 125MG VIAL) 100 mg Q6HRS IV Last administered on 12/20/19at 12:13; Start 12/18/19 at 18:00 Sodium Chloride (Normal Saline Flush) 3 ml QSHIFT PRN IV AFTER MEDS AND BLOOD DRAWS; Start 12/18/19 at 17:45 Ondansetron HCl (Zofran) 4 mg PRN Q4HRS PRN IV NAUSEA/VOMITING; Start 12/18/19 at 17:45 Acetaminophen (Tylenol) 650 mg PRN Q4HRS PRN PO TEMP OVER 100.4F OR MILD PAIN Last administered on 12/18/19at 18:58; Start 12/18/19 at 17:45 Clonidine HCl (Catapres) 0.1 mg PRN Q6HRS PRN PO SBP>160 OR DBP>90 Last administered on 12/19/19at 20:53; Start 12/18/19 at 17:45 Docusate Sodium (Colace) 100 mg PRN BID PRN PO CONSTIPATION; Start 12/18/19 at 17:45 Albuterol Sulfate (Ventolin Neb Soln) 2.5 mg PRN Q4HRS PRN NEB SHORTNESS OF BREATH; Start 12/18/19 at 17:45 Guaifenesin (Robitussin) 200 mg PRN Q4HRS PRN PO COUGH; Start 12/18/19 at 17:45 Enoxaparin Sodium (Lovenox 40mg Syringe) 40 mg Q24H SQ ; Start 12/18/19 at 17:45; Status UNV Piperacillin Sod/ Tazobactam Sod 3.375 gm/Sodium Chloride 50 ml @ 100 mls/hr Q6HRS IV ; Start 12/18/19 at 18:00; Stop 12/18/19 at 17:53; Status DC Doxycycline Hyclate (Vibra-Tab) 100 mg BID PO Last administered on 12/20/19at 08:58; Start 12/18/19 at 21:00 Non-Formulary Medication (Insulin Glargine,Hum.rec.anlog (Lantus Solostar)) 15 unit BIDPCLD SQ ; Start 12/19/19 at 12:30; Stop 12/18/19 at 17:53; Status DC Heparin Sodium (Porcine) (Heparin Sodium) 5,000 unit Q8HRS SQ Last administered on 12/20/19at 06:00; Start 12/18/19 at 22:00 Piperacillin Sod/ Tazobactam Sod 2.25 gm/Sodium Chloride 50 ml @ 100 mls/hr 1X ONCE IV ; Start 12/18/19 at 18:00; Stop 12/18/19 at 18:29; Status Cancel Insulin Human Lispro (HumaLOG) 0-7 UNITS TIDWMEALS SQ ; Start 12/19/19 at 08:00; Stop 12/18/19 at 17:53; Status DC Dextrose (Dextrose 50%-Water Syringe) 12.5 gm PRN Q15MIN PRN IV SEE COMMENTS; Start 12/18/19 at 18:00; Stop 12/18/19 at 17:53; Status DC Insulin Human Lispro (HumaLOG) 0-7 UNITS TIDWMEALS SQ ; Start 12/19/19 at 08:00; Stop 12/18/19 at 18:16; Status DC Piperacillin Sod/ Tazobactam Sod 2.25 gm/Sodium Chloride 50 ml @ 100 mls/hr Q8H IV ; Start 12/19/19 at 19:00; Stop 12/19/19 at 14:44; Status DC Clonazepam (KlonoPIN) 0.5 mg PRN DAILY PRN PO ANXIETY / AGITATION; Start 12/18/19 at 19:00 Insulin Glargine (Lantus Syringe) 15 unit BID SQ Last administered on 12/20/19at 09:05; Start 12/18/19 at 21:00 Dextrose (Dextrose 50%-Water Syringe) 12.5 gm PRN Q15MIN PRN IV SEE COMMENTS; Start 12/18/19 at 18:15; Stop 12/18/19 at 21:37; Status DC Ondansetron HCl (Zofran) 4 mg PRN Q8HRS PRN IV NAUSEA/VOMITING; Start 12/18/19 at 18:00; Stop 12/19/19 at 17:59; Status DC Albuterol/ Ipratropium (Duoneb) 3 ml RTQID NEB ; Start 12/18/19 at 20:00; Stop 12/19/19 at 16:00; Status DC Insulin Human Lispro (HumaLOG) 5 units TIDWMEALS SQ Last administered on 12/20/19at 12:21; Start 12/18/19 at 18:15 Insulin Human Lispro (HumaLOG) 0-7 UNITS TIDWMEALS SQ Last administered on 12/18/19at 19:07; Start 12/18/19 at 18:15; Stop 12/18/19 at 21:34; Status DC Insulin Human Lispro (HumaLOG) 0-9 UNITS QIDACHS SQ Last administered on 12/20/19at 12:21; Start 12/18/19 at 21:30 Dextrose (Dextrose 50%-Water Syringe) 12.5 gm PRN Q15MIN PRN IV SEE COMMENTS; Start 12/18/19 at 21:30 Sodium Chloride 1,000 ml @ 1,000 mls/hr Q1H PRN IV hypotension; Start 12/19/19 at 10:46; Stop 12/19/19 at 16:45; Status DC Diphenhydramine HCl (Benadryl) 25 mg 1X PRN PRN IV ITCHING; Start 12/19/19 at 11:00; Stop 12/20/19 at 10:59; Status DC Diphenhydramine HCl (Benadryl) 25 mg 1X PRN PRN IV ITCHING; Start 12/19/19 at 11:00; Stop 12/20/19 at 10:59; Status DC Sodium Chloride 1,000 ml @ 400 mls/hr Q2H30M PRN IV PATENCY; Start 12/19/19 at 10:46; Stop 12/19/19 at 22:45; Status DC Info (PHARMACY MONITORING -- do not chart) 1 each PRN DAILY PRN MC SEE COMM ENTS; Start 12/19/19 at 11:00 Darbepoetin Cliff (ARANESP for DIALYSIS PTS) 60 mcg WEEKLYHS SQ Last administered on 12/19/19at 20:52; Start 12/19/19 at 21:00 Amoxicillin/ Clavulanate Potassium (Augmentin 500/ 125mg) 1 tab DAILY PO Last administered on 12/20/19at 08:58; Start 12/19/19 at 16:00 Furosemide (Lasix) 40 mg BID PO ; Start 12/20/19 at 09:00; Stop 12/19/19 at 21:09; Status DC Furosemide (Lasix) 40 mg BID PO Last administered on 12/20/19at 08:59; Start 12/19/19 at 21:15 Active Scripts Active Culturelle (Lactobacillus Rhamnosus Gg) 1 Each Cap.sprink 1 Cap PO BID 30 Days Polyethylene Glycol 3350 17 Gm Powd.pack 17 Gm PO PRN DAILY PRN 14 Days Sore Throat Lozenge (Benzocaine/Menthol) 1 Each Lozenge 1 Patt PO PRN Q2HRS PRN 14 Days Mucinex (Guaifenesin) 600 Mg Tablet.er 600 Mg PO BID 28 Days Guaifenesin Dm Syrup (Guaifenesin/Dextromethorphan) 5 Ml Syrup 10 Ml PO QID 14 Days Benzonatate 100 Mg Capsule 100 Mg PO [id number] 30 Days Amlodipine Besylate 5 Mg Tablet 5 Mg PO DAILY 30 Days Duoneb 0.5-3(2.5) Mg/3 Ml (Albuterol/Ipratropium) 3 Ml Ampul.neb 3 Ml NEB Q4HRS 30 Days [Fluconazole] 100 MG Tablet 100 Mg PO DAILY 7 Days Doxycycline Hyclate 100 Mg Tablet 100 Mg PO BID 7 Days Percocet 5-325 Mg Tablet (Oxycodone/Acetaminophen) 1 Each Tablet 1 Tab PO PRN Q6HRS PRN 3 Days Lipitor (Atorvastatin Calcium) 40 Mg Tablet 40 Mg PO QHS Protonix (Pantoprazole Sodium) 40 Mg Tablet 40 Mg PO DAILYAC Reported Furosemide 40 Mg Tablet 40 Mg PO BID Clonazepam 1 Mg Tablet 0.5 Mg PO PRN PRN Novolog (Insulin Aspart) 100 Unit/1 Ml Cartridge 100 Unit SQ TIDAC Cyclobenzaprine Hcl 5 Mg Tablet 1 Tab PO DAILY Aspir-Low (Aspirin) 81 Mg Tablet.dr 1 Tab PO DAILY Tylenol (Acetaminophen) 325 Mg Tablet 1 Tab PO PRN Q4HRS Ambien (Zolpidem Tartrate) 5 Mg Tablet 5 Mg PO PRN QHS Novolog (Insulin Aspart) 100 Unit/1 Ml Cartridge 5 Unit SQ [id number] Lantus Solostar (Insulin Glargine,Hum.rec.anlog) 100 Unit/1 Ml Insuln.pen 15 Unit SQ BIDPCLD Gabapentin (Gabapentin) 300 Mg Capsule 600 Mg PO BID Vitals/I & O Vital Sign - Last 24 Hours 12/19/19 12/19/19 12/19/19 12/19/19 15:00 16:22 19:00 19:00 Temp 98.1 98.0 98.1 98.0 Pulse 82 94 Resp 18 20 B/P (MAP) 133/70 (91) 179/78 (111) Pulse Ox 97 96 98 O2 Delivery Nasal Cannula Nasal Cannula Nasal Cannula Nasal Cannula O2 Flow Rate 2.0 2.0 2.0 2.0 12/19/19 12/19/19 12/19/19 12/20/19 20:24 20:53 22:40 00:02 Temp 98.0 98.0 Pulse 94 86 Resp 19 B/P (MAP) 179/78 168/81 (110) Pulse Ox 94 98 O2 Delivery Nasal Cannula Nasal Cannula Nasal Cannula O2 Flow Rate 2.0 2.0 2.0 12/20/19 12/20/19 12/20/19 12/20/19 03:00 03:22 07:00 07:53 Temp 97.7 98.0 97.7 98.0 Pulse 83 91 Resp 19 19 B/P (MAP) 151/84 (106) 133/66 (88) Pulse Ox 99 95 O2 Delivery Nasal Cannula Nasal Cannula Nasal Cannula Nasal Cannula O2 Flow Rate 2.0 2.0 2.0 2.0 12/20/19 12/20/19 12/20/19 08:59 11:00 11:37 Temp 97.8 97.8 Pulse 91 Resp 19 B/P (MAP) 133/66 151/71 (97) Pulse Ox 100 O2 Delivery Nasal Cannula Nasal Cannula O2 Flow Rate 3.0 2.0 Intake and Output 12/19/19 12/19/19 12/20/19 15:00 23:00 07:00 Intake Total 100 ml 240 ml 230 ml Balance 100 ml 240 ml 230 ml HARLAN DEL CID MD Dec 20, 2019 14:34
[2019-12-20] MEDS ORDERED: POLYETHYLENE GLYCOL 3350 17 GM PACKET. PO ONE (14:45)
[2019-12-20] MEDS ORDERED: PHENOL ORAL SPRAY 177ML BOTTLE. PO PRN (14:45)
[2019-12-20 15:00] VITALS: BP 146/70
[2019-12-20 19:00] VITALS: BP 138/54
[2019-12-20] MEDS ORDERED: methylPREDNISolone SOD SUCC PF 125 MG/2 ML VIAL. IV SCH (21:00)
[2019-12-20] MEDS: clonazePAM 0.5 MG TABLET PO PRN (21:38)
[2019-12-20] MEDS: ATORVASTATIN CALCIUM 40 MG TABLET. PO SCH (21:38)
[2019-12-20 23:00] VITALS: BP 139/64
[2019-12-21] MEDS: IPRATRPIUM/ALBUTEROL 0.5/2.5MG 3 ML NEBU. NEB SCH ×6 (00:08→19:22)
[2019-12-21 03:26] VITALS: BP 117/50
[2019-12-21 05:33] LABS: HEMOGLOBIN 9.8 g/dL (12.0-15.5); RED BLOOD COUNT 3.08 x10^6/uL (3.50-5.40)
[2019-12-21] MEDS: HEPARIN for SUB-Q USE 5,000 UNIT/ML VIAL. SQ SCH ×3 (05:48→21:35)
[2019-12-21 06:04] LABS: CALCIUM 7.4 mg/dL (8.5-10.1); CREATININE 6.5 mg/dL (0.6-1.0); POTASSIUM 4.4 mmol/L (3.5-5.1)
[2019-12-21 07:00] VITALS: BP 114/57
[2019-12-21] MEDS: INSULIN LISPRO 300 UNITS/3 ML VIAL. SQ SCH ×7 (07:30→21:34)
[2019-12-21] MEDS ORDERED: IV NORMAL SALINE 1000ML BAG 1,000 ML IV PRN ×2 (08:44)
[2019-12-21] MEDS ORDERED: DIALYSIS PATIENT. MC PRN (08:45)
[2019-12-21] MEDS ORDERED: diphenhydrAMINE 50 MG/ML VIAL IV PRN ×2 (08:45)
[2019-12-21] MEDS: INSULIN GLARGINE SYRINGE. SQ SCH ×2 (09:00→21:33)
[2019-12-21] MEDS: BENZONATATE 100 MG CAPSULE. PO SCH ×3 (09:00→21:25)
--- NOTE | 2019-12-21 11:06 | NUR ---
SW following. Discussed with RN, pt having dialysis today, anticipate discharge home with home health after dialysis. RN advised pt does not need to be wearing oxygen. SW to fax clinicals and discharge to [facility] home health (ph: [phone], fax: [phone]). SW will continue to follow.
--- NOTE | 2019-12-21 11:06 | PDOC ---
Renal-Progress Notes Subjective Notes Notes STILL HAS SOME HOARSENESS AND SOB History of Present Illness Hx of present illness IMPROVING Vitals Vitals Vital Signs Date Time Temp Pulse Resp B/P (MAP) Pulse Ox O2 Delivery O2 Flow Rate FiO2 12/21/19 08:29 97 Nasal Cannula 3.0 12/21/19 07:00 97.6 73 20 114/57 (76) 97.6 Weight Weight [ ] I.O. Intake and Output Intake and Output 12/21/19 07:00 Intake Total 790 ml Balance 790 ml Intake Oral 790 ml # Voids 1 Labs Labs Laboratory Tests Test 12/20/19 12:11 12/20/19 16:38 12/20/19 20:33 12/21/19 04:37 Glucose (Fingerstick) 430 mg/dL (70-99) 336 mg/dL (70-99) 347 mg/dL (70-99) White Blood Count 35.0 x10^3/uL (4.0-11.0) Red Blood Count 3.08 x10^6/uL (3.50-5.40) Hemoglobin 9.8 g/dL (12.0-15.5) Hematocrit 30.0 % (36.0-47.0) Mean Corpuscular Volume 98 fL (79-100) Mean Corpuscular Hemoglobin 32 pg (25-35) Mean Corpuscular Hemoglobin Concent 33 g/dL (31-37) Red Cell Distribution Width 14.0 % (11.5-14.5) Platelet Count 260 x10^3/uL (140-400) Sodium Level 134 mmol/L (136-145) Potassium Level 4.4 mmol/L (3.5-5.1) Chloride Level 94 mmol/L (98-107) Carbon Dioxide Level 26 mmol/L (21-32) Anion Gap 14 (6-14) Blood Urea Nitrogen 67 mg/dL (7-20) Creatinine 6.5 mg/dL (0.6-1.0) Estimated GFR (Cockcroft-Gault) 8.0 Glucose Level 241 mg/dL (70-99) Calcium Level 7.4 mg/dL (8.5-10.1) Test 12/21/19 07:32 Glucose (Fingerstick) 241 mg/dL (70-99) Micro Micro Microbiology 12/18/19 Blood Culture - Preliminary, Resulted NO GROWTH AFTER 2 DAYS Review of Systems Constitutional: yes: alert, oriented Ears/Nose/Throat: Yes: no symptom reported Eyes: Yes: no symptom reported Pulmonary: Yes dyspnea Cardiovascular: Yes no symptom reported Gastrointestional: Yes: constipation Genitourinary: Yes: no symptom reported Musculoskeletal: Yes: muscle stiffness Skin: Yes no symptom reported Psychiatric/Neurological: Yes: no symptom reported Endocrine: Yes: no symptom reported Physical Exam General Appearance: no apparent distress Heart: S1S2 Abdomen: soft, bowel sounds present Genitourinary: bladder flat Extremities: pulses present Neurology: alert, oriented Musculoskeletal: Osteoarthritis Assessment Assessment IMP ASTHMA EXACERBATION HYPERVOLEMIA-BETTER ACUTE ON CHRONIC DIASTOLIC CHF NON COMPLIANCE HYPERKALEMIA LEUCOCYTOSIS ANEMIA DM II HTN ESRD PLAN PULM EVAL AND TX ON ARANESP HD TODAY UF TO DW ENC COMPLIANCE ROCIO ROA MD Dec 21, 2019 11:06
--- NOTE | 2019-12-21 12:38 | PDOC ---
PULMONARY PROGRESS NOTES Subjective less soa, still hoarse Vitals Vital Signs Date Time Temp Pulse Resp B/P (MAP) Pulse Ox O2 Delivery O2 Flow Rate FiO2 12/21/19 08:29 97 Nasal Cannula 3.0 12/21/19 07:00 97.6 73 20 114/57 (76) 97.6 General: Alert, No acute distress Lungs: Wheezing Cardiovascular: S1, S2 Abdomen: Soft, Non-tender Neuro Exam: Alert Extremities: No Edema, Other Skin: Warm Labs Laboratory Tests Test 12/19/19 16:35 12/19/19 20:19 12/20/19 07:57 12/20/19 12:11 Glucose (Fingerstick) 272 mg/dL (70-99) 361 mg/dL (70-99) 434 mg/dL (70-99) 430 mg/dL (70-99) Test 12/20/19 16:38 12/20/19 20:33 12/21/19 04:37 12/21/19 07:32 Glucose (Fingerstick) 336 mg/dL (70-99) 347 mg/dL (70-99) 241 mg/dL (70-99) White Blood Count 35.0 x10^3/uL (4.0-11.0) Red Blood Count 3.08 x10^6/uL (3.50-5.40) Hemoglobin 9.8 g/dL (12.0-15.5) Hematocrit 30.0 % (36.0-47.0) Mean Corpuscular Volume 98 fL (79-100) Mean Corpuscular Hemoglobin 32 pg (25-35) Mean Corpuscular Hemoglobin Concent 33 g/dL (31-37) Red Cell Distribution Width 14.0 % (11.5-14.5) Platelet Count 260 x10^3/uL (140-400) Sodium Level 134 mmol/L (136-145) Potassium Level 4.4 mmol/L (3.5-5.1) Chloride Level 94 mmol/L (98-107) Carbon Dioxide Level 26 mmol/L (21-32) Anion Gap 14 (6-14) Blood Urea Nitrogen 67 mg/dL (7-20) Creatinine 6.5 mg/dL (0.6-1.0) Estimated GFR (Cockcroft-Gault) 8.0 Glucose Level 241 mg/dL (70-99) Calcium Level 7.4 mg/dL (8.5-10.1) Test 12/21/19 11:35 Glucose (Fingerstick) 157 mg/dL (70-99) Laboratory Tests Test 12/20/19 16:38 12/20/19 20:33 12/21/19 04:37 12/21/19 07:32 Glucose (Fingerstick) 336 mg/dL (70-99) 347 mg/dL (70-99) 241 mg/dL (70-99) White Blood Count 35.0 x10^3/uL (4.0-11.0) Red Blood Count 3.08 x10^6/uL (3.50-5.40) Hemoglobin 9.8 g/dL (12.0-15.5) Hematocrit 30.0 % (36.0-47.0) Mean Corpuscular Volume 98 fL (79-100) Mean Corpuscular Hemoglobin 32 pg (25-35) Mean Corpuscular Hemoglobin Concent 33 g/dL (31-37) Red Cell Distribution Width 14.0 % (11.5-14.5) Platelet Count 260 x10^3/uL (140-400) Sodium Level 134 mmol/L (136-145) Potassium Level 4.4 mmol/L (3.5-5.1) Chloride Level 94 mmol/L (98-107) Carbon Dioxide Level 26 mmol/L (21-32) Anion Gap 14 (6-14) Blood Urea Nitrogen 67 mg/dL (7-20) Creatinine 6.5 mg/dL (0.6-1.0) Estimated GFR (Cockcroft-Gault) 8.0 Glucose Level 241 mg/dL (70-99) Calcium Level 7.4 mg/dL (8.5-10.1) Test 12/21/19 11:35 Glucose (Fingerstick) 157 mg/dL (70-99) Medications Active Scripts Medications Dose Route/Sig Max Daily Dose Days Date Category Furosemide 40 Mg Tablet 40 Mg PO BID 12/19/19 Reported Culturelle (Lactobacillus Rhamnosus Gg) 1 Each Cap.sprink 1 Cap PO BID 30 09/01/19 Rx Polyethylene Glycol 3350 17 Gm Powd.pack 17 Gm PO PRN DAILY PRN 14 09/01/19 Rx Sore Throat Lozenge (Benzocaine/Menthol) 1 Each Lozenge 1 Patt PO PRN Q2HRS PRN 14 09/01/19 Rx Mucinex (Guaifenesin) 600 Mg Tablet.er 600 Mg PO BID 28 09/01/19 Rx Guaifenesin Dm Syrup (Guaifenesin/Dextromethorphan) 5 Ml Syrup 10 Ml PO QID 14 09/01/19 Rx Benzonatate 100 Mg Capsule 100 Mg PO [id number] 30 09/01/19 Rx Amlodipine Besylate 5 Mg Tablet 5 Mg PO DAILY 30 09/01/19 Rx Duoneb 0.5-3(2.5) Mg/3 Ml (Albuterol/Ipratropium) 3 Ml Ampul.neb 3 Ml NEB Q4HRS 30 09/01/19 Rx [Fluconazole] 100 MG Tablet 100 Mg PO DAILY 7 09/01/19 Rx Doxycycline Hyclate 100 Mg Tablet 100 Mg PO BID 7 09/01/19 Rx Clonazepam 1 Mg Tablet 0.5 Mg PO PRN PRN 08/29/19 Reported Novolog (Insulin Aspart) 100 Unit/1 Ml Cartridge 100 Unit SQ TIDAC 08/27/19 Reported Cyclobenzaprine Hcl 5 Mg Tablet 1 Tab PO DAILY 08/27/19 Reported Aspir-Low (Aspirin) 81 Mg Tablet.dr 1 Tab PO DAILY 08/27/19 Reported Percocet 5-325 Mg Tablet (Oxycodone/Acetaminophen) 1 Each Tablet 1 Tab PO PRN Q6HRS PRN 3 07/29/19 Rx Tylenol (Acetaminophen) 325 Mg Tablet 1 Tab PO PRN Q4HRS 01/11/19 Reported Ambien (Zolpidem Tartrate) 5 Mg Tablet 5 Mg PO PRN QHS 01/11/19 Reported Novolog (Insulin Aspart) 100 Unit/1 Ml Cartridge 5 Unit SQ [id number] 01/11/19 Reported Lantus Solostar (Insulin Glargine,Hum.rec.anlog) 100 Unit/1 Ml Insuln.pen 15 Unit SQ BIDPCLD 01/11/19 Reported Gabapentin (Gabapentin) 300 Mg Capsule 600 Mg PO BID 09/19/15 Reported Lipitor (Atorvastatin Calcium) 40 Mg Tablet 40 Mg PO QHS 12/07/14 Rx Protonix (Pantoprazole Sodium) 40 Mg Tablet 40 Mg PO DAILYAC 12/07/14 Rx Impression . 1. Acute hypoxic respiratory failure secondary to acute bronchitis/ Laryngitis ,likely viral and acute exacerbation of asthma. 2. Adult-onset asthma with exacerbation triggered by bronchitis. 3. End-stage renal disease, on hemodialysis. 4. Influenza screen negative. Plan . RECOMMENDATIONS: 1. Continue present oxygen. 2. Continue bronchodilators. 3. Continue IV steroids WITH TAPER 4. Empiric antibiotic, Augmentin 5. Follow renal recommendation regarding dialysis. 6. We will follow along with you. Discussed with RN. POSSIBLE DC IN [place] GARCIA MD Dec 21, 2019 12:38
[2019-12-21] MEDS: FUROSEMIDE 40 MG TABLET. PO SCH ×2 (13:30→21:24)
[2019-12-21] MEDS: ASPIRIN ENTERIC COATED 81 MG TABLET.DR. PO SCH (13:30)
[2019-12-21] MEDS: predniSONE 20 MG TABLET PO SCH (13:30)
[2019-12-21] MEDS: clonazePAM 0.5 MG TABLET PO PRN (13:30)
[2019-12-21] MEDS: GABAPENTIN 300 MG CAPSULE. PO SCH ×2 (13:30→21:24)
[2019-12-21] MEDS: LACTOBACILLUS RHAMNOSUS GG 1 CAPSULE. PO SCH ×2 (13:30→21:24)
[2019-12-21] MEDS: POLYETHYLENE GLYCOL 3350 17 GM PACKET. PO SCH (13:31)
[2019-12-21] MEDS: PANTOPRAZOLE 40 MG TABLET.DR. PO SCH (13:31)
[2019-12-21] MEDS: AMOXICILLIN/K CLAV 500/125MG TABLET. PO SCH (13:32)
[2019-12-21] MEDS: amLODIPine BESYLATE 5 MG TABLET PO SCH (13:32)
--- NOTE | 2019-12-21 13:41 | PDOC ---
PROGRESS NOTES Chief Complaint Chief Complaint 1. Acute hypoxic respiratory failure with acute bronchitis, l 2. asthma exacerbation 3. End-stage renal disease, on hemodialysis. 4. morbid obese, BMI 43 5. laryngitis, bronchitis, sepsis History of Present Illness History of Present Illness no stool for days, add miralax laryngitis persists, throat spray nebs, bronchodilators. oxygen and IV steroids. Empiric antibiotic Vitals Vitals Vital Signs Date Time Temp Pulse Resp B/P (MAP) Pulse Ox O2 Delivery O2 Flow Rate FiO2 12/21/19 13:32 73 114/57 12/21/19 08:29 97 Nasal Cannula 3.0 12/21/19 07:00 97.6 20 97.6 Physical Exam General: Alert, Oriented X3, Cooperative, No acute distress Heart: Regular rate, No murmurs Lungs: Wheezing Abdomen: Normal bowel sounds, Soft, No tenderness Extremities: No cyanosis Skin: No breakdown Labs LABS Laboratory Tests Test 12/20/19 16:38 12/20/19 20:33 12/21/19 04:37 12/21/19 07:32 Glucose (Fingerstick) 336 mg/dL (70-99) 347 mg/dL (70-99) 241 mg/dL (70-99) White Blood Count 35.0 x10^3/uL (4.0-11.0) Red Blood Count 3.08 x10^6/uL (3.50-5.40) Hemoglobin 9.8 g/dL (12.0-15.5) Hematocrit 30.0 % (36.0-47.0) Mean Corpuscular Volume 98 fL (79-100) Mean Corpuscular Hemoglobin 32 pg (25-35) Mean Corpuscular Hemoglobin Concent 33 g/dL (31-37) Red Cell Distribution Width 14.0 % (11.5-14.5) Platelet Count 260 x10^3/uL (140-400) Sodium Level 134 mmol/L (136-145) Potassium Level 4.4 mmol/L (3.5-5.1) Chloride Level 94 mmol/L (98-107) Carbon Dioxide Level 26 mmol/L (21-32) Anion Gap 14 (6-14) Blood Urea Nitrogen 67 mg/dL (7-20) Creatinine 6.5 mg/dL (0.6-1.0) Estimated GFR (Cockcroft-Gault) 8.0 Glucose Level 241 mg/dL (70-99) Calcium Level 7.4 mg/dL (8.5-10.1) Test 12/21/19 11:35 Glucose (Fingerstick) 157 mg/dL (70-99) Assessment and Plan Assessmemt and Plan Problems Medical Problems: (1) Asthma exacerbation Status: Acute (2) End stage renal disease Status: Acute Comment Review of Relevant I have reviewed the following items melissa (where applicable) has been applied. Labs Laboratory Tests Test 12/19/19 16:35 12/19/19 20:19 12/20/19 07:57 12/20/19 12:11 Glucose (Fingerstick) 272 mg/dL (70-99) 361 mg/dL (70-99) 434 mg/dL (70-99) 430 mg/dL (70-99) Test 12/20/19 16:38 12/20/19 20:33 12/21/19 04:37 12/21/19 07:32 Glucose (Fingerstick) 336 mg/dL (70-99) 347 mg/dL (70-99) 241 mg/dL (70-99) White Blood Count 35.0 x10^3/uL (4.0-11.0) Red Blood Count 3.08 x10^6/uL (3.50-5.40) Hemoglobin 9.8 g/dL (12.0-15.5) Hematocrit 30.0 % (36.0-47.0) Mean Corpuscular Volume 98 fL (79-100) Mean Corpuscular Hemoglobin 32 pg (25-35) Mean Corpuscular Hemoglobin Concent 33 g/dL (31-37) Red Cell Distribution Width 14.0 % (11.5-14.5) Platelet Count 260 x10^3/uL (140-400) Sodium Level 134 mmol/L (136-145) Potassium Level 4.4 mmol/L (3.5-5.1) Chloride Level 94 mmol/L (98-107) Carbon Dioxide Level 26 mmol/L (21-32) Anion Gap 14 (6-14) Blood Urea Nitrogen 67 mg/dL (7-20) Creatinine 6.5 mg/dL (0.6-1.0) Estimated GFR (Cockcroft-Gault) 8.0 Glucose Level 241 mg/dL (70-99) Calcium Level 7.4 mg/dL (8.5-10.1) Test 12/21/19 11:35 Glucose (Fingerstick) 157 mg/dL (70-99) Laboratory Tests Test 12/20/19 16:38 12/20/19 20:33 12/21/19 04:37 12/21/19 07:32 Glucose (Fingerstick) 336 mg/dL (70-99) 347 mg/dL (70-99) 241 mg/dL (70-99) White Blood Count 35.0 x10^3/uL (4.0-11.0) Red Blood Count 3.08 x10^6/uL (3.50-5.40) Hemoglobin 9.8 g/dL (12.0-15.5) Hematocrit 30.0 % (36.0-47.0) Mean Corpuscular Volume 98 fL (79-100) Mean Corpuscular Hemoglobin 32 pg (25-35) Mean Corpuscular Hemoglobin Concent 33 g/dL (31-37) Red Cell Distribution Width 14.0 % (11.5-14.5) Platelet Count 260 x10^3/uL (140-400) Sodium Level 134 mmol/L (136-145) Potassium Level 4.4 mmol/L (3.5-5.1) Chloride Level 94 mmol/L (98-107) Carbon Dioxide Level 26 mmol/L (21-32) Anion Gap 14 (6-14) Blood Urea Nitrogen 67 mg/dL (7-20) Creatinine 6.5 mg/dL (0.6-1.0) Estimated GFR (Cockcroft-Gault) 8.0 Glucose Level 241 mg/dL (70-99) Calcium Level 7.4 mg/dL (8.5-10.1) Test 12/21/19 11:35 Glucose (Fingerstick) 157 mg/dL (70-99) Microbiology 12/18/19 Blood Culture - Preliminary, Resulted NO GROWTH AFTER 2 DAYS Medications Current Medications Methylprednisolone Sodium Succinate (SOLU-Medrol 125MG VIAL) 125 mg 1X ONCE IV Last administered on 12/18/19at 16:11; Start 12/18/19 at 16:00; Stop 12/18/19 at 16:06; Status DC Albuterol/ Ipratropium (Duoneb) 3 ml 1X ONCE NEB Last administered on 12/18/19 16:14; Start 12/18/19 at 16:00; Stop 12/18/19 at 16:06; Status DC Acetaminophen (Tylenol) 325 mg PRN Q4HRS PRN PO MILD PAIN / TEMP; Start 12/18/19 at 17:15; Stop 12/20/19 at 11:29; Status DC Amlodipine Besylate (Norvasc) 5 mg DAILY PO Last administered on 12/21/19 13:32; Start 12/19/19 at 09:00 Aspirin (Ecotrin) 81 mg DAILY PO Last administered on 12/21/19 13:30; Start 12/19/19 at 09:00 Atorvastatin Calcium (Lipitor) 40 mg QHS PO Last administered on 12/20/19 21:38; Start 12/18/19 at 21:00 Throat Lozenges (Cepacol Sore Throat Lozenge) 1 patt PRN Q2HRS PRN PO SORE THROAT Last administered on 12/20/19 17:15; Start 12/18/19 at 17:15 Benzonatate (Tessalon Perle) 100 mg [id number] PO Last administered on 12/21/19 13:32; Start 12/18/19 at 21:00 Gabapentin (Neurontin) 600 mg BID PO Last administered on 12/21/19 13:30; Start 12/18/19 at 21:00 Guaifenesin (Mucinex) 600 mg BID PO Last administered on 12/21/19 13:32; Start 12/18/19 at 21:00 Guaifenesin (Robitussin Dm) 10 ml QID PO ; Start 12/18/19 at 21:00; Status UNV Albuterol/ Ipratropium (Duoneb) 3 ml Q4HRS NEB Last administered on 12/21/19 08:29; Start 12/18/19 at 20:00 Lactobacillus Rhamnosus (Culturelle) 1 cap BID PO Last administered on 12/21/19 13:30; Start 12/18/19 at 21:00 Oxycodone/ Acetaminophen (Percocet 5/325) 1 tab PRN Q6HRS PRN PO MODERATE- SEVERE PAIN Last administered on 3/10/20at 21:38; Start 12/18/19 at 17:15 Pantoprazole Sodium (Protonix) 40 mg DAILYAC PO Last administered on 12/21/19at 13:31; Start 12/19/19 at 07:30 Polyethylene Glycol (miraLAX PACKET) 17 gm PRN DAILY PRN PO CONSTIPATION, 1ST CHOICE; Start 12/18/19 at 17:15 Zolpidem Tartrate (Ambien) 5 mg PRN QHS PRN PO INSOMNIA Last administered on 12/19/19at 20:53; Start 12/18/19 at 17:15 Non-Formulary Medication (Clonazepam ) 0.5 mg PRN PRN PO TREMORS; Start 12/18/19 at 17:15; Stop 12/18/19 at 17:53; Status DC Insulin Human Lispro (HumaLOG) 5 units TIDWMEALS SQ ; Start 12/19/19 at 08:00; Stop 12/18/19 at 18:16; Status DC Methylprednisolone Sodium Succinate (SOLU-Medrol 125MG VIAL) 100 mg Q6HRS IV Last administered on 12/20/19at 12:13; Start 12/18/19 at 18:00; Stop 12/20/19 at 14:59; Status DC Sodium Chloride (Normal Saline Flush) 3 ml QSHIFT PRN IV AFTER MEDS AND BLOOD DRAWS; Start 12/18/19 at 17:45 Ondansetron HCl (Zofran) 4 mg PRN Q4HRS PRN IV NAUSEA/VOMITING; Start 12/18/19 at 17:45 Acetaminophen (Tylenol) 650 mg PRN Q4HRS PRN PO TEMP OVER 100.4F OR MILD PAIN Last administered on 12/18/19at 18:58; Start 12/18/19 at 17:45 Clonidine HCl (Catapres) 0.1 mg PRN Q6HRS PRN PO SBP>160 OR DBP>90 Last administered on 12/19/19at 20:53; Start 12/18/19 at 17:45 Docusate Sodium (Colace) 100 mg PRN BID PRN PO CONSTIPATION; Start 12/18/19 at 17:45 Albuterol Sulfate (Ventolin Neb Soln) 2.5 mg PRN Q4HRS PRN NEB SHORTNESS OF BREATH; Start 12/18/19 at 17:45 Guaifenesin (Robitussin) 200 mg PRN Q4HRS PRN PO COUGH; Start 12/18/19 at 17:45 Enoxaparin Sodium (Lovenox 40mg Syringe) 40 mg Q24H SQ ; Start 12/18/19 at 17:45; Status UNV Piperacillin Sod/ Tazobactam Sod 3.375 gm/Sodium Chloride 50 ml @ 100 mls/hr Q6HRS IV ; Start 12/18/19 at 18:00; Stop 12/18/19 at 17:53; Status DC Doxycycline Hyclate (Vibra-Tab) 100 mg BID PO Last administered on 12/20/19at 21:38; Start 12/18/19 at 21:00; Stop 12/21/19 at 13:21; Status DC Non-Formulary Medication (Insulin Glargine,Hum.rec.anlog (Lantus Solostar)) 15 unit BIDPCLD SQ ; Start 12/19/19 at 12:30; Stop 12/18/19 at 17:53; Status DC Heparin Sodium (Porcine) (Heparin Sodium) 5,000 unit Q8HRS SQ Last administered on 12/21/19at 05:48; Start 12/18/19 at 22:00 Piperacillin Sod/ Tazobactam Sod 2.25 gm/Sodium Chloride 50 ml @ 100 mls/hr 1X ONCE IV ; Start 12/18/19 at 18:00; Stop 12/18/19 at 18:29; Status Cancel Insulin Human Lispro (HumaLOG) 0-7 UNITS TIDWMEALS SQ ; Start 12/19/19 at 08:00; Stop 12/18/19 at 17:53; Status DC Dextrose (Dextrose 50%-Water Syringe) 12.5 gm PRN Q15MIN PRN IV SEE COMMENTS; Start 12/18/19 at 18:00; Stop 12/18/19 at 17:53; Status DC Insulin Human Lispro (HumaLOG) 0-7 UNITS TIDWMEALS SQ ; Start 12/19/19 at 08:00; Stop 12/18/19 at 18:16; Status DC Piperacillin Sod/ Tazobactam Sod 2.25 gm/Sodium Chloride 50 ml @ 100 mls/hr Q8H IV ; Start 12/19/19 at 19:00; Stop 12/19/19 at 14:44; Status DC Clonazepam (KlonoPIN) 0.5 mg PRN DAILY PRN PO ANXIETY / AGITATION Last administered on 12/21/19at 13:30; Start 12/18/19 at 19:00 Insulin Glargine (Lantus Syringe) 15 unit BID SQ Last administered on 12/20/19at 09:05; Start 12/18/19 at 21:00; Stop 12/20/19 at 14:59; Status DC Dextrose (Dextrose 50%-Water Syringe) 12.5 gm PRN Q15MIN PRN IV SEE COMMENTS; Start 12/18/19 at 18:15; Stop 12/18/19 at 21:37; Status DC Ondansetron HCl (Zofran) 4 mg PRN Q8HRS PRN IV NAUSEA/VOMITING; Start 12/18/19 at 18:00; Stop 12/19/19 at 17:59; Status DC Albuterol/ Ipratropium (Duoneb) 3 ml RTQID NEB ; Start 12/18/19 at 20:00; Stop 12/19/19 at 16:00; Status DC Insulin Human Lispro (HumaLOG) 5 units TIDWMEALS SQ Last administered on 12/20/19at 17:21; Start 12/18/19 at 18:15 Insulin Human Lispro (HumaLOG) 0-7 UNITS TIDWMEALS SQ Last administered on 12/18/19at 19:07; Start 12/18/19 at 18:15; Stop 12/18/19 at 21:34; Status DC Insulin Human Lispro (HumaLOG) 0-9 UNITS QIDACHS SQ Last administered on 12/20/19at 21:47; Start 12/18/19 at 21:30 Dextrose (Dextrose 50%-Water Syringe) 12.5 gm PRN Q15MIN PRN IV SEE COMMENTS; Start 12/18/19 at 21:30 Sodium Chloride 1,000 ml @ 1,000 mls/hr Q1H PRN IV hypotension; Start 12/19/19 at 10:46; Stop 12/19/19 at 16:45; Status DC Diphenhydramine HCl (Benadryl) 25 mg 1X PRN PRN IV ITCHING; Start 12/19/19 at 11:00; Stop 12/20/19 at 10:59; Status DC Diphenhydramine HCl (Benadryl) 25 mg 1X PRN PRN IV ITCHING; Start 12/19/19 at 11:00; Stop 12/20/19 at 10:59; Status DC Sodium Chloride 1,000 ml @ 400 mls/hr Q2H30M PRN IV PATENCY; Start 12/19/19 at 10:46; Stop 12/19/19 at 22:45; Status DC Info (PHARMACY MONITORING -- do not chart) 1 each PRN DAILY PRN MC SEE COMMENTS; Start 12/19/19 at 11:00; Stop 12/21/19 at 13:19; Status DC Darbepoetin Cliff (ARANESP for DIALYSIS PTS) 60 mcg WEEKLYHS SQ Last administered on 12/19/19at 20:52; Start 12/19/19 at 21:00 Amoxicillin/ Clavulanate Potassium (Augmentin 500/ 125mg) 1 tab DAILY PO Last administered on 12/21/19at 13:32; Start 12/19/19 at 16:00 Furosemide (Lasix) 40 mg BID PO ; Start 12/20/19 at 09:00; Stop 12/19/19 at 21:09; Status DC Furosemide (Lasix) 40 mg BID PO Last administered on 12/21/19at 13:30; Start 12/19/19 at 21:15 Polyethylene Glycol (miraLAX PACKET) 17 gm 1X ONCE PO Last administered on 12/20/19at 17:14; Start 12/20/19 at 14:45; Stop 12/20/19 at 14:46; Status DC Polyethylene Glycol (miraLAX PACKET) 17 gm DAILY PO Last administered on 12/21/19at 13:31; Start 12/21/19 at 09:00 Phenol (Chloraseptic) 1 spray PRN Q2HR PRN PO SORE THROAT 2ND CHOICE; Start 12/20/19 at 14:45 Insulin Glargine (Lantus Syringe) 30 unit BID SQ Last administered on 12/20/19at 21:48; Start 12/20/19 at 21:00 Methylprednisolone Sodium Succinate (SOLU-Medrol 125MG VIAL) 62 mg BID IV ; Start 12/20/19 at 21:00; Stop 12/20/19 at 15:00; Status DC Prednisone (Prednisone) 40 mg DAILY PO Last administered on 12/21/19at 13:30; Start 12/21/19 at 09:00 Sodium Chloride 1,000 ml @ 1,000 mls/hr Q1H PRN IV hypotension; Start 12/21/19 at 08:44; Stop 12/21/19 at 14:43 Diphenhydramine HCl (Benadryl) 25 mg 1X PRN PRN IV ITCHING; Start 12/21/19 at 08:45; Stop 12/22/19 at 08:44 Diphenhydramine HCl (Benadryl) 25 mg 1X PRN PRN IV ITCHING; Start 12/21/19 at 08:45; Stop 12/22/19 at 08:44 Sodium Chloride 1,000 ml @ 400 mls/hr Q2H30M PRN IV PATENCY; Start 12/21/19 at 08:44; Stop 12/21/19 at 20:43 Info (PHARMACY MONITORING -- do not chart) 1 each PRN DAILY PRN MC SEE COMMENTS; Start 12/21/19 at 08:45 Active Scripts Active Culturelle (Lactobacillus Rhamnosus Gg) 1 Each Cap.sprink 1 Cap PO BID 30 Days Polyethylene Glycol 3350 17 Gm Powd.pack 17 Gm PO PRN DAILY PRN 14 Days Sore Throat Lozenge (Benzocaine/Menthol) 1 Each Lozenge 1 Patt PO PRN Q2HRS PRN 14 Days Mucinex (Guaifenesin) 600 Mg Tablet.er 600 Mg PO BID 28 Days Guaifenesin Dm Syrup (Guaifenesin/Dextromethorphan) 5 Ml Syrup 10 Ml PO QID 14 Days Benzonatate 100 Mg Capsule 100 Mg PO [id number] 30 Days Amlodipine Besylate 5 Mg Tablet 5 Mg PO DAILY 30 Days Duoneb 0.5-3(2.5) Mg/3 Ml (Albuterol/Ipratropium) 3 Ml Ampul.neb 3 Ml NEB Q4HRS 30 Days [Fluconazole] 100 MG Tablet 100 Mg PO DAILY 7 Days Doxycycline Hyclate 100 Mg Tablet 100 Mg PO BID 7 Days Percocet 5-325 Mg Tablet (Oxycodone/Acetaminophen) 1 Each Tablet 1 Tab PO PRN Q6HRS PRN 3 Days Lipitor (Atorvastatin Calcium) 40 Mg Tablet 40 Mg PO QHS Protonix (Pantoprazole Sodium) 40 Mg Tablet 40 Mg PO DAILYAC Reported Furosemide 40 Mg Tablet 40 Mg PO BID Clonazepam 1 Mg Tablet 0.5 Mg PO PRN PRN Novolog (Insulin Aspart) 100 Unit/1 Ml Cartridge 100 Unit SQ TIDAC Cyclobenzaprine Hcl 5 Mg Tablet 1 Tab PO DAILY Aspir-Low (Aspirin) 81 Mg Tablet.dr 1 Tab PO DAILY Tylenol (Acetaminophen) 325 Mg Tablet 1 Tab PO PRN Q4HRS Ambien (Zolpidem Tartrate) 5 Mg Tablet 5 Mg PO PRN QHS Novolog (Insulin Aspart) 100 Unit/1 Ml Cartridge 5 Unit SQ [id number] Lantus Solostar (Insulin Glargine,Hum.rec.anlog) 100 Unit/1 Ml Insuln.pen 15 Unit SQ BIDPCLD Gabapentin (Gabapentin) 300 Mg Capsule 600 Mg PO BID Vitals/I & O Vital Sign - Last 24 Hours 12/20/19 12/20/19 12/20/19 12/20/19 15:00 15:36 19:00 20:00 Temp 97.4 97.9 97.4 97.9 Pulse 82 96 Resp 20 22 B/P (MAP) 146/70 (95) 138/54 (82) Pulse Ox 99 100 O2 Delivery Nasal Cannula Nasal Cannula Nasal Cannula Nasal Cannula O2 Flow Rate 2.0 2.0 2.0 2.0 12/20/19 12/20/19 12/20/19 12/20/19 20:20 21:38 22:44 23:00 Temp 100.0 100.0 Pulse 81 Resp 20 B/P (MAP) 139/64 (89) Pulse Ox 98 96 O2 Delivery Nasal Cannula Room Air Nasal Cannula Nasal Cannula O2 Flow Rate 2.0 2.0 2.0 12/21/19 12/21/19 12/21/19 12/21/19 00:08 03:26 03:52 07:00 Temp 97.7 97.6 97.7 97.6 Pulse 84 73 Resp 18 20 B/P (MAP) 117/50 (72) 114/57 (76) Pulse Ox 99 98 100 O2 Delivery Nasal Cannula Nasal Cannula Nasal Cannula Nasal Cannula O2 Flow Rate 2.0 2.0 3.0 2.0 12/21/19 12/21/19 12/21/19 08:00 08:29 13:32 Pulse 73 B/P (MAP) 114/57 Pulse Ox 97 O2 Delivery Nasal Cannula Nasal Cannula O2 Flow Rate 3.0 3.0 Intake and Output 12/20/19 12/20/19 12/21/19 15:00 23:00 07:00 Intake Total 200 ml 390 ml 200 ml Balance 200 ml 390 ml 200 ml HARLAN DEL CID MD Dec 21, 2019 13:41
[2019-12-21 15:00] VITALS: BP 132/58
--- NOTE | 2019-12-21 15:48 | NUR ---
pt refused 1400 heparin as she is nauseated and does not want any injections
[2019-12-21] MEDS: NYSTATIN 100,000 UNITS/ML 5 ML ORAL.SUSP. SWSW SCH ×2 (17:39→21:23)
[2019-12-21 19:00] VITALS: BP 113/67
[2019-12-21] MEDS: ATORVASTATIN CALCIUM 40 MG TABLET. PO SCH (21:24)
[2019-12-21 22:39] VITALS: BP 126/68
[2019-12-22 03:03] VITALS: BP 129/60
[2019-12-22] MEDS: IPRATRPIUM/ALBUTEROL 0.5/2.5MG 3 ML NEBU. NEB SCH ×5 (04:00→15:18)
[2019-12-22] MEDS: HEPARIN for SUB-Q USE 5,000 UNIT/ML VIAL. SQ SCH (06:30)
[2019-12-22 07:00] VITALS: BP 149/75
[2019-12-22] MEDS: NYSTATIN 100,000 UNITS/ML 5 ML ORAL.SUSP. SWSW SCH ×3 (08:47→17:16)
[2019-12-22] MEDS: POLYETHYLENE GLYCOL 3350 17 GM PACKET. PO SCH (08:48)
[2019-12-22] MEDS: AMOXICILLIN/K CLAV 500/125MG TABLET. PO SCH (08:48)
[2019-12-22] MEDS: PANTOPRAZOLE 40 MG TABLET.DR. PO SCH (08:48)
[2019-12-22] MEDS: ASPIRIN ENTERIC COATED 81 MG TABLET.DR. PO SCH (08:48)
[2019-12-22] MEDS: amLODIPine BESYLATE 5 MG TABLET PO SCH (08:48)
[2019-12-22] MEDS: LACTOBACILLUS RHAMNOSUS GG 1 CAPSULE. PO SCH (08:48)
[2019-12-22] MEDS: GABAPENTIN 300 MG CAPSULE. PO SCH (08:48)
[2019-12-22] MEDS: predniSONE 20 MG TABLET PO SCH (08:48)
[2019-12-22] MEDS: BENZONATATE 100 MG CAPSULE. PO SCH ×2 (08:49→14:38)
[2019-12-22] MEDS: FUROSEMIDE 40 MG TABLET. PO SCH (08:49)
[2019-12-22] MEDS: INSULIN GLARGINE SYRINGE. SQ SCH (08:58)
[2019-12-22] MEDS: INSULIN LISPRO 300 UNITS/3 ML VIAL. SQ SCH ×6 (08:59→17:13)
--- NOTE | 2019-12-22 10:13 | PDOC ---
Infectious Disease Note Vital Sign Vital Signs Vital Signs Date Time Temp Pulse Resp B/P (MAP) Pulse Ox O2 Delivery O2 Flow Rate FiO2 12/22/19 08:48 18 149/75 12/22/19 07:21 96 Nasal Cannula 2.0 12/22/19 07:00 97.6 97.6 12/22/19 03:03 19 Labs Lab Laboratory Tests Test 12/21/19 11:35 12/21/19 16:53 12/21/19 17:15 12/21/19 19:57 Glucose (Fingerstick) 157 mg/dL (70-99) 191 mg/dL (70-99) 201 mg/dL (70-99) Group A Streptococcus Rapid Negative (NEGATIVE) Test 12/22/19 07:33 Glucose (Fingerstick) 284 mg/dL (70-99) Micro Microbiology 12/18/19 Blood Culture - Preliminary, Resulted NO GROWTH AFTER 3 DAYS Objective Assessment pt seen, consult dictated Plan Plan of Care / YOANA WHITMAN MD Dec 22, 2019 10:13
[2019-12-22] MEDS ORDERED: FLUCONAZOLE 100 MG TABLET. PO SCH (10:30)
[2019-12-22 11:00] VITALS: BP 144/66
--- NOTE | 2019-12-22 11:43 | PDOC ---
PULMONARY PROGRESS NOTES Subjective less soa, still hoarse Vitals Vital Signs Date Time Temp Pulse Resp B/P (MAP) Pulse Ox O2 Delivery O2 Flow Rate FiO2 12/22/19 11:29 95 Nasal Cannula 2.0 12/22/19 08:48 18 149/75 12/22/19 07:00 97.6 97.6 12/22/19 03:03 19 General: Alert, No acute distress Lungs: Wheezing Cardiovascular: S1, S2 Abdomen: Soft, Non-tender Neuro Exam: Alert Extremities: No Edema, Other Skin: Warm Labs Laboratory Tests Test 12/20/19 12:11 12/20/19 16:38 12/20/19 20:33 12/21/19 04:37 Glucose (Fingerstick) 430 mg/dL (70-99) 336 mg/dL (70-99) 347 mg/dL (70-99) White Blood Count 35.0 x10^3/uL (4.0-11.0) Red Blood Count 3.08 x10^6/uL (3.50-5.40) Hemoglobin 9.8 g/dL (12.0-15.5) Hematocrit 30.0 % (36.0-47.0) Mean Corpuscular Volume 98 fL (79-100) Mean Corpuscular Hemoglobin 32 pg (25-35) Mean Corpuscular Hemoglobin Concent 33 g/dL (31-37) Red Cell Distribution Width 14.0 % (11.5-14.5) Platelet Count 260 x10^3/uL (140-400) Sodium Level 134 mmol/L (136-145) Potassium Level 4.4 mmol/L (3.5-5.1) Chloride Level 94 mmol/L (98-107) Carbon Dioxide Level 26 mmol/L (21-32) Anion Gap 14 (6-14) Blood Urea Nitrogen 67 mg/dL (7-20) Creatinine 6.5 mg/dL (0.6-1.0) Estimated GFR (Cockcroft-Gault) 8.0 Glucose Level 241 mg/dL (70-99) Calcium Level 7.4 mg/dL (8.5-10.1) Test 12/21/19 07:32 12/21/19 11:35 12/21/19 16:53 12/21/19 17:15 Glucose (Fingerstick) 241 mg/dL (70-99) 157 mg/dL (70-99) 191 mg/dL (70-99) Group A Streptococcus Rapid Negative (NEGATIVE) Test 12/21/19 19:57 12/22/19 07:33 Glucose (Fingerstick) 201 mg/dL (70-99) 284 mg/dL (70-99) Laboratory Tests Test 12/21/19 16:53 12/21/19 17:15 12/21/19 19:57 12/22/19 07:33 Glucose (Fingerstick) 191 mg/dL (70-99) 201 mg/dL (70-99) 284 mg/dL (70-99) Group A Streptococcus Rapid Negative (NEGATIVE) Medications Active Scripts Medications Dose Route/Sig Max Daily Dose Days Date Category Furosemide 40 Mg Tablet 40 Mg PO BID 12/19/19 Reported Culturelle (Lactobacillus Rhamnosus Gg) 1 Each Cap.sprink 1 Cap PO BID 30 09/01/19 Rx Polyethylene Glycol 3350 17 Gm Powd.pack 17 Gm PO PRN DAILY PRN 09/01/19 Rx Sore Throat Lozenge (Benzocaine/Menthol) 1 Each Lozenge 1 Patt PO PRN Q2HRS PRN 14 09/01/19 Rx Mucinex (Guaifenesin) 600 Mg Tablet.er 600 Mg PO BID 28 09/01/19 Rx Guaifenesin Dm Syrup (Guaifenesin/Dextromethorphan) 5 Ml Syrup 10 Ml PO QID 14 09/01/19 Rx Benzonatate 100 Mg Capsule 100 Mg PO [id number] 30 09/01/19 Rx Amlodipine Besylate 5 Mg Tablet 5 Mg PO DAILY 30 09/01/19 Rx Duoneb 0.5-3(2.5) Mg/3 Ml (Albuterol/Ipratropium) 3 Ml Ampul.neb 3 Ml NEB Q4HRS 09/01/19 Rx [Fluconazole] 100 MG Tablet 100 Mg PO DAILY 09/01/19 Rx Doxycycline Hyclate 100 Mg Tablet 100 Mg PO BID 7 09/01/19 Rx Clonazepam 1 Mg Tablet 0.5 Mg PO PRN PRN 08/29/19 Reported Novolog (Insulin Aspart) 100 Unit/1 Ml Cartridge 100 Unit SQ TIDAC 08/27/19 Reported Cyclobenzaprine Hcl 5 Mg Tablet 1 Tab PO DAILY 08/27/19 Reported Aspir-Low (Aspirin) 81 Mg Tablet.dr 1 Tab PO DAILY 08/27/19 Reported Percocet 5-325 Mg Tablet (Oxycodone/Acetaminophen) 1 Each Tablet 1 Tab PO PRN Q6HRS PRN 3 07/29/19 Rx Tylenol (Acetaminophen) 325 Mg Tablet 1 Tab PO PRN Q4HRS 01/11/19 Reported Ambien (Zolpidem Tartrate) 5 Mg Tablet 5 Mg PO PRN QHS 01/11/19 Reported Novolog (Insulin Aspart) 100 Unit/1 Ml Cartridge 5 Unit SQ [id number] 01/11/19 Reported Lantus Solostar (Insulin Glargine,Hum.rec.anlog) 100 Unit/1 Ml Insuln.pen 15 Unit SQ BIDPCLD 01/11/19 Reported Gabapentin (Gabapentin) 300 Mg Capsule 600 Mg PO BID 09/19/15 Reported Lipitor (Atorvastatin Calcium) 40 Mg Tablet 40 Mg PO QHS 12/07/14 Rx Protonix (Pantoprazole Sodium) 40 Mg Tablet 40 Mg PO DAILYAC 12/07/14 Rx Impression . 1. Acute hypoxic respiratory failure secondary to acute bronchitis/ Laryngitis ,likely viral and acute exacerbation of asthma. 2. Adult-onset asthma with exacerbation triggered by bronchitis. 3. End-stage renal disease, on hemodialysis. 4. Influenza screen negative. Plan . RECOMMENDATIONS: 1. Continue present oxygen. will need 6 min walk test 2. Continue bronchodilators. 3. steroids WITH TAPER 4. Empiric antibiotic, Augmentin 5. Follow renal recommendation regarding dialysis. 6. Discussed with RN. POSSIBLE DC Today SANDY JACKSON MD Dec 22, 2019 11:43
--- NOTE | 2019-12-22 11:44 | PDOC ---
Renal-Progress Notes Subjective Notes Notes NO NEW COMPLAINTS History of Present Illness Hx of present illness STABLE Vitals Vitals Vital Signs Date Time Temp Pulse Resp B/P (MAP) Pulse Ox O2 Delivery O2 Flow Rate FiO2 12/22/19 11:29 95 Nasal Cannula 2.0 12/22/19 08:48 18 149/75 12/22/19 07:00 97.6 97.6 12/22/19 03:03 19 Weight Weight [ ] I.O. Intake and Output Intake and Output 12/22/19 07:00 Intake Total 340 ml Output Total 300 ml Balance 40 ml Intake Oral 340 ml Output Urine Total 300 ml # Voids 1 Labs Labs Laboratory Tests Test 12/21/19 16:53 12/21/19 17:15 12/21/19 19:57 12/22/19 07:33 Glucose (Fingerstick) 191 mg/dL (70-99) 201 mg/dL (70-99) 284 mg/dL (70-99) Group A Streptococcus Rapid Negative (NEGATIVE) Micro Micro Microbiology 12/18/19 Blood Culture - Preliminary, Resulted NO GROWTH AFTER 3 DAYS Review of Systems Constitutional: yes: alert, oriented Ears/Nose/Throat: Yes: no symptom reported Eyes: Yes: no symptom reported Pulmonary: Yes dyspnea Cardiovascular: Yes no symptom reported Gastrointestional: Yes: constipation Genitourinary: Yes: no symptom reported Musculoskeletal: Yes: muscle stiffness Skin: Yes no symptom reported Psychiatric/Neurological: Yes: no symptom reported Endocrine: Yes: no symptom reported Physical Exam General Appearance: no apparent distress Heart: S1S2 Abdomen: soft, bowel sounds present Genitourinary: bladder flat Extremities: pulses present Neurology: alert, oriented Musculoskeletal: Osteoarthritis Assessment Assessment IMP ASTHMA EXACERBATION HYPERVOLEMIA-BETTER ACUTE ON CHRONIC DIASTOLIC CHF NON COMPLIANCE HYPERKALEMIA LEUCOCYTOSIS ANEMIA DM II HTN ESRD PLAN PULM EVAL AND TX ON ARANESP HD TOMORROW ID EVAL ENC COMPLIANCE ROCIO ROA MD Dec 22, 2019 11:44
[2019-12-22 12:12] LABS: HEMATOCRIT 28.2 % (36.0-47.0); RED BLOOD COUNT 2.86 x10^6/uL (3.50-5.40); RED CELL DISTRIBUTION WIDTH 14.3 % (11.5-14.5); WHITE BLOOD COUNT 22.4 x10^3/uL (4.0-11.0)
--- NOTE | 2019-12-22 12:56 | PDOC ---
PROGRESS NOTES Chief Complaint Chief Complaint 1. Acute hypoxic respiratory failure with acute bronchitis, l 2. asthma exacerbation 3. End-stage renal disease, on hemodialysis. 4. morbid obese, BMI 43 5. laryngitis, bronchitis, sepsis History of Present Illness History of Present Illness no stool for days, add miralax laryngitis persists, throat spray nebs, bronchodilators. oxygen and IV steroids. Empiric antibiotic Vitals Vitals Vital Signs Date Time Temp Pulse Resp B/P (MAP) Pulse Ox O2 Delivery O2 Flow Rate FiO2 12/22/19 11:29 95 Nasal Cannula 2.0 12/22/19 11:00 97.8 95 18 144/66 (92) 97.8 Physical Exam General: Alert, Oriented X3, Cooperative, No acute distress Heart: Regular rate, No murmurs Lungs: Wheezing Abdomen: Normal bowel sounds, Soft, No tenderness Extremities: No cyanosis Skin: No breakdown Labs LABS Laboratory Tests Test 12/21/19 16:53 12/21/19 17:15 12/21/19 19:57 12/22/19 07:33 Glucose (Fingerstick) 191 mg/dL (70-99) 201 mg/dL (70-99) 284 mg/dL (70-99) Group A Streptococcus Rapid Negative (NEGATIVE) Test 12/22/19 11:35 12/22/19 11:46 White Blood Count 22.4 x10^3/uL (4.0-11.0) Red Blood Count 2.86 x10^6/uL (3.50-5.40) Hemoglobin 9.0 g/dL (12.0-15.5) Hematocrit 28.2 % (36.0-47.0) Mean Corpuscular Volume 99 fL (79-100) Mean Corpuscular Hemoglobin 32 pg (25-35) Mean Corpuscular Hemoglobin Concent 32 g/dL (31-37) Red Cell Distribution Width 14.3 % (11.5-14.5) Platelet Count 224 x10^3/uL (140-400) Glucose (Fingerstick) 285 mg/dL (70-99) Assessment and Plan Assessmemt and Plan Problems Medical Problems: (1) Asthma exacerbation Status: Acute (2) End stage renal disease Status: Acute Comment Review of Relevant I have reviewed the following items melissa (where applicable) has been applied. Labs Laboratory Tests Test 12/20/19 16:38 3/10/20 20:33 12/21/19 04:37 12/21/19 07:32 Glucose (Fingerstick) 336 mg/dL (70-99) 347 mg/dL (70-99) 241 mg/dL (70-99) White Blood Count 35.0 x10^3/uL (4.0-11.0) Red Blood Count 3.08 x10^6/uL (3.50-5.40) Hemoglobin 9.8 g/dL (12.0-15.5) Hematocrit 30.0 % (36.0-47.0) Mean Corpuscular Volume 98 fL (79-100) Mean Corpuscular Hemoglobin 32 pg (25-35) Mean Corpuscular Hemoglobin Concent 33 g/dL (31-37) Red Cell Distribution Width 14.0 % (11.5-14.5) Platelet Count 260 x10^3/uL (140-400) Sodium Level 134 mmol/L (136-145) Potassium Level 4.4 mmol/L (3.5-5.1) Chloride Level 94 mmol/L (98-107) Carbon Dioxide Level 26 mmol/L (21-32) Anion Gap 14 (6-14) Blood Urea Nitrogen 67 mg/dL (7-20) Creatinine 6.5 mg/dL (0.6-1.0) Estimated GFR (Cockcroft-Gault) 8.0 Glucose Level 241 mg/dL (70-99) Calcium Level 7.4 mg/dL (8.5-10.1) Test 12/21/19 11:35 12/21/19 16:53 12/21/19 17:15 12/21/19 19:57 Glucose (Fingerstick) 157 mg/dL (70-99) 191 mg/dL (70-99) 201 mg/dL (70-99) Group A Streptococcus Rapid Negative (NEGATIVE) Test 12/22/19 07:33 12/22/19 11:35 12/22/19 11:46 Glucose (Fingerstick) 284 mg/dL (70-99) 285 mg/dL (70-99) White Blood Count 22.4 x10^3/uL (4.0-11.0) Red Blood Count 2.86 x10^6/uL (3.50-5.40) Hemoglobin 9.0 g/dL (12.0-15.5) Hematocrit 28.2 % (36.0-47.0) Mean Corpuscular Volume 99 fL (79-100) Mean Corpuscular Hemoglobin 32 pg (25-35) Mean Corpuscular Hemoglobin Concent 32 g/dL (31-37) Red Cell Distribution Width 14.3 % (11.5-14.5) Platelet Count 224 x10^3/uL (140-400) Laboratory Tests Test 12/21/19 16:53 12/21/19 17:15 12/21/19 19:57 12/22/19 07:33 Glucose (Fingerstick) 191 mg/dL (70-99) 201 mg/dL (70-99) 284 mg/dL (70-99) Group A Streptococcus Rapid Negative (NEGATIVE) Test 12/22/19 11:35 12/22/19 11:46 White Blood Count 22.4 x10^3/uL (4.0-11.0) Red Blood Count 2.86 x10^6/uL (3.50-5.40) Hemoglobin 9.0 g/dL (12.0-15.5) Hematocrit 28.2 % (36.0-47.0) Mean Corpuscular Volume 99 fL (79-100) Mean Corpuscular Hemoglobin 32 pg (25-35) Mean Corpuscular Hemoglobin Concent 32 g/dL (31-37) Red Cell Distribution Width 14.3 % (11.5-14.5) Platelet Count 224 x10^3/uL (140-400) Glucose (Fingerstick) 285 mg/dL (70-99) Microbiology 12/18/19 Blood Culture - Preliminary, Resulted NO GROWTH AFTER 3 DAYS Medications Current Medications Methylprednisolone Sodium Succinate (SOLU-Medrol 125MG VIAL) 125 mg 1X ONCE IV Last administered on 12/18/19at 16:11; Start 12/18/19 at 16:00; Stop 12/18/19 at 16 :06; Status DC Albuterol/ Ipratropium (Duoneb) 3 ml 1X ONCE NEB Last administered on 12/18/19at 16:14; Start 12/18/19 at 16:00; Stop 12/18/19 at 16:06; Status DC Acetaminophen (Tylenol) 325 mg PRN Q4HRS PRN PO MILD PAIN / TEMP; Start 12/18/19 at 17:15; Stop 12/20/19 at 11:29; Status DC Amlodipine Besylate (Norvasc) 5 mg DAILY PO Last administered on 12/22/19 08:48; Start 12/19/19 at 09:00 Aspirin (Ecotrin) 81 mg DAILY PO Last administered on 12/22/19 08:48; Start 12/19/19 at 09:00 Atorvastatin Calcium (Lipitor) 40 mg QHS PO Last administered on 12/21/19 21:24; Start 12/18/19 at 21:00 Throat Lozenges (Cepacol Sore Throat Lozenge) 1 patt PRN Q2HRS PRN PO SORE THROAT Last administered on 12/20/19 17:15; Start 12/18/19 at 17:15 Benzonatate (Tessalon Perle) 100 mg [id number] PO Last administered on 12/22/19 08:49; Start 12/18/19 at 21:00 Gabapentin (Neurontin) 600 mg BID PO Last administered on 12/22/19 08:48; Start 12/18/19 at 21:00 Guaifenesin (Mucinex) 600 mg BID PO Last administered on 12/22/19 08:49; Sta rt 12/18/19 at 21:00 Guaifenesin (Robitussin Dm) 10 ml QID PO ; Start 12/18/19 at 21:00; Status UNV Albuterol/ Ipratropium (Duoneb) 3 ml Q4HRS NEB Last administered on 12/22/19 11:31; Start 12/18/19 at 20:00 Lactobacillus Rhamnosus (Culturelle) 1 cap BID PO Last administered on 12/22/19 08:48; Start 12/18/19 at 21:00 Oxycodone/ Acetaminophen (Percocet 5/325) 1 tab PRN Q6HRS PRN PO MODERATE- SEVERE PAIN Last administered on 12/20/19 21:38; Start 12/18/19 at 17:15 Pantoprazole Sodium (Protonix) 40 mg DAILYAC PO Last administered on 12/22/19 08:48; Start 12/19/19 at 07:30 Polyethylene Glycol (miraLAX PACKET) 17 gm PRN DAILY PRN PO CONSTIPATION, 1ST CHOICE; Start 12/18/19 at 17:15 Zolpidem Tartrate (Ambien) 5 mg PRN QHS PRN PO INSOMNIA Last administered on 12/19/19at 20:53; Start 12/18/19 at 17:15 Non-Formulary Medication (Clonazepam ) 0.5 mg PRN PRN PO TREMORS; Start 12/18/19 at 17:15; Stop 12/18/19 at 17:53; Status DC Insulin Human Lispro (HumaLOG) 5 units TIDWMEALS SQ ; Start 12/19/19 at 08:00; Stop 12/18/19 at 18:16; Status DC Methylprednisolone Sodium Succinate (SOLU-Medrol 125MG VIAL) 100 mg Q6HRS IV Last administered on 12/20/19at 12:13; Start 12/18/19 at 18:00; Stop 12/20/19 at 14:59; Status DC Sodium Chloride (Normal Saline Flush) 3 ml QSHIFT PRN IV AFTER MEDS AND BLOOD DRAWS; Start 12/18/19 at 17:45 Ondansetron HCl (Zofran) 4 mg PRN Q4HRS PRN IV NAUSEA/VOMITING Last administered on 12/21/19at 15:53; Start 12/18/19 at 17:45 Acetaminophen (Tylenol) 650 mg PRN Q4HRS PRN PO TEMP OVER 100.4F OR MILD PAIN Last administered on 12/18/19at 18:58; Start 12/18/19 at 17:45 Clonidine HCl (Catapres) 0.1 mg PRN Q6HRS PRN PO SBP>160 OR DBP>90 Last adm inistered on 12/19/19at 20:53; Start 12/18/19 at 17:45 Docusate Sodium (Colace) 100 mg PRN BID PRN PO CONSTIPATION (2nd Choice) Last administered on 12/22/19at 08:48; Start 12/18/19 at 17:45 Albuterol Sulfate (Ventolin Neb Soln) 2.5 mg PRN Q4HRS PRN NEB SHORTNESS OF BREATH; Start 12/18/19 at 17:45 Guaifenesin (Robitussin) 200 mg PRN Q4HRS PRN PO COUGH; Start 12/18/19 at 17:45 Enoxaparin Sodium (Lovenox 40mg Syringe) 40 mg Q24H SQ ; Start 12/18/19 at 17:45; Status UNV Piperacillin Sod/ Tazobactam Sod 3.375 gm/Sodium Chloride 50 ml @ 100 mls/hr Q6HRS IV ; Start 12/18/19 at 18:00; Stop 12/18/19 at 17:53; Status DC Doxycycline Hyclate (Vibra-Tab) 100 mg BID PO Last administered on 12/20/19at 21:38; Start 12/18/19 at 21:00; Stop 12/21/19 at 13:21; Status DC Non-Formulary Medication (Insulin Glargine,Hum.rec.anlog (Lantus Solostar)) 15 unit BIDPCLD SQ ; Start 12/19/19 at 12:30; Stop 12/18/19 at 17:53; Status DC Heparin Sodium (Porcine) (Heparin Sodium) 5,000 unit Q8HRS SQ Last administered on 12/22/19at 06:30; Start 12/18/19 at 22:00 Piperacillin Sod/ Tazobactam Sod 2.25 gm/Sodium Chloride 50 ml @ 100 mls/hr 1X ONCE IV ; Start 12/18/19 at 18:00; Stop 12/18/19 at 18:29; Status Cancel Insulin Human Lispro (HumaLOG) 0-7 UNITS TIDWMEALS SQ ; Start 12/19/19 at 08:00; Stop 12/18/19 at 17:53; Status DC Dextrose (Dextrose 50%-Water Syringe) 12.5 gm PRN Q15MIN PRN IV SEE COMMENTS; Start 12/18/19 at 18:00; Stop 12/18/19 at 17:53; Status DC Insulin Human Lispro (HumaLOG) 0-7 UNITS TIDWMEALS SQ ; Start 12/19/19 at 08:00; Stop 12/18/19 at 18:16; Status DC Piperacillin Sod/ Tazobactam Sod 2.25 gm/Sodium Chloride 50 ml @ 100 mls/hr Q8H IV ; Start 12/19/19 at 19:00; Stop 12/19/19 at 14:44; Status DC Clonazepam (KlonoPIN) 0.5 mg PRN DAILY PRN PO ANXIETY / AGITATION Last administered on 12/21/19at 13:30; Start 12/18/19 at 19:00 Insulin Glargine (Lantus Syringe) 15 unit BID SQ Last administered on 12/20/19at 09:05; Start 12/18/19 at 21:00; Stop 12/20/19 at 14:59; Status DC Dextrose (Dextrose 50%-Water Syringe) 12.5 gm PRN Q15MIN PRN IV SEE COMMENTS; Start 12/18/19 at 18:15; Stop 12/18/19 at 21:37; Status DC Ondansetron HCl (Zofran) 4 mg PRN Q8HRS PRN IV NAUSEA/VOMITING; Start 12/18/19 at 18:00; Stop 12/19/19 at 17:59; Status DC Albuterol/ Ipratropium (Duoneb) 3 ml RTQID NEB ; Start 12/18/19 at 20:00; Stop 12/19/19 at 16:00; Status DC Insulin Human Lispro (HumaLOG) 5 units TIDWMEALS SQ Last administered on 12/22/19at 12:40; Start 12/18/19 at 18:15 Insulin Human Lispro (HumaLOG) 0-7 UNITS TIDWMEALS SQ Last administered on 12/18/19at 19:07; Start 12/18/19 at 18:15; Stop 12/18/19 at 21:34; Status DC Insulin Human Lispro (HumaLOG) 0-9 UNITS QIDACHS SQ Last administered on 12/22/19at 12:39; Start 12/18/19 at 21:30 Dextrose (Dextrose 50%-Water Syringe) 12.5 gm PRN Q15MIN PRN IV SEE COMMENTS; Start 12/18/19 at 21:30 Sodium Chloride 1,000 ml @ 1,000 mls/hr Q1H PRN IV hypotension; Start 12/19/19 at 10:46; Stop 12/19/19 at 16:45; Status DC Diphenhydramine HCl (Benadryl) 25 mg 1X PRN PRN IV ITCHING; Start 12/19/19 at 11:00; Stop 12/20/19 at 10:59; Status DC Diphenhydramine HCl (Benadryl) 25 mg 1X PRN PRN IV ITCHING; Start 12/19/19 at 11:00; Stop 12/20/19 at 10:59; Status DC Sodium Chloride 1,000 ml @ 400 mls/hr Q2H30M PRN IV PATENCY; Start 12/19/19 at 10:46; Stop 12/19/19 at 22:45; Status DC Info (PHARMACY MONITORING -- do not chart) 1 each PRN DAILY PRN MC SEE COMMENTS; Start 12/19/19 at 11:00; Stop 12/21/19 at 13:19; Status DC Darbepoetin Cliff (ARANESP for DIALYSIS PTS) 60 mcg WEEKLYHS SQ Last administered on 12/19/19at 20:52; Start 12/19/19 at 21:00 Amoxicillin/ Clavulanate Potassium (Augmentin 500/ 125mg) 1 tab DAILY PO Last administered on 12/22/19at 08:48; Start 12/19/19 at 16:00 Furosemide (Lasix) 40 mg BID PO ; Start 12/20/19 at 09:00; Stop 12/19/19 at 21:09; Status DC Furosemide (Lasix) 40 mg BID PO Last administered on 12/22/19at 08:49; Start 12/19/19 at 21:15 Polyethylene Glycol (miraLAX PACKET) 17 gm 1X ONCE PO Last administered on 12/20/19at 17:14; Start 12/20/19 at 14:45; Stop 12/20/19 at 14:46; Status DC Polyethylene Glycol (miraLAX PACKET) 17 gm DAILY PO Last administered on 12/22/19at 08:48; Start 12/21/19 at 09:00 Phenol (Chloraseptic) 1 spray PRN Q2HR PRN PO SORE THROAT 2ND CHOICE; Start 12/20/19 at 14:45 Insulin Glargine (Lantus Syringe) 30 unit BID SQ Last administered on 12/22/19at 08:58; Start 12/20/19 at 21:00 Methylprednisolone Sodium Succinate (SOLU-Medrol 125MG VIAL) 62 mg BID IV ; Start 12/20/19 at 21:00; Stop 12/20/19 at 15:00; Status DC Prednisone (Prednisone) 40 mg DAILY PO Last administered on 12/22/19at 08:48; Start 12/21/19 at 09:00 Sodium Chloride 1,000 ml @ 1,000 mls/hr Q1H PRN IV hypotension; Start 12/21/19 at 08:44; Stop 12/21/19 at 14:43; Status DC Diphenhydramine HCl (Benadryl) 25 mg 1X PRN PRN IV ITCHING; Start 12/21/19 at 08:45; Stop 12/22/19 at 08:44; Status DC Diphenhydramine HCl (Benadryl) 25 mg 1X PRN PRN IV ITCHING; Start 12/21/19 at 08:45; Stop 12/22/19 at 08:44; Status DC Sodium Chloride 1,000 ml @ 400 mls/hr Q2H30M PRN IV PATENCY; Start 12/21/19 at 08:44; Stop 12/21/19 at 20:43; Status DC Info (PHARMACY MONITORING -- do not chart) 1 each PRN DAILY PRN MC SEE COMMENTS; Start 12/21/19 at 08:45 Nystatin (Nystatin Oral Susp) 5 ml [id number] Last administered on 12/22/19at 12:34; Start 12/21/19 at 17:00 Fluconazole (Diflucan) 200 mg DAILY PO Last administered on 12/22/19at 12:34; Start 12/22/19 at 10:30 Active Scripts Active Culturelle (Lactobacillus Rhamnosus Gg) 1 Each Cap.sprink 1 Cap PO BID 30 Days Polyethylene Glycol 3350 17 Gm Powd.pack 17 Gm PO PRN DAILY PRN 14 Days Sore Throat Lozenge (Benzocaine/Menthol) 1 Each Lozenge 1 Patt PO PRN Q2HRS PRN 14 Days Mucinex (Guaifenesin) 600 Mg Tablet.er 600 Mg PO BID 28 Days Guaifenesin Dm Syrup (Guaifenesin/Dextromethorphan) 5 Ml Syrup 10 Ml PO QID 14 Days Benzonatate 100 Mg Capsule 100 Mg PO [id number] 30 Days Amlodipine Besylate 5 Mg Tablet 5 Mg PO DAILY 30 Days Duoneb 0.5-3(2.5) Mg/3 Ml (Albuterol/Ipratropium) 3 Ml Ampul.neb 3 Ml NEB Q4HRS 30 Days [Fluconazole] 100 MG Tablet 100 Mg PO DAILY 7 Days Doxycycline Hyclate 100 Mg Tablet 100 Mg PO BID 7 Days Percocet 5-325 Mg Tablet (Oxycodone/Acetaminophen) 1 Each Tablet 1 Tab PO PRN Q6HRS PRN 3 Days Lipitor (Atorvastatin Calcium) 40 Mg Tablet 40 Mg PO QHS Protonix (Pantoprazole Sodium) 40 Mg Tablet 40 Mg PO DAILYAC Reported Furosemide 40 Mg Tablet 40 Mg PO BID Clonazepam 1 Mg Tablet 0.5 Mg PO PRN PRN Novolog (Insulin Aspart) 100 Unit/1 Ml Cartridge 100 Unit SQ TIDAC Cyclobenzaprine Hcl 5 Mg Tablet 1 Tab PO DAILY Aspir-Low (Aspirin) 81 Mg Tablet.dr 1 Tab PO DAILY Tylenol (Acetaminophen) 325 Mg Tablet 1 Tab PO PRN Q4HRS Ambien (Zolpidem Tartrate) 5 Mg Tablet 5 Mg PO PRN QHS Novolog (Insulin Aspart) 100 Unit/1 Ml Cartridge 5 Unit SQ [id number] Lantus Solostar (Insulin Glargine,Hum.rec.anlog) 100 Unit/1 Ml Insuln.pen 15 Unit SQ BIDPCLD Gabapentin (Gabapentin) 300 Mg Capsule 600 Mg PO BID Vitals/I & O Vital Sign - Last 24 Hours 12/21/19 12/21/19 12/21/19 12/21/19 13:32 15:00 16:45 19:00 Temp 97.7 97.9 97.7 97.9 Pulse 73 97 92 Resp 24 18 B/P (MAP) 114/57 132/58 (82) 113/67 (82) Pulse Ox 99 97 96 O2 Delivery Nasal Cannula Nasal Cannula Nasal Cannula O2 Flow Rate 2.0 3.0 2.0 12/21/19 12/21/19 12/21/19 12/22/19 19:22 20:20 22:39 00:37 Temp 98.4 98.4 Pulse 92 Resp 18 B/P (MAP) 126/68 (87) Pulse Ox 97 95 97 O2 Delivery Nasal Cannula Nasal Cannula Nasal Cannula Nasal Cannula O2 Flow Rate 2.0 3.0 2.0 2.0 12/22/19 12/22/19 12/22/19 12/22/19 03:03 04:09 07:00 07:21 Temp 97.7 97.6 97.7 97.6 Pulse 96 18 Resp 19 B/P (MAP) 129/60 (83) 149/75 (99) Pulse Ox 98 97 98 96 O2 Delivery Nasal Cannula Nasal Cannula Nasal Cannula Nasal Cannula O2 Flow Rate 2.0 2.0 2.0 2.0 12/22/19 12/22/19 12/22/19 08:48 11:00 11:29 Temp 97.8 97.8 Pulse 18 95 Resp 18 B/P (MAP) 149/75 144/66 (92) Pulse Ox 89 95 O2 Delivery Room Air Nasal Cannula O2 Flow Rate 2.0 Intake and Output 12/21/19 12/21/19 12/22/19 15:00 23:00 07:00 Intake Total 100 ml 240 ml Output Total 300 ml 0 ml Balance -200 ml 240 ml 0 ml HARLAN DEL CID MD Dec 22, 2019 12:56
[2019-12-22] MEDS ORDERED: OXYC1TAB15 PO (13:02)
[2019-12-22] MEDS ORDERED: GUAI600T47 PO (13:02)
[2019-12-22] MEDS ORDERED: GUAI5SYR PO (13:02)
[2019-12-22] MEDS ORDERED: AMOX1TAB10 PO (13:02)
--- NOTE | 2019-12-22 13:05 | SNU/HH DC ---
DISCHARGE WITH HOME HEALTH DISCHARGE INFORMATION: Discharge Date: Dec 22, 2019 Final Diagnosis: 1. Acute hypoxic respiratory failure with acute bronchitis, l 2. asthma exacerbation 3. End-stage renal disease, on hemodialysis. 4. morbid obese, BMI 45 5. laryngitis, bronchitis, sepsis Problems Medical Problems: (1) Asthma exacerbation Status: Acute (2) End stage renal disease Status: Acute Condition on Discharge: Stable HOME HEALTH: Face to Face: I certify this patient is under my care and that I, or a nurse practitioner or physician's nursing assistants teacher working with me, had a face to face encounter that meets the physician face to face encounter requirements with this patient on 12/21 Halfway For: Assess Cardiopulm Status, Pain Management RN For Eval/Treatment: No Physical Therapy For: Evalulation/Treatment (shoulder pain) Occupational Therapy For: Evaluation/Treatment Pt Meets Homebound Status: Extreme weakness w/ amb., Limited distance walking, Other: (shoulder pain, knee pain, ) POST DISCHARGE ORDERS: Activity Instructions for Disc: Activity as tolerated Weight Bearing Status after Di: As tolerated DIET AFTER DISCHARGE: Renal Wound/Incision Care: No wound care needed CHECKS AFTER DISCHARGE: Checks after discharge: Check blood press - daily, Check blood sugar, ac/hs, Weigh Yourself Daily FOLLOW-UP: Follow up with: Dr. Morrow 2 weeks TREATMENT/EQUIPMENT ORDERS: Adaptive Equipment Issued: None CERTIFICATION STATEMENT: Certification Statement: Certification Statement: Based on the above finding, I certify that this patient is confined to the home and needs intermittent chcf care, physical therapy and/or speech therapy, or continues to need occupational therapy.~ This patient is under my care, and I have initiated the establishment of the plan of care.~ This patient will be followed by myself or a community physician who will periodically review the plan of care. Home Meds Active Scripts Amoxicillin/Potassium Clav (AMOX TR-K CLV 500-125 MG TAB) 1 Each Tablet, 1 TAB PO DAILY for bronchitis, #6 TAB Prov:HARLAN DEL CID MD 12/22/19 Guaifenesin (MUCINEX) 600 Mg Tablet.er, 600 MG PO BID for cough for 7 Days, #14 TAB.SR Prov:HARLAN DEL CID MD 12/22/19 Guaifenesin/Dextromethorphan (GUAIFENESIN DM SYRUP) 5 Ml Syrup, 10 ML PO QID PRN for COUGH for 7 Days, #120 ML Prov:HARLAN DEL CID MD 12/22/19 Oxycodone/Apap 5-325 (PERCOCET 5-325 MG TABLET ) 1 Each Tablet, 1 TAB PO PRN Q6HRS PRN for PAIN for 3 Days, #12 TAB 0 Refills Prov:HARLAN DEL CID MD 12/22/19 Lactobacillus Rhamnosus Gg (CULTURELLE) 1 Each Cap.sprink, 1 CAP PO BID for supplement for 30 Days, #60 CAP Prov:CASEY TAYLOR MD 09/01/19 Polyethylene Glycol 3350 (POLYETHYLENE GLYCOL 3350) 17 Gm Powd.pack, 17 GM PO PRN DAILY PRN for CONSTIPATION, 1ST CHOICE for 14 Days, #14 PKT Prov:CASEY TAYLOR MD 09/01/19 Benzocaine/Menthol (SORE THROAT LOZENGE) 1 Each Lozenge, 1 HAN PO PRN Q2HRS PRN for SORE THROAT for 14 Days, #30 LOZENGE Prov:CASEY TAYLOR MD 09/01/19 Benzonatate (BENZONATATE) 100 Mg Capsule, 100 MG PO [id number] for cough for 30 Days, #90 CAP Prov:CASEY TAYLOR MD 09/01/19 Amlodipine Besylate (AMLODIPINE BESYLATE) 5 Mg Tablet, 5 MG PO DAILY for blood pressure for 30 Days, #30 TAB Prov:CASEY TAYLOR MD 09/01/19 Ipratropium/Albuterol Sulfate (DUONEB 0.5-3(2.5) MG/3 ML) 3 Ml Ampul.neb, 3 ML NEB Q4HRS for cough for 30 Days, #180 EACH Prov:CASEY TAYLOR MD 09/01/19 [Fluconazole] 100 MG TABLET No Conflict Check, 100 MG PO DAILY for bronchitis for 7 Days, #7 TAB Prov:CASEY TAYLOR MD 09/01/19 Atorvastatin Calcium (LIPITOR) 40 Mg Tablet, 40 MG PO QHS, #30 TAB Prov:YMAILKA MENDEZ MD 12/07/14 Pantoprazole Sodium (PROTONIX ) 40 Mg Tablet, 40 MG PO DAILYAC, #30 TAB Prov:YAMILKA MENDEZ MD 12/07/14 Reported Medications Furosemide (FUROSEMIDE) 40 Mg Tablet, 40 MG PO BID for chf, TAB 12/19/19 Clonazepam (CLONAZEPAM) 1 Mg Tablet, 0.5 MG PO PRN PRN for TREMORS, TAB 08/29/19 Insulin Aspart (NOVOLOG) 100 Unit/1 Ml Cartridge, 100 UNIT SQ TIDAC for SLIDING SCALE INSLUIN , EACH 08/27/19 Cyclobenzaprine Hcl (CYCLOBENZAPRINE HCL) 5 Mg Tablet, 1 TAB PO DAILY for After dialysis , #30 TAB 08/27/19 Aspirin (ASPIR-LOW) 81 Mg Tablet.dr, 1 TAB PO DAILY for heart health , #30 TAB 3 Refills 08/27/19 Acetaminophen (TYLENOL) 325 Mg Tablet, 1 TAB PO PRN Q4HRS for pain, #30 TAB 01/11/19 Zolpidem Tartrate (AMBIEN) 5 Mg Tablet, 5 MG PO PRN QHS for insomnia, TAB 0 Refills 01/11/19 Insulin Aspart (NOVOLOG) 100 Unit/1 Ml Cartridge, 5 UNIT SQ [id number] for diabetes, EACH 01/11/19 Insulin Glargine,Hum.rec.anlog (LANTUS SOLOSTAR) 100 Unit/1 Ml Insuln.pen, 15 UNIT SQ BIDPCLD for hyper, #15 ML 3 Refills 01/11/19 Gabapentin (GABAPENTIN ) 300 Mg Capsule, 600 MG PO BID, #90 CAP 5 Refills 09/19/15 Discontinued Scripts Doxycycline Hyclate (DOXYCYCLINE HYCLATE) 100 Mg Tablet, 100 MG PO BID for bronchitis for 7 Days, #14 TAB Prov:CASEY TAYLOR MD 09/01/19 HARLAN DEL CID MD Dec 22, 2019 13:05
--- NOTE | 2019-12-22 13:28 | NUR ---
SW following. Discussed with RN, pt discharging home today with [facility]. JACOB faxed discharge orders to [facility]. JACOB left voicemail with Junior Cortez to advise of pt discharge. No further SW needs. Addendum: 12/22/19 at 1420 by FELIX JAMES Pt requiring 2L o2 with exertion. JACOB faxed oxygen referral to [facility] as those are the only tanks available in the office and pt is ready to discharge home today. Awaiting acceptance decision.
--- NOTE | 2019-12-22 13:34 | CONS ---
DATE OF CONSULTATION: REQUESTING PHYSICIAN: Dr. Jones REASON FOR CONSULTATION: Leukocytosis. HISTORY OF PRESENT ILLNESS: This is a 54-year-old female with a history of asthma, end-stage renal disease who has been chronically on steroids. The patient presented with unable to breathe, hypoxia and had fever. The patient has been treated with steroids and Augmentin, and white count is up to 35,000, hence consultation. She is having difficulty speaking because of thrush. The patient denies any nausea or vomiting. Denies any diarrhea. Denies any headache, visual symptoms, chest pain or abdominal pain. PAST MEDICAL HISTORY: Positive for asthma, hypertension, hyperlipidemia, arthritis and obesity. She has had hysterectomy and cholecystectomy. SOCIAL HISTORY: Negative for smoking, alcohol or illicit drug use. ALLERGIES: SHE IS LISTED ALLERGIC TO SULFA, CODEINE, HYDROMORPHONE, IBUPROFEN, NAPROXEN AND TRAMADOL. CURRENT MEDICATIONS: Reviewed. The patient is on Augmentin. REVIEW OF SYSTEMS: As per HPI, all other systems reviewed and are negative. PHYSICAL EXAMINATION: GENERAL: Alert and oriented female, not in distress. VITAL SIGNS: Stable. The patient did have T-max of 100.0 two days ago. HEENT: Both pupils are round and reactive. No conjunctival lesion. Mouth has extensive yeast infection into the soft palate, into the retropharynx and some into the buccal mucosa as well as onto the posterior tongue. NECK: Supple, no JVP, no lymphadenopathy. LUNGS: Bilateral diffuse mild rhonchi present. No crackles. HEART: S1, S2 regular. No gallop or murmur. ABDOMEN: Soft, nontender, no organomegaly. EXTREMITIES: No edema or cyanosis. SKIN: Unremarkable. NEUROLOGIC: The patient is alert, awake and appropriate. No focal neurologic deficit. LABORATORY DATA: White count is 35,000. BUN and creatinine are 57 and 7.3. Influenza screen was negative. Group A strep rapid is negative. Blood cultures are negative. Chest x-ray had shown cardiomegaly with no pulmonary findings. IMPRESSION: 1. Leukocytosis, likely secondary to steroids. 2. Acute exacerbation of asthma. 3. Steroid-induced extensive yeast infection in the oropharynx. 4. End-stage renal disease, on hemodialysis. 5. Obesity. 6. Hypertension. RECOMMENDATIONS: Continue Augmentin, steroids as per Pulmonary. Add Diflucan to take care of this extensive yeast infection she has. Supportive care. We will repeat the WBC and we will continue to follow. Thank you very much, Dr. Jones, for giving me the opportunity to participate in this patient's care. YOANA WHITMAN MD DR: RADHA/lottie JOB#: [id number] / [id number]
--- NOTE | 2019-12-22 13:39 | PDOC3 ---
Discharge Summary Visit Information Date of Admission: Dec 18, 2019 Date of Discharge: Dec 22, 2019 Final Diagnosis 1. Acute hypoxic respiratory failure with acute bronchitis, l 2. asthma exacerbation 3. End-stage renal disease, on hemodialysis. 4. morbid obese, BMI 43 5. laryngitis, bronchitis, sepsis Problems Medical Problems: (1) Asthma exacerbation Status: Acute (2) End stage renal disease Status: Acute Brief Hospital Course Allergies Allergies Coded Allergies Type Severity Reaction Last Updated Verified aloe vera Allergy Severe Shortness of Air 10/16/17 Yes ibuprofen Allergy Severe Shortness of Air 08/29/19 Yes morphine Allergy Severe Hives 10/16/17 Yes naproxen Allergy Severe Shortness of Air 08/29/19 Yes tramadol Allergy Severe Shortness of Air 08/29/19 Yes [place] And Derivatives Allergy Intermediate 10/16/17 Yes Sulfa (Sulfonamide Antibiotics) Allergy Intermediate Hives 10/16/17 Yes adhesive Allergy Intermediate 09/22/18 Yes codeine Adverse Reaction Intermediate Hives 08/29/19 Yes hydromorphone Adverse Reaction Intermediate 10/16/17 Yes Vital Signs Vital Signs Date Time Temp Pulse Resp B/P (MAP) Pulse Ox O2 Delivery O2 Flow Rate FiO2 12/22/19 11:29 95 Nasal Cannula 2.0 12/22/19 11:00 97.8 95 18 144/66 (92) 97.8 Lab Results Laboratory Tests Test 12/20/19 16:38 12/20/19 20:33 12/21/19 04:37 12/21/19 07:32 Glucose (Fingerstick) 336 mg/dL (70-99) 347 mg/dL (70-99) 241 mg/dL (70-99) White Blood Count 35.0 x10^3/uL (4.0-11.0) Red Blood Count 3.08 x10^6/uL (3.50-5.40) Hemoglobin 9.8 g/dL (12.0-15.5) Hematocrit 30.0 % (36.0-47.0) Mean Corpuscular Volume 98 fL (79-100) Mean Corpuscular Hemoglobin 32 pg (25-35) Mean Corpuscular Hemoglobin Concent 33 g/dL (31-37) Red Cell Distribution Width 14.0 % (11.5-14.5) Platelet Count 260 x10^3/uL (140-400) Sodium Level 134 mmol/L (136-145) Potassium Level 4.4 mmol/L (3.5-5.1) Chloride Level 94 mmol/L (98-107) Carbon Dioxide Level 26 mmol/L (21-32) Anion Gap 14 (6-14) Blood Urea Nitrogen 67 mg/dL (7-20) Creatinine 6.5 mg/dL (0.6-1.0) Estimated GFR (Cockcroft-Gault) 8.0 Glucose Level 241 mg/dL (70-99) Calcium Level 7.4 mg/dL (8.5-10.1) Test 12/21/19 11:35 12/21/19 16:53 12/21/19 17:15 12/21/19 19:57 Glucose (Fingerstick) 157 mg/dL (70-99) 191 mg/dL (70-99) 201 mg/dL (70-99) Group A Streptococcus Rapid Negative (NEGATIVE) Test 12/22/19 07:33 12/22/19 11:35 12/22/19 11:46 Glucose (Fingerstick) 284 mg/dL (70-99) 285 mg/dL (70-99) White Blood Count 22.4 x10^3/uL (4.0-11.0) Red Blood Count 2.86 x10^6/uL (3.50-5.40) Hemoglobin 9.0 g/dL (12.0-15.5) Hematocrit 28.2 % (36.0-47.0) Mean Corpuscular Volume 99 fL (79-100) Mean Corpuscular Hemoglobin 32 pg (25-35) Mean Corpuscular Hemoglobin Concent 32 g/dL (31-37) Red Cell Distribution Width 14.3 % (11.5-14.5) Platelet Count 224 x10^3/uL (140-400) Laboratory Tests Test 12/21/19 16:53 12/21/19 17:15 12/21/19 19:57 12/22/19 07:33 Glucose (Fingerstick) 191 mg/dL (70-99) 201 mg/dL (70-99) 284 mg/dL (70-99) Group A Streptococcus Rapid Negative (NEGATIVE) Test 12/22/19 11:35 12/22/19 11:46 White Blood Count 22.4 x10^3/uL (4.0-11.0) Red Blood Count 2.86 x10^6/uL (3.50-5.40) Hemoglobin 9.0 g/dL (12.0-15.5) Hematocrit 28.2 % (36.0-47.0) Mean Corpuscular Volume 99 fL (79-100) Mean Corpuscular Hemoglobin 32 pg (25-35) Mean Corpuscular Hemoglobin Concent 32 g/dL (31-37) Red Cell Distribution Width 14.3 % (11.5-14.5) Platelet Count 224 x10^3/uL (140-400) Glucose (Fingerstick) 285 mg/dL (70-99) Brief Hospital Course Ms. Hennessy is a 54 old admti with cough, dyspnea, hypoxia, bronchitis on underlying lung disease, laryngitis adn infectionion Discharge Information Condition at Discharge: Improved Follow Up: Weeks Disposition/Orders: D/C to Home w/ HH Scheduled Acetaminophen (Tylenol) 325 Mg Tablet, 1 TAB PO PRN Q4HRS for pain, #30 (Reported) Entered as Reported by: JEET BARNETT on 01/11/19 1158 Last Action: Continued on 12/18/191705 by CASEY TAYLOR MD Amlodipine Besylate (Amlodipine Besylate) 5 Mg Tablet, 5 MG PO DAILY for blood pressure for 30 Days, #30 Prescribed by: CASEY TAYLOR MD on 09/01/19 1420 Last Action: Continued on 12/18/191705 by CASEY TAYLOR MD Amoxicillin/Potassium Clav (Amox Tr-K Clv 500-125 Mg Tab) 1 Each Tablet, 1 TAB PO DAILY for bronchitis, #6 Prescribed by: HARLAN DEL CID on 12/22/19 1302 Aspirin (Aspir-Low) 81 Mg Tablet.dr, 1 TAB PO DAILY for heart health , #30 Ref 3 (Reported) Entered as Reported by: TARIQ MCARTHUR RN on 08/27/19 0015 Last Action: Continued on 12/18/191705 by CASEY TAYLOR MD Atorvastatin Calcium (Lipitor) 40 Mg Tablet, 40 MG PO QHS, #30 Prescribed by: YAMILKA MENDEZ on 12/07/14 0730 Last Action: Continued on 12/18/191705 by CASEY TAYLOR MD Benzonatate (Benzonatate) 100 Mg Capsule, 100 MG PO [id number] for cough for 30 Days, #90 Prescribed by: CASEY TAYLOR MD on 09/01/19 1420 Last Action: Continued on 12/18/191705 by CASEY TAYLOR MD Cyclobenzaprine Hcl (Cyclobenzaprine Hcl) 5 Mg Tablet, 1 TAB PO DAILY for After dialysis , #30 (Reported) Entered as Reported by: TARIQ MCARTHUR RN on 08/27/1914 Last Action: HELD on 12/18/191705 by CASEY TAYLOR MD Furosemide (Furosemide) 40 Mg Tablet, 40 MG PO BID for chf, (Reported) Entered as Reported by: OUMOU RAMIREZ on 12/19/191926 Last Action: Continued on 12/19/192106 by OUMOU RAMIREZ Gabapentin (Gabapentin ) 300 Mg Capsule, 600 MG PO BID, #90 Ref 5 (Reported) Entered as Reported by: WENDY WESTBROOK RN on 09/19/15934 Last Action: Continued on 12/18/191705 by CASEY TAYLOR MD Guaifenesin (Mucinex) 600 Mg Tablet.er, 600 MG PO BID for cough for 7 Days, #14 Prescribed by: HARLAN DEL CID on 12/22/19 1302 Insulin Aspart (Novolog) 100 Unit/1 Ml Cartridge, 5 UNIT SQ [id number] for diabetes, (Reported) Entered as Reported by: JEET BARNETT on 01/11/19 115 Last Action: Converted on 12/18/191705 by CASEY TAYLOR MD Insulin Aspart (Novolog) 100 Unit/1 Ml Cartridge, 100 UNIT SQ TIDAC for SLIDING SCALE INSLUIN , (Reported) Entered as Reported by: TARIQ MCARTHUR RN on 08/27/1914 Last Action: HELD on 12/18/191705 by CASEY TAYLOR MD Insulin Glargine,Hum.rec.anlog (Lantus Solostar) 100 Unit/1 Ml Insuln.pen, 15 UNIT SQ BIDPCLD for hyper, #15 Ref 3 (Reported) Entered as Reported by: JEET BARNETT on 01/11/191151 Last Action: Converted on 12/18/191736 by CASEY TAYLOR MD Ipratropium/Albuterol Sulfate (Duoneb 0.5-3(2.5) Mg/3 Ml) 3 Ml Ampul.neb, 3 ML NEB Q4HRS for cough for 30 Days, #180 Prescribed by: CASEY TAYLOR MD on 09/01/191419 Last Action: Continued on 12/18/191705 by CASEY TAYLOR MD Lactobacillus Rhamnosus Gg (Culturelle) 1 Each Cap.sprink, 1 CAP PO BID for supplement for 30 Days, #60 Prescribed by: CASEY TAYLOR MD on 09/01/191419 Last Action: Continued on 12/18/191705 by CASEY TAYLOR MD Pantoprazole Sodium (Protonix ) 40 Mg Tablet, 40 MG PO DAILYAC, #30 Prescribed by: YAMILKA MENDEZ on 12/07/14 0730 Last Action: Continued on 12/18/191705 by CASEY TAYLOR MD Zolpidem Tartrate (Ambien) 5 Mg Tablet, 5 MG PO PRN QHS for insomnia, Ref 0 (Reported) Entered as Reported by: JEET BARNETT on 01/11/19 1158 Last Action: Continued on 12/18/191705 by CASEY TAYLOR MD [Fluconazole] 100 MG TABLET, 100 MG PO DAILY for bronchitis for 7 Days, #7 Prescribed by: CASEY TAYLOR MD on 09/01/191419 Last Action: HELD on 12/18/191705 by CASEY TAYLOR MD Scheduled PRN Benzocaine/Menthol (Sore Throat Lozenge) 1 Each Lozenge, 1 HAN PO PRN Q2HRS PRN for SORE THROAT for 14 Days, #30 Prescribed by: CASEY TAYLOR MD on 09/01/191419 Last Action: Continued on 12/18/191705 by CASEY TAYLOR MD Clonazepam (Clonazepam) 1 Mg Tablet, 0.5 MG PO PRN PRN for TREMORS, (Reported) Entered as Reported by: Ravinder Krueger on 08/29/192220 Last Action: Converted on 12/18/191705 by CASEY TAYLOR MD Guaifenesin/Dextromethorphan (Guaifenesin Dm Syrup) 5 Ml Syrup, 10 ML PO QID PRN for COUGH for 7 Days, #120 Prescribed by: HARLAN DEL CID on 12/22/19 1302 Oxycodone/Apap 5-325 (Percocet 5-325 Mg Tablet ) 1 Each Tablet, 1 TAB PO PRN Q6HRS PRN for PAIN for 3 Days, #12 Ref 0 Prescribed by: HARLAN DEL CID on 12/22/19 1302 Polyethylene Glycol 3350 (Polyethylene Glycol 3350) 17 Gm Powd.pack, 17 GM PO PRN DAILY PRN for CONSTIPATION, 1ST CHOICE for 14 Days, #14 Prescribed by: CASEY TAYLOR MD on 09/01/191419 Last Action: Continued on 12/18/19 170 by CASEY TAYLOR MD Discontinued Medications Doxycycline Hyclate (Doxycycline Hyclate) 100 Mg Tablet, 100 MG PO BID for bronchitis for 7 Days, #14 Prescribed by: CASEY TAYLOR MD on 09/01/191419 Last Action: Continued on 12/18/191736 by CASEY TAYLOR MD Patient Instructions Patient Instructions face to face eval < 30 min total time HARLAN DEL CID MD Dec 22, 2019 13:39
[2019-12-22 15:00] VITALS: BP 148/70
[2019-12-22] MEDS ORDERED: ONDANSETRON ODT 4 MG TAB.RAPDIS. PO ONE (16:30)
--- NOTE | 2019-12-22 18:57 | NUR ---
daughter here to get pt. pt provided w/ O2 tank by JACOB at [facility]. meds and follow up reviewed. pt did not have IV access. pt stable upon dc
== END 2019-12-22 19:04 | disposition home health service (06) | DRG 871 ==
LOC: ER 15:22 → 5 SOUTH 17:02 → ER 17:53
PROVIDERS: ADMIT Family Medicine; ATTEND Family Medicine
PROC: 5A1D70Z Performance of Urinary Filtration, Intermittent, Less than 6 Hours Per Day (ICD-10-PCS; 2019-12-19)
PROC: 5A1D70Z Performance of Urinary Filtration, Intermittent, Less than 6 Hours Per Day (ICD-10-PCS; principal; 2019-12-21)
DX: A41.9 Sepsis, unspecified organism (principal); I50.33 Acute on chronic diastolic (congestive) heart failure; J96.01 Acute respiratory failure with hypoxia; N18.6 End stage renal disease; I13.2 Hypertensive heart and chronic kidney disease with heart failure and with stage 5 chronic kidney disease, or end stage renal disease; J45.901 Unspecified asthma with (acute) exacerbation; Z68.41 Body mass index [BMI] 40.0-44.9, adult; B37.9 Candidiasis, unspecified; D64.9 Anemia, unspecified; E11.22 Type 2 diabetes mellitus with diabetic chronic kidney disease; E21.3 Hyperparathyroidism, unspecified; E66.01 Morbid (severe) obesity due to excess calories; E78.5 Hyperlipidemia, unspecified; E87.5 Hyperkalemia; G47.33 Obstructive sleep apnea (adult) (pediatric); I27.20 Pulmonary hypertension, unspecified; J04.0 Acute laryngitis; J20.9 Acute bronchitis, unspecified; F41.9 Anxiety disorder, unspecified; K21.9 Gastro-esophageal reflux disease without esophagitis; M19.90 Unspecified osteoarthritis, unspecified site; T38.0X5A Adverse effect of glucocorticoids and synthetic analogues, initial encounter; Y92.89 Other specified places as the place of occurrence of the external cause; Z79.52 Long term (current) use of systemic steroids; Z90.710 Acquired absence of both cervix and uterus; Z91.19 Patient's noncompliance with other medical treatment and regimen; Z99.2 Dependence on renal dialysis; Z90.49 Acquired absence of other specified parts of digestive tract; Z88.5 Allergy status to narcotic agent; Z88.8 Allergy status to other drugs, medicaments and biological substances
CPT/HCPCS: 36415; 71045; 80048; 80053; 82553; 82962; 83605; 83735; 83880; 84145; 84443; 84484; 85007; 85025; 85027; 85610; 85730; 87040; 87070; 87804; 87880; 93005; 94618; 94640; 94760; 96374; 99407; J0882; J1644; J1815; J2405; J2930; J7512; 99285-25; G0378; Q0162

== ENCOUNTER → 2020-05-29 | Outpatient (CLI) | payer MEDICARE, MEDICAID ==
[~2020-05-29] MED LIST changes: +ACET-2061 PO; -ACET325T16 PO; +AMOX1TAB10 PO; +FURO40TA4 PO
--- NOTE | 2020-05-29 16:07 | KCIC ---
EXAM: 1. Frontal pelvis with two-view left hip. 2. Left knee 3 views. 3. Left tibia/fibula 2 views. HISTORY: Fall, left hip and leg pain. COMPARISON: None. FINDINGS: No fractures are identified within the pelvis or either hip. The joint spaces of both hips are maintained. There is mildly decreased femoral head/neck offset anteriorly. Atherosclerotic calcifications are noted. No fractures are appreciated at the left knee. Osteophytes indicate mild medial compartmental osteoarthritis. Joint spaces appear preserved. There is no joint effusion. Alignment is maintained. No fractures are appreciated more distally and within the tibia or fibula. There is a moderate plantar calcaneal spur. The joint spaces and alignment of the ankle appear maintained. IMPRESSION: 1. No fracture or malalignment. 2. Mild medial compartmental osteoarthritis of the left knee. Electronically signed by: Usman Burgos MD (05/29/2020 4:04 PM) [id number]
== END | disposition home or self-care (01) ==
LOC: KCIC 14:10
PROVIDERS: ATTEND Family Medicine
DX: M16.12 Unilateral primary osteoarthritis, left hip (principal); M17.12 Unilateral primary osteoarthritis, left knee; M77.32 Calcaneal spur, left foot; I70.8 Atherosclerosis of other arteries
CPT/HCPCS: 73502; 73562; 73590

== ENCOUNTER → 2020-12-19 | Outpatient (CLI) | payer MEDICARE, MEDICAID ==
[~2020-12-19] MED LIST changes: +AMLO-186 PO; +AMLO-187 PO; -AMLO10TA8 PO; -AMLO5TAB10 PO; -ISOS30TA4 PO; +ISOS30TA68 PO; -POLY17PO28 PO; +POLY17PO52 PO; +ZOLPIDEM 5 MG TABLET. PO ONE
--- NOTE | 2020-12-20 10:41 | SLEEP ---
DATE OF STUDY: 12/19/2020 SLEEP STUDY ATTENDING PHYSICIAN: Dr. Yamilka Currie. The patient is a 55-year-old who weighs 230 pounds with a BMI of 41. The patient's [place] score was 11. The patient had a sleep study on 03/30/2019 and was positive for SVETA and the patient was treated on CPAP at 12 cm water. The patient had moderate SVETA. Another split night study was ordered through primary care physician, performed on 12/19/2020. During the night study, the patient spent 416 minutes in bed and slept for 320 minutes with a sleep efficiency of 77%. Sleep latency was 68 minutes with a REM latency of 101 minutes. Sleep architecture showed increased stage 1 and stage 2 sleep, absent slow wave and normal REM sleep. During the initial diagnostic portion of the study, the patient slept for 70 minutes. During that time, the patient had 3 obstructive apneas, no mixed or central apneas and 35 hypopneas. The patient's AHI was 33 per hour. Supine or REM sleep was not observed during the diagnostic portion. EKG monitoring revealed an average heart rate of 81 beats per minute, no sustained arrhythmias observed. PLMS were seen at index of 56 per hour and 6 per hour caused EEG arousals. Nocturnal oximetry study revealed a mean oxygen saturation of 92% with the lowest of 56%. This was observed during REM sleep. The patient spent 15% of time with saturation between 80% and 89%. The patient was started on CPAP at 5 cm water and titrated up to 12 cm water. At the final pressure, the patient slept for 187 minutes. The patient had supine as well as REM sleep. The patient's AHI was reduced to only 4 per hour due to few central apneas. Oxygen saturations remained above 90% with one spot desaturation during REM sleep of 83%. The patient used medium size nasal pillows. IMPRESSION: 1. Severe obstructive sleep apnea at an AHI of 33 per hour. 2. Nocturnal hypoxia predominantly during REM sleep due to obstructive sleep apnea and resolved with CPAP. 3. Severe PLMS. RECOMMENDATIONS: 1. CPAP at 12 cm water completely eliminated the patient's sleep apnea and should be used on a nightly basis. 2. Follow up in 4-6 weeks to assess compliance with CPAP and to document clinical improvement. 3. Weight loss is advised. 4. Avoid KEY ENTRY OPERATOR depressants. 5. Caution regarding driving until symptoms of sleep apnea resolve with the use of CPAP. 6. The patient used medium size nasal pillows. 7. The patient should also be further evaluated for symptoms of restless legs during the day. SANDY JACKSON MD DR: ERMA/lottie JOB#: [id number] / [id number] YAMILKA Higgins MD
== END ==
LOC: SLPLAB 19:03
PROVIDERS: ATTEND Family Medicine
DX: G47.33 Obstructive sleep apnea (adult) (pediatric) (principal); G47.61 Periodic limb movement disorder
CPT/HCPCS: 95810

== ENCOUNTER 2021-05-12 15:25 | Emergency (ER) | payer MEDICARE, MEDICAID ==
[~2021-05-12] VITALS: Ht 160 cm; Wt 104.1 kg
[~2021-05-12 15:25] MED LIST changes: -ERYT250T16 PO; +ERYT250T84 PO; -ZOLPIDEM 5 MG TABLET. PO ONE
--- NOTE | 2021-05-13 00:33 | PHYS DOC ---
Past Medical History Past Medical History: Asthma, CHF, Diabetes-Type II, Renal Failure, Other Additional Past Medical Histor: torticollis uti, TREMORS Past Surgical History: Cholecystectomy, Hysterectomy, Other Additional Past Surgical Histo: BX R BREAST, R CHEST SHUNT IN & OUT, AV FIST L ARM,L KNEE,L ROTAT CUFFF Smoking Status: Never Smoker Alcohol Use: None Drug Use: None General Adult EDM: Chief Complaint: CONSTIPATION HPI: HPI: Patient is a 55 year old female who present to ER for evaluation of constipation. Patient had her rotator cuff surgery a week ago, on the right side, she had not had a bowel movement since. Patient had tried magnesium citrate at home, had multiple doses of Fleet enema but did not help. Patient has history of constipation before. Patient had end-stage renal failure on hemodialysis. Her last hemodialysis was on Thursday. Patient denies any chest pain, no cough, no fever. Patient denies any vomiting Review of Systems: Review of Systems: Constitutional: Denies fever or chills. [] Eyes: Denies change in visual acuity. [] HENT: Denies nasal congestion or sore throat. [] Respiratory: Denies cough or shortness of breath. [] Cardiovascular: Denies chest pain or edema. [] GI: Denies abdominal pain, nausea, vomiting, bloody stools or diarrhea. [] : Denies dysuria. [] Musculoskeletal: Denies back pain or joint pain. [] Integument: Denies rash. [] Neurologic: Denies headache, focal weakness or sensory changes. [] Endocrine: Denies polyuria or polydipsia. [] Lymphatic: Denies swollen glands. [] Psychiatric: Denies depression or anxiety. [] Heart Score: C/O Chest Pain: N/A Risk Factors: Risk Factors: DM, Current or recent (<one month) smoker, HTN, HLP, family history of CAD, obesity. Risk Scores: Score 0 - 3: 2.5% MACE over next 6 weeks - Discharge Home Score 4 - 6: 20.3% MACE over next 6 weeks - Admit for Clinical Observation Score 7 - 10: 72.7% MACE over next 6 weeks - Early Invasive Strategies Allergies: Allergies: Allergies Coded Allergies Type Severity Reaction Last Updated Verified aloe vera Allergy Severe Shortness of Air 10/16/17 Yes ibuprofen Allergy Severe Shortness of Air 08/29/19 Yes morphine Allergy Severe Hives 10/16/17 Yes naproxen Allergy Severe Shortness of Air 08/29/19 Yes tramadol Allergy Severe Shortness of Air 08/29/19 Yes [place] And Derivatives Allergy Intermediate 10/16/17 Yes Sulfa (Sulfonamide Antibiotics) Allergy Intermediate Hives 10/16/17 Yes adhesive Allergy Intermediate 09/22/18 Yes codeine Adverse Reaction Intermediate Hives 08/29/19 Yes hydromorphone Adverse Reaction Intermediate 10/16/17 Yes Physical Exam: PE: Constitutional: Well developed, well nourished, no acute distress, non-toxic appearance. [] HENT: Normocephalic, atraumatic, bilateral external ears normal, oropharynx moist, no oral exudates, nose normal. [] Eyes: PERRLA, EOMI, conjunctiva normal, no discharge. [] Neck: Normal range of motion, no tenderness, supple, no stridor. [] Cardiovascular:Heart rate regular rhythm, no murmur [] Lungs & Thorax: Bilateral breath sounds clear to auscultation [] Abdomen: Bowel sounds normal, soft, no tenderness, no masses, no pulsatile masses. [] Skin: Warm, dry, no erythema, no rash. [] Back: No tenderness, no CVA tenderness. [] Extremities: No tenderness, no cyanosis, no clubbing, ROM intact, no edema. [] Neurologic: Alert and oriented X 3, normal motor function, normal sensory function, no focal deficits noted. [] Psychologic: Affect normal, judgement normal, mood normal. [] Current Patient Data: Vital Signs: Vital Signs Date Time Temp Pulse Resp B/P (MAP) Pulse Ox O2 Delivery O2 Flow Rate FiO2 05/12/21 19:21 97.6 77 20 124/97 (96) 93 Room Air 97.6 EKG: EKG: [] Radiology/Procedures: Radiology/Procedures: [][facility] [address] [place] [address] IMAGING REPORT Signed PATIENT: URIEL CRAIG ACCOUNT: [id number] : 1965 LOCATION: ER AGE: 55 SEX: F EXAM STATUS: REG ER ORD. PHYSICIAN: NIKITA HANNA DO REASON: CONSTIPATION FOR 7 DAYS PROCEDURE: ACUTE ABDOMEN SERIES EXAM: 2 VIEW ABDOMEN WITH ONE VIEW CHEST. HISTORY: Constipation. COMPARISON: None. FINDINGS: A frontal view of the chest and supine/upright views of the abdomen are obtained. There are no confluent infiltrates. There is no pneumothorax or pleural effusion. The heart is mildly enlarged. There is no pneumoperitoneum. A paucity of bowel gas is nonspecific. There are no distended small bowel loops or significant air-fluid levels. There is gas distally. There are postsurgical changes in the right upper quadrant. IMPRESSION: 1. No confluent infiltrates. 2. Nonspecific bowel gas pattern. No evidence of obstruction. Electronically signed by: Usman Burgos MD (05/13/2021 2:17 AM) [facility] DICTATED and SIGNED BY: GARRETT BURGOS MD DATE: 05/13/21 [id number] Course & Med Decision Making: Course & Med Decision Making Pertinent Labs and Imaging studies reviewed. (See chart for details) Patient is a 55-year-old female who present to ER due to constipation after she had rotator cuff surgery. Patient was given Relistor and Fleet enema in the ER, patient had a large bowel movement, she felt much better. Patient will be discharged home. X-ray her belly did not show any evidence of obstruction. Dragon Disclaimer: Shawn Disclaimer: This electronic medical record was generated, in whole or in part, using a voice recognition dictation system. Departure Departure Impression: Primary Impression: Constipation Disposition: 01 HOME / SELF CARE / HOMELESS Condition: IMPROVED Referrals: YAMILKA MENDEZ MD (PCP) follow up with your doctor this week as needed Patient Instructions: Constipation, Adult Additional Instructions: Thank you for visiting our Emergency Department. We appreciate you trusting us with your care. If any additional problems come up don't hesitate to return to visit us. Please follow up with your primary care provider so they can plan additional care if needed and know about the problem that you had. If symptoms worsen come back to the Emergency Department. Any concerning symptoms that start such as chest pain, shortness of air, weakness or numbness on one side of the body, running high fevers or any other concerning symptoms return to the ER. NIKITA HANNA DO May 13, 2021 00:32
[2021-05-13] MEDS ORDERED: METHYLNALTREXONE 12 MG/0.6 ML VIAL. SQ ONE (01:00)
--- NOTE | 2021-05-13 02:20 | RAD ---
EXAM: 2 VIEW ABDOMEN WITH ONE VIEW CHEST. HISTORY: Constipation. COMPARISON: None. FINDINGS: A frontal view of the chest and supine/upright views of the abdomen are obtained. There are no confluent infiltrates. There is no pneumothorax or pleural effusion. The heart is mildly enlarged. There is no pneumoperitoneum. A paucity of bowel gas is nonspecific. There are no distended small bow el loops or significant air-fluid levels. There is gas distally. There are postsurgical changes in th e right upper quadrant. IMPRESSION: 1. No confluent infiltrates. 2. Nonspecific bowel gas pattern. No evidence of obstruction. Electronically signed by: Usman Burgos MD (05/13/2021 2:17 AM) [facility]
[2021-05-13] MEDS ORDERED: MINERAL OIL 133 ML ENEMA. PR ONE (02:30)
[2021-05-13 03:30] VITALS: BP 151/68
== END 2021-05-13 03:44 | disposition home or self-care (01) ==
LOC: ER 15:25
DX: K59.00 Constipation, unspecified (principal); J45.909 Unspecified asthma, uncomplicated; Z90.49 Acquired absence of other specified parts of digestive tract; E11.22 Type 2 diabetes mellitus with diabetic chronic kidney disease; N18.6 End stage renal disease; Z99.2 Dependence on renal dialysis; Z86.79 Personal history of other diseases of the circulatory system; Z88.5 Allergy status to narcotic agent; Z88.6 Allergy status to analgesic agent; Z88.2 Allergy status to sulfonamides; Z88.8 Allergy status to other drugs, medicaments and biological substances
CPT/HCPCS: 74022; 96372; 99284; J2212

== ENCOUNTER 2021-05-23 10:29 | Emergency (ER) | payer MEDICARE, MEDICAID ==
[~2021-05-23] VITALS: Ht 160 cm; Wt 102.0 kg
[2021-05-23 11:55] LABS: BASO % 0 % (0-3); EOS # 0.2 x10^3/uL (0.0-0.7); EOS % 2 % (0-3); HEMATOCRIT 29.1 % (36.0-47.0); HEMOGLOBIN 9.8 g/dL (12.0-15.5); LYMPH # 1.4 x10^3/uL (1.0-4.8); LYMPH % 13 % (24-48); MEAN CORPUSCULAR HEMOGLOBIN 35 pg (25-35); MEAN CORPUSCULAR HGB CONC 34 g/dL (31-37); MEAN CORPUSCULAR VOLUME 103 fL (79-100); MONO # 0.8 x10^3/uL (0.0-1.1); MONO % 7 % (0-9); NEUT # 8.3 x10^3/uL (1.8-7.7); NEUT % 77 % (31-73); PLATELET COUNT 406 x10^3/uL (140-400); RED BLOOD COUNT 2.84 x10^6/uL (3.50-5.40); RED CELL DISTRIBUTION WIDTH 13.8 % (11.5-14.5); WHITE BLOOD COUNT 10.8 x10^3/uL (4.0-11.0)
[2021-05-23 12:02] LABS: CALCIUM 8.4 mg/dL (8.5-10.1); CREATININE 11.4 mg/dL (0.6-1.0); GFR 4.2; POTASSIUM 3.9 mmol/L (3.5-5.1)
--- NOTE | 2021-05-23 12:07 | PHYS DOC ---
Past Medical History Past Medical History: Asthma, CHF, Diabetes-Type II, Renal Failure, Other Additional Past Medical Histor: torticollis uti, TREMORS (LINAShoshanaKEVIN [place] [employer]) Past Surgical History: Cholecystectomy, Hysterectomy, Other Additional Past Surgical Histo: BX R BREAST, R CHEST SHUNT IN & OUT, AV FIST L ARM,L KNEE,L ROTAT CUFFF (KEVIN ZHOU [place] [employer]) Smoking Status: Never Smoker Alcohol Use: None Drug Use: None (KEVIN ZHOU [place] [employer]) General Adult EDM: Chief Complaint: DIARRHEA HPI: HPI: Patient is a 55 year old female with history of diabetes type 2, end-stage kidney disease on dialysis Thursday last dialyzed on Thursday, missed dialysis yesterday because she was not feeling well. Patient presents to the ED today complaining of nausea, vomiting, diarrhea, poor appetite, symptoms have been going on since the end of May 02, 2021. Patient denies any fever. Denies any chest pain or shortness of breath. Reports being vaccinated against COVID-19 (ABELARDOKVEIN [place] ) Review of Systems: Review of Systems: Constitutional: Denies fever or chills. [] Eyes: Denies change in visual acuity. [] HENT: Denies nasal congestion or sore throat. [] Respiratory: Denies cough or shortness of breath. [] Cardiovascular: Denies chest pain or edema. [] GI: Reports nausea, vomiting, diarrhea, denies abdominal pain : Denies dysuria. [] Musculoskeletal: Denies back pain or joint pain. [] Integument: Denies rash. [] Neurologic: Denies headache, focal weakness or sensory changes. [] Psychiatric: Denies depression or anxiety. [] (KEVIN ZHOU [employer]) Heart Score: C/O Chest Pain: N/A Risk Factors: Risk Factors: DM, Current or recent (<one month) smoker, HTN, HLP, family history of CAD, obesity. Risk Scores: Score 0 - 3: 2.5% MACE over next 6 weeks - Discharge Home Score 4 - 6: 20.3% MACE over next 6 weeks - Admit for Clinical Observation Score 7 - 10: 72.7% MACE over next 6 weeks - Early Invasive Strategies (KEVIN ZHOU [employer]) Allergies: Allergies: Allergies Coded Allergies Type Severity Reaction Last Updated Verified aloe vera Allergy Severe Shortness of Air 10/16/17 Yes ibuprofen Allergy Severe Shortness of Air 08/29/19 Yes morphine Allergy Severe Hives 10/16/17 Yes naproxen Allergy Severe Shortness of Air 08/29/19 Yes tramadol Allergy Severe Shortness of Air 08/29/19 Yes [place] And Derivatives Allergy Intermediate 10/16/17 Yes Sulfa (Sulfonamide Antibiotics) Allergy Intermediate Hives 10/16/17 Yes adhesive Allergy Intermediate 09/22/18 Yes codeine Adverse Reaction Intermediate Hives 08/29/19 Yes hydromorphone Adverse Reaction Intermediate 10/16/17 Yes (KEVIN ZHOU [employer]) Physical Exam: PE: Constitutional: Well developed, well nourished, no acute distress, non-toxic appearance. [] HENT: Normocephalic, atraumatic, bilateral external ears normal, oropharynx moist, no oral exudates, nose normal. [] Eyes: PERRLA, EOMI, conjunctiva normal, no discharge. [] Neck: Normal range of motion, no tenderness, supple, no stridor. [] Cardiovascular:Heart rate regular rhythm, no murmur [] Lungs & Thorax: Bilateral breath sounds clear to auscultation [] Abdomen: Bowel sounds normal, soft, no tenderness, no masses, no pulsatile masses. [] Skin: Warm, dry, no erythema, no rash. Dialysis fistula left upper extremity with positive thrill and bruit Back: No tenderness, no CVA tenderness. [] Extremities: Right shoulder injury none immobilizer. No tenderness, no cyanosis, no clubbing, ROM intact, no edema. [] Neurologic: Alert and oriented X 3, normal motor function, normal sensory function, no focal deficits noted. [] Psychologic: Affect normal, judgement normal, mood normal. [] (KEVIN ZHOU M [employer]) Current Patient Data: Labs: Laboratory Tests Test 05/23/21 11:45 White Blood Count 10.8 x10^3/uL (4.0-11.0) Red Blood Count 2.84 x10^6/uL (3.50-5.40) L Hemoglobin 9.8 g/dL (12.0-15.5) L Hematocrit 29.1 % (36.0-47.0) L Mean Corpuscular Volume 103 fL (79-100) H Mean Corpuscular Hemoglobin 35 pg (25-35) Mean Corpuscular Hemoglobin Concent 34 g/dL (31-37) Red Cell Distribution Width 13.8 % (11.5-14.5) Platelet Count 406 x10^3/uL (140-400) H Neutrophils (%) (Auto) 77 % (31-73) H Lymphocytes (%) (Auto) 13 % (24-48) L Monocytes (%) (Auto) 7 % (0-9) Eosinophils (%) (Auto) 2 % (0-3) Basophils (%) (Auto) 0 % (0-3) Neutrophils # (Auto) 8.3 x10^3/uL (1.8-7.7) H Lymphocytes # (Auto) 1.4 x10^3/uL (1.0-4.8) Monocytes # (Auto) 0.8 x10^3/uL (0.0-1.1) Eosinophils # (Auto) 0.2 x10^3/uL (0.0-0.7) Basophils # (Auto) 0.0 x10^3/uL (0.0-0.2) Laboratory Tests 05/23/21 11:45 Vital Signs: Vital Signs Date Time Temp Pulse Resp B/P (MAP) Pulse Ox O2 Delivery O2 Flow Rate FiO2 05/23/21 10:49 98.4 85 16 218/95 (95) 98 Room Air 98.4 (KEVIN ZHOU APRN) EKG: EKG: [] (KEVIN ZHOU APRN) Radiology/Procedures: Radiology/Procedures: []PROCEDURE: CT ABDOMEN PELVIS WO CONTRAST INDICATION: Reason: n/v/d LLQ Abd pain / Spl. Instructions: / History: . COMPARISON: July 2019 TECHNIQUE: Axial CT images obtained through the abdomen and pelvis without contrast. One or more of the following individualized dose reduction techniques were utilized for this examination: 1. Automated exposure control; 2. Adjustment of the mA and/or kV according to patient size; 3. Use of iterative reconstruction technique. FINDINGS: Groundglass opacities at the partially visualized lung bases. Scattered calcific atherosclerosis. Postcholecystectomy changes with prominent size of liver. No peripancreatic fluid collection. Spleen is unremarkable. No hydronephrosis. There is a couple of tiny bilateral nonobstructive renal stones measuring 2 mm or less. Urinary bladder is decompressed with prominence the wall There is some prominence the wall of the distal sigmoid and rectal region. No periappendiceal inflammatory changes. No dilated loops of bowel to suggest obstruction. Degenerative changes the spine with multilevel central canal and neural foraminal stenosis. IMPRESSION: * Wall thickening of the urinary bladder with adjacent edema to the fat. Would correlate with symptoms given that causes such as cystitis could have this appearance. * There is also some wall thickening of the distal sigmoid and rectal region that was not present on prior. Causes such as distal colitis or a distal colonic lesion are within the differential for this finding. * Mild groundglass opacities at the lung bases. Commonly secondary to hypoventilatory changes and atelectasis with small airway inflammation from infectious or inflammatory etiology or mild edema also in differential. Electronically signed by: Malissa Kumar MD (05/23/2021 12:17 PM) DESK[facility]- [id number] DICTATED and SIGNED BY: MALISSA KUMAR MD DATE: 05/23/21 [id number] (KEVIN ZHOU APRN) Course & Med Decision Making: Course & Med Decision Making Pertinent Labs and Imaging studies reviewed. (See chart for details) This is a 55-year-old female patient end-stage kidney disease on dialysis Thursday presented to the ED today complaining of nausea, vomiting, diarrhea, poor appetite, symptoms since the end of October. Patient was yesterday CBC with a normal WBC 9.8, 29.1 this numbers are around her baseline. CMP with normal potassium. BUN and creatinine on high-she is on dialysis Negative Covid test, CT of the abdomen and pelvis noted for possible cystitis, patient does not void, possible colitis or colon lesion. Negative Covid test, discharged on Augmentin. Follow-up with PCP and GI for possible colonoscopy in 10 days. (KEVIN ZHOU APRN) Dragon Disclaimer: Dragon Disclaimer: This electronic medical record was generated, in whole or in part, using a voice recognition dictation system. (KEVIN ZHOU APRN) Departure Departure Impression: Primary Impression: ESRD (end stage renal disease) Additional Impression: Colitis Disposition: HOME / SELF CARE / HOMELESS Condition: STABLE Referrals: YAMILKA MENDEZ MD (PCP) OHANG CONCEPCION MD follow up in one week Patient Instructions: Colitis Additional Instructions: You were evaluated in the emergency room, your rapid Covid test is negative. Your CT of the abdomen and pelvic was noted for possible colitis. We will put you on antibiotics, ensure you complete them. Please follow-up with your own doctor or the provided neonatal surgeon in the next 7 days. Consider having a colonoscopy done after the treatment for colitis to rule out any other issues in your colon Scripts Metoclopramide Hcl (REGLAN) 10 Mg Tablet 1 TAB PO TID, #30 TAB 0 Refills before food and bedtime Prov: KEVIN ZHOU APRN 05/23/21 Amoxicillin/Potassium Clav (AUGMENTIN 875-125 TABLET) 1 Each Tablet 1 TAB PO BID for 7 Days, #14 TAB 0 Refills Prov: KEVIN ZHOU APRN 05/23/21 Attending Signature Attending Signature I have reviewed the PA/LEGAL PARAPROFESSIONAL's note and plan of care. I was available for consultation as needed during the patient's visit in the emergency department. I agree with the clinical impression, plan, and disposition. (LIZ OCAMPO DO) KEVIN ZHOU APRN May 23, 2021 12:07 LIZ OCAMPO DO May 24, 2021 14:03
[2021-05-23 12:08] LABS: ALBUMIN 3.2 g/dL (3.4-5.0); ALBUMIN/GLOBULIN RATIO 0.8 (1.0-1.7); TOTAL BILIRUBIN 0.2 mg/dL (0.2-1.0); TOTAL PROTEIN 7.1 g/dL (6.4-8.2)
--- NOTE | 2021-05-23 12:19 | RAD ---
INDICATION: Reason: n/v/d LLQ Abd pain / Spl. Instructions: / History: . COMPARISON: July 2019 TECHNIQUE: Axial CT images obtained through the abdomen and pelvis without contrast. One or more of the following individualized dose reduction techniques were utilized for this examinat ion: 1. Automated exposure control; 2. Adjustment of the mA and/or kV according to patient size; 3 . Use of iterative reconstruction technique. FINDINGS: Groundglass opacities at the partially visualized lung bases. Scattered calcific atherosclerosis. Postcholecystectomy changes with prominent size of liver. No peripancreatic fluid collection. Spleen is unremarkable. No hydronephrosis. There is a couple of tiny bilateral nonobstructive renal stones measuring 2 mm or less. Urinary bladder is decompressed with prominence the wall There is some prominence the wall of the distal sigmoid and rectal region. No periappendiceal inflammatory changes. No dilated loops of bowel to suggest obstruction. Degenerative changes the spine with multilevel central canal and neural foraminal stenosis. IMPRESSION: * Wall thickening of the urinary bladder with adjacent edema to the fat. Would correlate with sympto ms given that causes such as cystitis could have this appearance. * There is also some wall thickening of the distal sigmoid and rectal region that was not present on prior. Causes such as distal colitis or a distal colonic lesion are within the differential for this finding. * Mild groundglass opacities at the lung bases. Commonly secondary to hypoventilatory changes and at electasis with small airway inflammation from infectious or inflammatory etiology or mild edema also in differential. Electronically signed by: Gilberto Albright MD (05/23/2021 12:17 PM) [id number]
[2021-05-23] MEDS ORDERED: AMOX1TAB61 PO (13:40)
[2021-05-23] MEDS ORDERED: METO10TA81 PO (13:40)
[2021-05-23] MEDS ORDERED: hydrALAZINE 20 MG/ML VIAL. IVP ONE (14:30)
[2021-05-23 15:22] VITALS: BP 179/84
--- NOTE | 2021-05-24 17:56 | NUR ---
IP: Informed pt of negative covid test. Pt verbalized understanding.
== END 2021-05-23 15:53 | disposition home or self-care (01) ==
LOC: ER 10:29
DX: N18.6 End stage renal disease (principal); K52.9 Noninfective gastroenteritis and colitis, unspecified; J45.909 Unspecified asthma, uncomplicated; I50.9 Heart failure, unspecified; Z20.822 Contact with and (suspected) exposure to COVID-19; Z99.2 Dependence on renal dialysis; Z90.49 Acquired absence of other specified parts of digestive tract; Z90.710 Acquired absence of both cervix and uterus; Z91.018 Allergy to other foods; Z88.5 Allergy status to narcotic agent; Z88.2 Allergy status to sulfonamides; Z88.8 Allergy status to other drugs, medicaments and biological substances
CPT/HCPCS: 36415; 74176; 80053; 85025; 87426; 96374; 99285; J0360; U0003; U0005

== ENCOUNTER → 2021-09-10 | Outpatient (CLI) | payer MEDICARE ==
[~2021-09-10] MED LIST changes: +AMOX1TAB61 PO; +METO10TA81 PO
--- NOTE | 2021-09-10 11:05 | RAD ---
Thyroid ultrasound 09/10/2021 INDICATION: Thyroid nodules COMPARISON STUDY: Direct ultrasound June 20, 2019 Discussion: Ultrasound evaluation of the thyroid gland was performed. Static images are submitted rev iew. FINDINGS: The thyroid isthmus is mildly thickened 7 mm. Multiple bilateral thyroid nodules are presen t. There is a prominently hypoechoic nodule in the left isthmus of the thyroid with a focal area of echo genicity. This measures 0.8 x 0.8 x 0.6 cm. Calcification may be present within this nodule. (Nodule previously measured 0.8 x 0.6 x 0.7) On the left there is a nodule in the superior pole measuring 1.9 x 1.5 x 1.2 cm (previously measuring 1.9 x 1.1 x 1.8 cm). Nonmobile nodule is heterogenous, predominantly hypoechoic, without overt calci fication. Nodule is ovoid. This nodule appears to be the target of prior ultrasound-guided fine-needl e aspiration. In the mid left thyroid there is a 0.8 x 0.8 x 0.8 cm nodule (previously measuring 0.8 x 0.7 x 0.5 cm ). Nodule is hypoechoic, with possible focal calcification centrally. Nodules round. In the inferior pole the left thyroid there is a 1.8 x 1.8 x 1.6 cm nodule (previously measuring 1.6 x 1.2 x 1.1 cm. Nodule is heterogenous, most predominantly hypoechoic. No definitive calcification is seen. Portions of the nodule are poorly visualized. In the superior right thyroid there is a 0.8 x 0.6 x 0.4 cm nodule (previously measuring 0.6 x 0.7 x 0.5 cm) nodule is solid, homogeneous, hypoechoic. In the mid right thigh there is a 1.0 x 1.0 x 0.6 cm nodule (previously measuring 0.8 x 0.9 x 0.6 cm) . nodule is cystic and appearance. In the inferior right thyroid there is a 1.0 x 0.8 x 0.6 cm nodule (previously measuring 0.8 x 0.9 x 0.5 cm. Nodule solid, heterogenous, and predominantly hypoechoic. IMPRESSION: 1. Slight increase in size in the nodule within the inferior left thyroid gland measuring up to 1.8 c m. Fine-needle aspiration recommended 2. Grossly similar 1.9 nodule in the superior left thyroid gland which was previously biopsied. Corre late with pathologic findings. 3. Grossly similar appearance of right-sided thyroid nodules. Allowing for differences in measurement technique, no definitive significant growth is identified. 4. Subcentimeter thyroid nodule in the mid right thyroid, mid left thyroid, left thyroid isthmus appe ar grossly stable. 4.Recommend ultrasound surveillance in one year. Electronically signed by: Edy Dennis MD (09/10/2021 11:03 AM) [id number]
--- NOTE | 2021-09-10 17:58 | CARD ---
MR#: [id number] Date of Study: 09/10/2021 Ordering Physician: REGGIE AGUILERA, Referring Physician: REGGIE AGUILERA, Tech: Angelia Proctor [facility] APPROVED REPORT EXAM: Two-dimensional and M-mode echocardiogram with Doppler and color Doppler. Other Information Quality : Technically LimitedHR: 75bpm Rhythm : NSR INDICATION Cardiac Disease: CAD RISK FACTORS Hypertension Obesity Hyperlipidemia Diabetes 2D DIMENSIONS RVDd3.0 (2.9-3.5cm)Left Atrium(2D)3.3 (1.6-4.0cm) IVSd1.1 (0.7-1.1cm)Aortic Root(2D)2.9 (2.0-3.7cm) LVDd4.9 (3.9-5.9cm)LVOT Diameter2.2 (1.8-2.4cm) PWd1.1 (0.7-1.1cm)LVDs2.9 (2.5-4.0cm) FS (%) 41.7 %SV81.4 ml Aortic Valve AoV Peak Cezar.157.3cm/sAoV VTI29.9cm AO Peak GR.9.9mmHgLVOT Peak [place].82.2cm/s AO Mean GR.5mmHgAVA (VMAX)2.03cm2 Mitral Valve MV E Zddieyjm88.9cm/sMV DECEL DQKY878om MV A Erxnynqk46.7cm/sE/A Ratio0.9 Pulmonary Valve PV Peak Xhlwofjm790.7cm/s LEFT VENTRICLE The left ventricle is normal size. There is borderline to mild concentric left ventricular hypertroph y. The left ventricular systolic function is normal and the ejection fraction is within normal range. LV ejection fraction of 50-55%. There is normal LV segmental wall motion. Transmitral Doppler flow pattern is Grade I-abnormal relaxation pattern. RIGHT VENTRICLE The right ventricle is normal size. There is normal right ventricular wall thickness. The right ventr icular systolic function is normal. ATRIA The left atrium size is normal. The right atrium size is normal. The interatrial septum is intact wit h no evidence for an atrial septal defect or patent foramen ovale as noted on 2-D or Doppler imaging. AORTIC VALVE The aortic valve is normal in structure and function. Doppler and Color Flow revealed no significant aortic regurgitation. There is no significant aortic valvular stenosis. MITRAL VALVE The mitral valve is normal in structure and function. There is no evidence of mitral valve prolapse. There is no mitral valve stenosis. Doppler and Color Flow revealed no mitral valve regurgitation note d. TRICUSPID VALVE The tricuspid valve is normal in structure and function. Doppler and Color Flow revealed no tricuspid valve regurgitation noted. There is no tricuspid valve stenosis. PULMONIC VALVE The pulmonary valve is normal in structure and function. Doppler and Color Flow revealed no pulmonic valvular regurgitation. GREAT VESSELS The aortic root is normal in size. The ascending aorta is normal in size. The IVC is normal in size a nd collapses >50% with inspiration. PERICARDIAL EFFUSION There is no evidence of significant pericardial effusion. Critical Notification Critical Value: No <Conclusion> The left ventricle is normal size. The left ventricular systolic function is normal and the ejection fraction is within normal range. LV ejection fraction of 50-55%. There is borderline to mild concentric left ventricular hypertrophy. Doppler and Color Flow revealed no significant aortic regurgitation. There is no significant aortic valvular stenosis. Doppler and Color Flow revealed no mitral valve regurgitation noted. Doppler and Color Flow revealed no tricuspid valve regurgitation noted. Signed by : Eduardo Altamirano MD Electronically Approved : 09/10/2021 17:57:59
== END ==
LOC: US 12:06
PROVIDERS: ATTEND Internal Medicine Cardiovascular Disease
DX: E04.2 Nontoxic multinodular goiter (principal); E07.89 Other specified disorders of thyroid; I42.9 Cardiomyopathy, unspecified; I25.10 Atherosclerotic heart disease of native coronary artery without angina pectoris
CPT/HCPCS: 76536; 93306

== ENCOUNTER → 2021-10-15 | Outpatient (CLI) | payer MEDICARE ==
[~2021-10-15] MED LIST changes: +LIDOCAINE 1% Multi-Dose 20 ML VIAL. INJ ONE
--- NOTE | 2021-10-15 14:15 | RAD ---
Ultrasound-guided fine-needle aspiration of the thyroid gland History: Enlarging left inferior thyroid nodule Procedure: The patient provided both verbal and written consent after the procedure and possible comp lications including bleeding and infection were explained. A timeout was performed which confirmed th e name of the patient and the date of and the type of procedure and the side of the procedure. Allergies to medications were reviewed. Sonography of the thyroid gland was performed and an appropri ate skin melissa was made. The anterior aspect of the left side of the neck was prepped and draped in th e usual sterile fashion with ChloraPrep. A total of [6] cc of 1% lidocaine was utilized for local ane sthesia. Using sterile technique and ultrasound guidance, [4] separate 25-gauge fine-needle aspiratio ns of the solid nodule of the [left inferior thyroid] lobe of the thyroid gland were performed. Sonog raphic spot images were performed. These aspirations were processed on slides and placed into CytoLyt e. The specimens were sent to laboratory for further processing and evaluation. Hemostasis was deemed adequate after 3 minutes of manual pressure. Post procedure sonography demonstrated no significant h ematoma. The patient tolerated the procedure well without immediate complication. Impression: Ultrasound-guided fine-needle aspiration biopsy of the solid nodule of the [left inferior ] lobe of the thyroid gland was performed without complication. Follow-up will be with the patient's physician. Electronically signed by: Scooter Carreno DO (10/15/2021 2:12 PM) [id number]
--- NOTE | 2021-10-16 18:07 | PATHOLOGY ---
Note [facility] Accession Number: [id number] TESTS RESULT FLAG UNITS REF RANGE LAB Clinician Provided Cytology Information No. of containers..01 Other (Miscellaneous) Source: LEFT THYROID DIAGNOSIS: LEFT THYROID NEGATIVE FOR MALIGNANT CELLS. BETHESDA CATEGORY II. SPECIMEN CONSISTS OF BENIGN FOLLICULAR CELLS, HEMOSIDERIN-LADEN MACROPHAGES, COLLOID, AND BLOOD. 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 THIS EVALUATION INCLUDES EXAMINATION OF A CELL BLOCK. Pathologist ICD10: 02 E04.1 Signed out by: 02 Mo Dominguez MD, Pathologist NPI- [id number] Performed by: 01 Patricia Bishop, [employer] ([facility]) Gross description: 01 30ML, PALE RED, HAZY /LCS 10/16/2021 0526 Local FLAG LEGEND: L-Low Normal,H-High Normal,LL-Alert Low,HH-Alert High <-Panic Low,>-Panic High,A-Abnormal,AA-Critical Abnormal Performed at: [facility] [address] [place] [address] Luciano Briones MD, 02 [facility] [address] [place] [address] Mo Dominguez MD, Specimen Comment: A courtesy copy of this report has been sent to [phone] Specimen Comment: Report sent to DR. MENDEZ Specimen Comment: A duplicate report has been generated due to demographic updates. Performed at: 01 [facility] [address], [place], [place] [id number] MD Luciano Briones MD Phone: [phone]
== END | disposition home or self-care (01) ==
LOC: US 12:31
PROVIDERS: ATTEND Family Medicine
DX: E04.1 Nontoxic single thyroid nodule (principal); I11.0 Hypertensive heart disease with heart failure; I50.9 Heart failure, unspecified; E78.00 Pure hypercholesterolemia, unspecified; E11.9 Type 2 diabetes mellitus without complications; E66.9 Obesity, unspecified; G47.30 Sleep apnea, unspecified; J45.909 Unspecified asthma, uncomplicated; Z87.440 Personal history of urinary (tract) infections; Z79.4 Long term (current) use of insulin; Z79.82 Long term (current) use of aspirin; Z79.899 Other long term (current) drug therapy; Z90.710 Acquired absence of both cervix and uterus; Z98.890 Other specified postprocedural states; Z88.2 Allergy status to sulfonamides; Z88.6 Allergy status to analgesic agent; Z88.8 Allergy status to other drugs, medicaments and biological substances; Z82.49 Family history of ischemic heart disease and other diseases of the circulatory system
CPT/HCPCS: 10005; C1819